=== PATIENT | male | born 1955 | race Caucasian/White ===

== ENCOUNTER 2017-12-26 12:43 | Observation (INO) | payer OTHER, SELFPAY ==
[2017-12-26] VITALS (12 sets, daily range): BP systolic 130–184; BP diastolic 71–108; PULSE 39–89; RESP 14–20; TEMP 36.7–36.9; O2SAT 94–97; BMI 23.0; BMI 22.1
--- NOTE | 2017-12-26 12:47 | EKG12_ITS ---
Test Reason : CP Blood Pressure : / mmHG Vent. Rate : 080 BPM Atrial Rate : 080 BPM P-R Int : 156 ms QRS Dur : 090 ms QT Int : 358 ms P-R-T Axes : 082 071 062 degrees QTc Int : 412 ms Normal sinus rhythm Normal ECG Confirmed by ANA MARISCAL, CHARLEY ([id number]), science editor RANDALL SALTER ([id number]) on 12/31/2017 2:22:05 PM Referred By: ADRIANA Confirmed By:CHARLEY PEREZ MD
--- NOTE | 2017-12-26 12:47 | RAD_ITS ---
STUDY: X-RAY CHEST REASON FOR EXAM: Male, 62 years old. New onset of chest pressure. TECHNIQUE: Single AP portable view of the chest. COMPARISON: None. FINDINGS: Hyperinflation. Decreased bronchovascular markings in both lungs suggestive of emphysematous changes. Scattered calcified granulomas. Findings suggestive of scarring at the right lung apex. There is no demonstrated pleural abnormality. Normal size heart. Normal mediastinum and leodan. There is prominence of the pulmonary hilar arteries without peripheral pulmonary vascular congestion, suggesting pulmonary hypertension. Normal visualized aortic arch and descending thoracic aorta. Normal visualized thoracic spine. Normal visualized ribs, clavicles, and shoulders. There is no demonstrated abnormality of the visualized soft tissue structures of the upper abdomen. RAD/Chest 1 View (Portable) IMPRESSION: Hyperinflation. No acute abnormality is seen. Electronically Signed: Charles Conte MD at 13:16 EDT Tel [phone], Service support ,
[2017-12-26 12:55] LABS: Absolute Lymphocyte Count 1.47 X10^3/ul (0.83-4.51); Absolute Neutrophil Count 3.1 X10^3/uL (2.0-7.7); Basophil# 0.08 X10^3/uL; Basophil% 1.5 % (0-1); Eosinophil# 0.13 X10^3/uL; Eosinophils% 2.5 % (0-5); Hematocrit 45.8 % (40-54); Hemoglobin 15.7 g/dl (13.0-16.5); Lymphocyte # 1.47 X10^3/ul (4.0); Lymphocyte % 27.7 % (19-41); Mean Corp Hgb Conc 34.3 g/gl (32-36); Mean Corpuscular Hgb 32.6 pg (27.0-32.0); Mean Platelet Vol. 9.4 fl (6.2-12.0); Monocyte# 0.51 X10^3/uL; Monocyte% 9.6 % (0-10); Neutrophil % 58.5 % (47-70); POSITIVE COUNT NO; POSITIVE DIFFERENTIAL NO; POSITIVE MORPHOLOGY NO; Platelet Count 201 K/mm3 (150-450); RBC Distribution Width CV 12.4 % (11.6-14.6); RBC Distribution Width SD 43.4 fl (35.1-43.9); Red Blood Count 4.82 M/mm3 (4.6-6.2); White Blood Count 5.3 K/mm3 (4.4-11.0)
[2017-12-26 13:10] LABS: Anion Gap 6 (5-15); BUN 12 mg/dL (7-18); Calcium,Total 8.9 mg/dL (8.5-10.1); Chloride 101 mmol/L (98-107); Creatinine, Serum 0.86 mg/dL (0.70-1.30); EST Glomerular Filtration Rate 96 mL/min (>60); Est Glom Filt Rate - Afr Amer 116 mL/min (>60); Estimated Creatinine Clearance 86.16 ml/min; Glucose 141 mg/dL (74-106); Potassium 4.1 mmol/L (3.5-5.1); Sodium Level 139 mmol/L (136-145)
--- NOTE | 2017-12-26 13:27 | ED.VISSUMM ---
- ER Visit Summary Date of Service: 12/26/17 Chief Complaint: Chest pain History of Present Illness: The patient is a 62 M presents with 2 hours of chest tightness that he had 13 years ago when he had a stent. He has a history of diabetes, hypercholesterolemia, hypertension and is a smoker. He is currently chest pain-free. No PE risk factors. Physical Examination: Not appear in acute distress. Moist mucous membranes, no obvious facial deformity No C-spine tenderness supple neck. Regular rate and rhythm without any obvious murmurs Clear lungs bilaterally speaking in full sentences without any obvious respiratory distress Abdomen soft and nontender no guarding or rebound Moves all extremities without any difficulty or pain. Skin does not show any obvious rashes or lesions, no trauma. Alert oriented ?3 with no gross focal deficit Emergency Department Course and Treatment: Patient has an unremarkable EKG and a normal first troponin. Due to his risk factors he will need admission. His heart score is a 4, his JOYA is a 4. I will call the hospitalist for admission. Disposition: Admit stable condition Impression: Chest pain This note was generated with [employer] dictation software. It may contain incorrect words, spelling, and punctuation that were not noted in review of the chart prior to signing ED Disposition - Plan for ED Patient: Chief Complaint: Chest Pain Referrals: Chano Pineda Chi, MD [Primary Care Provider] -
--- NOTE | 2017-12-26 14:07 | HP.PCM_ITS ---
Problem List (1) Chest pain Status: Acute Qualifiers: Chest pain type: unspecified Qualified Code(s): R07.9 - Chest pain, unspecified (2) CAD (coronary artery disease) Status: Chronic Qualifiers: Coronary Disease-Associated Artery/Lesion type: unspecified vessel or lesion type (3) Hypertension Status: Chronic Qualifiers: Hypertension type: essential hypertension Qualified Code(s): I10 - Essential (primary) hypertension (4) Hyperlipidemia Status: Chronic Qualifiers: Hyperlipidemia type: unspecified Qualified Code(s): E78.5 - Hyperlipidemia , unspecified (5) Nicotine dependence Status: Chronic Qualifiers: Nicotine product type: cigarettes History of Present Illness Date of Admission: 12/26/17 Chief Complaint: Chest pain- 1 day The patient is a 62 year old M with past medical history of CAD status post stent 13 years ago, hypertension, hyperlipidemia who comes in with chest pain that happened virtually at rest at work. Patient does not follow up with cardiology. Last saw his primary care doctor in June 2014. He was at work and was not doing any heavy work. He however had stress at work and was trying to figure out how to complete his day's job when he suddenly had substernal pressure-like chest discomfort, described as 2 out of 10 on the pain scale. He did not have any associated diaphoresis or nausea or vomiting or dizziness or palpitations. This chest discomfort did not travel to his neck or upper extremity. His vitals in the ED showed temperature of 9 8.5F, heart rate was 89, blood pressure was elevated at 176/71, respiratory rate was 60 he was saturating at 96 % on room air. EKG shows normal sinus rhythm, heart rate of 80, no acute ST-T changes, old Q waves noted in previous EKG. Admitting chest x-ray showed hyperinflation but no acute abnormality Past Medical History Past Medical History (Chronic Problems): Chronic Problems CAD (coronary artery disease) (Chronic) Hypertension (Chronic) Hyperlipidemia (Chronic) Nicotine dependence (Chronic) Allergies No Known Allergies Allergy (Verified 12/26/17 12:44) Home Medications: Ambulatory Orders Medication Instructions Recorded Aspirin [Aspirin, Baby] 81 mg PO DAILY@0800 12/26/17 Atorvastatin Calcium [Atorvastatin 80 mg PO DAILY 12/26/17 Calcium] Clopidogrel Bisulfate [Plavix] 75 mg PO DAILY 12/26/17 Lisinopril [Lisinopril] 20 mg PO DAILY 12/26/17 Metoprolol Tartrate [Lopressor 25 mg PO DAILY 12/26/17 (beta harpreet)] Surgical History: no surgical history Psychiatric History: No pertinent psych hx Lives: Alone Smoking Status: Current every day smoker Tobacco Use: Cigarettes Alcohol: Heavy Drugs: None - *Family History Paternal History Items: Heart Disease - [place] at 62 years Maternal History Items: Diabetes Review of Systems Constitutional: Denies: Anorexia, Chills, Fever, Malaise, Weakness, Weight Change Eyes: Denies: Blurred vision, Cataracts, Conjunctivae Inflammation, Pain, Redness, Vision Change HEENT: Denies: Difficulty Hearing, Difficulty Swallowing, Head Aches, Hearing Changes, Nasal bleeding, Nasal Congestion, Sinus Congestion, Sinus Drainage Cardiovascular: Reports: Chest Pain, Chest Pressure, Chest Tightness. Denies: Claudication, Light Headedness, Orthopnea, Palpitations, Paroxysmal Noc. Dyspnea , Syncope Respiratory: Denies: Cough, Hemoptysis, Shortness of Breath, Shortness of breath at rest, Shortness of breath upon exertion, Sputum production Gastrointestinal: Denies: Abdominal Pain, Hematemesis, Hematochezia, Nausea, Vomiting Genitourinary: Denies: Dysuria, Frequency, Incontinence Musculoskeletal: Denies: Joint Pain, Joint Tenderness Skin: Denies: Dryness, Jaundice, Rash, Skin Changes, Wounds Neurological: Denies: Difficulty swallowing, Focal weakness, Numbness, Tingling Psychiatric: Denies: Anxiety, Depression, Homicidal Ideations, Suicidal Ideations Hematologic/ Lymphatic: Denies: Easy Bruising, Easy Bleeding VTE Information - Inpt Only VTE Present on Admission: No VTE Pharm Prophylaxis ordered?: Yes Patient Problems: Active and Suspected Problems Chest pain (Acute) - Physical Exam General: Alert, Oriented x3, Cooperative, No apparent distress HEENT: Atraumatic, PERRLA, EOMI, Normocephalic Oral: Moist Mucosa Neck: Supple, No JVD, Negative Carotid Bruits Lungs: Clear to auscultation, Normal air movement Cardiovascular: Regular rate, Regular Rhythm, Normal S1, Normal S2, No murmurs Abdomen: Bowel Sounds Present, Soft, Non Tender, Non-Distended, No Hepato- splenomegaly Extremities: No edema Skin: No rashes, No breakdown Musculoskeletal: No Tenderness to Palpation of Joints or Extremities Lymphatic: No Cervical, Supraclavicular, or Inguinal Adenopathy Neurological: Cranial nerves II-XII grossly intact, Neuro grossly intact Psych/Mental Status: Normal Affect, Appropriate Vital Signs Temp Pulse Resp BP Pulse Ox 98.5 F 81 18 174/102 H 97 12/26/17 12:44 12/26/17 13:11 12/26/17 13:11 12/26/17 13:11 12/26/17 13:11 Oxygen Flow Rate (L/min) 2 Oxygen Delivery Method Nasal Cannula Weight: 68.7 kg Body Mass Index (BMI) 23.0 Laboratory Tests Past 24 Hrs 12/26/17 12/26/17 12:30 12:30 WBC 5.3 RBC 4.82 Hgb 15.7 Hct 45.8 MCV 95.0 H MCH 32.6 H MCHC 34.3 RDW 12.4 RDW Differential 43.4 Plt Count 201 MPV 9.4 Immature Gran % (Auto) 0.200 Neut % (Auto) 58.5 Lymph % (Auto) 27.7 [place] % (Auto) 9.6 Eos % (Auto) 2.5 Baso % (Auto) 1.5 H Absolute Neuts (auto) 3.1 Absolute Lymphs (auto) 1.47 Total Counted Not Reportable Sodium 139 Potassium 4.1 Chloride 101 Carbon Dioxide 32.0 Anion Gap 6 BUN 12 Creatinine 0.86 Estim Creat Clear Calc 86.16 Est GFR (MDRD) Af Amer 116 Est GFR (MDRD) Non-Af 96 BUN/Creatinine Ratio 14.0 Glucose 141 H Calcium 8.9 Troponin I < 0.015 Assessment/Plan All Active Problems Chest pain (Acute) 62 year old M with past medical history of CAD status post stent 13 years ago, hypertension, hyperlipidemia, who does not follow-up with cardiology, comes in with chest pain that happened at work whilst at rest. 1. Chest pain, atypical, history of CAD status post stent, initial troponin is negative, EKG shows no acute ST-T changes, Plan: Admit to PCU, continue to monitor on telemetry, trend troponins, stress test in a.m., 2D echo, continue on on aspirin, Plavix, statins, beta-harpreet, CHRISTA inhibitor. Check lipid profile in am, HgbA1c. 2. Hypertension, uncontrolled, on lisinopril and metoprolol, patient states he has taken his medications this morning. He states his blood pressure gets better by the afternoon. It was normal yesterday. We will continue to monitor BP, continue home blood pressure regimen and add hydralazine as needed 3. Hyperlipidemia, on statin, will continue home statins, check lipid profile in am 4. Nicotine dependence, advised to quit, will start on nicotine patch and gum. 5. DVT PPx Code Visit OBSV E&M: 41429 Initial observation care L3
--- NOTE | 2017-12-26 15:21 | EKG12_ITS ---
Test Reason : ABNORMAL RHYTHM Blood Pressure : / mmHG Vent. Rate : 054 BPM Atrial Rate : 054 BPM P-R Int : 168 ms QRS Dur : 092 ms QT Int : 438 ms P-R-T Axes : 069 057 052 degrees QTc Int : 415 ms Sinus bradycardia Otherwise normal ECG When compared with ECG of 26-DEC-2017 16:00, MANUAL COMPARISON REQUIRED, DATA IS UNCONFIRMED Confirmed by ANA MARISCAL, CHARLEY ([id number]), editor publications RANDALL SALTER ([id number]) on 12/31/2017 3:07:22 PM Referred By: JAC Confirmed By:CHARLEY PEREZ MD
--- NOTE | 2017-12-26 15:21 | ECHOD_ITS ---
Version 2 Reason For Study: Chest Pain Procedure This was a 2D Doppler, Color Flow transthoracic echocardiogram. Exam performed in department. Left Ventricle Normal LV size. The estimated ejection fraction is 60 %. Mild segmental systolic dysfunction (see wall motion). Mid-Inferior: Hypokinetic. Infero-Basal: Hypokinetic. The rest of the wall segments are normal. Right Ventricle Normal RV size. Normal systolic function. Atria Normal left atrium. Normal right atrium. Mitral Valve Bileaflet diffuse mitral valve thickening. Tricuspid Valve Normal tricuspid valve. Mild (1+) tricuspid valve insufficiency. Aortic Valve Normal aortic valve. Trisinus/trileaflet aortic valve. Pulmonic Valve Normal pulmonic valve. Great Vessels Normal aortic root. The pulmonary artery is normal size. Normal inferior vena cava. Pericardium/Pleural No pericardial effusion. MMode/2D Measurements & Calculations LVIDd: 4.5 cm IVSd: 0.83 cm Ao root diam: 3.9 cm LVIDs: 2.7 cm LVPWd: 1.1 cm LA dimension: 3.0 cm RVDd: 3.9 cm FS: 39.5 % LAV(MOD-bp): 41.0 ml LA A4 area: 15.2 cm2 RA A4 area: 12.7 cm2 LAV(MOD-bp) Indexed: 23.0 ml/m2 LAV(MOD-sp2): 48.2 ml LAV(MOD-sp4): 34.2 ml Time Measurements MV dec time: 0.29 sec Doppler Measurements & Calculations MV E max rian: 88.2 cm/sec Lat Peak E' Rian: 12.0 cm/sec Med Peak E' Rian: 9.3 cm/sec MV A max rian: 78.2 cm/sec E/E' lat: 7.3 E/E' med: 9.5 MV E/A: 1.1 MV V2 max: 108.3 cm/sec MV P1/2t max rian: 108.8 cm/sec Ao V2 max: 97.4 cm/sec MV max P.7 mmHg MV P1/2t: 95.7 msec Ao max P.8 mmHg MV V2 mean: 62.5 cm/sec MV dec slope: 333.0 cm/sec2 Ao V2 mean: 65.0 cm/sec MV mean P.8 mmHg MVA(P1/2t): 2.3 cm2 Ao mean P.9 mmHg MV V2 VTI: 32.3 cm Ao V2 VTI: 19.0 cm LV V1 max: 77.8 cm/sec PA V2 max: 88.8 cm/sec LV V1 max P.4 mmHg LV V1 mean P.1 mmHg LV V1 mean: 46.0 cm/sec LV V1 VTI: 15.8 cm Interpretation Summary Normal LV size. The estimated ejection fraction is 60 %. Mild segmental systolic dysfunction (see wall motion). The rest of the wall segments are normal. Infero-Basal: Hypokinetic Mid-Inferior: Hypokinetic Ordering Physician: Katlin Green Referring Physician: Chano Pineda Chi Performed By: Francisco Brewer RCS
--- NOTE | 2017-12-26 15:52 | EKG12_ITS ---
Test Reason : Blood Pressure : / mmHG Vent. Rate : 068 BPM Atrial Rate : 068 BPM P-R Int : 154 ms QRS Dur : 092 ms QT Int : 406 ms P-R-T Axes : 077 052 043 degrees QTc Int : 431 ms Normal sinus rhythm Normal ECG When compared with ECG of 26-DEC-2017 15:36, MANUAL COMPARISON REQUIRED, DATA IS UNCONFIRMED Confirmed by ANA MARISCAL, CHARLEY ([id number]), order editor RANDALL SALTER ([id number]) on 12/31/2017 3:07:44 PM Referred By: JAC Confirmed By:CHARLEY PEREZ MD
[2017-12-26 16:33] LABS: Hemoglobin A1c 6.1 % (4.2-6.3)
[2017-12-26] MEDS: Metoprolol Tartrate 25 MG Tablet PO ×2 (18:07→21:08)
[2017-12-26] MEDS: Thiamine Hydrochloride 100 MG Tablet PO (18:14)
[2017-12-26] MEDS: Atorvastatin Calcium 80 MG Tablet PO (21:08)
[2017-12-26] MEDS: Clopidogrel Bisulfate 75 MG Tablet PO (21:10)
[2017-12-26] MEDS: Lisinopril 20 MG Tablet PO (21:11)
--- NOTE | 2017-12-26 23:00 | EKG12_ITS ---
Test Reason : Blood Pressure : / mmHG Vent. Rate : 069 BPM Atrial Rate : 069 BPM P-R Int : 154 ms QRS Dur : 100 ms QT Int : 398 ms P-R-T Axes : 080 063 049 degrees QTc Int : 426 ms Normal sinus rhythm Normal ECG When compared with ECG of 27-FEB-2005 13:05, Nonspecific T wave abnormality no longer evident in Lateral leads Confirmed by ANA MARISCAL, CHARLEY ([id number]), fashion editor RANDALL SALTER ([id number]) on 12/31/2017 3:07:53 PM Referred By: JAC Confirmed By:CHARLEY PEREZ MD
[2017-12-27] VITALS (7 sets, daily range): BP systolic 118–144; BP diastolic 72–97; PULSE 53–65; RESP 14–18; TEMP 36.6–36.9; O2SAT 94–98
--- NOTE | 2017-12-27 05:00 | EKG12_ITS ---
Test Reason : AM EKG Blood Pressure : / mmHG Vent. Rate : 053 BPM Atrial Rate : 053 BPM P-R Int : 154 ms QRS Dur : 090 ms QT Int : 484 ms P-R-T Axes : 070 059 055 degrees QTc Int : 454 ms Sinus bradycardia Anterior injury pattern - cannot exclude early NV Abnormal ECG When compared with ECG of 26-DEC-2017 22:38, MANUAL COMPARISON REQUIRED, DATA IS UNCONFIRMED Confirmed by ANA MARISCAL, CHARLEY ([id number]), material expeditor RANDALL SALTER ([id number]) on 12/31/2017 3:06:45 PM Referred By: JAC Confirmed By:CHARLEY PEREZ MD
[2017-12-27 05:55] LABS: Anion Gap 5 (5-15); BUN 11 mg/dL (7-18); BUN/Creat Ratio 16.3 RATIO (10-20); Calcium,Total 8.4 mg/dL (8.5-10.1); Chloride 103 mmol/L (98-107); Cholesterol 114 mg/dL (200); Creatinine, Serum 0.68 mg/dL (0.70-1.30); EST Glomerular Filtration Rate 126 mL/min (>60); Est Glom Filt Rate - Afr Amer 153 mL/min (>60); Estimated Creatinine Clearance 105.15 ml/min; Glucose 95 mg/dL (74-106); High Density Lipoprotein 72 mg/dL; Potassium 5.1 mmol/L (3.5-5.1); Sodium Level 140 mmol/L (136-145); Triglycerides 50 mg/dL; Very Low Density Lipoprotein 10 mg/dL (5-40)
[2017-12-27 06:00] LABS: Hematocrit 45.2 % (40-54); Hemoglobin 15.5 g/dl (13.0-16.5); Mean Corp Hgb Conc 34.3 g/gl (32-36); Mean Corpuscular Hgb 32.6 pg (27.0-32.0); Mean Platelet Vol. 9.7 fl (6.2-12.0); Platelet Count 201 K/mm3 (150-450); RBC Distribution Width CV 12.3 % (11.6-14.6); RBC Distribution Width SD 42.3 fl (35.1-43.9); Red Blood Count 4.76 M/mm3 (4.6-6.2); White Blood Count 4.7 K/mm3 (4.4-11.0)
[2017-12-27 06:02] LABS: Prothrombin Time (Protime)PT. 13.6 SECONDS (11.7-14.9)
[2017-12-27 06:03] LABS: Partial Thromboplast Time 29.6 Seconds (24.1-36.2)
[2017-12-27 06:12] LABS: Scan Indicated on CBC? Y/N NO
[2017-12-27] MEDS: Aspirin 81 MG TAB.CHEW PO (06:21)
[2017-12-27] MEDS: Clopidogrel Bisulfate 75 MG Tablet PO (06:21)
[2017-12-27] MEDS: Lisinopril 20 MG Tablet PO (06:21)
--- NOTE | 2017-12-27 08:58 | STRESSREP_ITS ---
Stress Test Report Exercise myocardial perfusion stress test. 62-year-old man with a history of coronary artery disease. Stress protocol: Resting EKG demonstrates sinus bradycardia with a rate of 54 bpm normal intervals and noted. Resting blood pressure is 114/78 mmHg. The patient exercised according to the regular Frank protocol for a total duration of 9 minutes and 15 seconds the maximum heart rate attained was 134 bpm which was 84 % of maximum predicted heart rate the patient completed 15 seconds to stage IV of the Frank protocol. The maximum heart rate attained was 134 bpm the maximum workload was 10.5 metabolic equivalents. The resting blood pressure is 114/78 with a peak blood pressure 164/88. At rest there were no ST or T-wave changes noted suggest ischemia peak exercise upsloping ST changes only were noted with no meet the criteria for ischemia. Occasional premature ventricular complex was noted no clinical angina was noted the test was terminated due to shortness of breath. Myocardial perfusion protocol. 11.4 mCi of technetium 99m sestamibi was injected at rest. The patient exercised according to regular Frank protocol for 9 minutes and 15 seconds attaining 10 metabolic equivalents at peak exercise 32.7 mCi of technetium 99m sestamibi was injected stress images were obtained stress and rest images were reconstructed and compared in the short axis vertical long and horizontal long axis. Gated images were also obtained pre- Perfusion SPECT analysis revealed. Review of the stress images demonstrate normal cardiac silhouette size with normal uptake of tracer noted in the septum anterior wall and lateral wall. The basal to mid inferior wall on the stress images but has a medium-sized perfusion defect. The resting images demonstrate minimal improvement but there is significant GI attenuation artifact and it is not clear whether this is secondary to ischemia of bowel motion artifact. The previous infarct, however cannot be completely excluded. Gated SPECT analysis: The gated ejection fraction is noted to be 61%. 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 Cannot completely exclude gisela-infarct ischemia. Preserved ejection fraction. Low risk stress test.
[2017-12-27] MEDS: Thiamine Hydrochloride 100 MG Tablet PO (09:10)
[2017-12-27] MEDS: Folic Acid 1 MG Tablet PO (09:10)
[2017-12-27] MEDS: Multivitamins,Ther W-Minerals Tablet 1 TABLET PO (09:10)
[2017-12-27] MEDS: Metoprolol Tartrate 50 MG Tablet PO (09:10)
--- NOTE | 2017-12-27 10:44 | PCM.DC.SUM ---
Discharge Date and Diagnosis Date of Admission: 12/26/17 Date of Discharge: 12/27/17 - Primary Discharge Diagnosis Active and Suspected Problems Chest pain (Acute) - Secondary Discharge Diagnosis Chronic Problems CAD (coronary artery disease) (Chronic) Hypertension (Chronic) Hyperlipidemia (Chronic) Nicotine dependence (Chronic) Hospital Course and Treatment Imaging Results: Diagnostic Data Chest X-Ray 12/26/17 12:47 IMPRESSION: Hyperinflation. No acute abnormality is seen. Electronically Signed: Charles Conte MD at 13:16 EDT Tel [phone], Service support , Laboratory Tests 12/26/17 12/26/17 12/26/17 12:30 12:30 15:57 WBC 5.3 RBC 4.82 Hgb 15.7 Hct 45.8 MCV 95.0 H MCH 32.6 H MCHC 34.3 RDW 12.4 RDW Differential 43.4 Plt Count 201 MPV 9.4 Immature Gran % (Auto) 0.200 Neut % (Auto) 58.5 Lymph % (Auto) 27.7 [place] % (Auto) 9.6 Eos % (Auto) 2.5 Baso % (Auto) 1.5 H Absolute Neuts (auto) 3.1 Absolute Lymphs (auto) 1.47 Total Counted Not Reportable PT INR APTT Sodium 139 Potassium 4.1 Chloride 101 Carbon Dioxide 32.0 Anion Gap 6 BUN 12 Creatinine 0.86 Estim Creat Clear Calc 86.16 Est GFR (MDRD) Af Amer 116 Est GFR (MDRD) Non-Af 96 BUN/Creatinine Ratio 14.0 Glucose 141 H Hemoglobin A1c 6.1 Calcium 8.9 Troponin I < 0.015 Triglycerides Cholesterol LDL Cholesterol VLDL Cholesterol HDL Cholesterol 12/26/17 12/26/17 12/27/17 15:57 18:35 05:00 WBC 4.7 RBC 4.76 Hgb 15.5 Hct 45.2 MCV 95.0 H MCH 32.6 H MCHC 34.3 RDW 12.3 RDW Differential 42.3 Plt Count 201 MPV 9.7 Immature Gran % (Auto) Neut % (Auto) Lymph % (Auto) [place] % (Auto) Eos % (Auto) Baso % (Auto) Absolute Neuts (auto) Absolute Lymphs (auto) Total Counted PT INR APTT Sodium Potassium Chloride Carbon Dioxide Anion Gap BUN Creatinine Estim Creat Clear Calc Est GFR (MDRD) Af Amer Est GFR (MDRD) Non-Af BUN/Creatinine Ratio Glucose Hemoglobin A1c Calcium Troponin I < 0.015 < 0.015 Triglycerides Cholesterol LDL Cholesterol VLDL Cholesterol HDL Cholesterol 12/27/17 12/27/17 05:00 05:00 WBC RBC Hgb Hct MCV MCH MCHC RDW RDW Differential Plt Count MPV Immature Gran % (Auto) Neut % (Auto) Lymph % (Auto) [place] % (Auto) Eos % (Auto) Baso % (Auto) Absolute Neuts (auto) Absolute Lymphs (auto) Total Counted PT 13.6 INR 1.0 APTT 29.6 Sodium 140 Potassium 5.1 Chloride 103 Carbon Dioxide 32.0 Anion Gap 5 BUN 11 Creatinine 0.68 L Estim Creat Clear Calc 105.15 Est GFR (MDRD) Af Amer 153 Est GFR (MDRD) Non-Af 126 BUN/Creatinine Ratio 16.3 Glucose 95 Hemoglobin A1c Calcium 8.4 L Troponin I Triglycerides 50 Cholesterol 114 LDL Cholesterol 32 VLDL Cholesterol 10 HDL Cholesterol 72 none Operations: None Procedures: Stress test Summary of Care Provided: The patient is a 62 year old M with a past medical history of CAD status post stents 13 years ago after an [place], hypertension and hyperlipidemia. He was admitted on 12/26/2017 with a complaint of chest pain while she was at work. 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 He denied any diaphoresis or nausea vomiting, dizziness or palpitation. Pain did not radiate to his left arm. Review of systems also otherwise negative. Vitals in the ED also significant for blood pressure of 1 7671. EKG showed normal sinus rhythm with heart rate of [address] changes and only old EKGs noted in previous EKGs. Chest x-ray showed hyperinflation but no acute pathology. Troponins ?3 were negative he was admitted and managed for chest pain to rule out ACS. Exercise myocardial perfussion Stress test done on 12/27/2017 was negative, and only showed probable previous inferior basal infarct, cannot completely exclude gisela-infarct ischemia, Preserved EF, low risk stress test. Patient seen and examined prior to discharge. He had no complaints since her chest pain had resolved. He denied any fever or chills, cough or chest pain, any palpitations, any abdominal pain, any diarrhea vomiting. Review of systems otherwise negative. Vitals reviewed and was stable. Blood pressure improved to 07/16/1985 overnight was 1 4497 at time of discharge. On examination General: Alert, Oriented x3, Cooperative, No apparent distress HEENT: Atraumatic, PERRLA, EOMI, Normocephalic Oral: Moist Mucosa Neck: Supple, No JVD, Negative Carotid Bruits Lungs: Clear to auscultation, Normal air movement Cardiovascular: Regular rate, Regular Rhythm, Normal S1, Normal S2, No murmurs Abdomen: Bowel Sounds Present, Soft, Non Tender, Non-Distended, No Hepato-splenomegaly Extremities: No edema Skin: No rashes, No breakdown Musculoskeletal: No Tenderness to Palpation of Joints or Extremities Lymphatic: No Cervical, Supraclavicular, or Inguinal Adenopathy Neurological: Cranial nerves II-XII grossly intact, Neuro grossly intact Psych/Mental Status: Normal Affect, Appropriate [] Plan is to discharge patient home. His continue home aspirin and Plavix as well as metoprolol and atorvastatin. Will give sublingual nitroglycerin as needed. Will up with his primary care doctor in 1 week. Discharge Diet: Low fat/ Low Cholesterol Weight Bearing Status: Weight bearing as tolerated Call your doctor if you observe: Shortness of breath, Dizziness, Chest pain Home Medications: Medications to take at Discharge Aspirin [Aspirin, Baby] 81 mg PO DAILY@0800 12/26/17 Atorvastatin Calcium 80 mg PO DAILY 12/26/17 Clopidogrel Bisulfate [Plavix] 75 mg PO DAILY 12/26/17 Lisinopril 20 mg PO BID 12/26/17 Metoprolol Tartrate [Lopressor (beta harpreet)] 25 mg PO BID 12/26/17 Nitroglycerin [Nitrostat] 0.4 mg SUBLINGUAL Q5M PRN #30 tab 12/27/17 Following Prescrptions Were Given to Patient: Nitroglycerin [Nitrostat] 0.4 mg SUBLINGUAL Q5M PRN #30 tab PRN Reason: Chest Pain Primary Care Physician: Chano Pineda Chi, MD [Primary Care Provider] - Please follow up with your Primary Care Physician in: one week Patient Instructions: Warning Signs of a Heart Attack, ED Chest Pain NonCardiac Disposition: Home Medical Necessity - Tobacco Use Smoking Status: Current every day smoker Tobacco Use: Cigarettes Meaningful Use Info Meaningful Use Diagnoses (Choose all that apply): None applicable
--- NOTE | 2017-12-27 10:53 | DCINST_ITS ---
- Discharge Diagnoses Current Active Problems: Current Active and Chronic Problems Chest pain (Acute) CAD (coronary artery disease) (Chronic) Hypertension (Chronic) Hyperlipidemia (Chronic) Nicotine dependence (Chronic) You will use the following diet at home:: Cardiac Your food should be the consistency of: Regular Your liquids should be the consistency of: Regular/Thin Discharge Activity: Return to Normal Activity Weight Bearing Status: Weight bearing as tolerated Call your doctor if you observe: Shortness of breath, Dizziness, Chest pain Instructions: Warning Signs of a Heart Attack, ED Chest Pain NonCardiac Allergies/Adverse Reactions: Allergies No Known Allergies Allergy (Verified 12/26/17 12:44) Medications to take at Discharge Aspirin [Aspirin, Baby] 81 mg PO DAILY@0800 12/26/17 Atorvastatin Calcium 80 mg PO DAILY 12/26/17 Clopidogrel Bisulfate [Plavix] 75 mg PO DAILY 12/26/17 Lisinopril 20 mg PO BID 12/26/17 Metoprolol Tartrate [Lopressor (beta harpreet)] 25 mg PO BID 12/26/17 Nitroglycerin [Nitrostat] 0.4 mg SUBLINGUAL Q5M PRN #30 tab 12/27/17 The following prescriptions were given: Nitroglycerin [Nitrostat] 0.4 mg SUBLINGUAL Q5M PRN #30 tab PRN Reason: Chest Pain Primary Care Physician: Chano Pineda Chi, MD [Primary Care Provider] - Please follow up with your Primary Care Physician in: one week Test Results: Test results from this visit will be discussed in further detail at your follow- up appointment, if applicable. Proposed Discharge Date: 12/27/17
== END 2017-12-27 10:52 | disposition home or self-care (01) ==
LOC: ED 13:42 → PCU 14:17
PROVIDERS: Admitting Provider Internal Medicine; Emergency Provider Emergency Medicine; Family Provider Family Medicine Geriatric Medicine; PCP Family Medicine Geriatric Medicine; Visit Provider Student in an Organized Health Care Education/Training Program
DX: R07.89 Other chest pain (principal); E11.9 Type 2 diabetes mellitus without complications; I10 Essential (primary) hypertension; I25.10 Atherosclerotic heart disease of native coronary artery without angina pectoris; E78.5 Hyperlipidemia, unspecified; F17.210 Nicotine dependence, cigarettes, uncomplicated; Z95.5 Presence of coronary angioplasty implant and graft; Z79.899 Other long term (current) drug therapy; Z79.82 Long term (current) use of aspirin; Z79.02 Long term (current) use of antithrombotics/antiplatelets; I25.2 Old myocardial infarction
CPT/HCPCS: 36415; 71045; 78452; 80048; 80061; 83036; 84484; 85025; 85027; 85610; 85730; 93005; 93017; 93306; 99218; 99283; 99406; A9500; A4216; G0378; J2785

== ENCOUNTER 2024-12-10 14:04 | Inpatient (IN) | payer MEDICARE, MEDICAID, SELFPAY ==
[2024-12-10] VITALS (11 sets, daily range): BP systolic 137–171; BP diastolic 81–96; PULSE 81–142; RESP 16–22; TEMP 36.6–36.8; O2SAT 88–95; BMI 34.4; BMI 33.4
--- NOTE | 2024-12-10 16:29 | EDS_ITS ---
HPI History of Present Illness Chief Complaint: Edema Informant: patient Narrative Narrative: Patient is a 69-year-old male with history of coronary artery disease (status post stenting), hypertension, hyperlipidemia, tobacco use (quit 2 years ago), and COPD presenting with worsening leg swelling and drainage. Patient has had worsening swelling for the past few weeks. About a week ago he stopped responding to his diuretic so he to stop taking it since it was not working. He states he has pain in his thighs because they feel swollen in the morning. He states he continues to urinate. He denies any abdominal swelling or scrotal swelling. States he has chronic shortness of breath but has been worsening and has been having worsening dyspnea on exertion with even going to the bathroom lately. He is a chronic cough is productive of phlegm but denies any acute change in that. Denies any chest pain, fevers, dizziness, nausea, vomiting, diarrhea or melena. Not on any blood thinners. Because of the severity of his leg swelling he finally went to the ER today. He notes that he has been having serous drainage coming from his left heel that initially had stopped but then restarted again in the last day or 2. [facility] Medical History Myocardial infarct COPD (chronic obstructive pulmonary disease) Home Medications ?Medication ?Instructions ?Recorded ?Last Taken ?Type atorvastatin 80 mg tablet 80 mg PO DAILY cholesterol l owering 12/26/17 12/25/17 History clopidogrel 75 mg tablet 75 mg PO DAILY blood 8 12/25/17 History lisinopril 20 mg tablet 20 mg PO BID blood pressure 12/26/17 12/26/17 History metoprolol tartrate 25 mg tablet 25 mg PO BID blood pr essure 12/26/17 12/26/17 History nitroglycerin 0.4 mg sublingual 0.4 mg sublingual Q5M PRN Chest 12/27/17 Unknown Rx tablet Pain #30 tabs albuterol sulfate 90 mcg/actuation 2 puff inhalation Q 6H PRN PRN 12/10/24 Unknown History aerosol inhaler wheezing fluticasone 500 mcg-salmeterol 50 1 ea inhalation BID 12/10/24 Unknown History mcg/dose blistr powdr for inhalation furosemide 20 mg tablet 20 mg PO DAILY 12/10/24 Unkn own History Allergy/AdvReac Type Severity Reaction Status Date / Time No Known Allergies Allergy Verified 12/10/24 14:06 Surgical History History of coronary artery stent placement Social History Smoking Status: Former smoker ROS ROS ED Constitutional Constitutional ED: Denies chills or fever(s) ENT ENT ED: Denies sore throat Cardiovascular Cardiovascular: Denies chest pain or palpitations Respiratory/Chest Respiratory/Chest: Reports cough, dyspnea, dyspnea on exertion and sputum Gastrointestinal Gastrointestinal: Denies abdominal pain, diarrhea, melena, nausea or vomiting Genitourinary Genitourinary ED: Denies dysuria, hematuria or urinary frequency Musculoskeletal Musculoskeletal: Reports myalgias and other Details: Leg swelling and discomfort ; Denies arthralgias Integumentary Denies rash Neurologic Neurologic: Denies paresthesias or weakness Hematologic/Lymphatic Hematologic/Lymphatic: Denies easy bleeding or easy bruising EXAM Physical Exam Const Vital Signs: 12/10/24 14:04 12/10/24 15:18 12/10/24 16:17 Temperature 97.8 F Temperature Source Temporal Pulse Rate 90 Respiratory Rate 16 Respiratory Effort Normal Non-Labored Respiratory Pattern Normal Blood Pressure 154/81 H Blood Pressure Mean 105 Pulse Ox 92 Oxygen Delivery Method Room Air Room Air 12/10/24 16:18 12/10/24 16:49 12/10/24 17:35 Temperature Temperature Source Pulse Rate 82 110 H 142 H Respiratory Rate 19 H 18 16 Respiratory Effort Respiratory Pattern Blood Pressure 171/91 H 166/96 H Blood Pressure Mean 117 119 Pulse Ox 95 90 Oxygen Delivery Method Room Air 12/10/24 17:39 12/10/24 17:44 12/10/24 18:34 Temperature 98.0 F Temperature Source Pulse Rate 89 82 82 Respiratory Rate 22 H 22 H Respiratory Effort Respiratory Pattern Blood Pressure 145/88 H 137/88 H 137/88 H Blood Pressure Mean 107 104 104 Pulse Ox 92 92 Oxygen Delivery Method Room Air Positive well nourished and well developed General Appearance ED: well developed and NAD HEENT Reports moist mucous membranes Eyes PERRL Neck supple and no JVD Chest Wall inspection of chest normal and palpation of chest normal Resp Resp Narrative: Mildly tachypneic. Diminished breath sounds at the base with Rales and expiratory wheezing appreciated Cardio regular rate, regular rhythm and no murmurs GI normal to inspection, nondistended, normoactive bowel sounds and non-tender Palpation: soft Extremity Extremity Narrative: Significant pitting edema present up to the mid thighs. There is bilateral erythema and chronic venous stasis changes of the feet and up to the mid shins. There is blistering and serous drainage noted from the left heel. Neuro oriented x3 Sensorium / Orientation: alert Motor Exam: general weakness Psych mental status grossly normal Skin Skin Narrative: Bilateral erythema of the lower legs. No associated lymphangitic streaking. Blistering most notably over the left heel. Scattered areas of dried serous crusting on the lower extremities as well MDM MDM MDM Narrative Medical decision making narrative: Patient evaluated for worsening lower extremity edema, dyspnea on exertion and shortness of breath. Vital signs significant for mild hypertension. He is only 92% on room air. Does not wear home O2. Differential includes fluid overload, CHF exacerbation, symptomatic anemia, CHAGO, electrolyte abnormality, pleural effusions and less likely pneumonia. Does not any chest pain but ACS is also in the differential. CBC is largely normal. CMP also within normal limits. No CHAGO or significant electrolyte abnormalities.-See troponin mildly elevated at 41. BNP also elevated at 1378. EKG obtained which shows atrial fibrillation with RVR. Patient be given IV metoprolol. Review of his chest x-ray shows pulmonary vascular congestion no significant pleural effusions on my interpretation. Will add on CTA to ensure he does not have a PE that is causing his symptoms. In the meantime is given IV Lasix. CTA shows pulmonary nodule, lung emphysema/COPD but no acute pulmonary emboli.Patient will be admitted for further diuresis and treatment of his hypoxia/work of breathing. He is agreeable. Remains hemodynamically stable at this time. Has rate improvement with IV metoprolol in the emergency room Lab Data Attestation: I reviewed the patient's lab results. Labs: Laboratory Results - last 24 hr 12/10/24 12/10/24 15:15 17:50 WBC 5.1 RBC 4.77 Hgb 15.2 Hct 46.0 MCV 96.4 H MCH 31.9 MCHC 33.0 RDW Std Deviation 46.6 H RDW Coeff of Migel 13.1 Plt Count 215 MPV 9.2 Immature Gran % (Auto) 0.400 Neut % (Auto) 67.2 Lymph % (Auto) 16.0 L [place] % (Auto) 11.6 H Eos % (Auto) 3.6 Baso % (Auto) 1.2 H Absolute Neuts (auto) 3.4 Absolute Lymphs (auto) 0.81 L Nucleated RBC % 0 Sodium 133 Potassium 4.7 Chloride 97 L Carbon Dioxide 25.0 Anion Gap 11 BUN 8 Creatinine 0.80 Estim Creat Clear Calc 95.21 Est GFR (MDRD) Non-Af 96 BUN/Creatinine Ratio 10.5 Glucose 97 Calcium 8.8 Troponin T High Sens 41 H Troponin T Hi Sens 2 Hr 37 H NT pro BNP II 1378 H TSH 1.640 Radiography Chest X-Ray - ED: 2 View, Read by ED Physician and CHF (Pulmonary vascular congestion) Diagnostic Testing: Clinical Impression(s) from Imaging Studies Chest X-Ray 12/10/24 16:33 IMPRESSION: Cardiomegaly with mild congestion. Reading Location: [facility] Chest CTA 12/10/24 17:02 IMPRESSION: 1. No pulmonary embolism. 2. Lung emphysema/COPD. 3.0 cm spiculated nodule of the posterior right lower lobe. Further evaluation with PET-CT or tissue biopsy is recommended. 3. 5 mm nodule of the lateral left upper lobe. Reading Location: [facility] Rhythm Strip Rhythm Strip: A-fib Rate: 126 Ectopy: None EKG Initial EKG: Attestation: I personally reviewed and interpreted this EKG as follows: Interpretation: Atrial Fibrillation Comments: Atrial fibrillation with RVR rate of 126 bpm Normal axis Normal intervals Normal ST segments This is new compared to prior EKG on 12/26/2017 Differential Diagnosis Chest pain/SOB: pulmonary embolism, ACS, pneumothorax, pneumonia and CHF Management Discussion w/another healthcare provider: Hospitalist Discharge Plan Triage Chief Complaint: Edema ED Provider: Gifty Gonzalez Dx/Rx/DC Orders Clinical Impression: Acute CHF, Edema, peripheral, Atrial fibrillation with RVR, OSEI (dyspnea on exertion), Lung nodule Prescriptions: No Action atorvastatin 80 MG tablet 80 mg PO DAILY Patient Comments: TAKE ONE TABLET BY MOUTH EVERY DAY lisinopril 20 MG tablet 20 mg PO BID Patient Comments: clopidogrel 75 MG tablet 75 mg PO DAILY Patient Comments: metoprolol tartrate 25 MG tablet 25 mg PO BID Patient Comments: nitroglycerin 0.4 MG tablet 0.4 mg SUBLINGUAL Q5M PRN (Reason: Chest Pain) Qty: 30 1RF fluticasone propion-salmeterol 500-50 mcg/dose blister with device 1 ea INHALATION BID furosemide 20 mg tablet 20 mg PO DAILY albuterol sulfate 90 mcg/actuation HFA aerosol inhaler 2 puff inhalation Q6H PRN PRN (Reason: wheezing) Primary Care Provider: Toshia Queen Referrals: Toshia Queen MD [Primary Care Provider] - Print Language: Divehi Disposition Disposition: Acute Care Hospital [facility]
--- NOTE | 2024-12-10 16:33 | RAD_ITS ---
EXAM: XR Chest, 2 Views CLINICAL INDICATION: SOB TECHNIQUE: Frontal and lateral views of the chest. COMPARISON: No relevant prior studies available. FINDINGS: LUNGS AND PLEURAL SPACES: See below. HEART: Cardiomegaly with mild congestion. MEDIASTINUM: Unremarkable. Normal mediastinal contour. BONES/JOINTS: Unremarkable. No acute fracture. RAD/Chest PA and Lateral IMPRESSION: Cardiomegaly with mild congestion. Reading Location: [id number]
[2024-12-10 16:42] LABS: Absolute Lymphocyte Count 0.81 X10^3/uL (0.83-4.51); Absolute Neutrophil Count 3.4 X10^3/uL (2.0-7.7); Basophil# 0.06 X10^3/uL; Basophil% 1.2 % (0-1); Eosinophil# 0.18 X10^3/uL; Eosinophils% 3.6 % (0-5); Hemoglobin 15.2 g/dL (13.0-16.5); Lymphocyte # 0.81 X10^3/ul (0.83-4.51); Mean Corpuscular Hgb 31.9 pg (27.0-32.0); Mean Corpuscular Volume 96.4 fL (80-94); Mean Platelet Vol. 9.2 fl (6.2-12.0); Monocyte# 0.59 X10^3/uL; Monocyte% 11.6 % (0-10); NRBC Flagged by Analyzer 0 % (0-5); Neutrophil # 3.41 X10^3/uL (2.7-7.7); Neutrophil % 67.2 % (47-70); Platelet Count 215 K/mm3 (150-450); RBC Distribution Width CV 13.1 % (11.6-14.6); RBC Distribution Width SD 46.6 fl (35.1-43.9); Red Blood Count 4.77 M/mm3 (4.6-6.2); White Blood Count 5.1 K/mm3 (4.4-11.0)
[2024-12-10] MEDS: Ipratropium/Albuterol Sulfate 3 ML AMPUL.NEB INHALATION (16:47)
[2024-12-10 16:49] LABS: Anion Gap 11 (5-15); BUN 8 mg/dL (4-19); BUN/Creat Ratio 10.5 RATIO (10-20); Calcium,Total 8.8 mg/dL (7.6-11.0); Chloride 97 mmol/L (98-108); EST Glomerular Filtration Rate 96 (>60); Estimated Creatinine Clearance 95.21 ml/min (50-250); Glucose 97 mg/dL (70-99); Potassium 4.7 mmol/L (3.3-5.1); Pro- Brain NATRIURETIC PEPTIDE 1378 pg/mL (<=900); Sodium Level 133 mmol/L (133-145); Troponin T High Sensitivity 41 ng/L (<=22)
--- NOTE | 2024-12-10 17:02 | CT_ITS ---
EXAM: CT Angiography Chest Without and With Intravenous Contrast CLINICAL INDICATION: SOB TECHNIQUE: Axial computed tomographic angiography images of the chest without and with intravenous contrast. This CT exam was performed using one or more of the following dose reduction techniques: automated exposure control, adjustment of the mA and/or kV according to patient size, and/or use of iterative reconstruction technique. MIP reconstructed images were created and reviewed. COMPARISON: No relevant prior studies available. FINDINGS: PULMONARY ARTERIES: Unremarkable. No pulmonary embolism. AORTA: Scattered calcified atherosclerotic disease of aorta. No thoracic aortic aneurysm. LUNGS AND PLEURAL SPACES: Lung emphysema/COPD. 3.0 cm spiculated nodule of the posterior right lower lobe. Further evaluation with PET-CT or tissue biopsy is recommended. 5 mm nodule of the lateral left upper lobe. No consolidation. No significant effusion. No pneumothorax. HEART: Unremarkable. No cardiomegaly. No significant pericardial effusion. No evidence of RV dysfunction. BONES/JOINTS: No acute fracture. No dislocation. SOFT TISSUES: Unremarkable. LYMPH NODES: Unremarkable. No enlarged lymph nodes. CT/CTA Chest W/WO Contrast IMPRESSION: 1. No pulmonary embolism. 2. Lung emphysema/COPD. 3.0 cm spiculated nodule of the posterior right lower lobe. Further evaluation with PET-CT or tissue biopsy is recommended. 3. 5 mm nodule of the lateral left upper lobe. Reading Location: [id number]
[2024-12-10] MEDS: Furosemide 40 MG/4 ML Vial IV (17:32)
[2024-12-10] MEDS: Metoprolol Tartrate 5 MG/5 ML Vial IV ×3 (17:33→17:43)
[2024-12-10 18:36] LABS: Troponin T High Sens 2 HR 37 ng/L (<=22)
--- NOTE | 2024-12-10 19:13 | PCM.HP.STD ---
HPI - General General Date of Admission: 12/10/24 Date of Service: 12/10/24 Chief Complaint: Dyspnea, orthopnea, increased BL LE edema. HPI Narrative The patient is a 69 y/o M w/ PMHx: Chronic bilateral lower extremity edema/lymphedema with venous stasis disease, Obesity, HTN, HLD, CAD s/p PCI x 1, PAF, COPD, Former tobacco use, EtOH abuse (6 pack beer daily, no withdrawal history with breaks) who presents to the [facility] ED on 12/10/24 with history of 1 week history of significantly worsening fatigue, dyspnea more notable with exertion as well as worsened orthopnea, bilateral lower extremity swelling and edema with stasis changes with some drainage admitting that he had recently stopped taking his diuretic because he felt like it was not working continuing to make urine but eventually noting swelling/pitting all the way up to his lower abdomen with chronic cough that is unchanged with no associated chest pain finally prompting ED evaluation to be cautious. Workup in the ED included T97.8 Temporal, heart rate 90, BP 130/81, respiratory rate 16, 82% on room air with episode in the ED of atrial fibrillation with RVR with EKG obtained with rate up to 142, oxygenation down to 90% on room air at rest with most recent repeat vitals T98, heart rate 82, BP 137/88, respiratory rate 22, 92% on room air, CBC with WBC 5.1, hemofifteen 0.2, platelet 215 with lymphopenia, BMP with chloride 97, BUN/creatinine 8/0.80, GFR 96, troponin initial 41, troponin delta 37, NT proBNP 1378, TSH 1.640, chest x-ray with cardiomegaly with mild congestion, chest CTA with no pulmonary embolism, lung emphysema/COPD type changes, 3 cm spiculated nodule in the posterior right lower lobe, 5 mm nodule of the lateral left upper lobe, EKG with atrial fibrillation with RVR. In the ED patient ministered DuoNeb therapy, Lasix 40 mg IV x 1 and metoprolol tartrate 5 mg IV x 1. [facility] Medical History Obesity Chronic acquired lymphedema CAD (coronary artery disease) PAF (paroxysmal atrial fibrillation) Hyperlipidemia Hypertension Alcohol abuse Former smoker Myocardial infarct COPD (chronic obstructive pulmonary disease) Home Medications ?Medication ?Instructions ?Recorded ?Last Taken ?Type atorvastatin 80 mg tablet 80 mg PO DAILY cholesterol lowering 12/26/17 12/25/17 History clopidogrel 75 mg tablet 75 mg PO DAILY blood 12/26/17 12/25/17 History lisinopril 20 mg tablet 20 mg PO BID blood pressure 12/26/17 12/26/17 History metoprolol tartrate 25 mg tablet 25 mg PO BID blood pressure 12/26/17 12/26/17 History nitroglycerin 0.4 mg sublingual 0.4 mg sublingual Q5M PRN Chest 12/27/17 Unknown Rx tablet Pain #30 tabs albuterol sulfate 90 mcg/actuation 2 puff inhalation Q6H PRN PRN 12/10/24 Unknown History aerosol inhaler wheezing fluticasone 500 mcg-salmeterol 50 1 ea inhalation BID 12/10/24 Unknown History mcg/dose blistr powdr for inhalation furosemide 20 mg tablet 20 mg PO DAILY 12/10/24 Unknown History Allergy/AdvReac Type Severity Reaction Status Date / Time No Known Allergies Allergy Verified 12/10/24 19:37 Family History (Updated 12/10/24 @ 20:[address] Kenna Tamayo MD) Mother Diabetes Hypertension Father Diabetes Hypertension Heart disease Surgical History History of coronary artery stent placement Social History (Updated 12/10/24 @ 20:[address] Kenna Tamayo MD) household members: none Smoking Status: Former smoker how long ago did patient quit smoking: Quit 02/2023, smoked 52 years with ~ 2 ppd until quit. alcohol intake: current alcohol intake frequency: 3 or more drinks per day Alcohol type: beer details: Drinks ~ 6 pack beer daily. substance use type: does not use ROS ROS Narrative Admission Review of Systems: CONSTITUTIONAL: No weight loss, fever, chills, + weakness or fatigue. HEENT: Eyes: No visual loss, blurred vision, double vision or yellow sclerae. Ears, Nose, Throat: No hearing loss, sneezing, congestion, runny nose or sore throat. SKIN: No rash or itching, lesions except + significant bilateral lower extremity venous stasis skin changes, lichenification, occasional stage ecchymoses and abrasions. CARDIOVASCULAR: + Worsening lower extremity swelling, edema up to lower abdomen even, palpitations, orthopnea. No chest pain, chest pressure or chest discomfort, syncopal events. RESPIRATORY: + Dyspnea worsening, more notable with exertion at times, chronic unchanged cough. Occasional sputum production. No current recent history of wheezing or hemoptysis. GASTROINTESTINAL: No anorexia, nausea, vomiting or diarrhea, abdominal pain, melena, BRBPR. GENITOURINARY: No dysuria, frequency, urgency or retention. NEUROLOGICAL: No headache, dizziness, syncope, paralysis, ataxia, numbness or tingling in the extremities, focal weakness, change in bowel or bladder control, seizure. MUSCULOSKELETAL: + muscle, back pain, joint pain or stiffness. HEMATOLOGIC: No anemia. + History of easy bleeding/bruising. LYMPHATICS: No enlarged nodes. No history of splenectomy. PSYCHIATRIC: No history of depression or anxiety. ENDOCRINOLOGIC: No reports of sweating, cold or heat intolerance. No polyuria or polydipsia. ALLERGIES: No history of asthma, hives, eczema or rhinitis. Vital Signs Vital Signs Vital Signs: 12/10/24 14:04 12/10/24 15:18 12/10/24 16:17 Temperature 97.8 F Temperature Source Temporal Pulse Rate 90 Respiratory Rate 16 Respiratory Effort Normal Non-Labored Respiratory Pattern Normal Blood Pressure 154/81 H Blood Pressure Mean 105 Pulse Ox 92 Oxygen Delivery Method Room Air Room Air 12/10/24 16:18 12/10/24 16:49 12/10/24 17:35 Temperature Temperature Source Pulse Rate 82 110 H 142 H Respiratory Rate 19 H 18 16 Respiratory Effort Respiratory Pattern Blood Pressure 171/91 H 166/96 H Blood Pressure Mean 117 119 Pulse Ox 95 90 Oxygen Delivery Method Room Air 12/10/24 17:39 12/10/24 17:44 12/10/24 18:34 Temperature 98.0 F Temperature Source Pulse Rate 89 82 82 Respiratory Rate 22 H 22 H Respiratory Effort Respiratory Pattern Blood Pressure 145/88 H 137/88 H 137/88 H Blood Pressure Mean 107 104 104 Pulse Ox 92 92 Oxygen Delivery Method Room Air Weight Weight: 214 lb 11.684 oz Body Mass Index (BMI) 34.4 Physical Exam Narrative Physical Examination: General: Awake, alert, oriented x 3 and cooperative, seated upright in the ED bed, notes feeling somewhat improved since initial ED arrival, has made significant urine following recent diuresis with IV Lasix in the ED, heart rate on monitor is now rate controlled following Lopressor. Skin: Normal color, normal turgor, no icterus, no cyanosis except significant bilateral lower extremity lymphedema, venous stasis skin changes, lichenification, occasional stage ecchymoses and abrasion. HEENT: AT/NC, EOMI, PERRLA, MMM, difficult to discern carotid bruit and JVD given thickened neck and facial hair. Lungs: Significantly diminished, greater bases, mildly increased respiratory rate but no distress, currently unable to discern any rales, rhonchi or wheezing. Heart: Regular, currently rate controlled; no gallop, rub audible. Abdomen: Soft, obese, NTTP, distant BS, difficult discern distention HSM given habitus as well as swelling to the distal abdomen all the way up from the feet. Extremities: No cyanosis, no clubbing, see skin, significant edema complicated by underlying chronic lymphedema from the feet up to the distal abdomen, 3+ pitting. Neurological: Patient awake, alert, oriented as noted, cognitive function intact; pupils equally reactive to light and accommodation, cranial nerves grossly normal, moving all 4 extremities, no focal deficits, strength severely globally decreased secondary to acute presentation complaints. Psychiatric: Affect appears fatigued otherwise normal, no acute evidence of depressive or anxiety feelings. Results Lab / Micro Data 12/10/24 15:15 12/10/24 15:15 Labs: Laboratory Results - last 24 hr 12/10/24 15:15: WBC 5.1, RBC 4.77, Hgb 15.2, Hct 46.0, MCV 96.4 H, MCH 31.9, MCHC 33.0, RDW Std Deviation 46.6 H, RDW Coeff of Migel 13.1, Plt Count 215, MPV 9.2, Immature Gran % (Auto) 0.400, Neut % (Auto) 67.2, Lymph % (Auto) 16.0 L, Motley % (Auto) 11.6 H, Eos % (Auto) 3.6, Baso % (Auto) 1.2 H, Absolute Neuts (auto) 3.4, Absolute Lymphs (auto) 0.81 L, Nucleated RBC % 0, Sodium 133, Potassium 4.7, Chloride 97 L, Carbon Dioxide 25.0, Anion Gap 11, BUN 8, Creatinine 0.80, Estim Creat Clear Calc 95.21, Est GFR (MDRD) Non-Af 96, BUN/Creatinine Ratio 10.5, Glucose 97, Calcium 8.8, Troponin T High Sens 41 H, NT pro BNP II 1378 H, TSH 1.640 12/10/24 17:50: Troponin T Hi Sens 2 Hr 37 H Rhythm Strip Rhythm Strip: A-fib Rate: 126 Ectopy: None Imaging Radiology Impression Chest X-Ray 12/10/24 16:33 IMPRESSION: Cardiomegaly with mild congestion. Reading Location: [facility] Chest CTA 12/10/24 17:02 IMPRESSION: 1. No pulmonary embolism. 2. Lung emphysema/COPD. 3.0 cm spiculated nodule of the posterior right lower lobe. Further evaluation with PET-CT or tissue biopsy is recommended. 3. 5 mm nodule of the lateral left upper lobe. Reading Location: [facility] Assessment & Plan Assessment/Plan (1) Acute CHF: PLAN: Plan The patient is a 69 y/o M w/ PMHx: Chronic bilateral lower extremity edema/lymphedema with venous stasis disease, Obesity, HTN, HLD, CAD s/p PCI x 1, PAF, COPD, Former tobacco use, EtOH abuse (6 pack beer daily, no withdrawal history with breaks) who presents to the [facility] ED on 12/10/24 with history of 1 week history of significantly worsening fatigue, dyspnea more notable with exertion as well as worsened orthopnea, bilateral lower extremity swelling and edema with stasis changes with some drainage admitting that he had recently stopped taking his diuretic because he felt like it was not working continuing to make urine but eventually noting swelling/pitting all the way up to his lower abdomen with chronic cough that is unchanged with no associated chest pain finally prompting ED evaluation to be cautious. #1. Acutely decompensated HF, unclear subtype with associated indeterminate cardiac enzymes of unclear significance and #2: Patient administered IV lasix in the ED, will admit to PCU, maintain on cardiac telemetry, obtain cardiac enzyme series, obtain serial EKGs, continue IV lasix diuresis, monitor I/Os, maintain on intake restriction, continue medical therapy, obtain TSH and magnesium level. Will place snug debra wraps to bilateral lower extremities. Wound RN consulted given significant venous stasis disease with lichenification of the bilateral lower extremities. Echocardiogram requested. #2. Paroxsymal atrial fibrillation w/ RVR suspect likely related with #1: EKG in ED w/ atrial fibrillation w/ RVR. Improved following IV Lopressor administration in the ED. Will maintain on telemetry, obtain cardiac enzyme serial set, obtain magnesium level, obtain ECHO, obtain TSH level. Will continue patient home metoprolol regimen including dose now. Per current list patient is not chronically anticoagulated but is on Plavix. Uncertain exact reason, attempting to clarify prior to consideration of NOAC addition. #3. Incidentally noted pulmonary nodules: CTA of the chest with 3 cm spiculated nodule in the posterior right lower lobe in addition to a 5 mm nodule of the lateral left upper lobe, will need follow-up imaging/biopsy arranged. Patient does have significant tobacco use history. #4. CAD: Status post PCI x 1, will continue Plavix, statin, metoprolol, lisinopril regimen. #5. Hypertension: Continue home regimen including metoprolol, lisinopril, IV Lasix as noted, PRN hydralazine. #6. Hyperlipidemia: Continue home statin regimen. AM FLP. #7. Chronic COPD: Will temporally hold him inhalers, given significant A-fib with RVR in the ED although clinically improved now and rate controlled will maintain on ATC budesonide, PRN albuterol, HOB, IS parameters. #8. EtOH Abuse: Patient notes routine consumption of sixpack of beer per day. Will maintain on CIWA protocol, MVI, thiamine and folic acid. Discussed appropriate oral intake of alcohol and strongly encouraged sobriety especially given other medical history. #9. Former tobacco use: Encourage continued tobacco cessation. Patient smoked for 52 years quitting February 2023 smoking 2 packs/day. #10. Obesity: Weight loss and lifestyle changes encouraged. #11. Chronic bilateral lower extremity lymphedema: As noted above will place snug debra wraps with diuresis ongoing, wound RN consulted for significant lichenification/venous stasis changes. #12. DVT prophylaxis: Lovenox, attempted to clarify why patient is not anticoagulated given PAF history and if appropriately will add NOAC and discontinue Lovenox. #13. CODE status: Patient SERGIO is his Sister Brittnee and living will is currently in place. Discussed CODE status at length including difference between FULL code, DNR-CCA and DNR-CC status. Following discussions about the differences in these status, requested Full Code status. Advanced Care Planning Face to Face Time: 16 minutes. Charges/Coding Visit Charges Inpatient E&M: 30449 Init Hosp L3 Procedures Hospitalists Procedures: 45720 Advncd Care Plan 30 Min
[2024-12-10 19:40] LABS: Magnesium 1.9 mg/dL (1.5-2.2)
--- NOTE | 2024-12-10 20:26 | ECHOD_ITS ---
Reason For Study Reason For Study: chf Procedure This was a 2D Doppler, Color Flow transthoracic echocardiogram. The study was technically difficult. Definity deferred due to pulmonary pressures and lack of on axis views. Exam performed in department. Left Ventricle Normal LV size. Mild concentric left ventricular hypertrophy. The LV ejection fraction is 55 %. Stage 1 diastolic dysfunction. Right Ventricle Normal right ventricle. Atria The left and right atria are normal. Mitral Valve Mildly calcified mitral valve leaflets. Tricuspid Valve Mild tricuspid valve regurgitation. Estimated RVSP 57 mmHg. Aortic Valve Trisinus/trileaflet aortic valve. Pulmonic Valve The pulmonic valve is not well visualized. Great Vessels The aortic root is not well visualized. Pericardium/Pleural No pericardial effusion. MMode/2D Measurements & Calculations LVIDd: 3.2 cm IVSd: 1.4 cm LVOT diam: 2.0 cm LVIDs: 2.3 cm LVPWd: 1.4 cm LVOT area: 3.1 cm2 FS: 29.2 % LAV(MOD-sp4): 22.7 ml LA A4 area: 11.2 cm2 LA dimension(2D): 2.8 cm RA A4 area: 14.9 cm2 Time Measurements MV dec time: 0.27 sec Doppler Measurements & Calculations MV E max rian: 64.6 cm/sec Med Peak E' Rian: 6.7 cm/sec MV V2 max: 85.3 cm/sec MV A max rian: 50.5 cm/sec E/E' med: 9.7 MV max P.9 mmHg MV E/A: 1.3 MV V2 mean: 51.2 cm/sec MV mean P.2 mmHg MV V2 VTI: 23.1 cm MVA(VTI): 2.1 cm2 LV V1 max: 45.8 cm/sec SV(LVOT): 47.8 ml MV dec slope: 239.6 cm/sec2 LV V1 max P.1 mmHg LV V1 mean P.81 mmHg LV V1 mean: 42.0 cm/sec LV V1 VTI: 15.2 cm TR max rian: 325.9 cm/sec TR max P.5 mmHg ECHO/Echo Complete Interpretation Summary Technically difficult study with suboptimal apical and parasternal images. The LV ejection fraction is 55 %. Stage 1 diastolic dysfunction. Mildly calcified mitral valve leaflets. Mild tricuspid valve regurgitation. Estimated RVSP 57 mmHg. Ordering Physician: Kenna Tamayo Referring Physician: Gifty Gonzalez Performed By: Kimberly Hutson and Student
[2024-12-10 20:46] LABS: Phosphorus 2.6 mg/dL (2.7-4.5)
[2024-12-10] MEDS: Lisinopril 20 MG Tablet PO (21:06)
[2024-12-10] MEDS: Clopidogrel Bisulfate 75 MG Tablet PO (21:07)
[2024-12-10] MEDS: Metoprolol Tartrate 25 MG Tablet PO (21:07)
[2024-12-10] MEDS: Atorvastatin Calcium 80 MG Tablet PO (21:09)
[2024-12-10 21:44] LABS: Troponin T High Sens 4 HR 48 ng/L (<=22)
--- OUTSIDE RECORDS SUMMARY | 2024-12-10 22:08 | XMS RPT_ITS | CCD ---
Author Organization [facility] CliniSymo Care Team Providers Care Lead Technologist In Cytogenetics Name Role Phone Edwin, Chano Chi Unavailable Unavailable Paintsil, Stryker Unavailable Unavailable Koram, Caprice Nieves Unavailable Unavailable Paintsil, Stryker Unavailable Unavailable Paintsil, Stryker Unavailable Unavailable Edwin, Chano Chi Unavailable Unavailable Paintsil, Stryker Unavailable Unavailable Koram, Caprice Nieves Unavailable Unavailable Abigail, [place] Unavailable Unavailable Abigail, [place] Unavailable Unavailable Paintsil, Stryker Unavailable Unavailable Abigail, Preston Unavailable Unavailable Paintsil, Stryker Unavailable Unavailable Acacia De Oliveira MD Primary Care Provider Acacia De Oliveira MD Primary Care Provider Acacia De Oliveira MD Primary Care Provider GISSEL ACOSTA Referring Unavailable GANTA, ACACIA Primary Care Unavailable GISSEL ACOSTA Referring Unavailable GANTA, ACACIA Primary Care Unavailable Acacia De Oliveira MD Primary Care Provider Annmarie Schroeder PA-C Unavailable Older REHAB SPEC.COLLECTION COORDINATOR, Katiuska Unavailable Aleshia Retana PA-C Unavailable GANTA, ACACIA Primary Care Unavailable EDWIN OLMSTEAD Referring Unavailable GANTA, ACACIA Attending Unavailable GANTA, ACACIA Primary Care Unavailable GANTA, ACACIA Referring Unavailable XINTA, ACACIA Primary Care Unavailable Dr. Acacia De Oliveira MD Primary Care Provider Dr. Gifty Gonzalez DO Referring Provider Dr. Gifty Gonzalez DO Emergency Provider Dr. Yisel Spain MD Admit Provider Dr. Yisel Spain MD Attending Provider Allergies Allergy Classification Reported Allergen(s) Allergy Type Date of Onset Reaction(s) Facility (2 sources) Seasonal allergy; Translations: [SEASONAL ALLERGIES] Propensity to adverse reactions (disorder) 1 [facility] Other [facility] Medications Current Medications Medication Drug Class(es) Dates Sig (Normalized) Sig (Original) [id number] 200 actuat albuterol 0.09 mg/actuat metered dose inhaler (20 sources) beta2-Adrenergic Agonist Start: 12-10-2024 Albuterol Sulfate 90 mcg/actuation HFA aerosol inhaler Active 2 NMA INHALATION EVERY 6 HOURS NEEDED as needed for wheezing December 10, 2024 12:00am Start: 12-20-2022 End: 09-15-2024 take 2 puff(s) by inhalation every six hours as needed for wheezing albuterol HFA (PROVENTIL HFA, VENTOLIN HFA) 90 mcg/actuation inhaler Inhale 2 Puffs as instructed every 6 hours as needed for wheezing/shortness of breath. 3 Each 3 09/16/2024 Active Start: 11-15-2022 take 2 puff(s) by in halation every six hours as needed for wheezing albuterol HFA (PROVENTIL HFA, VENTOLIN HFA) 90 mcg/actuation inhaler Inhale 2 Puffs as instructed every 6 hours as needed for wheezing/shortness of breath. 1 Each 0 11/15/2022 Active Start: 08-15-2022 End: 11-14-2022 take 2 puff(s) by inhalation every four hours as needed albuterol HFA (PROVENTIL HFA, VENTOLIN HFA) 90 mcg/actuation inhaler INHALE 2 PUFFS EVERY 4 HOURS NEEDED FOR SHORTNESS OF BREATH 3 Each 0 08/15/2022 11/14/2022 Discontinued Start: 07-21-2021 End: 08-15-2022 take 2 puff(s) by inhalation every four hours as needed for wheezing albuterol HFA (VENTOLIN HFA) 90 mcg/actuation inhaler Inhale 2 Puffs as instructed every 4 hours as needed for wheezing/shortness of breath. 1 Inhaler 10/04/2021 10/04/2021 Discontinued Comment on above: Inhale 2 Puffs as in structed every 4 hours as needed for wheezing/shortness of breath. INHALE 2 PUFFS EVERY 4 HOURS NEEDED FOR SHORTNESS OF BREATH Inhale 2 Puffs as in structed every 6 hours as needed for wheezing/shortness of breath. atorvastatin 80 mg oral tablet (20 sources) HMG-CoA Reductase Inhibitor Start: 2017 End: 2023 take 1 tablet by mouth once daily atorvastatin (LIPITOR) 80 mg tablet Indications: Pure hypercholesterolemia Take 1 tablet by mouth once daily. 90 tablet 3 07/23/2023 Active Comment on above: Take 1 tablet by leonardo th once daily. clopidogrel 75 mg oral tablet (20 sources) P2Y12 Platelet Inhibitor Start: 2017 End: 2023 take 1 tablet by mouth once daily clopidogrel (PLAVIX) 75 mg tablet Indications: Coronary artery disease involving [place] coronary artery of [place] heart without angina pectoris Take 1 tablet by mouth once daily. 90 tablet 3 07/23/2023 Active Comment on above: Take 1 tablet by leonardo once daily. Fluticasone Propion-Salmeterol (20 sources) Corticosteroid, beta2-Adrenergic Agonist Start: 2024 Fluticasone Propion-Salmeterol 500-50 mcg/dose blister with device Active 1 NMA INHALATION TWICE A DAY December 10, 2024 12:00am Start: 12-17-2023 take 1 puff(s) by mo [facility] [place] twice daily fluticasone-salmeterol (ADVAIR DISKUS) 500-50 mcg/dose dsdv Inhale 1 Puff as instructed two times a day. Rinse and gargle mouth with water after use. 3 Each 3 12/17/2023 Active Start: 12-20-2022 End: 12-16-2023 take 1 puff(s) by mouth twice daily fluticasone-salmeterol (ADVAIR DISKUS) 500-50 mcg/dose dsdv Inhale 1 Puff as instructed twice daily. Rinse and gargle mouth with water after use. 3 Each 3 12/20/2022 12/16/2023 Discontinued Start: 12-20-2022 take 1 puff(s) by mo [facility] twice daily fluticasone-salmeterol (ADVAIR DISKUS) 500-50 mcg/dose dsdv Inhale 1 Puff as instructed twice daily. Rinse and gargle mouth with water after use. 3 Each 3 12/20/2022 Active Start: 05-01-2022 take 1 puff(s) by mo uth twice daily fluticasone-salmeterol (ADVAIR DISKUS) 250-50 mcg/dose inhaler Inhale 1 Puff as instructed twice daily. Rinse and gargle mouth after use with water. 3 Each 11 05/01/2022 Active Start: 10-04-2021 End: 05-01-2022 take 1 puff(s) by mouth twice daily fluticasone-salmeterol (ADVAIR DISKUS) 250-50 mcg/dose inhaler Inhale 1 Puff as instructed twice daily. Rinse and gargle mouth after use with water. 1 Each 5 10/04/2021 05/01/2022 Discontinued Start: 10-04-2021 take 1 puff(s) by mo ut twice daily fluticasone-salmeterol (ADVAIR DISKUS) 250-50 mcg/dose inhaler Inhale 1 Puff as instructed twice daily. Rinse and gargle mouth after use with water. 1 Each 5 10/04/2021 Active Start: 10-04-2021 take 1 puff(s) by mo ut twice daily fluticasone-salmeterol (ADVAIR DISKUS) 250-50 mcg/dose inhaler Inhale 1 Puff as instructed twice daily. Rinse and gargle mouth after use with water. 1 Each 5 10/04/2021 Active Comment on above: Inhale 1 Puff as ins tructed twice daily. Rinse and gargle mouth after use with water. Inhale 1 Puff as ins tructed twice daily. Rinse and gargle mouth with water after use. furosemide 20 mg oral tablet (20 sources) Loop Diuretic Start: 12-10-2024 take 1 tablet by mouth once daily Furosemide 20 mg tablet Active 20 mg PO DAILY December 10, 2024 12:00am Start: 12-20-2022 End: 09-15-2024 take 1 tablet by mouth once furosemide (LASIX) 20 mg t ablet Take 1 tablet by mouth every afternoon. 90 tablet 3 09/16/2024 Active Start: 08-15-2022 End: 11-14-2022 take 1 tablet by mouth once daily furosemide (LASIX) 20 mg tablet Take 1 tablet by mouth once daily. 90 tablet 0 11/15/2022 Active Start: 10-06-2021 End: 08-13-2022 take 1 tablet by mouth once daily furosemide (LASIX) 20 mg tablet Take 1 tablet by mouth once daily. 90 tablet 1 01/18/2022 08/13/2022 Discontinued Comment on above: Take 1 tablet by leonardo th once daily. take 1 tablet by leonardo th every day lisinopril 20 mg oral tablet (20 sources) Angiotensin Converting Enzyme Inhibitor Start: 8 End: 4 take 1 tablet by mouth twice daily lisinopril (PRINIVIL) 20 mg tablet Indications: Essential hypertension Take 1 tablet by mouth two times a day. 180 tablet 3 07/23/2023 Active Comment on above: Take 1 tablet by leonardo th twice daily. Take 1 tablet by leonardo th two times a day. loratadine 10 mg oral tablet (20 sources) Start: 3 End: 4 take 1 tablet by mouth once daily loratadine (CLARITIN) 10 mg tablet Take 1 tablet by mouth once daily. 90 tablet 3 03/27/2024 Active Comment on above: Take 1 tablet by leonardo th once daily. metoprolol tartrate 25 mg oral tablet (20 sources) beta-Adrenergic Harpreet Start: 8 End: 4 take 1 tablet by mouth twice daily metoprolol tartrate, short acting, (LOPRESSOR) 25 mg tablet Indications: Essential hypertension Take 1 tablet by mouth two times a day. 180 tablet 3 07/23/2023 Active Comment on above: Take 1 tablet by leonardo th twice daily. Take 1 tablet by leonardo th two times a day. montelukast 10 mg oral tablet (20 sources) Leukotriene Receptor Antagonist Start: 3 End: 4 take 1 tablet by mouth once daily at bedtime montelukast (SINGULAIR) 10 mg tablet Take 1 tablet by mouth daily at bedtime. 90 tablet 3 07/23/2023 Active Start: 11-20-2021 End: 05-01-2022 take 1 tablet by mouth once daily at bedtime montelukast (SINGULAIR) 10 mg tablet Take 1 tablet by mouth daily at bedtime. 30 tablet 5 05/01/2022 Active Comment on above: Take 1 tablet by leonardo th daily at bedtime. multivitamin (ONE-A-DAY ESSENTIAL) tablet (20 sources) Start: 0 take 1 tablet by mouth once daily multivitamin (ONE-A-DAY ESSENTIAL) tablet Take 1 tablet by mouth once daily. MVI with Lycopene 03/17/2020 Active Start: 03-17-2020 take 1 tablet by leonardo th once daily multivitamin (ONE-A-DAY ESSENTIAL) tablet Take 1 tablet by mouth once daily. MVI with Lycopene 0 03/17/2020 Active Comment on above: Take 1 tablet by leonardo th once daily. MVI with Lycopene nitroglycerin 0.4 mg sublingual tablet (20 sources) Nitrate Vasodilator Start: 09-13-2023 End: 09-16-2024 nitroglycerin sublingual (NITROQUICK) 0.4 mg SL tablet Indications: Coronary artery disease involving [place] coronary artery of [place] heart without angina pectoris Dissolve 1 tablet under the tongue every 5 minutes as needed. 25 tablet 09/16/2024 Active Start: 12-27-2017 End: 02-08-2023 nitroglycerin sublingual (NI TROSTAT) 0.4 mg SL tablet Indications: Coronary artery disease involving [place] coronary artery of [place] heart without angina pectoris Dissolve 1 tablet under the tongue every 5 minutes as needed. 25 tablet 02/28/2021 12/27/2021 Discontinued Comment on above: Dissolve 1 tablet un erin the tongue every 5 minutes as needed. Completed/Discontinued Medications Medication Drug Class(es) Dates Sig (Normalized) Sig (Original) aspirin 81 mg chewable tablet (20 sources) Platelet Aggregation Inhibitor, Nonsteroidal Anti-inflammatory Drug Start: 12-26-2017 End: 12-10-2024 take 1 tablet by mouth once daily Aspirin 81 MG tablet,chewable Discontinued 81 mg PO DAILY@0800 December 26, 2017 12:00am December 10, 2024 3:22pm End: 01-02-2024 take 1 tablet by mouth once daily aspirin, enteric coated (ASPIRIN, ENTERIC COATED) 81 mg EC tablet Indications: CAD (coronary artery disease) Take 81 mg by mouth once daily. 01/02/2024 Discontinued Comment on above: Take 81 mg by mouth once daily. 24 hr nicotine 0.583 mg/hr transdermal system (12 sources) Cholinergic Nicotinic Agonist Start: 02-21-20 23 End: 01-02-20 apply 1 dose transdermal route every twenty-four hours nicotine (NICODERM) 14 mg/24 hr Apply 1 Patch as directed every 24 hours. 30 Patch 0 02/20/2023 01/02/2024 Discontinued Start: 01-21-2023 End: 07-20-2023 apply 1 dose transdermal route every twenty-four hours nicotine (NICODERM) 21 mg/24 hr Apply 1 Patch as directed every 24 hours. 30 Patch 5 01/21/2023 07/20/2023 Active Comment on above: Apply 1 Patch as dir ected every 24 hours. perflutren lipid microspheres 1.3 mL in NaCl (PF) 0.9% 10 mL injection (DEFINITY) (20 sources) Start: 2 End: 3 perflutren lipid microspheres 1.3 mL in NaCl (PF) 0.9% 10 mL injection (DEFINITY) phenylephrine hydrochloride 10 mg oral tablet (20 sources) alpha-1 Adrenergic Agonist Start: 0 End: 4 take 1 tablet by mouth every six hours as needed PHENYLephrine (SUDAFED PE) 10 mg tablet Indications: Sinus congestion Take 1 tablet by mouth every 6 hours as needed. 30 tablet 1 03/17/2020 01/02/2024 Discontinued Comment on above: Take 1 tablet by leonardo th every 6 hours as needed. predniSONE 20 mg oral tablet (20 sources) Start: 3 End: 4 take 1 tablet by mouth once daily predniSONE (DELTASONE) 20 mg tablet Take 1 tablet by mouth once daily. 5 tablet 12/20/2022 01/02/2024 Discontinued Start: 10-04-2021 End: 10-16-2021 predniSONE (DELTASONE) 10 mg tablet Take 4 tabs daily x 3 days, then 3 tabs x 3 days, 2 tabs x 3 days, then 1 tab x3 days with food. 30 tablet 10/04/2021 10/16/2021 Comment on above: Take 4 tabs daily x 3 days, then 3 tabs x 3 days, 2 tabs x 3 days, then 1 tab x3 days with food. Take 1 tablet by leonardo th once daily. sildenafil 25 mg oral tablet (8 sources) Phosphodiesterase 5 Inhibitor Start: 07-24-2021 End: 12-27-2021 sildenafil (VIAGRA) 25 mg tablet Take 1 tablet by mouth as needed. Take 30 to 60min before sexual activity. 15 tablet 2 07/24/2021 12/27/2021 Discontinued (Discontinued by Patient) Comment on above: Take 1 tablet by leonardo th as needed. Take 30 to 60min before sexual activity. 125 ml sodium chloride 9 mg/ml prefilled syringe (20 sources) Start: 10-04-2021 End: 01-03-2023 sodium chloride 0.9 % (flush) 10 mL (BD POSIFLUSH) Problems Active Problems Problem Classification Problem Date Documented Date Episodic/Chronic Alcohol-related disorders (20 sources) Alcohol dependence; Translations: [Alcohol dependence, uncomplicated] Onset: 06-18-2014 06-12-2021 Chronic Cardiac dysrhythmias (1 source) Atrial fibrillation with rapid ventricular response; Translations: [Unspecified atrial fibrillation] 12-10-2024 Chronic Chronic obstructive pulmonary disease and bronchiectasis (18 sources) Pulmonary emphysema; Translations: [Emphysema, unspecified] Onset: 01-02-2024 Chronic Congestive heart failure; nonhypertensive (1 source) Acute congestive heart failure; Translations: [Heart failure, unspecified] 12-10-2024 Chronic Coronary atherosclerosis and other heart disease (20 sources) Atherosclerotic heart disease of [place] coronary artery without angina pectoris; Translations: [Coronary arteriosclerosis] Onset: 06-18-2014 06-12-2021 Chronic Disorders of lipid metabolism (20 sources) Hyperlipidemia; Translations: [Hyperlipidemia, unspecified] Onset: 06-18-2014 06-12-2021 Chronic Essential hypertension (20 sources) Essential (primary) hypertension; Translations: [Essential hypertension] Onset: 06-18-2014 Chronic Fluid and electrolyte disorders (2 sources) Hyperkalemia; Translations: [Hyperkalemia] Episodic Nonspecific chest pain (3 sources) Chest pain, unspecified; Translations: [Other chest pain] Onset: 02-05-2018 12-26-2017 Episodic Other aftercare (4 sources) Patient encounter status; Translations: [Other [facility] (current) drug therapy] Episodic Other lower respiratory disease (5 sources) Dyspnea; Translations: [Shortness of breath] Episodic Other lower respiratory disease (2 sources) Wheezing; Translations: [Wheezing] Episodic Other lower respiratory disease (6 sources) Nodule of lung; Translations: [Solitary pulmonary nodule] 01-17-2023 Episodic Other lower respiratory disease (2 sources) Multiple nodules of lung; Translations: [Other nonspecific abnormal finding of lung field] 01-21-2023 Episodic Other lower respiratory disease (1 source) Lung mass; Translations: [Other nonspecific abnormal finding of lung field] 01-02-2024 Episodic Other lower respiratory disease (1 source) Dyspnea on exertion; Translations: [Other forms of dyspnea] 12-10-2024 Episodic Other male genital disorders (20 sources) Male erectile dysfunction, unspecified; Translations: [Impotence of organic origin] Onset: 08-03-2014 08-03-2014 Chronic Other nervous system disorders (20 sources) Carpal tunnel syndrome; Translations: [Carpal tunnel syndrome, unspecified upper limb] Onset: 08-03-2014 06-12-2021 Chronic Other screening for suspected conditions (not mental disorders or infectious disease) (1 source) CT of chest abnormal; Translations: [Abnormal findings on diagnostic imaging of other specified body structures] 01-07-2023 Chronic Other screening for suspected conditions (not mental disorders or infectious disease) (1 source) Other specified abnormal findings of blood chemistry; Translations: [Other abnormal blood chemistry] Episodic Residual codes; unclassified (1 source) Edema; Translations: [Edema, unspecified] Episodic Residual codes; unclassified (1 source) Peripheral edema; Translations: [Localized edema] 12-10-2024 Episodic Substance-related disorders (20 sources) Tobacco dependence syndrome; Translations: [Nicotine dependence, unspecified, uncomplicated] Onset: 06-18-2014 06-12-2021 Chronic Unclassified (1 source) Radiology NM Onset: 02-12-2023 Past or Other Problems Problem Classification Problem Date Documented Da te Episodic/Chronic Immunizations and screening for infectious disease (1 source) Encounter for immunization; Translations: [Encounter for immunization] Onset: 01-02-2024 Episodic Other aftercare (1 source) Other m[facility]p (current) drug therapy; Translations: [Medication management] Onset: 01-02-2024 Episodic Other lower respiratory disease (20 sources) Solitary nodule of lung; Translations: [Solitary pulmonary nodule] Onset: 01-21-2023 01-21-2023 Episodic Other lower respiratory disease (2 sources) Solitary pulmonary nodule; Translations: [Solitary pulmonary nodule] Onset: 01-21-2023 Episodic Other lower respiratory disease (1 source) Other nonspecific abnormal finding of lung field; Translations: [Lung mass] Onset: 01-02-2024 Episodic Other non-traumatic joint disorders (20 sources) Shoulder pain; Translations: [Pain in unspecified shoulder] Onset: 08-03-2014 08-03-2014 Episodic Results Test Name Value Interpretation Reference Range Facility Absolute lymphocyte countOrd ered By: Gifty Gonzalez on 12-10-2024 Lymphocytes Auto (Unsp spec) [#/Vol] 0.81 10*3/uL Low 0.83-4.51 [facility] Absolute neutrophil countOrd ered By: Gifty Gonzalez on 12-10-2024 Neutrophils (Bld) [#/Vol] 3.4 10*3/uL 2.0-7.7 [facility] Anion gap in Serum or Plasma Ordered By: Gifty Gonzalez on 12-10-2024 Anion gap [Moles/Vol] 11 mmol/L 5-15 [facility] Automated lymphocyte count a s percentage of total leukocytesOrdered By: Gifty Gonzalez on 12-10-2024 Lymphocytes/100 WBC Auto (Unsp spec) 16.0 % Low 19-41 [facility] BUN/creatinine ratioOrdered By: Gifty Gonzalez on 12-10-2024 Urea nitrogen/Creatinine [Mass ratio] 10.5 mg/mg 10-20 [facility] Basophil percentageOrdered B y: Gifty Gonzalez on 12-10-2024 Basophils/100 WBC (Bld) 1.2 % High 0-1 [facility] Carbon dioxide, total [Moles /volume] in Central venous bloodOrdered By: Gifty Gonzalez on 12-10-2024 CO2 [Moles/Vol] 25.0 mmol/L 21.0-32.0 [facility] Chloride assayOrdered By: Alexandr Gonzalez on 12-10-2024 Chloride [Moles/Vol] 97 mmol/L Low 98-108 [facility] Eosinophil percentageOrdered By: Gifty Gonzalez on 12-10-2024 Eosinophils/100 WBC (Bld) 3.6 % 0-5 [facility] Erythrocyte distribution wid th ratioOrdered By: Gifty Gonzalez on 12-10-2024 Erythrocyte distribution width (RBC) [Ratio] 13.1 % 11.6-14.6 [facility] Erythrocyte distribution wid th standard deviationOrdered By: Gifty Gonzalez on 12-10-2024 Erythrocyte distribution width (RBC) [Ratio] 46.6 fl High 35.1-43.9 [facility] Glomerular filtration rate ( GFR) estimation/1.73 sq m using serum, plasma, or whole bOrdered By: Gifty Gonzalez on 12-10-2024 GFR/1.73 sq M.predicted among non-blacks MDRD (S/P/Bld) [Vol rate/Area] 96 mL/min/{1.73_m2} >60 [facility] Comment on above: mL/min/1.73m2 CKD-EP I Creatinine Equation (2020) Hematocrit Auto (Bld) [Volum e fraction]Ordered By: Gifty Gonzalez on 12-10-2024 Hematocrit (Bld) [Volume fraction] 46.0 % 40-54 [facility] Hemoglobin measurementOrdere d By: Gifty Gonzalez on 12-10-2024 Hemoglobin (Bld) [Mass/Vol] 15.2 g/dL 13.0-16.5 [facility] Immature granulocytes/100 WB C Auto (Bld)Ordered By: Gifty Gonzalez on 12-10-2024 Immature granulocytes/100 WBC (Bld) 0.400 % 0.0-0.9 [facility] Comment on above: IG% - Immature Granu locytes (promyelocytes, myelocytes and metamyelocytes) > 1% indicates that a LEFT SHIFT is Present. MCV (mean corpuscular volume ) determinationOrdered By: Gifty Gonzalez on 12-10-2024 MCV (RBC) [Entitic vol] 96.4 fL High 80-94 [facility] Magnesium measurement (mass/ volume)Ordered By: Kenna Tamayo on 12-10-2024 Magnesium (Unsp spec) [Mass/Vol] 1.9 mg/dL 1.5-2.2 [facility] Mean corpuscular hemoglobin (MCH) determinationOrdered By: Gifty Gonzalez on 12-10-2024 MCH (RBC) [Entitic mass] 31.9 pg 27.0-32.0 [facility] Mean corpuscular hemoglobin concentration (MCHC) determinationOrdered By: Gifty Gonzalez on 12-10-2024 MCHC (RBC) [Mass/Vol] 33.0 g/dL 32-36 [facility] Mean platelet volume determi nationOrdered By: Gifty Gonzalez on 12-10-2024 Platelet mean volume (Bld) [Entitic vol] 9.2 fL 6.2-12.0 [facility] Monocyte percentageOrdered B y: Gifty Gonzalez on 12-10-2024 Monocytes/100 WBC (Bld) 11.6 % High 0-10 [facility] Natriuretic peptide.B prohor hue N-Terminal [Mass/volume] in Serum or PlasmaOrdered By: Gifty Gonzalez on 12-10-2024 Natriuretic peptide.B prohormone N-Terminal [Mass/Vol] 1378 pg/mL High <900 [facility] Comment on above: Heart Failure Unlike ly: < 300 pg/mLHeart Failure Likely< 50 Years: > 450 pg/mL50-75 Years: > 900 pg/mL>75 Years: > 1800 pg/mL Neutrophil percentageOrdered By: Gifty Gonzalez on 12-10-2024 Neutrophils/100 WBC (Bld) 67.2 % 47-70 [facility] Nucleated red blood cell per centageOrdered By: Gifty Gonzalez on 12-10-2024 Nucleated RBC/100 WBC (Bld) [Ratio] 0 % 0-5 [facility] Platelet countOrdered By: Alexandr Gonzalez on 12-10-2024 Platelets (Bld) [#/Vol] 215 10*3/uL 150-450 [facility] Potassium measurement (mass/ volume)Ordered By: Gifty Gonzalez on 12-10-2024 Potassium (Unsp spec) [Mass/Vol] 4.7 mmol/L 3.3-5.1 [facility] RBC Auto (Bld) [#/Vol]Ordere d By: Gifty Gonzalez on 12-10-2024 RBC (Bld) [#/Vol] 4.77 10*6/uL 4.6-6.2 [facility] Serum creatinine measurement (mass/volume)Ordered By: Gifty Gonzalez on 12-10-2024 Creatinine [Mass/Vol] 0.80 mg/dL 0.70-1.20 [facility] Serum glucose measurement (m ass/volume)Ordered By: Gifty Gonzalez on 12-10-2024 Glucose [Mass/Vol] 97 mg/dL 70-99 [facility] Serum or plasma calcium man urement (mass/volume)Ordered By: Gifty Gonzalez on 12-10-2024 Calcium [Mass/Vol] 8.8 mg/dL 7.6-11.0 [facility] Serum or plasma urea nitroge n measurement (mass/volume)Ordered By: Gifty Gonzalez on 12-10-2024 Urea nitrogen [Mass/Vol] 8 mg/dL 4-19 [facility] Sodium levelOrdered By: Debbi Gonzalez on 12-10-2024 Sodium [Moles/Vol] 133 mmol/L 133-145 [facility] TSH DL <= 0.005 mIU/L QnOrde red By: Gifty Gonzalez on 12-10-2024 TSH Qn 1.640 uIU/mL 0.300-4.200 [facility] Troponin T.cardiac [Mass/vol ume] in Serum or Plasma by High sensitivity methodOrdered By: Gifty Gonzalez on 12-10-2024 Troponin T.cardiac High sensitivity method [Mass/Vol] 37 ng/L High <22 [facility] Troponin T.cardiac High sensitivity method [Mass/Vol] 41 ng/L High <22 [facility] White blood cell (WBC) count Ordered By: Gifty Gonzalez on 12-10-2024 WBC (Bld) [#/Vol] 5.1 10*3/uL 4.4-11.0 [facility] [place] 01-27-2024 JESSICA Telephone (FVPRAD) ----- YURY GONZALEZ ([id number]) 1955 M Date Time Provider Department 01/27/24 GISSEL ACOSTA During your visit today, we recorded the following information about you: Gissel Acosta MD 01/27/2024 3:29 PM Signed Called patient a few times today. Call goes straight to voicemail left message regarding EBUS. In the [facility] region EBUS can be done at [facility] [facility] No centers at [place]. I also called patient's Sister Sherrie and left a voicemail. Will try again tomorrow Gissel Acosta MD Allergies As of Date: 01/27/2024 Noted Allergy Reaction HAY FEVER (SEASONAL ALLERGIES) 02/28/2021 16 - Unknown Date Reviewed: 01/02/2024 Reviewed by: Irma Simon LPN - Fully Assessed Prescriptions as of 01/27/2024 - fluticasone-salmeterol (ADVAIR DISKUS) 500-50 mcg/dose dsdv Inhale 1 Puff as instructed two times a day. Rinse and gargle mouth with water after use. - albuterol HFA (PROVENTIL HFA, VENTOLIN HFA) 90 mcg/actuation inhaler Inhale 2 Puffs as instructed every 6 hours as needed for wheezing/shortness of breath. - nitroglycerin sublingual (NITROQUICK) 0.4 mg SL tablet Dissolve 1 tablet under the tongue every 5 minutes as needed. - atorvastatin (LIPITOR) 80 mg tablet Take 1 tablet by mouth once daily. - clopidogrel (PLAVIX) 75 mg tablet Take 1 tablet by mouth once daily. - lisinopril (PRINIVIL) 20 mg tablet Take 1 tablet by mouth two times a day. - metoprolol tartrate, short acting, (LOPRESSOR) 25 mg tablet Take 1 tablet by mouth two times a day. - montelukast (SINGULAIR) 10 mg tablet Take 1 tablet by mouth daily at bedtime. - furosemide (LASIX) 20 mg tablet take 1 tablet by mouth every day - loratadine (CLARITIN) 10 mg tablet Take 1 tablet by mouth once daily. - multivitamin (ONE-A-DAY ESSENTIAL) tablet Take 1 tablet by mouth once daily. MVI with Lycopene Problem List As Of Date 01/27/2024 Noted Resolved CAD (coronary artery disease) [I25.10] 06/18/2014 Hyperlipidemia [E78.5] 06/18/2014 Hypertension [I10] 06/18/2014 Tobacco dependence [F17.200] 06/18/2014 Alcohol dependence (HCC) [F10.20] 06/18/2014 Shoulder pain [M25.519] 08/03/2014 Carpal tunnel syndrome [G56.00] 08/03/2014 ED (erectile dysfunction) [N52.9] 08/03/2014 Solitary pulmonary nodule [R91.1] 01/21/2023 Pulmonary emphysema, unspecified emphysema type*01/02/2024 Encounter Status:Closed by GISSEL ACOSTA on 01/27/24 [facility] ----- YURY GONZALEZ ([id number]) 1955 M Date Time Provider Department 01/16/24 GISSEL ACOSTA [facility] During your visit today, we recorded the following information about you: Gissel Acosta MD 01/16/2024 4:51 PM Signed Spoke to patient regarding setting up an appointment with pulmonology for follow up Patient saw me in February for the first time in January of 2023. Was scheduled for EBUS at [place]. Patient canceled all his appointments for insurance concerns. Patient then reconnected with his PCP Dr. De Oliveira, as per our conversation through [facility] patient was interested to pursue further treatment and agreed to a repeat CT chest. Repeat CT chest is significant for increasing right lower lobe nodule. We have been trying to schedule patient for a follow up to plan further steps. Patient does not want to come to [place]. The schedulers have attempted calling patient to help him get scheduled at [facility]. No appointment set up yet. Explained to the patient that his lung mass is concerning for cancer and the need for biopsy/EBUS. Also mentioned to the patient that he may need more than a EBUS, may need a navigational bronch which is done at [facility], [facility] or [facility]. Patient refused these locations and started yelling on the phone that he is not sure and would want to think about it. Patient could also get an EBUS at [facility]. Patient started yelling again stating that he?s never undergone surgery and he has to think about it. I also called patient sister Sherrie Mccoy and discuss the situation. Left the [place] and [facility] numbers with her. MD Charla Ferrara Beth, LPN 01/23/2024 10:35 AM Signed Patient call was transferred from call center, he had hung up because he waited for 12 minutes. This nurse called him back and he is wanting to know answers to questions today please. He is asking if the biopsy could be done at [place]? He does not want to go to [facility] or [facility]. He wants to know if he would be out patient or if he would have to stay overnight? He is asking questions I myself can not answer for him. Why can't it be done in [place] so he would not have to travel? He thought he would have gotten a call back on Saturday, he wanted to think about the situation last weekend, never got the call back. He gets upset easily does not like to wait. Please advise Allergies As of Date: 01/16/2024 Noted Allergy Reaction HAY FEVER (SEASONAL ALLERGIES) 02/28/2021 16 - Unknown Date Reviewed: 01/02/2024 Reviewed by: Irma Simon LPN - Fully Assessed Reason for Visit: Patient Question [4297] Prescriptions as of 01/23/2024 - fluticasone-salmeterol (ADVAIR DISKUS) 500-50 mcg/dose dsdv Inhale 1 Puff as instructed two times a day. Rinse and gargle mouth with water after use. - albuterol HFA (PROVENTIL HFA, VENTOLIN HFA) 90 mcg/actuation inhaler Inhale 2 Puffs as instructed every 6 hours as needed for wheezing/shortness of breath. - nitroglycerin sublingual (NITROQUICK) 0.4 mg SL tablet Dissolve 1 tablet under the tongue every 5 minutes as needed. - atorvastatin (LIPITOR) 80 mg tablet Take 1 tablet by mouth once daily. - clopidogrel (PLAVIX) 75 mg tablet Take 1 tablet by mouth once daily. - lisinopril (PRINIVIL) 20 mg tablet Take 1 tablet by mouth two times a day. - metoprolol tartrate, short acting, (LOPRESSOR) 25 mg tablet Take 1 tablet by mouth two times a day. - montelukast (SINGULAIR) 10 mg tablet Take 1 tablet by mouth daily at bedtime. - furosemide (LASIX) 20 mg tablet take 1 tablet by mouth every day - loratadine (CLARITIN) 10 mg tablet Take 1 tablet by mouth once daily. - multivitamin (ONE-A-DAY ESSENTIAL) tablet Take 1 tablet by mouth once daily. MVI with Lycopene Problem List As Of Date 01/16/2024 Noted Resolved CAD (coronary artery disease) [I25.10] 06/18/2014 Hyperlipidemia [E78.5] 06/18/2014 Hypertension [I10] 06/18/2014 Tobacco dependence [F17.200] 06/18/2014 Alcohol dependence (HCC) [F10.20] 06/18/2014 Shoulder pain [M25.519] 08/03/2014 Carpal tunnel syndrome [G56.00] 08/03/2014 ED (erectile dysfunction) [N52.9] 08/03/2014 Solitary pulmonary nodule [R91.1] 01/21/2023 Pulmonary emphysema, unspecified emphysema type*01/02/2024 Encounter Status:Closed by GISSEL ACOSTA on 01/16/24 [facility] 01-15-2024 [facility] Telephone ([facility]) ----- YURY GONZALEZ ([id number]) 1955 M Date Time Provider Department 01/15/24 GISSEL ACOSTA [facility] During your visit today, we recorded the following information about you: Jody Reyes 01/15/2024 9:22 AM Signed Pt stated he would not like to schedule at all with this office. Allergies As of Date: 01/15/2024 Noted Allergy Reaction HAY FEVER (SEASONAL ALLERGIES) 02/28/2021 16 - Unknown Date Reviewed: 01/02/2024 Reviewed by: Irma Simon LPN - Fully Assessed Prescriptions as of 01/15/2024 - fluticasone-salmeterol (ADVAIR DISKUS) 500-50 mcg/dose dsdv Inhale 1 Puff as instructed two times a day. Rinse and gargle mouth with water after use. - albuterol HFA (PROVENTIL HFA, VENTOLIN HFA) 90 mcg/actuation inhaler Inhale 2 Puffs as instructed every 6 hours as needed for wheezing/shortness of breath. - nitroglycerin sublingual (NITROQUICK) 0.4 mg SL tablet Dissolve 1 tablet under the tongue every 5 minutes as needed. - atorvastatin (LIPITOR) 80 mg tablet Take 1 tablet by mouth once daily. - clopidogrel (PLAVIX) 75 mg tablet Take 1 tablet by mouth once daily. - lisinopril (PRINIVIL) 20 mg tablet Take 1 tablet by mouth two times a day. - metoprolol tartrate, short acting, (LOPRESSOR) 25 mg tablet Take 1 tablet by mouth two times a day. - montelukast (SINGULAIR) 10 mg tablet Take 1 tablet by mouth daily at bedtime. - furosemide (LASIX) 20 mg tablet take 1 tablet by mouth every day - loratadine (CLARITIN) 10 mg tablet Take 1 tablet by mouth once daily. - multivitamin (ONE-A-DAY ESSENTIAL) tablet Take 1 tablet by mouth once daily. MVI with Lycopene Problem List As Of Date 01/15/2024 Noted Resolved CAD (coronary artery disease) [I25.10] 06/18/2014 Hyperlipidemia [E78.5] 06/18/2014 Hypertension [I10] 06/18/2014 Tobacco dependence [F17.200] 06/18/2014 Alcohol dependence (HCC) [F10.20] 06/18/2014 Shoulder pain [M25.519] 08/03/2014 Carpal tunnel syndrome [G56.00] 08/03/2014 ED (erectile dysfunction) [N52.9] 08/03/2014 Solitary pulmonary nodule [R91.1] 01/21/2023 Pulmonary emphysema, unspecified emphysema type*01/02/2024 Encounter Status:Closed by GISSEL ACOSTA on [facility] YURY [facility]ALE[facility] ([id number]) 1955 M Date Time Provider Department 01/15/24 ACACIA DE OLIVEIRA [facility] During your visit today, we recorded the following information about you: Acacia De Oliveira MD 01/15/2024 6:58 PM Signed Can someone please call Yury gonzalez and find out which pulm department he would like to go to? [facility] or [facility] If he does not mind going out of the [facility] network we can send him to [facility] Regards, Celeste Joaquin MD, RN 01/15/2024 7:27 PM Signed Spoke with patient. He states he prefers to see Pulmonary @ [facility] [place]. Otherwise, he would be willing to see a provider outside [facility] but still wants to stay in [place]. Offered to transfer to hardware developer for PULMONARY appointment. He declined and says he needs a few more days to think about it. Celeste Salvador, Irma De LPN 01/16/2024 2:18 PM Signed ----- Message from Acacia De Oliveira MD sent at 01/15/2024 7:02 PM EDT ----- Please let patient know, that his cancer has grown since the last CT. It is very important for him to get treated as soon as possible. May now pulmonary doctors were calling and trying to get him appoint meant but he has refused. If he wishes to go to [place] he can or if he wants to stay in [place] we can send a fax to pulmonary in [place]. He needs to get this biopsied and treated. Regards, Irma Douglass MD, LPN 01/16/2024 2:19 PM Signed See telephone one from 01/15/24 regarding patient response to scheduling Pulmonary appointment. Irma Simon LPN January 16, 2024 2:19 PM Allergies As of Date: 01/15/2024 Noted Allergy Reaction HAY FEVER (SEASONAL ALLERGIES) 02/28/2021 16 - Unknown Date Reviewed: 01/02/2024 Reviewed by: Irma Simon LPN - Fully Assessed Reason for Visit: Appointment [186] Prescriptions as of 01/16/2024 - fluticasone-salmeterol (ADVAIR DISKUS) 500-50 mcg/dose dsdv Inhale 1 Puff as instructed two times a day. Rinse and gargle mouth with water after use. - albuterol HFA (PROVENTIL HFA, VENTOLIN HFA) 90 mcg/actuation inhaler Inhale 2 Puffs as instructed every 6 hours as needed for wheezing/shortness of breath. - nitroglycerin sublingual (NITROQUICK) 0.4 mg SL tablet Dissolve 1 tablet under the tongue every 5 minutes as needed. - atorvastatin (LIPITOR) 80 mg tablet Take 1 tablet by mouth once daily. - clopidogrel (PLAVIX) 75 mg tablet Take 1 tablet by mouth once daily. - lisinopril (PRINIVIL) 20 mg tablet Take 1 tablet by mouth two times a day. - metoprolol tartrate, short acting, (LOPRESSOR) 25 mg tablet Take 1 tablet by mouth two times a day. - montelukast (SINGULAIR) 10 mg tablet Take 1 tablet by mouth daily at bedtime. - furosemide (LASIX) 20 mg tablet take 1 tablet by mouth every day - loratadine (CLARITIN) 10 mg tablet Take 1 tablet by mouth once daily. - multivitamin (ONE-A-DAY ESSENTIAL) tablet Take 1 tablet by mouth once daily. MVI with Lycopene Problem List As Of Date 01/15/2024 Noted Resolved CAD (coronary artery disease) [I25.10] 06/18/2014 Hyperlipidemia [E78.5] 06/18/2014 Hypertension [I10] 06/18/2014 Tobacco dependence [F17.200] 06/18/2014 Alcohol dependence (HCC) [F10.20] 06/18/2014 Shoulder pain [M25.519] 08/03/2014 Carpal tunnel syndrome [G56.00] 08/03/2014 ED (erectile dysfunction) [N52.9] 08/03/2014 Solitary pulmonary nodule [R91.1] 01/21/2023 Pulmonary emphysema, unspecified emphysema type*01/02/2024 Encounter Status:Closed by IRMA SIMON on 01/16/24 Normal [facility] CT CHEST WO IVCONon 01-09-20 CT CHEST WO IVCON * * *Final Report* * * DATE OF EXAM: Jan 09 2024 12:17PM [facility] 0541 - CT CHEST WO IVCON / PROCEDURE REASON: Lung nodule * * * * Physician Interpretation * * * * EXAMINATION: CHEST CT WITHOUT CONTRAST CLINICAL HISTORY: Lung nodule. Technique: Spiral CT acquisition of the chest from the thoracic inlet to the upper abdomen without contrast. MQ: [id number] CT Radiation dose: Integrated Dose-length product (DLP) for this visit = 519 mGy*cm CT Dose Reduction Employed: Automated exposure control(AEC) and iterative recon Comparison: CT chest on 01/03/2023 RESULT: Limitations: None. Lines, tubes, and devices: None. Lung parenchyma and airways: The central airways are patent. Noted is interval increase in size of the bilobed lobulated solid nodule in the right lower lobe now measuring 2 x 1.6 cm, series 6 image 222, previously 1.4 x 1.1 cm. Associated pleural tags are also visualized. There is interval new subcentimeter nodule in the anterior right lower lobe measuring 8 x 7.5 mm, series 6 image 321. The lungs are remarkable for mild to moderate centrilobular and paraseptal emphysema, with multiple bullae/blebs in the right upper lobe. Small triangular density noted in the right middle lobe, presumably representing atelectasis. No mass lesion seen. Pleural space: No pleural effusion. No pleural thickening. Lower neck, lymph nodes, and mediastinum: The imaged thyroid gland is normal. No lymphadenopathy in the supraclavicular, axillary, mediastinal, or hilar regions. Heart, pericardium, and thoracic vessels: The thoracic aorta and main pulmonary artery are normal in caliber. There are atherosclerotic calcifications in the thoracic aorta and its branches. The cardiac chambers are normal in size. Linear and punctate coronary artery atherosclerotic calcifications are noted, although the study is not optimized for coronary assessment. No pericardial effusion or thickening. Bones and soft tissues: No destructive bone lesion. Left-sided rib deformities are again noted, presumably chronic. Chest wall soft tissue is unremarkable. Upper abdomen: Limited study through the upper abdomen demonstrates no interval changes. Localizer images: No additional findings. IMPRESSION: Interval increase in size of bilobed solid nodule in the right lower lobe, with a new nodule. Consider tissue sampling or PET CT study for further evaluation. Emphysema. No thoracic lymphadenopathy. Rail Director: PSCB Transcribe Date/Time: Jan 13 2024 8:46A Dictated by : FABBY SALDANA MD This examination was interpreted and the report reviewed and electronically signed by: FABBY SALDANA MD on Jan 13 2024 4:55PM EST [id number] Normal [facility] Basic metabolic 2000 panelon 01-02-2024 Anion gap [Moles/Vol] 9 mmol/L Normal 8-15 [facility] Comment on above: Order Comment: Speci men Type: BLOOD SPECIMENOrdering Facility: [facility] Address: [address] [place] [address] Performed By: #### 2 4331-1, 17057-8 ####[facility] LABCLIA [id number] [place] [address] [place] Calcium [Mass/Vol] 9.3 mg/dL Normal 8.5-10.2 [facility] Comment on above: Order Comment: Speci men Type: BLOOD SPECIMENOrdering Facility: [facility] Address: [address] [place] [address] Performed By: #### 2 4331-1, 12384-3 ####[facility] LABCLIA [id number] [place] [id number] [place] Chloride [Moles/Vol] 93 mmol/L Low 98-107 [facility] Comment on above: Order Comment: Speci men Type: BLOOD SPECIMENOrdering Facility: [facility] Address: [address] [place] [address] Performed By: #### 2 4331-1, 46915-1 ####[facility] [id number] [place] [address] [place] CO2 [Moles/Vol] 28 mmol/L Normal 22-30 [facility] Comment on above: Order Comment: Speci men Type: BLOOD SPECIMENOrdering Facility: [facility] Address: [address] [place] [address] Performed By: #### 2 4331-1, 17979-2 ####[facility] [id number] [place] [address] [place] Creatinine [Mass/Vol] 1.12 mg/dL Normal 0.73-1.22 [facility] Comment on above: Order Comment: Speci men Type: BLOOD SPECIMENOrdering Facility: [facility] Address: [address] [place] [address] Performed By: #### 2 4331-1, 17973-0 ####[facility] [id number] [address] [place] Creatinine and Glomerular filtration rate.predicted panel (S/P/Bld) 72 mL/min/1.73m??? Normal >=60 [facility] Comment on above: Order Comment: Speci men Type: BLOOD SPECIMENOrdering Facility: [facility] Address: [address] [place] [address] Result Comment: Laly mated Glomerular Filtration Rate (eGFR) is calculated using the 2020 CKD-EPI creatinine equation. This equation utilizes serum creatinine, sex, and age as parameters. The creatinine assay has traceable calibration to isotope dilution-mass spectrometry. Refer to KDIGO guidelines for clinical interpretation. In patients with unstable renal function, e.g. those with acute kidney injury, the eGFR may not accurately reflect actual GFR. Performed By: #### 2 4331-1, 71806-3 ####[facility] LABCLIA [id number] [address] [address] [place] Glucose [Mass/Vol] 105 mg/dL High 74-99 [facility] Comment on above: Order Comment: Speci men Type: BLOOD SPECIMENOrdering Facility: [facility] Address: [address] [place] [address] Result Comment: The [place] Diabetes Association (ADA) provides guidance for cutoff values for fasting glucose and random glucose. The ADA defines fasting as no caloric intake for at least 8 hours. Fasting plasma glucose results between 100 to 125 mg/dL indicate increased risk for diabetes (prediabetes). Fasting plasma glucose results greater than or equal to 126 mg/dL meet the criteria for diagnosis of diabetes. In the absence of unequivocal hyperglycemia, results should be confirmed by repeat testing. In a patient with classic symptoms of hyperglycemia or hyperglycemic crisis, random plasma glucose results greater than or equal to 200 mg/dL meet the criteria for diagnosis of diabetes. Reference: Standards of Medical Care in Diabetes 2016, Canadian Diabetes Association. Diabetes Care. 2016.39(Suppl 1). Performed By: #### 2 4331-1, 40976-1 ####[facility] LABCLIA [id number] [place] [address] [place] Potassium [Moles/Vol] 5.2 mmol/L High 3.7-5.1 [facility] Comment on above: Order Comment: Speci men Type: BLOOD SPECIMENOrdering Facility: [facility] Address: [address] [place] [address] Performed By: #### 2 4331-1, 83744-9 ####[facility] LABCLIA [id number] [place] [address] [place] Sodium [Moles/Vol] 130 mmol/L Low 136-144 [facility] Comment on above: Order Comment: Speci men Type: BLOOD SPECIMENOrdering Facility: [facility] Address: [address] [place] [address] Performed By: #### 2 4331-1, 14712-4 ####[facility] LABCLIA [id number] [place] [address] [place] Urea nitrogen [Mass/Vol] 13 mg/dL Normal 9-24 [facility] Comment on above: Order Comment: Speci men Type: BLOOD SPECIMENOrdering Facility: [facility] Address: [address] [place] [address] Performed By: #### 2 4331-1, 33474-5 ####[facility] LABIA [id number] [place] [address] [place] CBC panel Auto (Bld)on 01-01 Erythrocyte distribution width (RBC) [Ratio] 12.2 % Normal 11.5-15.0 [facility] Comment on above: Order Comment: Speci men Type: BLOOD SPECIMENOrdering Facility: [facility] Address: [address] [place] [address] Performed By: #### 5 8410-2 ####[facility] LABIA [id number] [place] [address] [place] Hematocrit (Bld) [Volume fraction] 40.9 % Normal 39.0-51.0 [facility] Comment on above: Order Comment: Speci men Type: BLOOD SPECIMENOrdering Facility: [facility] Address: [address] [place] [address] Performed By: #### 5 8410-2 ####[facility] LABIA [id number] [place] [address] [place] Hemoglobin (Bld) [Mass/Vol] 13.6 g/dL Normal 13.0-17.0 [facility] Comment on above: Order Comment: Speci men Type: BLOOD SPECIMENOrdering Facility: [facility] Address: [address] [place] [address] Performed By: #### 5 8410-2 ####[facility] LABIA [id number] [place] [address] [place] MCH (RBC) [Entitic mass] 32.1 pg Normal 26.0-34.0 [facility] Comment on above: Order Comment: Speci men Type: BLOOD SPECIMENOrdering Facility: [facility] Address: [address] [place] [address] Performed By: #### 5 8410-2 ####[facility] LABCLIA [id number] [place] [address] [place] MCHC (RBC) [Mass/Vol] 33.3 g/dL Normal 30.5-36.0 [facility] Comment on above: Order Comment: Speci men Type: BLOOD SPECIMENOrdering Facility: [facility] Address: [address] [place] [address] Performed By: #### 5 8410-2 ####[facility] LABCLIA [id number] [place] [address] [place] MCV (RBC) [Entitic vol] 96.5 fL Normal 80.0-100.0 [facility] Comment on above: Order Comment: Speci men Type: BLOOD SPECIMENOrdering Facility: [facility] Address: [address] [place] [address] Performed By: #### 5 8410-2 ####[facility] LABCLIA [id number] [place] [address] [place] Nucleated RBC (Bld) [#/Vol] 10*3/uL Normal <0.01 [facility] Comment on above: Order Comment: Speci men Type: BLOOD SPECIMENOrdering Facility: [facility] Address: [address] [place] [address] Performed By: #### 5 8410-2 ####[facility] LABCLIA [id number] [place] [address] [place] Platelet mean volume (Bld) [Entitic vol] 9.5 fL Normal 9.0-12.7 [facility] Comment on above: Order Comment: Speci men Type: BLOOD SPECIMENOrdering Facility: [facility] Address: [address] [place] [address] Performed By: #### 5 8410-2 ####[facility] LABIA [id number] [place] [address] [place] Platelets (Bld) [#/Vol] 224 10*3/uL Normal 150-400 [facility] Comment on above: Order Comment: Speci men Type: BLOOD SPECIMENOrdering Facility: [facility] Address: [address] [place] [address] Performed By: #### 5 8410-2 ####[facility] LABIA [id number] [place] [address] [place] RBC (Bld) [#/Vol] 4.24 10*6/uL Normal 4.20-6.[address] [facility] Comment on above: Order Comment: Speci men Type: BLOOD SPECIMENOrdering Facility: [facility] Address: [address] [place] [address] Performed By: #### 5 8410-2 ####[facility] LABIA [id number] [place] [address] [place] WBC (Bld) [#/Vol] 5.62 10*3/uL Normal 3.70-11.[address] [facility] Comment on above: Order Comment: Speci men Type: BLOOD SPECIMENOrdering Facility: [facility] Address: [address] [place] [address] Performed By: #### 5 8410-2 ####[facility] [id number] [address] [place] CNOVon 01-02-2024 CNOV Office Visit ([facility] ) ----- YURY GONZALEZ ([id number]) 1955 M Date Time Provider Department 01/02/24 9:40 AM ACACIA DE OLIVEIRA INTCheyanneWS During your visit today, we recorded the following information about you: Pulse Blood pressure Weight Height 74/minute 136/90 93.4 kg 1.676 m Acacia De Oliveira MD 01/02/2024 5:30 PM Signed CC: Patient presents with: Physical HPI Yury is a very pleasant 68-year-old man with past medical history of hypertension, hyperlipidemia, coronary artery disease, ex-smoker, quit 9 months ago who has low probability right lower lobe lung cancer. See below my note by Katiuska gracia; Yury Gonzalez is a 67 year old male who presents today for follow-up regarding continued wheezing/breathing issues, as well as to discuss chest CT results. Last visit was with Katiuska gracia CNP on 12/20/2022. At that time, patient had a chest x-ray which revealed a questionable right lung nodule. CT chest was advised. CT ordered and results as follows: Indeterminate 1.1 cm spiculated nodule at right lower lobe with an adjacent to 6 mm satellite nodule, suspicious for carcinoma. Follow-up for this incidentally detected lung nodule with PET/CT or biopsy within 4 weeks, or chest CT exam in 3 months is recommended. Has upcoming appt w/ Dr. Acosta (pul) Saturday. At that visit, patient was rx'ed prednisone and also had Advair increased, as well as Singulair added for suspected COPD flare. Per patient, it has made a big difference. State he's breathing better and easier. Has only used albuterol inhaler 3x so far this month (compared to the 10-12 times he typically would have used it). Per HPI from prior visit: COPD: Smokes 1/2 ppd. Currently using albuterol 6 times a day and multiple times during the night with the elevated outdoor temperatures and humidity. Also has been taking his advair 3 times a day versus ordered twice a day. Reports shortness of breath, wheezing, and nonproductive cough. Denies fever, chills, chest pain, or edema. Does report having intermittent sinus congestion he feels is adding to his breathing. Was on Singulair but took himself off of this as he thought it was just for sinuses. 01/07 Got to know a little bit about him today, he worked for 49 years and retired age 64, he did a lot of different jobs, oil, gas station, and rubber factory. He was 3 times, not currently, has 3 children who are grown, is in touch with oldest son. Spends a lot of time watching tv, has a friends, sister helps with grocery shopping. He does not have family that he can turn to for help except his sister who is his complete social support, he does not venture out of his house, cannot drive. He has delayed seeking any treatment for his lung lesion, probable cancer because of transportation. Medicare will help with transportation if it is within 50 miles but [facility] is farther of. He is willing to go to [place]. If he has to go a couple times to [facility] his sister was willing to drive him. Her sister is Sherrie and I called her in to be seen with the patient and discussed this with her. REVIEW OF SYSTEMS RESPIRATORY: SEE HPI All other systems negative. PAST MEDICAL HISTORY Diagnosis Date History of heart artery stent HTN (hypertension) Hyperlipidemia [place] (myocardial infarction) (HCC) 11/27/2004 [facility] PAST SURGICAL HISTORY Procedure Laterality Date HEART CATHETERIZATION 12/27/04 with stent placement at [facility] ALLERGIES Hay Fever [Seasonal Allergies] MEDICATIONS fluticasone-salmeterol (ADVAIR DISKUS) 500-50 mcg/dose dsdv Inhale 1 Puff as instructed two times a day. Rinse and gargle mouth with water after use. albuterol HFA (PROVENTIL HFA, VENTOLIN HFA) 90 mcg/actuation inhaler Inhale 2 Puffs as instructed every 6 hours as needed for wheezing/shortness of breath. nitroglycerin sublingual (NITROQUICK) 0.4 mg SL tablet Dissolve 1 tablet under the tongue every 5 minutes as needed. atorvastatin (LIPITOR) 80 mg tablet Take 1 tablet by mouth once daily. clopidogrel (PLAVIX) 75 mg tablet Take 1 tablet by mouth once daily. lisinopril (PRINIVIL) 20 mg tablet Take 1 tablet by mouth two times a day. metoprolol tartrate, short acting, (LOPRESSOR) 25 mg tablet Take 1 tablet by mouth two times a day. montelukast (SINGULAIR) 10 mg tablet Take 1 tablet by mouth daily at bedtime. furosemide (LASIX) 20 mg tablet take 1 tablet by mouth every day loratadine (CLARITIN) 10 mg tablet Take 1 tablet by mouth once daily. PHENYLephrine (SUDAFED PE) 10 mg tablet Take 1 tablet by mouth every 6 hours as needed. nicotine (NICODERM) 14 mg/24 hr Apply 1 Patch as directed every 24 hours. predniSONE (DELTASONE) 20 mg tablet Take 1 tablet by mouth once daily. (Patient not taking: Reported on 01/02/2024) multivitamin (ONE-A-DAY ESSENTIAL) tablet Take 1 tablet by mouth once daily. MVI with Lycopene (Patie (more content not included)... Normal [facility] 01-02-2024 [facility] Telephone ([facility]) ----- YURY GONZALEZ ([id number]) 1955 M Date Time Provider Department 01/02/24 ACACIA DE OLIVEIRA During your visit today, we recorded the following information about you: Acacia De Oliveira MD 01/02/2024 5:32 PM Signed Please call patient and let him know that the CT scan please schedule the CT scan that was ordered in January last year for the patient now. Inform him that after the CT scan he will get a call from Dr. Gissel Garcia. I have contacted her and Dr. Montalvo with regards to his limitations with transportation and daily will help him get most of his treatments in [place] or [place]. We will work with him to help him. Please work with him to schedule a CT scan SULE[place]AN. Regards, Irma Douglass MD, LPN 01/03/2024 10:58 AM Signed Duplicate message Irma Simon LPN 01/03/2024 11:03 AM Signed Called and spoke to Yury updated on message below and will call and schedule CT scan SULEIMAN, patient voiced understanding, message forwarded to Clerical pool. Irma Simon LPN January 03, 2024 11:03 AM Allergies As of Date: 01/02/2024 Noted Allergy Reaction HAY FEVER (SEASONAL ALLERGIES) 02/28/2021 16 - Unknown Date Reviewed: 01/02/2024 Reviewed by: Irma Simon LPN - Fully Assessed Prescriptions as of 01/09/2024 - fluticasone-salmeterol (ADVAIR DISKUS) 500-50 mcg/dose dsdv Inhale 1 Puff as instructed two times a day. Rinse and gargle mouth with water after use. - albuterol HFA (PROVENTIL HFA, VENTOLIN HFA) 90 mcg/actuation inhaler Inhale 2 Puffs as instructed every 6 hours as needed for wheezing/shortness of breath. - nitroglycerin sublingual (NITROQUICK) 0.4 mg SL tablet Dissolve 1 tablet under the tongue every 5 minutes as needed. - atorvastatin (LIPITOR) 80 mg tablet Take 1 tablet by mouth once daily. - clopidogrel (PLAVIX) 75 mg tablet Take 1 tablet by mouth once daily. - lisinopril (PRINIVIL) 20 mg tablet Take 1 tablet by mouth two times a day. - metoprolol tartrate, short acting, (LOPRESSOR) 25 mg tablet Take 1 tablet by mouth two times a day. - montelukast (SINGULAIR) 10 mg tablet Take 1 tablet by mouth daily at bedtime. - furosemide (LASIX) 20 mg tablet take 1 tablet by mouth every day - loratadine (CLARITIN) 10 mg tablet Take 1 tablet by mouth once daily. - multivitamin (ONE-A-DAY ESSENTIAL) tablet Take 1 tablet by mouth once daily. MVI with Lycopene Problem List As Of Date 01/02/2024 Noted Resolved CAD (coronary artery disease) [I25.10] 06/18/2014 Hyperlipidemia [E78.5] 06/18/2014 Hypertension [I10] 06/18/2014 Tobacco dependence [F17.200] 06/18/2014 Alcohol dependence (HCC) [F10.20] 06/18/2014 Shoulder pain [M25.519] 08/03/2014 Carpal tunnel syndrome [G56.00] 08/03/2014 ED (erectile dysfunction) [N52.9] 08/03/2014 Solitary pulmonary nodule [R91.1] 01/21/2023 Pulmonary emphysema, unspecified emphysema type*01/02/2024 Encounter Status:Closed by IRMA SIMON on 01/03/24 Normal [facility] HbA1c (Bld)on 01-02-2024 Average glucose Estimated from glycated hemoglobin (Bld) [Mass/Vol] 126 mg/dL Normal [facility] Comment on above: Order Comment: Lori rodriguez Type: BLOOD SPECIMENOrdering Facility: [facility] Address: [address] [place] [address] Result Comment: eAG: (Estimated average glucose) is a calculated value from HgbA1c and is tax compliance representative of the average blood glucose level in the last 2-3 month period. Performed By: #### 5 5454-3 ####[facility] LABIA [id number] [place] [address] [place] HbA1c (Bld) [Mass fraction] 6.0 % High 4.3-5.6 [facility] Comment on above: Order Comment: Lori rodriguez Type: BLOOD SPECIMENOrdering Facility: [facility] Address: [address] [place] [address] Result Comment: Amer ican Diabetes Association guidelines indicate that patients with HgbA1c in the range 5.7-6.4% are at increased risk for development of diabetes, and intervention by lifestyle modification may be beneficial. HgbA1c greater or equal to 6.5% is considered diagnostic of diabetes. Performed By: #### 5 5454-3 ####[facility] LABCLIA [id number] [place] [address] [place] Lipid 1996 panelon 4 Cholesterol [Mass/Vol] 107 mg/dL Normal <[address] [facility] Comment on above: Order Comment: Lori rodriguez Type: BLOOD SPECIMENOrdering Facility: [facility] Address: [address] [place] [address] Result Comment: <200 mg/dL, Desirable 200-239 mg/dL, Borderline high >239 mg/dL, High Performed By: #### 2 4331-1, 52601-9 ####[facility] LABCLIA [id number] [address] OF [facility] Cholesterol in HDL [Mass/Vol] 57 mg/dL Normal >39 [facility] Comment on above: Order Comment: Patrickreji rodriguez Type: BLOOD SPECIMENOrdering Facility: [facility] Address: [address] [place] [address] Result Comment: 40-5 9 mg/dL, Acceptable >59 mg/dL, High: Negative risk factor for coronary heart disease <40 mg/dL, Low: Positive risk factor for coronary heart disease Performed By: #### 2 4331-1, 30093-8 ####[facility] LABCLIA [id number] [address] Cholesterol in LDL [Mass/Vol] 40 mg/dL Normal <100 [facility] Comment on above: Order Comment: Lori jennifer Type: BLOOD SPECIMENOrdering Facility: [facility] Address: [address] [place] [address] Result Comment: <100 mg/dL, Optimal 100-129 mg/dL, Near optimal/above optimal 130-159 mg/dL, Borderline high 160-189 mg/dL, High >189 mg/dL, Very high Secondary prevention optimal LDL Cholesterol levels are recommended to be < 70 mg/dL Performed By: #### 2 4331-1, 18364-6 ####[facility] LABCLIA [id number] [address] OF [facility] Cholesterol in LDL/Cholesterol in HDL [Mass ratio] 0.70 {ratio} Normal <2.54 [facility] Comment on above: Order Comment: Lori rodriguez Type: BLOOD SPECIMENOrdering Facility: [facility] Address: [address] [place] [address] Result Comment: Rich collazo: 1. National Cholesterol Education Program ATP III Guideline At-A-Glance Quick Desk Reference: National Heart, Lung, and Blood [place]. National Institutes of Health. 2001: NIH Publication No. 01-3305. 2. An International Atherosclerosis Society position paper: global recommendations for the management of dyslipidemia: executive summary, Atherosclerosis. 2014: 232(2):410-413. Performed By: #### 2 4331-1, 59899-7 ####[facility] LABCLIA [id number] [address] [address] [place] Cholesterol in VLDL [Mass/Vol] 10 mg/dL Normal <30 [facility] Comment on above: Order Comment: Speci men Type: BLOOD SPECIMENOrdering Facility: [facility] Address: [address] [place] [address] Performed By: #### 2 4331-1, 27676-6 ####[facility] LABCLIA [id number] [place] [address] [place] Cholesterol non HDL [Mass/Vol] 50 mg/dL Normal <130 [facility] Comment on above: Order Comment: Speci men Type: BLOOD SPECIMENOrdering Facility: [facility] Address: [address] [place] [address] Result Comment: <130 mg/dL, Optimal 130-159 mg/dL, Near optimal/above optimal 160-189 mg/dL, Borderline high 190-219 mg/dL, High >219 mg/dL, Very high Secondary prevention optimal non HDL Cholesterol levels are recommended to be <100 mg/dL Performed By: #### 2 4331-1, 00425-6 ####[facility] LABCLIA [id number] [address] [address] [place] Cholesterol.total/Priscilla sterol in HDL [Mass ratio] 1.88 {ratio} Normal <5.10 [facility] Comment on above: Order Comment: Speci men Type: BLOOD SPECIMENOrdering Facility: [facility] Address: [address] [place] [address] Performed By: #### 2 4331-1, 32667-8 ####[facility] LABCLIA [id number] [address] [address] [place] FASTING TIME 13 hrs Normal [facility] Comment on above: Order Comment: Speci men Type: BLOOD SPECIMENOrdering Facility: [facility] Address: [address] [place] [address] Performed By: #### 2 4331-1, 12997-3 ####[facility] LABCLIA [id number] [place] [address] [place] Triglyceride [Mass/Vol] 49 mg/dL Normal <150 [facility] Comment on above: Order Comment: Speci men Type: BLOOD SPECIMENOrdering Facility: [facility] Address: [address] [place] [address] Result Comment: <150 mg/dL, Normal 150-199 mg/dL, Borderline high 200-499 mg/dL, High >499 mg/dL, Very high Performed By: #### 2 4331-1, 10041-5 ####[facility] LABCLIA [id number] [address] OF [place] Tunde 02-21-2023 CNPN Telephone ([facility]) ----- YURY GONZALEZ ([id number]) 1955 M Date Time Provider Department 02/21/23 EDWIN [facility]LMSTE[facility] During your visit today, we recorded the following information about you: Houston Haile 02/21/2023 10:50 AM Signed 02/21- patient called and said that he would like to cancel his procedure and cancel his corresponding appointments. Stated that he can not afford it. Call patient to discuss financial options availabl ? Allergies As of Date: 02/21/2023 Noted Allergy Reaction HAY FEVER (SEASONAL ALLERGIES) 02/28/2021 16 - Unknown Date Reviewed: 01/21/2023 Reviewed by: Viki Parmar - Fully Assessed Reason for Visit: Appointment Cancelled [1023] Cmt: Patient called to cancel his 03/20 procedure and corresponding appointments. Prescriptions as of 02/25/2023 - nicotine (NICODERM) 14 mg/24 hr Apply 1 Patch as directed every 24 hours. - nitroglycerin sublingual (NITROQUICK) 0.4 mg SL tablet Dissolve 1 tablet under the tongue every 5 minutes as needed. - albuterol HFA (PROVENTIL HFA, VENTOLIN HFA) 90 mcg/actuation inhaler Inhale 2 Puffs as instructed every 6 hours as needed for wheezing/shortness of breath. - fluticasone-salmeterol (ADVAIR DISKUS) 500-50 mcg/dose dsdv Inhale 1 Puff as instructed twice daily. Rinse and gargle mouth with water after use. - furosemide (LASIX) 20 mg tablet Take 1 tablet by mouth once daily. - montelukast (SINGULAIR) 10 mg tablet Take 1 tablet by mouth daily at bedtime. - loratadine (CLARITIN) 10 mg tablet Take 1 tablet by mouth once daily. - predniSONE (DELTASONE) 20 mg tablet Take 1 tablet by mouth once daily. - clopidogrel (PLAVIX) 75 mg tablet Take 1 tablet by mouth once daily. - atorvastatin (LIPITOR) 80 mg tablet Take 1 tablet by mouth once daily. - lisinopril (PRINIVIL) 20 mg tablet Take 1 tablet by mouth twice daily. - metoprolol tartrate, short acting, (LOPRESSOR) 25 mg tablet Take 1 tablet by mouth twice daily. - multivitamin (ONE-A-DAY ESSENTIAL) tablet Take 1 tablet by mouth once daily. MVI with Lycopene - PHENYLephrine (SUDAFED PE) 10 mg tablet Take 1 tablet by mouth every 6 hours as needed. - aspirin, enteric coated (ASPIRIN, ENTERIC COATED) 81 mg EC tablet Take 81 mg by mouth once daily. Problem List As Of Date 02/21/2023 Noted Resolved CAD (coronary artery disease) [I25.10] 06/18/2014 Hyperlipidemia [E78.5] 06/18/2014 Hypertension [I10] 06/18/2014 Tobacco dependence [F17.200] 06/18/2014 Alcohol dependence (HCC) [F10.20] 06/18/2014 Shoulder pain [M25.519] 08/03/2014 Carpal tunnel syndrome [G56.00] 08/03/2014 ED (erectile dysfunction) [N52.9] 08/03/2014 Solitary pulmonary nodule [R91.1] 01/21/2023 Encounter Status:Closed by HOUSTON HAILE on 02/25/23 [facility] PET/CT SKULL-THIGH INITon 02-12-2023 NM PET/CT SKULL-THIGH INIT * * *Final Report* * * DATE OF EXAM: Feb 12 2023 11:02AM MDP 0060 - NM PET/CT SKULL-THIGH INIT / PROCEDURE REASON: R91.1-Solitary pulmonary nodule * * * * Physician Interpretation * * * * WHOLE (OR REGIONAL) BODY PET-CT SCAN CLINICAL HISTORY: Lung nodule. INDICATION: Initial treatment strategy. TECHNIQUE: PET-CT scan: Approximately 60 minutes following the IV administration of F-18 FDG (11 mCi of F-18 FDG), PET and non contrast CT images were acquired from the skull base through proximal thigh. PET images were reconstructed with and without attenuation correction using attenuation coefficients. CT Radiation dose: Integrated Dose-length product (DLP) for this visit = 345 mGy*cm. CT Dose Reduction Employed: Automatic exposure control used (AED) COMPARISON: FDG PET-CT: None CORRELATION: None. RESULTS: Topogram review: Unremarkable, no acute findings. No retained foreign body. Head and Neck: No evidence of focal uptake to suggest FDG avid neoplastic process. No significant anatomical abnormality to the limits of low dose noncontrast CT scan. Chest: There is a 1.4 cm nodule in the right lower lobe with increased FDG uptake of max SUV 9, consistent with neoplastic process. No obvious FDG avid lymphadenopathy.. Bilateral apical scarring. Emphysema changes in bilateral lung. Abdomen and Pelvis: No evidence of focal uptake to suggest FDG avid neoplastic process. No significant anatomical abnormality to the limits of low dose noncontrast CT scan. Extremities/Skeleton: No evidence of focal uptake to suggest FDG avid neoplastic process. Degenerative arthritic change. IMPRESSION: 1. HEAD and NECK: No evidence of focal uptake to suggest FDG avid neoplastic process.. 2. CHEST: FDG avid right lower lobe lung nodule is consistent with neoplastic process. No FDG avid lymphadenopathy. 3. ABDOMEN/PELVIS: No evidence of focal uptake to suggest FDG avid neoplastic process.. 4. EXTREMITIES/SKELETON: No evidence of focal uptake to suggest FDG avid neoplastic process.. Rail Director: IVETTE Transcribe Date/Time: Feb 12 2023 11:25A Dictated by : FLOR MARTE MD This examination was interpreted and the report reviewed and electronically signed by: FLOR MARTE MD on Feb 12 2023 11:30AM EST [id number] Normal [facility] NM PET/CT SKULL-THIGH INITIA Mayur 02-12-[address] [facility] [address] CHEST WO IVCONon 01-08-20 Radiology Result ACTIONABLE Abnormal [facility] XR Chest PA and LateralOrder ed By: [facility] Provider on 12-20-2022 Interpretation and review of laboratory results Abnormal [facility] Radiology Result ACTIONABLE Abnormal [facility] Comment on above: This report contains an incidental or actionable finding. This finding may be a new finding separate from the reason your provider ordered the imaging test or it may be an already known finding that needs additional or continued follow-up. Because of this incidental or actionable finding, you may need another test (imaging or a different type of test). Please contact your provider for the next steps. [facility] XR Chest PA and Lateralon IMPRESSION: Questionable right lung nodule. ET chest recommended. No acute process ACTIONABLE RESULT: FOLLOW-UP Acuity: Actionable Findings: Thoracic-Other Routing Code: CT_1 Recommendation: CT Chest WO IVCON Time Frame: At the discretion of the clinical team. COMMUNICATION: Results will be communicated with the ordering provider via [employer] staff message or phone message by [facility] within 2 business days of report finalization. Algorithms for management of incidental imaging findings can be found on the [facility] Intranet Sharepoint site at: [email or web address] [email or web address]/Forms/ [email or web address] No acute radiographic abnormality. Rail Director: IVETTE Transcribe Date/Time: Dec 20 2022 12:49P Dictated by : MAXWELL PENNY MD This examination was interpreted and the report reviewed and electronically signed by: MAXWELL PENNY MD on Dec 20 2022 12:54PM [facility] DIVISION OF RADIOLOGY * * *Final Report* * * DATE OF EXAM: Dec 20 2022 11:20AM WOX [id number] - XR CHEST 2V FRONTAL/LAT / PROCEDURE REASON: multiple diagnoses * * * * Physician Interpretation * * * * EXAMINATION: CHEST RADIOGRAPH (2 VIEW FRONTAL & LATERAL) CLINICAL HISTORY: Wheezing Shortness of breath MQ: XC2_6 EXAM DATE/TIME: 12/20/2022 11:20 AM COMPARISON: 10/04/2021 RESULT: Lines, tubes, and devices: None. Lungs and pleura: No consolidation. Questionable lung nodule on the right overlying the interspace between the posterior eighth and ninth ribs.. No pleural effusion. No pneumothorax. Cardiomediastinal silhouette: Stable cardiomediastinal silhouette. Stable prominence of the central pulmonary arteries. Bones and soft tissues: Unremarkable. DIVISION OF RADIOLOGY Provider, [facility] 12/20/2022 * * *Final Report* * * DATE OF EXAM: Dec 20 2022 11:20AM WOX [id number] - XR CHEST 2V FRONTAL/LAT / PROCEDURE REASON: multiple diagnoses * * * * Physician Interpretation * * * * EXAMINATION: CHEST RADIOGRAPH (2 VIEW FRONTAL & LATERAL) CLINICAL HISTORY: Wheezing Shortness of breath MQ: XC2_6 EXAM DATE/TIME: 12/20/2022 11:20 AM COMPARISON: 10/04/2021 RESULT: Lines, tubes, and devices: None. Lungs and pleura: No consolidation. Questionable lung nodule on the right overlying the interspace between the posterior eighth and ninth ribs.. No pleural effusion. No pneumothorax. Cardiomediastinal silhouette: Stable cardiomediastinal silhouette. Stable prominence of the central pulmonary arteries. Bones and soft tissues: Unremarkable. IMPRESSION IMPRESSION: Questionable right lung nodule. ET chest recommended. No acute process ACTIONABLE RESULT: FOLLOW-UP Acuity: Actionable Findings: Thoracic-Other Routing Code: CT_1 Recommendation: CT Chest WO IVCON Time Frame: At the discretion of the clinical team. COMMUNICATION: Results will be communicated with the ordering provider via [employer] staff message or phone message by [facility] within 2 business days of report finalization. Algorithms for management of incidental imaging findings can be found on the [facility] Intranet Sharepoint site at: [email or web address] [email or web address]/Forms/ [email or web address] No acute radiographic abnormality. Rail Director: [facility] Transcribe Date/Time: Dec 20 2022 12:49P Dictated by : MAXWELL PENNY MD This examination was interpreted and the report reviewed and electronically signed by: MAXWELL PENNY MD on Dec 20 2022 12:54PM EST [facility] Radiology Study observation (narrative) [facility] XR CHEST 2V FRONTAL/LATon [facility] XR Chest PA and Lateralon IMPRESSION: 1. Lungs hyperinflated suggesting underlying emphysema. 2. Mild prominence of the peripheral basilar lung markings potentially reflecting mild fibrosis. 2. Prominence of the central pulmonary vasculature for which the possibility of underlying pulmonary artery hypertension is raised. Clinical correlation and/or correlation with echocardiogram may be made. Rail Director: [facility] Transcribe Date/Time: Oct 04 2021 12:24P Dictated by : FITZ SHARPE MD This examination was interpreted and the report reviewed and electronically signed by: FITZ SHARPE MD on Oct 04 2021 12:26PM EST [id number] USE_DIVISIO N OF RADIOLOGY * * *Final Report* * * DATE OF EXAM: Oct 04 2021 12:04PM WOX [id number] - XR CHEST 2V FRONTAL/LAT / PROCEDURE REASON: Shortness of breath * * * * Physician Interpretation * * * * EXAMINATION: CHEST RADIOGRAPH (2 VIEW FRONTAL & LATERAL) CLINICAL HISTORY: Shortness of breath MQ: XC2_6 EXAM DATE/TIME: 10/04/2021 12:04 PM COMPARISON: No relevant prior studies available. RESULT: Lines, tubes, and devices: None. Lungs and pleura: Mild right apical pleural thickening. Lungs are hyperinflated. No focal consolidation. Mild reticulation of the peripheral basilar lung markings. No discernible pleural effusion or pneumothorax. Cardiomediastinal silhouette: Heart normal in size. Prominence of the central pulmonary vasculature. Bones and soft tissues: Mild degenerative changes in the spine. ZZZ_DO_NOT_ USE_DIVISIO N OF RADIOLOGY Provider, Nita aguila [place] - 10/04/2021 * * *Final Report* * * DATE OF EXAM: Oct 04 2021 12:04PM WOX 5291 - XR CHEST 2V FRONTAL/LAT / PROCEDURE REASON: Shortness of breath * * * * Physician Interpretation * * * * EXAMINATION: CHEST RADIOGRAPH (2 VIEW FRONTAL & LATERAL) CLINICAL HISTORY: Shortness of breath MQ: XC2_6 EXAM DATE/TIME: 10/04/2021 12:04 PM COMPARISON: No relevant prior studies available. RESULT: Lines, tubes, and devices: None. Lungs and pleura: Mild right apical pleural thickening. Lungs are hyperinflated. No focal consolidation. Mild reticulation of the peripheral basilar lung markings. No discernible pleural effusion or pneumothorax. Cardiomediastinal silhouette: Heart normal in size. Prominence of the central pulmonary vasculature. Bones and soft tissues: Mild degenerative changes in the spine. IMPRESSION IMPRESSION: 1. Lungs hyperinflated suggesting underlying emphysema. 2. Mild prominence of the peripheral basilar lung markings potentially reflecting mild fibrosis. 2. Prominence of the central pulmonary vasculature for which the possibility of underlying pulmonary artery hypertension is raised. Clinical correlation and/or correlation with echocardiogram may be made. Rail Director: IVETTE Transcribe Date/Time: Oct 04 2021 12:24P Dictated by : FITZ SHARPE MD This examination was interpreted and the report reviewed and electronically signed by: FITZ SHARPE MD on Oct 04 2021 12:26PM EST [facility] Radiology Study observation (narrative) Wilbur Ambrocio XR Chest PA and LateralOrder ed By: Ccf Provider on 10-04-2021 [facility] 12 Lead Electrocardiogramon 12-31-2017 12 Lead Electro[facility]ogram [facility] [address] [place], [place] [address] Lead EKG07/06/03 1600#: [id number] Acct: [id number]: YURY GONZALEZ Rep #: [id number]: 1955 62 From: Preston Hayes MDAttrenard Dr: Caprice Coy MD Status: DIS INOOrdering Dr: Katlin Green MD Date: 12/26/17Location: PCU Sex: M CAdmitted: 12/26/17Test Reason :Blood Pressure : / mmHGVent. Rate : 068 BPM Atrial Rate : 068 BPMP-R Int : 154 ms QRS Dur : 092 msQT Int : 406 ms P-R-T Axes : 077 052 043 degreesQTc Int : 431 msNormal sinus rhythmNormal ECGWhen compared with ECG of 26-DEC-2017 15:36,MANUAL COMPARISON REQUIRED, DATA IS UNCONFIRMEDConfirmed by PRESTON HAYES MD ([id number]), editor newspaper [employer]AND[employer]TER ([id number]) on 12/31/2017 3:07:44 PMReferred By: JAC Confirmed By:PRESTON HAYES MD12/31/17 1507Date Preston Hayes [facility]: Katlin Green MD; Caprice Coy MD; Chano Pineda MD Signed Normal [facility] 12 Lead Electrocardiogram [facility] [address] [place] [id number] Lead EKG012/26/17 1536MR#: [id number] Acct: [id number]: CARLOSYURY L Rep #: [id number]: 1955 62 From: Preston Hayes MDAttrenard Dr: Caprice Coy MD Status: DIS INOOrdering Dr: Demetrius Lanier MD Date: 12/26/17Location: PCU Sex: M CAdmitted: 12/26/17Test Reason :Blood Pressure : / mmHGVent. Rate : 069 BPM Atrial Rate : 069 BPMP-R Int : 154 ms QRS Dur : 100 msQT Int : 398 ms P-R-T Axes : 080 063 049 degreesQTc Int : 426 msNormal sinus rhythmNormal ECGWhen compared with ECG of 27-FEB-2005 13:05,Nonspecific T wave abnormality no longer evident in Lateral leadsConfirmed by PRESTON HAYES MD ([id number]), editor newspaper [employer] ([id number]) on 12/31/2017 3:07:53 PMReferred By: JAC Confirmed By:PRESTON HAYES MD12/31/17 1507Date Preston Hayes [facility]: Demetrius Lanier; Caprice Coy MD; Chano Pineda MD Signed Normal [facility] 12 Lead Electrocardiogram [facility] [address] [place], [place] [address] Lead EKG012/26/17 2238MR#: [id number] Acct: [id number]: YURY GONZALEZ Rep #: [id number]: 1955 62 From: Preston Hayes MDAttending Dr: Caprice Coy MD Status: DIS INOOrdering Dr: Katlin Green MD Date: 12/26/17Location: PCU Sex: M CAdmitted: 12/26/17Test Reason : ABNORMAL RHYTHMBlood Pressure : / mmHGVent. Rate : 054 BPM Atrial Rate : 054 BPMP-R Int : 168 ms QRS Dur : 092 msQT Int : 438 ms P-R-T Axes : 069 057 052 degreesQTc Int : 415 msSinus bradycardiaOtherwise normal ECGWhen compared with ECG of 26-DEC-2017 16:00,MANUAL COMPARISON REQUIRED, DATA IS UNCONFIRMEDConfirmed by PRESTON HAYES MD ([id number]), editor newspaper [employer] ([id number]) on 12/31/2017 3:07:22 PMReferred By: JAC Confirmed By:PRESTON HAYES MD12/31/17 1507Date Preston Hayes MDCC: Katlin Green MD; Caprice Coy MD; Chano Pineda MD Signed Normal [facility] 12 Lead Electrocardiogram [facility] [address] [place], [place] [address] Lead EKG012/27/17 0533MR#: [id number] Acct: [id number]: YURY GONZALEZ Rep #: [id number]: 1955 62 From: Preston Hayes MDAttending Dr: Caprice Coy MD Status: DIS INOOrdering Dr: Katlin Green MD Date: 12/27/17Location: U Sex: M CAdmitted: 12/26/17Test Reason : AM EKGBlood Pressure : / mmHGVent. Rate : 053 BPM Atrial Rate : 053 BPMP-R Int : 154 ms QRS Dur : 090 msQT Int : 484 ms P-R-T Axes : 070 059 055 degreesQTc Int : 454 msSinus bradycardiaAnterior injury pattern - cannot exclude early MIAbnormal ECGWhen compared with ECG of 26-DEC-2017 22:38,MANUAL COMPARISON REQUIRED, DATA IS UNCONFIRMEDConfirmed by ABIGAIL MARISCAL, PRESTON ([id number]), editor newspaper [employer] (56) on 12/31/2017 3:06:45 PMReferred By: JAC Confirmed By:PRESTON HAYES MD12/31/17 1506Date Preston Hayes MDCC: Katlin Green MD; Caprice Coy MD; Chano Pineda MD Signed Normal [facility] 12 Lead Electrocardiogram [facility] [address] [place], [place] [address] Lead EKG012/26/17 1238MR#: [id number] Acct: [id number]: YURY GONZALEZ Rep #: [id number]: 1955 62 From: Preston Hayes MDAttending Dr: Caprice Coy MD Status: DIS INOOrdering Dr: Jasmeet Swanson MD Date: 12/26/17Location: PCU Sex: M CAdmitted: 12/26/17Test Reason : CPBlood Pressure : / mmHGVent. Rate : 080 BPM Atrial Rate : 080 BPMP-R Int : 156 ms QRS Dur : 090 msQT Int : 358 ms P-R-T Axes : 082 071 062 degreesQTc Int : 412 msNormal sinus rhythmNormal ECGConfirmed by PRESTON HAYES MD ([id number]), editor newspaper [employer]TER (56) on 12/31/2017 2:22:05 PMReferred By: ADRIANA Confirmed By:PRESTON HAYES MD12/31/17 1422Date Preston Hayes MDCC: Caprice Coy MD; Jasmeet Swanson MD; Chano Pineda MD Signed Normal [facility] Basic Metabolic Profile (BMP )on 12-27-2017 Calcium mass conc 8.4 mg/dL Low 8.5-10.1 [facility] Comment on above: Performed By: #### L 500.2500, L500.4100 ####[facility] [address] [facility] [place], [address] Chloride molar conc 103 mmol/L Normal 98-107 [facility] Comment on above: Performed By: #### L 500.2500, L500.4100 ####[facility] [address] [facility] [place], [address] CO2 molar conc 32.0 mmol/L Normal 21.0-32.0 [facility] Comment on above: Performed By: #### L 500.2500, L500.4100 ####[facility] [address] [place], [address] Creatinine mass conc 0.68 mg/dL Low 0.70-1.30 [facility] Comment on above: Result Comment: The validity of the calculated GFR AND GFRAA in patients over70 years has not been determined. Clinical correlation isessential. Performed By: #### L 500.2500, L500.4100 ####[facility] [address] [place], [address] EST GFR - AA 153 mL/min Normal >60 [facility] Comment on above: Result Comment: Afri can Canadian GFR Calc Performed By: #### L 500.2500, L500.4100 ####[facility] [address] [place], [address] Estimated CRCL 105.15 ml/min Normal [facility] Comment on above: Performed By: #### L 500.2500, L500.4100 ####[facility] [address] [place], [address] GAP 5 Normal 5-15 [facility] Comment on above: Performed By: #### L 500.2500, L500.4100 ####[facility] [address] [place], [address] GFR/1.73 sq M predicted among non-blacks MDRD vol rate/area (S/P/Bld) 126 mL/min/{1.73_m2} Normal >60 [facility] Comment on above: Result Comment: Non- GFR Calc Performed By: #### L 500.2500, L500.4100 ####[facility] [address] [place], [address] Glucose mass conc 95 mg/dL Normal 74-106 [facility] Comment on above: Result Comment: Gen hartley note revised GLUCOSE reference range rxxxyrmlw03/02/2018. Performed By: #### L 500.2500, L500.4100 ####[facility] [address] [place], [address] Potassium molar conc 5.1 mmol/L Normal 3.5-5.1 [facility] Comment on above: Performed By: #### L 500.2500, L500.4100 ####[facility] [address] [place], [address] Sodium molar conc 140 mmol/L Normal 136-145 [facility] Comment on above: Performed By: #### L 500.2500, L500.4100 ####[facility] [address] [place], [address] Urea nitrogen mass conc 11 mg/dL Normal 7-18 [facility] Comment on above: Performed By: #### L 500.2500, L500.4100 ####[facility] [address] [place], [address] Urea nitrogen mass conc (Bld) 16.3 RATIO Normal 10-20 [facility] Comment on above: Performed By: #### L 500.2500, L500.4100 ####[facility] [address] [place], [address] CBC-Complete Blood Cnt No Di ffon 12-27-2017 Erythrocyte distribution width Auto Ratio (RBC) 12.3 % Normal 11.6-14.6 [facility] Comment on above: Performed By: #### L 500.2500, L501.4010 ####[facility] [address] [place], [address] Hematocrit Auto Volume Fraction (Bld) 45.2 % Normal 40-54 [facility] Comment on above: Performed By: #### L 500.2500, L501.4010 ####[facility] [address] [place], [address] Hemoglobin mass conc (Bld) 15.5 g/dL Normal 13.0-16.5 [facility] Comment on above: Performed By: #### L 500.2500, L501.4010 ####[facility] [address] [place], [address] MCH Auto Entitic mass (RBC) 32.6 pg High 27.0-32.0 [facility] Comment on above: Performed By: #### L 500.2500, L501.4010 ####[facility] [address] [place], [address] MCHC Auto mass conc (RBC) 34.3 g/gl Normal 32-36 [facility] Comment on above: Performed By: #### L 500.2500, L501.4010 ####[facility] [address] [place], [address] MCV Auto Entitic volume (RBC) 95.0 fL High 80-94 [facility] Comment on above: Performed By: #### L 500.2500, L501.4010 ####[facility] [address] [place], [address] Platelet mean volume Auto Entitic volume (Bld) 9.7 fL Normal 6.2-12.0 [facility] Comment on above: Performed By: #### L 500.2500, L501.4010 ####[facility] [address] [place], [address] Platelets Auto #/vol (Bld) 201 10*3/uL Normal 150-450 [facility] Comment on above: Performed By: #### L 500.2500, L501.4010 ####[facility] [address] [place], [address] RBC Auto #/vol (Bld) 4.76 M/mm3 Normal 4.6-6.2 [facility] Comment on above: Performed By: #### L 500.2500, L501.4010 ####[facility] [address] [place], [address] RDW SD 42.3 fl Normal 35.1-43.9 [facility] Comment on above: Performed By: #### L 500.2500, L501.4010 ####[facility] [address] [place], [address] WBC Auto #/vol (Bld) 4.7 10*3/uL Normal 4.4-11.0 [facility] Comment on above: Performed By: #### L 500.2500, L501.4010 ####[facility] [address], [address] Discharge Instructionon 12-15 Discharge Instruction [facility] [address] [place], [place] [address]Rhhvxkixnszl for Home/Discharge Uzquvayplnca10/13/18 1052MR#: [id number] Acct: [id number]: YURY GONZALEZ Rep #: [id number]: 1955 62 From: Caprice Coy MDPCP: Edwin MARISCAL,Hiddenbed Chi Status: ADM AMBERLY- Discharge DiagnosesCurrent Active Problems:Current Active and Chronic ProblemsChest pain (Acute)CAD (coronary artery disease) (Chronic)Hypertension (Chronic)Hyperlipidemia (Chronic)Nicotine dependence (Chronic)You will use the following diet at home:: CardiacYour food should be the consistency of: RegularYour liquids should be the consistency of: Regular/ThinDischarge Activity: Return to Normal ActivityWeight Bearing Status: Weight bearing as toleratedCall your doctor if you observe: Shortness of breath, Dizziness, Chest painInstructions: Warning Signs of a Heart Attack, ED Chest Pain NonCardiacAllergies/Adver se Reactions:AllergiesNo Known Allergies Allergy (Verified 12/26/17 12:44)Medications to take at DischargeAspirin [Aspirin, Baby] 81 mg PO DAILY@0800 12/26/17Atorvastatin Calcium 80 mg PO DAILY 12/26/17Clopidogrel Bisulfate [Plavix] 75 mg PO DAILY 12/26/17Lisinopril 20 mg PO BID 12/26/17Metoprolol Tartrate [Lopressor (beta harpreet)] 25 mg PO BID 12/26/17Nitroglycerin [Nitrostat] 0.4 mg SUBLINGUAL Q5M PRN #30 tab 12/27/17The following prescriptions were given:Nitroglycerin [Nitrostat] 0.4 mg SUBLINGUAL Q5M PRN #30 tabPRN Reason: Chest PainPrimary Care Physician:Chano Pineda Chi, MD [Primary Care Provider] -Please follow up with your Primary Care Physician in: one weekTest Results:Test results from this visit will be discussed in further detail at your follow-up appointment,if applicable.Proposed Discharge Date: 12/27/1806/13/18 1053 Date Caprice Coy MDCC: Chano Pineda MD [facility] Discharge Summaryon 12-28-19 Discharge Summary [facility] [address] [facility] [place], [place] [address]Rrklarkyo Vkepxar45/13/18 1044MR#: [id number] Acct: [id number]: YURY GONZALEZ Rep #: [id number]: 1955 62 From: Caprice Coy MDPCP: Chano Pineda MD, Chi Status: DIS AMBERLY Y[facility] [id number] Date and DiagnosisDate of Admission: 12/26/17Date of Discharge: 12/27/17- Primary Discharge DiagnosisActive and Suspected ProblemsChest pain (Acute)- Secondary Discharge DiagnosisChronic ProblemsCAD (coronary artery disease) (Chronic)Hypertension (Chronic)Hyperlipidemia (Chronic)Nicotine dependence (Chronic)Hospital Course and TreatmentImaging Results:Diagnostic DataChest X-Ray 12/26/17 12:47IMPRESSION:Hyperinfl ation.No acute abnormality is seen.Electronically Signed:Charles Conte MD at 13:16 MICHAELTTharley [phone], Service support , Vscclpneqq TestsWBC 5.3RBC 4.82Hgb 15.7Hct 45.8MCV 95.0 HMCH 32.6 HMCHC 34.3WBCRBCHgbHctMCVMCHMCH CRDWRDW DifferentialPlt CountMPVImmature Gran % (Auto)Neut % (Auto)Lymph % (Auto)noneOperations: NoneProcedures: Stress testSummary of Care Provided:The patient is a 62 year old M with a past medical history of CAD status post stents 13 yearsago after an MT, hypertension and hyperlipidemia. He was admitted on 12/26/2017 with acomplaint of chest pain while she was at work. According to patient, he had chest tightnesswhich is radiologist about 2 out of 10 and so he went to his company nurse and he was broughtto the hospital. He denied any diaphoresis or nausea vomiting, dizziness or palpitation. Paindid not radiate to his left arm. Review of systems also otherwise negative. Vitals in the EDalso significant for blood pressure of 1 7671. EKG showed normal sinus rhythm with heart rateof [address] changes and only old EKGs noted in previous EKGs. Chest x-ray showedhyperinflation but no acute pathology. Troponins 3 were negative he was admitted and managedfor chest pain to rule out ACS. Exercise myocardial perfussion Stress test done on 12/27/2017was negative, and only showed probable previous inferior basal infarct, cannot completelyexclude gisela-infarct ischemia, Preserved EF, low risk stress test.Patient seen and examined prior to discharge. He had no complaints since her chest pain hadresolved. He denied any fever or chills, cough or chest pain, any palpitations, any abdominalpain, any diarrhea vomiting. Review of systems otherwise negative.Vitals reviewed and was stable. Blood pressure improved to 07/16/1985 overnight was 1 4497 attime of discharge. On examinationGeneral: Alert, Oriented x3, Cooperative, No apparent distressHEENT: Atraumatic, PERRLA, EOMI, NormocephalicOral: Moist MucosaNeck: Supple, No JVD, Negative Carotid BruitsLungs: Clear to auscultation, Normal air movementCardiovascular: Regular rate, Regular Rhythm, Normal S1, Normal S2, No murmursAbdomen: Bowel Sounds Present, Soft, Non Tender, Non-Distended, No Hepato-splenomegalyExtrem ities: No edemaSkin: No rashes, No breakdownMusculoskeletal: No Tenderness to Palpation of Joints or ExtremitiesLymphatic: No Cervical, Supraclavicular, or Inguinal AdenopathyNeurological: Cranial nerves II-XII grossly intact, Neuro grossly intactPsych/Mental Status: Normal Affect, Appropriate[]Plan is to discharge patient home. His continue home aspirin and Plavix as well as metoprololand atorvastatin. Will give sublingual nitroglycerin as needed. Will up with his primary caredoctor in 1 week.Discharge Diet: Low fat/ Low CholesterolWeight Bearing Status: Weight bearing as toleratedCall your doctor if you observe: Shortness of breath, Dizziness, Chest painHome Medications:Medications to take at DischargeAspirin [Aspirin, Baby] 81 mg PO DAILY@0800 12/26/17Atorvastatin Calcium 80 mg PO DAILY 12/26/17Clopidogrel Bisulfate [Plavix] 75 mg PO DAILY 12/26/17Lisinopril 20 mg PO BID 12/26/17Metoprolol Tartrate [Lopressor (beta harpreet)] 25 mg PO BID 12/26/17Nitroglycerin [Nitrostat] 0.4 mg SUBLINGUAL Q5M PRN #30 tab 12/27/17ollowing Prescrptions Were Given to Patient:Nitroglycerin [Nitrostat] 0.4 mg SUBLINGUAL Q5M PRN #30 tabPRN Reason: Chest PainPrimary Care Physician:Chano Pineda Chi, MD [Primary Care Provider] -Please follow up with your Primary Care Physician in: one weekPatient Instructions: Warning Signs of a Heart Attack, ED Chest Pain NonCardiacDisposition: HomeMedical Necessity- Tobacco UseSmoking Status: Current every day smokerTobacco Use: CigarettesMeaningful Use InfoMeaningful Use Diagnoses (Choose all that apply): None uvqrovhtwt96/13/18 1610 Date Caprice Coy [facility] Signature (if applicable): Date CC: Caprice Coy MD; Chano Pineda MD Signed Normal [facility] Echocardiogram Completeon Echocardiogram Complete [facility] [address] [place] [address]Yjmx Ctxoibvy85/13/18 0804MR#: [id number] Acct: [id number]: YURY GONZALEZ Rep #: [id number]: 1955 62 From: Preston Hayes MDAttending Dr: Caprice Coy MD Status: ADM INOOrdering Dr: Katlin Green MD Date: 12/26/17Location: PCU Sex: M CAdmitted: 12/26/17Version 2Reason For Study: Chest PainProcedureThis was a 2D Doppler, Color Flow transthoracic echocardiogram. Exam performed in department.Left VentricleNormal LV size. The estimated ejection fraction is 60 %. Mild segmental systolic dysfunction(seewall motion). Mid-Inferior: Hypokinetic. Infero-Basal: Hypokinetic. The rest of the wallsegmentsare normal.Right VentricleNormal RV size. Normal systolic function.AtriaNormal left atrium. Normal right atrium.Mitral ValveBileaflet diffuse mitral valve thickening.Tricuspid ValveNormal tricuspid valve. Mild (1+) tricuspid valve insufficiency.Aortic ValveNormal aortic valve. Trisinus/trileaflet aortic valve.Pulmonic ValveNormal pulmonic valve.Great VesselsNormal aortic root. The pulmonary artery is normal size. Normal inferior vena cava.Pericardium/PleuralN o pericardial effusion.MMode/2D Measurements AND CalculationsLVIDd: 4.5 cm IVSd: 0.83 cm Ao root diam: 3.9 cmLVIDs: 2.7 cm LVPWd: 1.1 cm LA dimension: 3.0 cmRVDd: 3.9 cm FS: 39.5 % LAV(MOD-bp): 41.0 ml LA A4 area: 15.2 cm2 RA A4 area: 12.7 cm2LAV(MOD-bp) Indexed: 23.0 ml/m2LAV(MOD-sp2): 48.2 mlLAV(MOD-sp4): 34.2 mlTime MeasurementsMV dec time: 0.29 secDoppler Measurements AND CalculationsMV E max brittany: 88.2 cm/sec Lat Peak E' Brittany: 12.0 cm/sec Med Peak E' Brittany: 9.3 cm/secMV A max brittany: 78.2 cm/sec E/E' lat: 7.3 E/E' med: 9.5MV E/A: 1.1 MV V2 max: 108.3 cm/sec MV P1/2t max brittany: 108.8 cm/sec Ao V2 max: 97.4 cm/secMV max P.7 mmHg MV P1/2t: 95.7 msec Ao max P.8 mmHgMV V2 mean: 62.5 cm/sec MV dec slope: 333.0 cm/sec2 Ao V2 mean: 65.0 cm/secMV mean P.8 mmHg MVA(P1/2t): 2.3 cm2 Ao mean P.9 mmHgMV V2 VTI: 32.3 cm Ao V2 VTI: 19.0 cm LV V1 max: 77.8 cm/sec PA V2 max: 88.8 cm/secLV V1 max P.4 mmHgLV V1 mean P.1 mmHgLV V1 mean: 46.0 cm/secLV V1 VTI: 15.8 cmInterpretation SummaryNormal LV size.The estimated ejection fraction is 60 %.Mild segmental systolic dysfunction (see wall motion).The rest of the wall segments are normal.Infero-Basal: HypokineticMid-Inferior: Hypokinetic Ordering Physician: Erik Greenferlarry Physician: Chano Pineda ChiPlee annformed By: Francisco Brewer RCS 12/27/17 0957Date Preston Hayes MDCC: Katlin Green MD; Caprice Coy MD; Chano Pineda MD Date Dictated: 12/27/17 0804Date Transcribed: 12/27/17 0954Transcriptionist:Sign ed Normal [facility] Lipid Profileon 12-27-2017 Cholesterol in HDL mass conc 72 mg/dL Normal [facility] Comment on above: Result Comment: The drugs N-Acetylcysteine and Metamizole may falselydepress this assay. Reference Range HDL <40 mg/dL Low HDL Cholesterol HDL >or= 60 mg/dL High HDL Cholesterol Performed By: #### L 500.2500, L500.4100 ####[facility] [address] [place], [place], [address] Cholesterol in LDL mass conc 32 mg/dL Normal 0-130 [facility] Comment on above: Performed By: #### L 500.2500, L500.4100 ####[facility] [address] [place], [address] Cholesterol in VLDL mass conc 10 mg/dL Normal 5-40 [facility] Comment on above: Performed By: #### L 500.2500, L500.4100 ####[facility] [address] [place], [address] Cholesterol mass conc 114 mg/dL Normal 200 [facility] Comment on above: Result Comment: <200 mg/dL Desirable 200-240 mg/dL Borderline >240 mg/dL High Risk Performed By: #### L 500.2500, L500.4100 ####[facility] [address] [place], [address] Triglyceride mass conc 50 mg/dL Normal [facility] Comment on above: Result Comment: The drugs N-Acetylcysteine and Metamizole may falselydepress this assay.Serum Triglycerides Reference Interval Normal <150 mg/dL Borderline high 150 - 199 mg/dL High 200 - 499 mg/dL Very High > or = 500 mg/dL Performed By: #### L 500.2500, L500.4100 ####[facility] [address] [place], [address] Partial Thromboplast Timeon 12-27-2017 aPTT Coag time (Bld) 29.6 s Normal 24.1-36.2 [facility] Comment on above: Performed By: #### L 500.2500, L501.4010 ####[facility] [address] [place], [address] Prothrombin Time w/INRon INR Coag RelTime (PPP) 1.0 {INR} Normal [facility] Comment on above: Performed By: #### L 500.2500, L501.4010 ####[facility] [address] [place], [address] Prothrombin time (PT) Coag time (PPP) 13.6 s Normal 11.7-14.9 [facility] Comment on above: Performed By: #### L 500.2500, L501.4010 ####[facility] [address] [place], [address] Stress Reporton 12-27-2017 Stress Report [facility] [address] [facility] [place], [place] [address]BB#: [id number] Acct: [id number]: YURY GONZALEZ Rep #: [id number]: 1955 62 From: Preston Martines Care: Edwin MARISCAL,Chano Chi Status: ADM INOOrdering Dr: Sex: M CStress Test ReportExercise myocardial perfusion stress test.62-year-old man with a history of coronary artery disease.Stress protocol:Resting EKG demonstrates sinus bradycardia with a rate of 54 bpm normal intervals and noted.Resting blood pressure is 114/78 mmHg. The patient exercised according to the regular Bruceprotocol for a total duration of 9 minutes and 15 seconds the maximum heart rate attained ewc598 bpm which was 84% of maximum predicted heart rate the patient completed 15 seconds to stageIV of the Frank protocol. The maximum heart rate attained was 134 bpm the maximum workload was10.5 metabolic equivalents. The resting blood pressure is 114/78 with a peak blood torgpkzm016/88. At rest there were no ST or T-wave changes noted suggest ischemia peak exerciseupsloping ST changes only were noted with no meet the criteria for ischemia. Occasionalpremature ventricular complex was noted no clinical angina was noted the test was terminateddue to shortness of breath.Myocardial perfusion protocol. 11.4 mCi of technetium 99m sestamibi was injected at rest. Thepatient exercised according to regular Frank protocol for 9 minutes and 15 seconds attaining 10metabolic equivalents at peak exercise 32.7 mCi of technetium 99m sestamibi was injected stressimages were obtained stress and rest images were reconstructed and compared in the short axisvertical long and horizontal long axis. Gated images were also obtained pre-Perfusion SPECT analysis revealed.Review of the stress images demonstrate normal cardiac silhouette size with normal uptake oftracer noted in the septum anterior wall and lateral wall. The basal to mid inferior wall onthe stress images but has a medium-sized perfusion defect. The resting images demonstrateminimal improvement but there is significant GI attenuation artifact and it is not clearwhether this is secondary to ischemia of bowel motion artifact. The previous infarct, howevercannot be completely excluded.Gated SPECT analysis:The gated ejection fraction is noted to be 61%.Conclusion:Exercise stress test with probable previous inferior basal infarct noted.Cannot completely exclude gisela-infarct ischemia.Preserved ejection fraction.Low risk stress test.12/27/17 0858 Date Alexandrrilona Hayes [facility]: Caprice Coy MD; Chano Pineda MD Date Dictated: 12/27/1754Date Transcribed: 12/27/17853Transcriptionist: COSigned Normal [facility] Basic Metabolic Profile (BMP )on 12-26-2017 Calcium mass conc 8.9 mg/dL Normal 8.5-10.1 [facility] Comment on above: Performed By: #### L 500.2500, L501.4010 ####[facility] [address] [place], [address] Chloride molar conc 101 mmol/L Normal 98-107 [facility] Comment on above: Performed By: #### L 500.2500, L501.4010 ####[facility] [address] [place], [address] CO2 molar conc 32.0 mmol/L Normal 21.0-32.0 [facility] Comment on above: Performed By: #### L 500.2500, L501.4010 ####[facility] [address] [place], [address] Creatinine mass conc 0.86 mg/dL Normal 0.70-1.30 [facility] Comment on above: Result Comment: The validity of the calculated GFR AND GFRAA in patients over70 years has not been determined. Clinical correlation isessential. Performed By: #### L 500.2500, L501.4010 ####[facility] [address] [place], [address] EST GFR - AA 116 mL/min Normal >60 [facility] Comment on above: Result Comment: Afri can Canadian GFR Calc Performed By: #### L 500.2500, L501.4010 ####[facility] [address] [place], [address] Estimated CRCL 86.16 ml/min Normal [facility] Comment on above: Performed By: #### L 500.2500, L501.4010 ####[facility] [address] [place], [address] GAP 6 Normal 5-15 [facility] Comment on above: Performed By: #### L 500.2500, L501.4010 ####[facility] [address] [place], [address] GFR/1.73 sq M predicted among non-blacks MDRD vol rate/area (S/P/Bld) 96 mL/min/{1.73_m2} Normal >60 [facility] Comment on above: Result Comment: Non- GFR Calc Performed By: #### L 500.2500, L501.4010 ####[facility] [address] [place], [address] Glucose mass conc 141 mg/dL High 74-106 [facility] Comment on above: Result Comment: Fast ing Glucose result greater than or equal to 126 mg/dLsuggests DIABETES MELLITUS per A.D.A. criteria.Please note revised GLUCOSE reference range obzfvnbvy01/02/2018. Performed By: #### L 500.2500, L501.4010 ####[facility] [address] [place], [address] Potassium molar conc 4.1 mmol/L Normal 3.5-5.1 [facility] Comment on above: Performed By: #### L 500.2500, L501.4010 ####[facility] [address] [place], [address] Sodium molar conc 139 mmol/L Normal 136-145 [facility] Comment on above: Performed By: #### L 500.2500, L501.4010 ####[facility] [address] [place], [address] Urea nitrogen mass conc 12 mg/dL Normal 7-18 [facility] Comment on above: Performed By: #### L 500.2500, L501.4010 ####[facility] [address] [place], [address] Urea nitrogen mass conc (Bld) 14.0 RATIO Normal 10-20 [facility] Comment on above: Performed By: #### L 500.2500, L501.4010 ####[facility] [address] [place], [address] CBC W/Diff, Automatedon 07-06 18-2018 Absolute Neut 3.1 X10 3/uL Normal 2.0-7.7 [facility] Comment on above: Performed By: #### L 100.0100 ####[facility] [address] [place], [address] Basophils/100 WBC Auto (Bld) 1.5 % High 0-1 [facility] Comment on above: Performed By: #### L 100.0100 ####[facility] [address] [place], [address] Eosinophils/100 WBC Auto (Bld) 2.5 % Normal 0-5 [facility] Comment on above: Performed By: #### L 100.0100 ####[facility] [address] [place], [address] Erythrocyte distribution width Auto Ratio (RBC) 12.4 % Normal 11.6-14.6 [facility] Comment on above: Performed By: #### L 100.0100 ####[facility] [address] [place], [address] Hematocrit Auto Volume Fraction (Bld) 45.8 % Normal 40-54 [facility] Comment on above: Performed By: #### L 100.0100 ####[facility] [address] [place], [address] Hemoglobin mass conc (Bld) 15.7 g/dL Normal 13.0-16.5 [facility] Comment on above: Performed By: #### L 100.0100 ####[facility] [address] [place], [address] IM GRAN % 0.200 % Normal 0.0-0.9 [facility] Comment on above: Result Comment: IG% - Immature Granulocytes (promyelocytes, myelocytes andmetamyelocytes) > 1% indicates that a LEFT SHIFT is Present. Performed By: #### L 100.0100 ####[facility] [address] [place], [address] Lymphocytes Auto #/vol (Bld) 1.47 X10 3/ul Normal 0.83-4.51 [facility] Comment on above: Performed By: #### L 100.0100 ####[facility] [address] [place], [address] Lymphocytes/100 WBC Auto (Bld) 27.7 % Normal 19-41 [facility] Comment on above: Performed By: #### L 100.0100 ####[facility] [address] [place], [address] MCH Auto Entitic mass (RBC) 32.6 pg High 27.0-32.0 [facility] Comment on above: Performed By: #### L 100.0100 ####[facility] [address] [place], [address] MCHC Auto mass conc (RBC) 34.3 g/gl Normal 32-36 [facility] Comment on above: Performed By: #### L 100.0100 ####[facility] [address] [place], [address] MCV Auto Entitic volume (RBC) 95.0 fL High 80-94 [facility] Comment on above: Performed By: #### L 100.0100 ####[facility] [address] [place], [address] Monocytes/100 WBC Auto (Bld) 9.6 % Normal 0-10 [facility] Comment on above: Performed By: #### L 100.0100 ####[facility] [address] [place], [address] Neutrophils/100 WBC Auto (Bld) 58.5 % Normal 47-70 [facility] Comment on above: Performed By: #### L 100.0100 ####[facility] [address] [place], [address] Platelet mean volume Auto Entitic volume (Bld) 9.4 fL Normal 6.2-12.0 [facility] Comment on above: Performed By: #### L 100.0100 ####[facility] [address] [place], [address] Platelets Auto #/vol (Bld) 201 10*3/uL Normal 150-450 [facility] Comment on above: Performed By: #### L 100.0100 ####[facility] [address] [place], [address] RBC Auto #/vol (Bld) 4.82 M/mm3 Normal 4.6-6.2 [facility] Comment on above: Performed By: #### L 100.0100 ####[facility] [address] [place], [address] RDW SD 43.4 fl Normal 35.1-43.9 [facility] Comment on above: Performed By: #### L 100.0100 ####[facility] [address] [place], [address] WBC Auto #/vol (Bld) 5.3 10*3/uL Normal 4.4-11.0 [facility] Comment on above: Performed By: #### L 100.0100 ####[facility] [address] [place], [address] Chest 1 View (Portable)on Chest 1 View (Portable) [facility] [address] [facility] [place], [place] [address]Bxuzh 1 View (Portable)MR#: [id number] Acct: [id number]: YURY GONZALEZ Rep #: [id number]: 1955 M 62 From: Charles Conte MDPCP: Edwin MARISCAL,Chano Chi Status: PRE ERStudy: Chest 1 View (Portable) Date of Exam: 12/26/17Exam# [id number] Ordering Dr: Jasmeet Swanson MDSTUDY: X-RAY CHESTREASON FOR EXAM: Male, 62 years old. New onset of chest pressure.TECHNIQUE: Single AP portable view of the chest.COMPARISON: None. FINDINGS:H yperinflation. Decreased bronchovascular markings in both lungssuggestive of emphysematous changes. Scattered calcified granulomas.Findings suggestive of scarring at the right lung apex. There is nodemonstrated pleural abnormality.Normal size heart. Normal mediastinum and leodan. There is prominence ofthe pulmonary hilar arteries without peripheral pulmonary vascularcongestion, suggesting pulmonary hypertension. Normal visualized aorticarch and descending thoracic aorta.Normal visualized thoracic spine. Normal visualized ribs, clavicles, andshoulders.There is no demonstrated abnormality of the visualized soft tissuestructures of the upper abdomen. ORDER #: [id number] RAD/Chest 1 View (Portable)IMPRESSION:Hype rinflation.No acute abnormality is seen.Electronically Signed:Charles Conte MD at 13:16 EDTTel [phone], Service support , BD: Jasmeet Swanson MD; Chano Pineda MD Rail Director:Signed Normal [facility] Emergency Department Summary on 12-26-2017 Emergency Department Summary [facility] [address] [place], [place] [address]Uyszavesu Department Vcugiih23/12/18 1327#: [id number] Acct: [id number]: CARLOSYURY Rep #: [id number]: 1955 62 From: Jasmeet Swanson MDPCP: Chano Pineda MD, Chi Status: PRE ER- ER Visit SummaryDate of Service: 12/26/17Chief Complaint: Chest painHistory of Present Illness: The patient is a 62 M presents with 2 hours of chest tightness thathe had 13 years ago when he had a stent. He has a history of diabetes, hypercholesterolemia,hype rtension and is a smoker. He is currently chest pain-free. No PE risk factors.Physical Examination:Not appear in acute distress.Moist mucous membranes, no obvious facial deformityNo C-spine tenderness supple neck.Regular rate and rhythm without any obvious murmursClear lungs bilaterally speaking in full sentences without any obvious respiratory distressAbdomen soft and nontender no guarding or reboundMoves all extremities without any difficulty or pain.Skin does not show any obvious rashes or lesions, no trauma.Alert oriented 3 with no gross focal deficitEmergency Department Course and Treatment:Patient has an unremarkable EKG and a normal first troponin. Due to his risk factors he willneed admission. His heart score is a 4, his JOYA is a 4. I will call the hospitalist foradmission.Disposition: Admit stable conditionImpression: Chest painThis note was generated with Mirubeeation software. It may contain incorrect words,spelling, and punctuation that were not noted in review of the chart prior to signingED Disposition- Plan for ED Patient:Chief Complaint: Chest PainReferrals:Chano Pineda Chi, MD [Primary Care Provider] -What to do if you have ProblemsFor any increased pain, shortness of breath, bleeding, nausea or vomiting, chest pain, or anyunexpected problems, contact your Primary Care Provider. Call [facility] ([phone])or report to the closest Emergency Room.Call 911 if necessary.12/26/17 1329 Date Paul Kiki [facility] Signature (If Indicated): Date CC: Chano Pineda MD Normal [facility] Hemoglobin A1con 12-26-2017 Hemoglobin A1c/Hemoglobin.total mass fraction (Bld) 6.1 % Normal 4.2-6.3 [facility] Comment on above: Order Comment: Comme nts: as add on test Performed By: #### L 501.9985 ####[facility] [address] [place], [address] History and Physical Examon 12-26-2017 History and Physical Exam [facility] [address] [facility] [place], [place] [address]Qpzkunr and Ndpglqgz70/12/18 1406#: [id number] Acct: [id number]: YURY GONZALEZ Rep #: [id number]: 1955 62 From: Katlin Green MDPCP: Chano Pineda MD, Chi Status: ADM AMBERLY YLocation: [facility] [id number] List(1) Chest painStatus: AcuteQualifiers:Chest pain type: unspecified Qualified Code(s): R07.9 - Chest pain, unspecified(2) CAD (coronary artery disease)Status: ChronicQualifiers:Coronar y Disease-Associated Artery/Lesion type: unspecified vessel or lesion type(3) HypertensionStatus: ChronicQualifiers:Hyperte nsion type: essential hypertension Qualified Code(s): I10 - Essential (primary)hypertension(4) HyperlipidemiaStatus: ChronicQualifiers:Hyperli pidemia type: unspecified Qualified Code(s): E78.5 - Hyperlipidemia, unspecified(5) Nicotine dependenceStatus: ChronicQualifiers:Nicotin e product type: cigarettesHistory of Present IllnessDate of Admission: 12/26/17Chief Complaint: Chest pain- 1 dayThe patient is a 62 year old M with past medical history of CAD status post stent 13 years ago,hypertension, hyperlipidemia who comes in with chest pain that happened virtually at rest atwork. Patient does not follow up with cardiology. Last saw his primary care doctor in June2014.He was at work and was not doing any heavy work. He however had stress at work and was tryingto figure out how to complete his day's job when he suddenly had substernal pressure-like chestdiscomfort, described as 2 out of 10 on the pain scale. He did not have any associateddiaphoresis or nausea or vomiting or dizziness or palpitations. This chest discomfort did nottravel to his neck or upper extremity.His vitals in the ED showed temperature of 9 8.5F, heart rate was 89, blood pressure waselevated at 176/71, respiratory rate was 60 he was saturating at 96% on room air.EKG shows normal sinus rhythm, heart rate of 80, no acute ST-T changes, old Q waves noted inprevious EKG.Admitting chest x-ray showed hyperinflation but no acute abnormalityPast Medical HistoryPast Medical History (Chronic Problems):Chronic ProblemsCAD (coronary artery disease) (Chronic)Hypertension (Chronic)Hyperlipidemia (Chronic)Nicotine dependence (Chronic)AllergiesNo Known Allergies Allergy (Verified 12/26/17 12:44)Home Medications:Ambulatory OrdersMedication Instructions RecordedAspirin [Aspirin, Baby] 81 mg PO DAILY@0800 12/26/17Atorvastatin Calcium [Atorvastatin 80 mg PO DAILY 12/26/17urgical History: no surgical historyPsychiatric History: No pertinent psych hxLives: AloneSmoking Status: Current every day smokerTobacco Use: CigarettesAlcohol: HeavyDrugs: None- *Family History PaternalHistory Items: Heart Disease - MT at 62 years MaternalHistory Items: DiabetesReview of SystemsConstitutional: Denies: Anorexia, Chills, Fever, Malaise, Weakness, Weight ChangeEyes: Denies: Blurred vision, Cataracts, Conjunctivae Inflammation, Pain, Redness, VisionChangeHEENT: Denies: Difficulty Hearing, Difficulty Swallowing, Head Aches, Hearing Changes, Nasalbleeding, Nasal Congestion, Sinus Congestion, Sinus DrainageCardiovascular: Reports: Chest Pain, Chest Pressure, Chest Tightness. Denies: Claudication,Light Headedness, Orthopnea, Palpitations, Paroxysmal Noc. Dyspnea, SyncopeRespiratory: Denies: Cough, Hemoptysis, Shortness of Breath, Shortness of breath at rest,Shortness of breath upon exertion, Sputum productionGastrointestina l: Denies: Abdominal Pain, Hematemesis, Hematochezia, Nausea, VomitingGenitourinary: Denies: Dysuria, Frequency, IncontinenceMusculoskelet al: Denies: Joint Pain, Joint TendernessSkin: Denies: Dryness, Jaundice, Rash, Skin Changes, WoundsNeurological: Denies: Difficulty swallowing, Focal weakness, Numbness, TinglingPsychiatric: Denies: Anxiety, Depression, Homicidal Ideations, Suicidal IdeationsHematologic/ Lymphatic: Denies: Easy Bruising, Easy BleedingVTE Information - Inpt OnlyVTE Present on Admission: NoVTE Pharm Prophylaxis ordered?: YesPatient Problems:Active and Suspected ProblemsChest pain (Acute)- Physical ExamGeneral: Alert, Oriented x3, Cooperative, No apparent distressHEENT: Atraumatic, PERRLA, EOMI, NormocephalicOral: Moist MucosaNeck: Supple, No JVD, Negative Carotid BruitsLungs: Clear to auscultation, Normal air movementCardiovascular: Regular rate, Regular Rhythm, Normal S1, Normal S2, No murmursAbdomen: Bowel Sounds Present, Soft, Non Tender, Non-Distended, No Hepato-splenomegalyExtrem ities: No edemaSkin: No rashes, No breakdownMusculoskeletal: No Tenderness to Palpation of Joints or ExtremitiesLymphatic: No Cervical, Supraclavicular, or Inguinal AdenopathyNeurological: Cranial nerves II-XII grossly intact, Neuro grossly intactPsych/Mental Status: Normal Affect, AppropriateVital SignsTemp Pulse Resp BP Pulse Ox98.5 F 81 18 174/102 H 12:44 12/26/17 13:11 12/26/17 13:11 12/26/17 13:11 12/26/17 13:11Oxygen Flow Rate (L/min) 2Oxygen Delivery Method Nasal CannulaWeight: 68.7 kgBody Mass Index (BMI) 23.0Laboratory Tests Past 24 HrsWBC 5.3RBC 4.82Hgb 15.7Hct 45.8MCV 95.0 HMCH 32.6 HMCHC 34.3RDW 12.4Assessment/PlanAll Active ProblemsChest pain (Acute)62 year old M with past medical history of CAD status post stent 13 years ago, hypertension,hyperlipidem ia, who does not follow-up with cardiology, comes in with chest pain that happenedat work whilst at rest.1. Chest pain, atypical, history of CAD status post stent, initial troponin is negative, EKGshows no acute ST-T changes,Plan: Admit to PCU, continue to monitor on telemetry, trend troponins, stress test in a.m., 2Decho, continue on on aspirin, Plavix, statins, beta-harpreet, CHRISTA inhibitor. Check lipid profilein am, HgbA1c.2. Hypertension, uncontrolled, on lisinopril and metoprolol, patient states he has taken hismedications this morning. He states his blood pressure gets better by the afternoon. It wasnormal yesterday. We will continue to monitor BP, continue home blood pressure regimen and addhydralazine as needed3. Hyperlipidemia, on statin, will continue home statins, check lipid profile in am4. Nicotine dependence, advised to quit, will start on nicotine patch and gum.5. DVT PPxCode VisitOBSV E AND M: [id number] Initial observation care L307 1520 Date Ama Paintsil MDCosigner Signature: Date (if applicable)CC: Katlin Green MD; Chano Pineda MD Signed Normal [facility] Troponin-Ion 12-26-2017 Troponin I.cardiac mass conc ng/mL Normal <0.045 [facility] Comment on above: Order Comment: 'TROP ' Serial specimen #1, #2 or #3: 3 Result Comment: TROP ONIN-I EXPECTED VALUES <0.045 Negative 0.045 - 0.590 Consistent with Cardiac Damage > OR = 0.600 Critical Value Not every elevated troponin is indicative of MT. Thesevalues should be used with clinical judgement in examiningthe patient's clinical picture for diagnosis. To establisha diagnosis of MT versus myocardial injury, there must be ademonstrated rise and/or fall in the troponin values, inaddition to ischemic symptoms, EKG changes, new regionalwall motion abnormality, and/or angiographical evidence. PLEASE NOTE: REFERENCE RANGES EDITED 17 Performed By: #### L 501.4010 ####[facility] [address] [place], [place], [address] Troponin I.cardiac mass conc ng/mL Normal <0.045 [facility] Comment on above: Result Comment: TROP ONIN-I EXPECTED VALUES <0.045 Negative 0.045 - 0.590 Consistent with Cardiac Damage > OR = 0.600 Critical Value Not every elevated troponin is indicative of MT. Thesevalues should be used with clinical judgement in examiningthe patient's clinical picture for diagnosis. To establisha diagnosis of MT versus myocardial injury, there must be ademonstrated rise and/or fall in the troponin values, inaddition to ischemic symptoms, EKG changes, new regionalwall motion abnormality, and/or angiographical evidence. PLEASE NOTE: REFERENCE RANGES EDITED 17 Performed By: #### L 500.2500, L501.4010 ####[facility] [address] [place], [address] Vital Signs Date Time Vital Sign Value Performing Clinician Faci lity 12-10-2024 18:34-0400 Body temperature 98 [degF] Dr. Acacia De Oliveira MD Work Phone: [phone] [place] [address] 12-10-2024 18:34-0400 Diastolic blood pressure 88 mm[Hg] Dr. Acacia De Oliveira MD Work Phone: [phone] [place] [address] 12-10-2024 18:34-0400 Heart rate 82 /min Dr. Acacia De Oliveira MD Work Phone: [phone] [place] [address] 12-10-2024 18:34-0400 Respiratory rate 22 /min Dr. Acacia De Oliveira MD Work Phone: [phone] [place] [address] 12-10-2024 18:34-0400 SaO2% (BldA) [Mass fraction] 92 % Dr. Acacia De Oliveira MD Work Phone: [phone] [place] [address] 12-10-2024 18:34-0400 Systolic blood pressure 137 mm[Hg] Dr. Acacia De Oliveira MD Work Phone: [phone] [place] [address] 12-10-2024 15:18-0400 Body mass index (BMI) [Ratio] 34.4 kg/m2 Dr. Acacia De Oliveira MD Work Phone: [phone] [place] [address] 12-10-2024 15:18-0400 Body weight 97.[address] Acacia De Oliveira MD Work Phone: 8([phone])694-772597 [place] [address] 12-10-2024 14:04-0400 Body height 167.[address] Acacia De Oliveira MD Work Phone: 6(937)393-920197 [place] [address] 01-02-2024 09:42-0400 Body height 167.6 cm Acacia De Oliveira MD Work Phone: 6([phone] [place] [address] 01-02-2024 09:42-0400 Body mass index (BMI) [Ratio] 33.25 kg/m2 Acacia De Oliveira MD Work Phone: 6(246)[phone] [place] [address] 01-02-2024 09:42-0400 Body weight 93.44 kg Acacia De Oliveira MD Work Phone: 3([phone] [place] [address] 07-18-2024 09:42-0400 Diastolic blood pressure 90 mm[Hg] Acacia De Oliveira MD Work Phone: [facility] 01-02-2024 09:42-0400 Heart rate 74 /min Acacia De Oliveira MD Work Phone: [facility] 01-02-2024 09:42-0400 SaO2% (BldA) [Mass fraction] 97 % Acacia De Oliveira MD Work Phone: [facility] 01-02-2024 09:42-0400 Systolic blood pressure 136 mm[Hg] Acacia De Oliveira MD Work Phone: [facility] 01-21-2023 09:47-0400 Body height 167.6 cm Gissel Acosta MD Work Phone: [facility] 01-21-2023 09:47-0400 Body weight 82.1 kg Gissel Acosta MD Work Phone: [facility] 01-21-2023 09:47-0400 Diastolic blood pressure 62 mm[Hg] Gissel Acosta MD Work Phone: [facility] 01-21-2023 09:47-0400 Heart rate 86 /min Gissel Acosta MD Work Phone: [facility] 01-21-2023 09:47-0400 SaO2% (BldA) [Mass fraction] 95 % Gissel Acosta MD Work Phone: [facility] 01-21-2023 09:47-0400 Systolic blood pressure 140 mm[Hg] Gissel Acosta MD Work Phone: [facility] 01-17-2023 10:00-0400 Body height 168.9 cm Annmarieeve Guthriebow PA-C Work Phone: [facility] 01-17-2023 10:00-0400 Body temperature 97 [degF] Annmarie Denbow PA-C Work Phone: [facility] 01-17-2023 10:00-0400 Body weight 82.1 kg Annmarie Denbow PA-C Work Phone: [facility] 01-17-2023 10:00-0400 Diastolic blood pressure 76 mm[Hg] Annmarie Denbow PA-C Work Phone: [facility] 01-17-2023 10:00-0400 Heart rate 85 /min Annmarie Denbow PA-C Work Phone: [facility] 01-17-2023 10:00-0400 Respiratory rate 20 /min Annmarie Denbow PA-C Work Phone: [facility] 01-17-2023 10:00-0400 SaO2% (BldA) [Mass fraction] 96 % Annmarie Denbow PA-C Work Phone: [facility] 01-17-2023 10:00-0400 Systolic blood pressure 156 mm[Hg] Annmarie Denbow PA-C Work Phone: [facility] 11-20-2021 09:14-0400 Diastolic blood pressure 74 mm[Hg] Katiuska Older REHAB SPEC.COLLECTION COORDINATOR Work Phone: [facility] 11-20-2021 09:14-0400 Systolic blood pressure 122 mm[Hg] Katiuska Older REHAB SPEC.COLLECTION COORDINATOR Work Phone: [facility] 11-20-2021 08:58-0400 Body weight 73.94 kg Katiuska Older REHAB SPEC.COLLECTION COORDINATOR Work Phone: [facility] 11-20-2021 08:58-0400 Heart rate 84 /min Katiuska Older REHAB SPEC.COLLECTION COORDINATOR Work Phone: [facility] 11-20-2021 08:58-0400 Respiratory rate 16 /min Katiuska Older REHAB SPEC.COLLECTION COORDINATOR Work Phone: [facility] 11-20-2021 08:58-0400 SaO2% (BldA) [Mass fraction] 94 % Katiuska Older REHAB SPEC.COLLECTION COORDINATOR Work Phone: [facility] 10-04-2021 10:53-0400 Body weight 68.49 kg Katiuska Older REHAB SPEC.COLLECTION COORDINATOR Work Phone: [facility] 10-04-2021 10:53-0400 Diastolic blood pressure 98 mm[Hg] Katiuska Older REHAB SPEC.COLLECTION COORDINATOR Work Phone: [facility] 10-04-2021 10:53-0400 Heart rate 77 /min Katiuska Older REHAB SPEC.COLLECTION COORDINATOR Work Phone: [facility] 10-04-2021 10:53-0400 Respiratory rate 16 /min Katiuska Older REHAB SPEC.COLLECTION COORDINATOR Work Phone: [facility] 10-04-2021 10:53-0400 SaO2% (BldA) [Mass fraction] 94 % Katiuska Older REHAB SPEC.COLLECTION COORDINATOR Work Phone: [facility] 10-04-2021 10:53-0400 Systolic blood pressure 152 mm[Hg] Katiuska Older REHAB SPEC.COLLECTION COORDINATOR Work Phone: [facility] Encounters Encounter Date Encounter Type Care Provider Facility Start: 12-10-2024 Evaluation and management of inpatient Dr. Yisel Spain MD -Progressive Care Unit Work Phone: Start: 10-01-2024 End: 10-01-2024 ambulatory Anibal Taylor MA [facility] Start: 10-01-2024 End: 10-01-2024 Patient encounter procedure Anibal Taylor MA [facility] Comment on above: Population Health Na vigation Outreach ([employer] eveline) Start: 09-16-2024 End: 09-16-2024 Refill Acacia De Oliveira MD Work Phone: [facility] Comment on above: Refill Request Start: 09-15-2024 End: 09-16-2024 Refill Acacia De Oliveira MD Work Phone: [facility] [place] Comment on above: Refill Request Start: 06-16-2024 End: 06-16-2024 ambulatory Jignesh Hessgustavo BYERS [facility] Start: 06-16-2024 End: 06-16-2024 Patient encounter procedure Jignesh Lauren MA [facility] Comment on above: Population Health Na vigation Outreach ([employer] eveline) Start: 04-15-2024 End: 04-15-2024 ambulatory Jignesh Lauren MA [facility] Start: 04-15-2024 End: 04-15-2024 Patient encounter procedure Jignesh Lauren MA [facility] Comment on above: Population Health Na vigation Outreach ([employer] work eveline) Start: 03-26-2024 End: 03-27-2024 Refill Acacia De Oliveira MD Work Phone: Family [facility] Comment on above: Refill Request Start: 01-27-2024 Telephone encounter Gissel Acosta MD Work Phone: [facility] Provider Adult Start: 01-16-2024 Telephone encounter Gissel Acosta MD Work Phone: Pulmonary Medicine Start: 01-15-2024 Telephone encounter Gissel Acosta MD Work Phone: Pulmonary Medicine Comment on above: Appointment Start: 01-09-2024 End: 01-09-2024 ambulatory ACACIA DE OLIVEIRA Facility:[facility] Start: 01-09-2024 End: 01-09-2024 Subsequent hospital visit by physician [facility] ([facility]) Work Phone: Cat Scan Comment on above: Lung nodule [R91.1] Start: 01-02-2024 Telephone encounter Acacia chawla MD Work Phone: [facility] [place] Start: 01-02-2024 End: 01-02-2024 Office outpatient visit 40 minutes Acacia De Oliveira MD Work Phone: [facility] [place] Comment on above: Lung mass (Primary D x); Encounter for immunization; Pulmonary emphysema, unspecified emphysema type (HCC); Uncomplicated alcohol dependence (HCC) Start: 01-02-2024 End: 01-02-2024 ambulatory ACACIA DE OLIVEIRA Facility:[facility] Start: 12-17-2023 ambulatory Acacia Feliciano Work Phone: [facility] [place] Start: 12-16-2023 Refill Acacia Feliciano Work Phone: [facility] [place] Comment on above: Refill Request Start: 07-22-2023 Refill Acacia Feliciano Work Phone: [facility] [place] Comment on above: Refill Request Start: 05-04-2023 Refill Katiuska HamCOLLECTION COORDINATOR Work Phone: [facility] [place] Comment on above: Refill Request Start: 02-28-2023 Telephone encounter Gissel Acosta MD Work Phone: Pulmonary Medicine Comment on above: Patient Question; Re turning Patient's Call; Patient Update Start: 02-25-2023 Telephone encounter Gissel Acosta MD Work Phone: Pulmonary Medicine Comment on above: Returning Patient's Call; Patient Update Start: 02-19-2023 Telephone encounter Gissel Acosta MD Work Phone: Pulmonary Medicine Comment on above: Patient Question Start: 02-14-2023 Orders Only Gissel romo MD Work Phone: Pulmonary Medicine Comment on above: Nodule of lower lobe of right lung (Primary Dx) Bronchoscopy Schedul ing Start: 02-12-2023 ambulatory GISSEL ACOSTA [facility] Start: 02-12-2023 End: 02-12-2023 Subsequent hospital visit by physician [facility] Work Phone: [facility] PET [facility] Comment on above: Solitary pulmonary n odule [R91.1] Start: 02-07-2023 Refill Katiuska Gracia APRN .COLLECTION COORDINATOR Work Phone: [facility] [place] Comment on above: Refill Request Start: 02-06-2023 Telephone encounter Annmarie Shine PA-C Work Phone: [facility] [place] Comment on above: Results Start: 01-21-2023 Telephone encounter Gissel Acosta MD Work Phone: Pulmonary Medicine Comment on above: Patient Question Start: 01-21-2023 End: 01-21-2023 Patient encounter procedure Gissel Acosta MD Work Phone: Pulmonary Medicine Comment on above: Pulmonary nodules (P rimary Dx); SOB (shortness of breath); Solitary pulmonary nodule; Pulmonary emphysema, unspecified emphysema type (HCC); Current smoker Start: 01-17-2023 End: 01-17-2023 Patient encounter procedure Annmarie Schroeder PA-C Work Phone: [facility] [place] Comment on above: Nodule of right lung (Primary Dx); Chronic obstructive pulmonary disease, unspecified COPD type (HCC); Hyponatremia Start: 01-07-2023 Telephone encounter Aleshia Retana PA-C Work Phone: [facility] [place] Comment on above: Appointment Start: 01-03-2023 End: 01-03-2023 Subsequent hospital visit by physician [facility] ([facility] Work Phone: Cat Scan Comment on above: Nodule of right lung [R91.1] Start: 12-20-2022 End: 12-20-2022 Subsequent hospital visit by physician Xr [facility] [place] Work Phone: Radiology Comment on above: Wheezing [R06.2] Start: 12-04-2022 ambulatory Acacia Ganta M D Work Phone: [facility] [place] Start: 11-14-2022 Refill Acacia Mckayta M D Work Phone: [facility] [place] Comment on above: Refill Request Start: 08-13-2022 Refill Katiuska HamCOLLECTION COORDINATOR Work Phone: [facility] [place] Comment on above: Refill Request Start: 08-13-2022 Refill Acacia Mckayta M D Work Phone: [facility] [place] Comment on above: Refill Request Start: 05-23-2022 Refill Acacia Ganta M D Work Phone: [facility] [place] Comment on above: Refill Request Start: 05-01-2022 Refill Eladia [employer]ARMWORK[employer] Work Phone: [facility] [place] Comment on above: Refill Request Start: 03-06-2022 Refill Acacia Ganta M D Work Phone: [facility] [place] Comment on above: Refill Request Start: 02-06-2022 ambulatory Jignesh Marusa [facility] Comment on above: Population Health Na vigation Outreach ([employer]) Start: 01-30-2022 Refill Acacia Feliciano Work Phone: [facility] [place] Comment on above: Refill Request Start: 01-17-2022 Refill Acacia Feliciano Work Phone: [facility] [place] Comment on above: Refill Request Start: 01-01-2022 Telephone encounter Acacia chawla MD Work Phone: [facility] [place] Comment on above: Patient Question; Me dication Question Start: 12-27-2021 Refill Acacia Feliciano Work Phone: [facility] [place] Comment on above: Refill Request Start: 11-20-2021 End: 11-20-2021 Patient encounter procedure Katiuska Gracia APRN.COLLECTION COORDINATOR Work Phone: [facility] [place] Comment on above: Shortness of breath (Primary Dx); Wheeze; Tobacco dependence Start: 10-04-2021 Telephone encounter Acacia chawla MD Work Phone: [facility] [place] Comment on above: Medication Problem Results Start: 10-04-2021 End: 10-04-2021 Subsequent hospital visit by physician Domenic [facility] [place] Work Phone: Radiology Comment on above: Shortness of breath [R06.02] Start: 10-04-2021 End: 10-04-2021 Patient encounter procedure Katiuska Gracia APRN.COLLECTION COORDINATOR Work Phone: [facility] [place] Comment on above: Shortness of breath (Primary Dx); Edema, unspecified type; Essential hypertension; S/P coronary artery stent placement; Tobacco dependence Start: 09-27-2021 ambulatory Acacia Feliciaon Work Phone: [facility] [place] Comment on above: Shortness of Breath; ankles swollen Start: 09-14-2021 Refill Acacia Feliciano Work Phone: [facility] [place] Comment on above: Refill Request Start: 12-27-2017 End: 12-27-2017 Patient encounter Preston Hayes Facility:[facility] Start: 12-26-2017 End: 12-27-2017 Patient encounter Chano Pineda Facility:[facility] Procedures Date Procedure Procedure Detail Performing Clinician Start: 12-10-2024 CT angiography of ch est with contrast Dr. Acacia De Oliveira MD Work Phone: Start: 12-10-2024 X-ray of chest, PA a nd lateral views Dr. Acacia De Oliveira MD Work Phone: Start: 12-10-[address] Acacia De Oliveira MD Work Phone: Start: 01-02-2024 Lipid 1996 panel - S odilon or Plasma Acacia De Oliveira MD Work Phone: Start: 02-12-[address] attenuation skull base mid-thigh Gissel Acosta MD Work Phone: Start: 01-03-2023 Ct thorax w/o contra st material Katiuska Older REHAB SPEC.COLLECTION COORDINATOR Work Phone: Start: 12-20-2022 Radiologic exam ches t 2 views Katiuska Older REHAB SPEC.COLLECTION COORDINATOR Work Phone: Start: 12-17-2022 Lipid 1996 panel - S odilon or Plasma Gissel Acosta MD Work Phone: Start: 10-04-2021 Radiologic exam ches t 2 views Katiuska Older REHAB SPEC.COLLECTION COORDINATOR Work Phone: Start: 02-28-2021 Adult depression screening assessment Acacia De Oliveira MD Work Phone: History of placement of stent for coronary artery disease S/P coronary artery stent placement Katiuska Older REHAB SPEC.COLLECTION COORDINATOR Work Phone: Plan of Treatment Date Care Activity Detail Author Start: 01-01-2029 Lipid panel Lipid Screening [facility] Start: 12-18-2027 Lipid 1996 panel - S odilon or Plasma Lipid Screening [facility] Start: 12-18-2027 Lipid panel Lipid Screening [facility] Start: 12-18-2027 LIPID SCREEN LIPID SCREEN [facility] Start: 01-01-2027 Diabetes Screening Diabetes Screenin g [facility] Start: 02-28-2026 LIPID SCREEN LIPID SCREEN [facility] Start: 02-28-2026 PROSTATE CANCER SCRE ENING DISCUSSION PROSTATE CANCER SCREENING DISCUSSION [facility] Start: 02-28-2026 Prostate specific an tigen measurement Prostate Cancer Screening Discussion [facility] Start: 01-17-2026 DIABETES SCREEN DIABETES SCREEN [facility] Start: 01-17-2026 Diabetes Screening Diabetes Screenin g [facility] Start: 12-17-2025 DIABETES SCREEN DIABETES SCREEN [facility] Start: 01-01-2025 Annual PCP Team Duty Officer ana paula Disease Visit Annual PCP Team Chronic Disease Visit [facility] Start: 01-01-2025 Hepatitis B surface antibody level LDL Cholesterol [facility] Start: 12-10-2024 Verification routine [facility] Start: 12-10-2024 Admission procedure [facility] Start: 12-10-2024 Hospital admission, emergency, from emergency room, medical nature [facility] Start: 12-10-2024 Serum inorganic phos phate measurement [facility] Start: 12-10-2024 [facility] Start: 11-20-2024 DIABETES SCREEN DIABETES SCREEN [facility] Start: 10-04-2024 DIABETES SCREEN DIABETES SCREEN [facility] Start: 06-17-2024 Advance Directive Discussion Advance Directive Discussion [facility] Start: 06-17-2024 Urine microalbumin profile [facility] Start: 04-09-2024 End: 04-09-2024 Patient encounter procedure 04/09/2024 10:40 AM EDT Office Visit [facility] [address] [place], [place] [address] Acacia De Oliveira MD [address] [place] [address] 3 month follow up [facility] Comment on above: 3 month follow up Start: 02-29-2024 DIABETES SCREEN DIABETES SCREEN [facility] Start: 02-16-2024 Covid-19 Vaccine ( season) Covid-19 Vaccine () [facility] Start: 02-16-2024 Covid-19 Vaccine (6 - 2024-25 season) Covid-19 Vaccine ( season) [facility] Start: 02-16-2024 Influenza vaccination Influenza Vacc ine (#1) [facility] Start: 01-18-2024 ANNUAL PCP TEAM DIRECTOR OF MARKETING OPERATIONS ANA PAULA DISEASE VISIT ANNUAL PCP TEAM CHRONIC DISEASE VISIT [facility] Start: 01-09-2024 End: 01-09-2024 Patient encounter procedure 01/09/2024 11:40 AM EDT Appointment [facility] [address] [place] [address] Lung nodule [R91.1 [facility] Comment on above: Lung nodule [R91.1 Start: 01-04-2024 Influenza vaccination LUNG CANCER SC REENING [facility] Start: 01-04-2024 Screening for malign ant neoplasm of lung Lung Cancer Screening [facility] Start: 01-02-2024 End: 01-02-2024 Patient encounter procedure 01/02/2024 9:40 AM EDT Office Visit [facility] [address] [place] [address] Acacia De Oliveira MD [address] [place] [address] med review declined pulm due to unable to travel [facility] Comment on above: med review declined pulm due to unable to travel Start: 12-21-2023 ABDOMINAL AORTIC ANE URYSM SCREENING ABDOMINAL AORTIC ANEURYSM SCREENING [facility] Comment on above: Postponed from 04/27 (Declined at this time) Start: 12-21-2023 Abdominal aortic ane urysm screening Abdominal Aortic Aneurysm Screening [facility] Comment on above: Postponed from 04/27 (Declined at this time) Start: 12-21-2023 COLORECTAL CANCER SCREENING COLORECTAL CANCER SCREENING [facility] Comment on above: Postponed from 04/27 (Declined at this time) Start: 12-21-2023 Screening for malign ant neoplasm of colon Colorectal Cancer Screening [facility] Comment on above: Postponed from 04/27 (Declined at this time) Start: 12-21-2023 SHINGRIX VACCINE (2 of 2) VÁZQUEZ GRIX VACCINE (2 of 2) [facility] Comment on above: Postponed from 06/10 (Declined at this time) Start: 12-18-2023 Hepatitis B surface antibody level LDL CHOLESTEROL [facility] Start: 12-17-2023 End: 03-17-2024 Basic metabolic 2000 panel - Serum or Plasma BASIC METABOLIC PANEL Lab Routine Hypertension Expected: 12/17/2023, Expires: 03/17/2024 [facility] Work Phone: Comment on above: Expected: 12/17/2023 , Expires: 03/17/2024 Start: 12-17-2023 End: 03-17-2024 CBC panel - Blood by Automated count COMPLETE BLOOD COUNT Lab Routine Medication management Expected: 12/17/2023, Expires: 03/17/2024 [facility] Comment on above: Expected: 12/17/2023 , Expires: 03/17/2024 Start: 12-17-2023 End: 03-17-2024 Hemoglobin A1c in Blood HEMOGLOBIN A1C Lab Routine Medication management Expected: 12/17/2023, Expires: 03/17/2024 [facility] Comment on above: Expected: 12/17/2023 , Expires: 03/17/2024 Start: 12-17-2023 End: 03-17-2024 Lipid 1996 panel - Serum or Plasma LIPID PANEL BASIC Lab Routine Hyperlipidemia Expected: 12/17/2023, Expires: 03/17/2024 [facility] Comment on above: Expected: 12/17/2023 , Expires: 03/17/2024 Start: 06-17-2023 Advance Directive Discussion Advance Directive Discussion [facility] Start: 06-17-2023 Behavioral Health Screening Behavioral Health Screening [facility] Start: 06-17-2023 Depression Assessment Depression Ass essment [facility] Start: 02-15-2023 Covid-19 Vaccine ( season) Covid-19 Vaccine ( season) [facility] Start: 02-15-2023 Influenza vaccination [facility] Start: 01-17-2023 End: 03-19-2023 Basic metabolic 2000 panel - Serum or Plasma [facility] Work Phone: Comment on above: Expected: 01/17/2023 , Expires: 03/19/2023 Start: 12-04-2022 End: 02-03-2023 Basic metabolic 2000 panel - Serum or Plasma BASIC METABOLIC PNL Lab Routine Hypertension Expected: 12/04/2022, Expires: 02/03/2023 [facility] Work Phone: Comment on above: Expected: 12/04/2022 , Expires: 02/03/2023 Start: 12-04-2022 End: 02-03-2023 CBC panel - Blood by Automated count CBC Lab Routine Medication management Expected: 12/04/2022, Expires: 02/03/2023 [facility] Work Phone: Comment on above: Expected: 12/04/2022 , Expires: 02/03/2023 Start: 12-04-2022 End: 02-03-2023 Hemoglobin A1c in Blood HGB A1C Lab Routine Medication management Expected: 12/04/2022, Expires: 02/03/2023 [facility] Work Phone: Comment on above: Expected: 12/04/2022 , Expires: 02/03/2023 Start: 12-04-2022 End: 02-03-2023 Lipid 1996 panel - Serum or Plasma LIPID PANEL BASIC Lab Routine Hyperlipidemia Expected: 12/04/2022, Expires: 02/03/2023 [facility] Work Phone: Comment on above: Expected: 12/04/2022 , Expires: 02/03/2023 Start: 11-20-2022 ANNUAL PCP TEAM DIRECTOR OF MARKETING OPERATIONS ANA PAULA DISEASE VISIT ANNUAL PCP TEAM CHRONIC DISEASE VISIT [facility] Start: 11-20-2022 BP CONTROLLED (<130/80) BP CONTROLLE D (<130/80) [facility] Start: 11-20-2022 COVID-19 VACCINE (4 - Booster for Pfizer series) COVID-19 VACCINE (4 - Booster for Pfizer series) [facility] Comment on above: Postponed from 10/13 (Declined at this time) Postponed from 08/09 (Declined at this time) Start: 11-20-2022 PNEUMOCOCCAL: 65+ (3 - PPSV23 if available, else PCV20) PNEUMOCOCCAL: 65+ (3 - PPSV23 if available, else PCV20) [facility] Comment on above: Postponed from 04/27 (Declined at this time) Start: 11-20-2022 PNEUMOCOCCAL: 65+ (3 - PPSV23 or PCV20) PNEUMOCOCCAL: 65+ (3 - PPSV23 or PCV20) [facility] Comment on above: Postponed from 04/27 (Declined at this time) Start: 11-20-2022 SHINGRIX VACCINE (2 of 2) VÁZQUEZ GRIX VACCINE (2 of 2) [facility] Comment on above: Postponed from 06/10 (Declined at this time) Start: 10-04-2022 ANNUAL PCP TEAM DIRECTOR OF MARKETING OPERATIONS ANA PAULA DISEASE VISIT ANNUAL PCP TEAM CHRONIC DISEASE VISIT [facility] Start: 09-22-2022 COVID-19 VACCINE (6 - Pfizer series) COVID-19 VACCINE (6 - Pfizer series) [facility] Start: 06-17-2022 ADVANCE DIRECTIVE DISCUSSION ADVANCE DIRECTIVE DISCUSSION [facility] Start: 06-17-2022 DEPRESSION ASSESSMENT DEPRESSION ASS ESSMENT [facility] Start: 02-28-2022 Adult depression scr eening assessment DEPRESSION SCREENING [facility] Start: 02-28-2022 ANNUAL PCP TEAM DIRECTOR OF MARKETING OPERATIONS ANA PAULA DISEASE VISIT ANNUAL PCP TEAM CHRONIC DISEASE VISIT [facility] Start: 02-28-2022 Hepatitis B surface antibody level LDL CHOLESTEROL [facility] Start: 02-15-2022 Influenza vaccination INFLUENZA (#1) [facility] Start: 02-06-2022 End: 04-08-2022 Hemoglobin A1c in Blood HGB A1C Lab Routine Medication management Expected: 02/06/2022, Expires: 04/08/2022 [facility] Work Phone: Comment on above: Expected: 02/06/2022 , Expires: 04/08/2022 Start: 02-06-2022 End: 04-08-2022 Lipid 1996 panel - Serum or Plasma LIPID PANEL BASIC Lab Routine Hyperlipidemia Expected: 02/06/2022, Expires: 04/08/2022 [facility] Work Phone: Comment on above: Expected: 02/06/2022 , Expires: 04/08/2022 Start: 02-06-2022 End: 04-08-2022 SCHEDULE LAB TESTING SCHEDULE LAB TESTING Lab Routine Expected: 02/06/2022, Expires: 04/08/2022 [facility] Work Phone: Comment on above: Expected: 02/06/2022 , Expires: 04/08/2022 Start: 10-20-2021 End: 12-20-2021 Basic metabolic 2000 panel - Serum or Plasma BASIC METABOLIC PNL Lab Routine Low serum sodium Serum potassium elevated Expected: 10/20/2021, Expires: 12/20/2021 [facility] Work Phone: Comment on above: Expected: 10/20/2021 , Expires: 12/20/2021 Start: 10-06-2021 End: 12-06-2021 Cortisol [Mass/volume] in Serum or Plasma CORTISOL BLD Lab Routine Low serum sodium Serum potassium elevated Expected: 10/06/2021, Expires: 12/06/2021 [facility] Work Phone: Comment on above: Expected: 10/06/2021 , Expires: 12/06/2021 Start: 10-04-2021 End: 12-04-2021 Basic metabolic 2000 panel - Serum or Plasma [facility] Work Phone: Comment on above: Expected: 10/04/2021 , Expires: 12/04/2021 Start: 10-04-2021 End: 12-04-2021 CBC W Auto Differential panel - Blood [facility] Work Phone: Comment on above: Expected: 10/04/2021 , Expires: 12/04/2021 Start: 08-09-2021 COVID-19 VACCINE (4 - Booster for Pfizer series) COVID-19 VACCINE (4 - Booster for Pfizer series) [facility] Start: 06-17-2021 ADVANCE DIRECTIVE DISCUSSION ADVANCE DIRECTIVE DISCUSSION [facility] Start: 06-17-2021 DEPRESSION ASSESSMENT DEPRESSION ASS ESSMENT [facility] Start: 03-13-2021 COVID-19 VACCINE (3 - Booster for Pfizer series) COVID-19 VACCINE (3 - Booster for Pfizer series) [facility] Start: 06-10-2020 SHINGRIX VACCINE (2 of 2) VÁZQUEZ GRIX VACCINE (2 of 2) [facility] Start: 2020 Pneumococcal Vaccine : 65+ (3 - PPSV23 or PCV20) Pneumococcal Vaccine: 65+ (3 - PPSV23 or PCV20) [facility] Start: 2020 Pneumococcal Vaccine : 65+ (3 of 3 - PPSV23 or PCV20) Pneumococcal Vaccine: 65+ (3 of 3 - PPSV23 or PCV20) [facility] Start: 2020 PNEUMOCOCCAL: 65+ (3 - PPSV23 if available, else PCV20) PNEUMOCOCCAL: 65+ (3 - PPSV23 if available, else PCV20) [facility] Start: 2020 PNEUMOCOCCAL: 65+ (3 - PPSV23 or PCV20) PNEUMOCOCCAL: 65+ (3 - PPSV23 or PCV20) [facility] Start: 2020 PNEUMOVAX AGE 65 AND OVER WITH 5YR LOOKBACK (#1) PNEUMOVAX AGE 65 AND OVER WITH 5YR LOOKBACK (#1) [facility] Start: 08-03-2015 COLORECTAL CANCER SCREENING COLORECTAL CANCER SCREENING [facility] Start: 08-03-2015 FECAL OCCULT BLOOD FECAL OCCULT BLOO D [facility] Start: 08-03-2015 Screening for malign ant neoplasm of colon [facility] Start: 2015 RSV Vaccine (1 - 1-d ose 60+ series) RSV Vaccine (1 - 1-dose 60+ series) [facility] Start: 2015 RSV Vaccine (1 - Ris k 60-74 years 1-dose series) RSV Vaccine (1 - Risk 60-74 years 1-dose series) [facility] Start: 2000 COLOGUARD (FIT-DNA) COLOGUARD (FIT-D NA) [facility] Start: 2000 Colonoscopy COLONOSCOPY [facility] Start: [address] COLONOGRAPHY [facility] Start: 2000 Screening for malign ant neoplasm of colon [facility] Start: 2000 SIGMOIDOSCOPY SIGMOIDOSCOPY [facility] Start: 1985 Zoledronic acid therapy ALPHA- 1 ANTITRYPSIN DEFICIENCY SCREENING [facility] Start: 1973 Anxiety Screening Anxiety Screening [facility] Start: 1973 BP CONTROLLED (<130/80) BP CONTROLLE D (<130/80) [facility] Start: 1973 Depression Screening Depression Scre ening [facility] Start: 1973 SPIROMETRY SPIROMETRY [facility] Start: 1955 ABDOMINAL AORTIC ANE URYSM SCREENING ABDOMINAL AORTIC ANEURYSM SCREENING [facility] CT Chest WO contrast CT CHEST WO IVCON Radiology Routine Lung nodule 01/09/2024 12:17 PM EDT [facility] Work Phone: End: 03-15-2024 Ct thorax w/o contrast material CT CHEST WO IVCON Radiology Routine Lung nodule 1 Occurrences starting 02/14/2023 until 03/15/2024 [facility] Work Phone: Comment on above: 1 Occurrences starti ng 02/14/2023 until 03/15/2024 End: 02-15-2024 ECG COMPLETE ECG COMPLETE ECG Routine Lung nodule 1 Occurrences starting 02/14/2023 until 02/15/2024 [facility] Work Phone: Comment on above: 1 Occurrences starti ng 02/14/2023 until 02/15/2024 End: 10-04-2022 Echocardiography ECHO Cardiology Routine Shortness of breath Edema, unspecified type 1 Occurrences starting 10/04/2021 until 10/04/2022 [facility] Work Phone: Comment on above: 1 Occurrences starti ng 10/04/2021 until 10/04/2022 End: 02-20-2024 LUNG DIFFUSION CAPACITY (DLCO) LUNG DIFFUSION CAPACITY (DLCO) PFT Routine SOB (shortness of breath) 1 Occurrences starting 01/21/2023 until 02/20/2024 [facility] Work Phone: Comment on above: 1 Occurrences starti ng 01/21/2023 until 02/20/2024 End: 12-20-2022 LUNG VOLUMES LUNG VOLUMES PFT Routine Shortness of breath Wheeze 1 Occurrences starting 11/20/2021 until 12/20/2022 [facility] Work Phone: Comment on above: 1 Occurrences starti ng 11/20/2021 until 12/20/2022 End: 02-20-2024 LUNG VOLUMES LUNG VOLUMES PFT Routine SOB (shortness of breath) 1 Occurrences starting 01/21/2023 until 02/20/2024 [facility] Work Phone: Comment on above: 1 Occurrences starti ng 01/21/2023 until 02/20/2024 Natriuretic peptide B NATRIURETI C PEPTID B/O Lab Routine Shortness of breath Edema, unspecified type Ordered: 10/04/2021 [facility] Work Phone: Comment on above: Ordered: 10/04/2021 Patient referral [facility] Work Phone: End: 02-20-[address] attenuation skull base mid-thigh NM PET/CT SKULL-THIGH INITIAL Radiology SULEIMAN Solitary pulmonary nodule 1 Occurrences starting 01/21/2023 until 02/20/2024 [facility] Work Phone: Comment on above: 1 Occurrences starti ng 01/21/2023 until 02/20/2024 End: 02-20-2024 SIX MINUTE WALK SIX MINUTE WALK PFT Routine SOB (shortness of breath) 1 Occurrences starting 01/21/2023 until 02/20/2024 [facility] Work Phone: Comment on above: 1 Occurrences starti ng 01/21/2023 until 02/20/2024 End: 12-20-2022 SPIROMETRY - BASELINE AND POST DILATOR SPIROMETRY - BASELINE AND POST DILATOR PFT Routine Shortness of breath Wheeze 1 Occurrences starting 11/20/2021 until 12/20/2022 [facility] Work Phone: Comment on above: 1 Occurrences starti ng 11/20/2021 until 12/20/2022 End: 02-20-2024 SPIROMETRY - BASELINE AND POST DILATOR SPIROMETRY - BASELINE AND POST DILATOR PFT Routine SOB (shortness of breath) 1 Occurrences starting 01/21/2023 until 02/20/2024 [facility] Work Phone: Comment on above: 1 Occurrences starti ng 01/21/2023 until 02/20/2024 Troponin T.cardiac [Mass/volume] in Serum or Plasma by High sensitivity method [facility] Immunizations Immunization Date Immunization Notes Care Provider Fa don 01-02-2024 pneumococcal conjuga te (PCV20) vaccine, 20 valent (PREVNAR 20) Acacia De Oliveira MD Work Phone: [facility] 01-02-2024 pneumococcal Conjuga te, unspecified formulation Acacia De Oliveira MD Work Phone: [facility] Work Phone: 03-16-2023 influenza virus vacc ine, unspecified formulation Acacia De Oliveira MD Work Phone: [facility] 05-24-2022 influenza virus vacc ine, unspecified formulation Gissel Acosta MD Work Phone: [facility] 02-28-2021 influenza, high-dose , quadrivalent vaccine (FLUZONE HIGH DOSE QUADRIVALENT) Acacia De Oliveira MD Work Phone: [facility] Work Phone: 04-15-2020 zoster vaccine recombinant Acacia De Oliveira MD Work Phone: [facility] Work Phone: 03-17-2020 influenza, injectabl e, quadrivalent, contains preservative Acacia De Oliveira MD Work Phone: [facility] 08-16-2013 pneumococcal conjuga te vaccine, 13 valent Acacia De Oliveira MD Work Phone: [facility] Work Phone: 11-16-2012 pneumococcal conjuga te vaccine, 13 valent Acacia De Oliveira MD Work Phone: [facility] Work Phone: 09-01-2011 pneumococcal polysaccharide vaccine, 23 valent Acacia De Oliveira MD Work Phone: [facility] Work Phone: Payers Date Payer Category Payer Medicare HUMANA MEDICARE HUMANA GOLD PLUS [id number] 2020-[facility] [phone] [place] [phone] [facility] [place] [place] [id number] 2020 Medicare HUMANA MEDICARE HUMANA GOLD PLUS [id number] 2020-Present [phone] [place] [phone] [facility] [place] [place] [id number] 2020 Medicare (Managed Care) HUMANA G OLD PLUS [id number] 2020 Private Health Insurance [id number] 2020 Medicaid [id number] 2020 Medicaid [id number] 2017 Unknown [id number] Self-pay SELF PAY INSURANCE [id number] Unknown [facility] [id number] Social History Date Type Detail Facility Start: 1970 End: 12-20-2022 Tobacco smoking status NHIS Smokes tobacco daily [facility] Start: 1970 History of tobacco use Cigarette Smo ker [facility] Start: 06-18-2014 End: 12-20-2022 Cigarettes smoked current (pack per day) - Reported 1.3 [facility] Work Phone: Start: 06-18-2014 End: 01-02-2024 Tobacco use and exposure Former smokeless tobacco user [facility] Start: 02-28-2021 End: 01-02-2024 Alcohol intake Current drinker of alcohol (finding) [facility] Start: 06-18-2014 History SDOH Alcohol Comment patient states he uses a case and a half per week of beer [facility] Start: 1955 Sex Assigned At Not on file C [facility] Start: 09-17-2021 End: 09-27-2021 Exposure to SARS-CoV-2 (event) Not sure [facility] Work Phone: Start: 09-24-2021 End: 10-04-2021 Exposure to SARS-CoV-2 (event) Unable to assess [facility] Start: 12-20-2022 End: 01-17-2023 Tobacco use panel [facility] Work Phone: Adult Depression Screening Assessment 0 [facility] Work Phone: Start: 01-17-2023 Tobacco Comment For 10 years, smoked 2 PPD. [facility] Start: 01-02-2024 Tobacco smoking stat [facility] Tobacco smoking consumption unknown [facility] Start: 12-10-2024 Tobacco smoking stat [facility] Ex-smoker (finding) [facility] Start: 12-26-2017 Alcohol Alcohol [facility] Start: 12-26-2017 Drugs Drugs [facility] Start: 12-26-2017 Lives Lives [facility] Start: 12-27-2017 Tobacco Use Tobacco Use [facility] Start: 1955 Sex Assigned At Male W [facility] Functional Status Date Assessment Result Facility 08-03-2014 Are you deaf, or do you have serious difficulty hearing No 08/03/2014 11:10 AM Daria Roldan LPN No [facility] 08-03-2014 Are you blind, or do you have serious difficulty seeing, even when wearing glasses No 08/03/2014 11:10 AM Daria Roldan LPN No [facility] 08-03-2014 Do you have serious difficulty walking or climbing stairs Yes 08/03/2014 11:10 AM Daria Roldan LPN Yes [facility] 08-03-2014 Do you have difficul ty dressing or bathing No 08/03/2014 11:10 AM Daria Roldan LPN No [facility] 08-03-2014 Because of a physica l, mental, or emotional condition, do you have difficulty doing errands alone such as visiting a physician's office or shopping No 08/03/2014 11:10 AM Daria Roldan LPN No [facility] Mental Status Date Assessment Result Facility 12-10-2024 Cognitive function Level Of Cons ciousness Awake;Alert;Appropriate;Fol lows Commands [facility] Work Phone: 08-03-2014 Because of a physica l, mental, or emotional condition, do you have serious difficulty concentrating, remembering, or making decisions No 08/03/2014 11:10 AM Daria Roldan LPN No [facility] Clinical Notes 09-14-2021 to 12-10-2024 Note Date & Type Note Facility 12-10-2024 Discharge summary [facility] 12-10-2024 Radiology Diagnostic study note [facility] Imaging Services [address] [place] [address] [id number] CTA Chest W/WO Contrast MR#: [id number] Acct: [id number] Name: YURY GONZALEZ Rep #: [id number] : 1955 M 69 From: Jimena Luciano MD PCP: Dr. Acacia De Oliveira MD Status: REG E R Study:CTA Chest W/WO Contrast Date of Exam: 12/10/24 Exam# [id number] Ordering Dr: Silke Gonzalez DO EXAM: CT Angiography Chest Without and With Intravenous Contrast CLINICAL INDICATION: SOB TECHNIQUE: Axial computed tomographic angiography images of the chest without and with intravenous contrast. This CT exam was performed using one or more of the following dose reduction techniques: automated exposure control, adjustment of the mA and/or kV according to patient size, and/or use of iterative reconstruction technique. MIP reconstructed images were created and reviewed. COMPARISON: No relevant prior studies available. FINDINGS: PULMONARY ARTERIES: Unremarkable. No pulmonary embolism. AORTA: Scattered calcified atherosclerotic disease of aorta. No thoracic aortic aneurysm. LUNGS AND PLEURAL SPACES: Lung emphysema/COPD. 3.0 cm spiculated nodule of theposterior right lower lobe. Further evaluation with PET-CT or tissue biopsy is recommended. 5 mm nodule of the lateral left upper lobe. No consolidation. No significant effusion. No pneumothorax. HEART: Unremarkable. No cardiomegaly. No significant pericardial effusion. No evidence of RV dysfunction. BONES/JOINTS: No acute fracture. No dislocation. SOFT TISSUES: Unremarkable. LYMPH NODES: Unremarkable. No enlarged lymph nodes. CT/CTA Chest W/WO Contrast IMPRESSION: 1. No pulmonary embolism. 2. Lung emphysema/COPD. 3.0 cm spiculated nodule of the posterior right lower lobe. Further evaluation with PET-CT or tissue biopsy is recommended. 3. 5 mm nodule of the lateral left upper lobe. Reading Location: [facility] CC: Dr. Acacia De Oliveira MD; Dr. Gifty Gonzalez DO ~ Rail Director: Signed [facility] 12-10-2024 Radiology Diagnostic study note [facility] Imaging Services [address] [place], [place] [id number] Chest PA and Lateral MR#: [id number] Acct: [id number] Name: YURY GONZALEZ Rep #: [id number] : 1955 M 69 From: Jimena Luciano MD PCP: Dr. Acacia De Oliveira MD Status: REG E R Study:Chest PA and Lateral Date of Exam: 12/10/24 Exam# [id number] Ordering Dr: Silke Gonzalez DO EXAM: XR Chest, 2 Views CLINICAL INDICATION: SOB TECHNIQUE: Frontal and lateral views of the chest. COMPARISON: No relevant prior studies available. FINDINGS: LUNGS AND PLEURAL SPACES: See below. HEART: Cardiomegaly with mild congestion. MEDIASTINUM: Unremarkable. Normal mediastinal contour. BONES/JOINTS: Unremarkable. No acute fracture. RAD/Chest PA and Lateral IMPRESSION: Cardiomegaly with mild congestion. Reading Location: [facility] CC: Dr. Acacia De Oliveira MD; Dr. Gifty Gonzalez DO ~ Rail Director: Signed [facility] 12-10-2024 Discharge summary Note Date/Time December 10, 2024 6:54pm [facility] Medical Records Department [address] [place] [address] Emergency Department Summary 12/10/24 MR#: [id number] Acct: [id number] Name: YURY GONZALEZ Rep #:[id number] : 1955 69 From: Gifty Pedraza PCP: Dr. Acacia De Oliveira MD Status:REG E R Location: ED HPI History of Present Illness Chief Complaint: Edema Informant: patient Narrative Narrative: Patient is a 69-year-old male with history of coronary artery disease (status post stenting), hypertension, hyperlipidemia, tobacco use (quit 2 years ago), and COPD presenting with worsening leg swelling and drainage. Patient has had worsening swelling for the past few weeks. About a week ago he stopped responding to his diuretic so he to stop taking it since it was not working. Hestates he has pain in his thighs because they feel swollen in the morning. He states he continues to urinate. He denies any abdominal swelling or scrotal swelling. States he has chronic shortness of breath but has been worsening and has been having worsening dyspnea on exertion with even going to the bathroom lately. He is a chronic cough is productive of phlegm but denies any acute change in that. Denies any chest pain, fevers, dizziness, nausea, vomiting, diarrhea or melena. Not on any blood thinners. Because of the severity of his leg swelling he finally went to the ER today. He notes that he has been having serous drainage coming from his left heel that initially had stopped but then restarted again in the last day or 2. [facility] Medical History Myocardial infarct COPD (chronic obstructive pulmonary disease) Home Medications ?Medication ?Instructions ?Recorded ?Last Taken ?Type atorvastatin 80 mg tablet 80 mg PO DAILY cholesterol l owering 12/26/17 12/25/17 History clopidogrel 75 mg tablet 75 mg PO DAILY blood 8 12/25/17 History lisinopril 20 mg tablet 20 mg PO BID blood pressure 12/26/17 12/26/17 History metoprolol tartrate 25 mg tablet 25 mg PO BID blood pr essure 12/26/17 12/26/17 History nitroglycerin 0.4 mg sublingual 0.4 mg sublingual Q5M PRN Chest 12/27/17 Unknown Rx tablet Pain #30 tabs albuterol sulfate 90 mcg/actuation 2 puff inhalation Q 6H PRN PRN 12/10/24 Unknown History aerosol inhaler wheezing fluticasone 500 mcg-salmeterol 50 1 ea inhalation BID 12/10/24 Unknown History mcg/dose blistr powdr for inhalation furosemide 20 mg tablet 20 mg PO DAILY 12/10/24 Unkn own History Allergy/AdvReac Type Severity Reaction Status Date / Time No Known Allergies Allergy Verified 12/10/24 14:06 Surgical History History of coronary artery stent placement Social History Smoking Status: Former smoker ROS ROS ED Constitutional Constitutional ED: Denies chills or fever(s) ENT ENT ED: Denies sore throat Cardiovascular Cardiovascular: Denies chest pain or palpitations Respiratory/Chest Respiratory/Chest: Reports cough, dyspnea, dyspnea on exertion and sputum Gastrointestinal Gastrointestinal: Denies abdominal pain, diarrhea, melena, nausea or vomiting Genitourinary Genitourinary ED: Denies dysuria, hematuria or urinary frequency Musculoskeletal Musculoskeletal: Reports myalgias and other Details: Leg swelling and discomfort; Denies arthralgias Integumentary Denies rash Neurologic Neurologic: Denies paresthesias or weakness Hematologic/Lymphatic Hematologic/Lymphatic: Denies easy bleeding or easy bruising EXAM Physical Exam Const Vital Signs: 12/10/24 14:04 12/10/24 15:18 12/10/24 16:17 Temperature 97.8 F Temperature Source Temporal Pulse Rate 90 Respiratory Rate 16 Respiratory Effort Normal Non-Labored Respiratory Pattern Normal Blood Pressure 154/81 H Blood Pressure Mean 105 Pulse Ox 92 Oxygen Delivery Method Room Air Room Air 12/10/24 16:18 12/10/24 16:49 12/10/24 17:35 Temperature Temperature Source Pulse Rate 82 110 H 142 H Respiratory Rate 19 H 18 16 Respiratory Effort Respiratory Pattern Blood Pressure 171/91 H 166/96 H Blood Pressure Mean 117 119 Pulse Ox 95 90 Oxygen Delivery Method Room Air 12/10/24 17:39 12/10/24 17:44 12/10/24 18:34 Temperature 98.0 F Temperature Source Pulse Rate 89 82 82 Respiratory Rate 22 H 22 H Respiratory Effort Respiratory Pattern Blood Pressure 145/88 H 137/88 H 137/88 H Blood Pressure Mean 107 104 104 Pulse Ox 92 92 Oxygen Delivery Method Room Air Positive well nourished and well developed General Appearance ED: well developed and NAD HEENT Reports moist mucous membranes Eyes PERRL Neck supple and no JVD Chest Wall inspection of chest normal and palpation of chest normal Resp Resp Narrative: Mildly tachypneic. Diminished breath sounds at the base with Rales and expiratory wheezing appreciated Cardio regular rate, regular rhythm and no murmurs GI normal to inspection, nondistended, normoactive bowel sounds and non-tender Palpation: soft Extremity Extremity Narrative: Significant pitting edema present up to the mid thighs. There is bilateral erythema and chronic venous stasis changes of the feet and up to the mid shins. There is blistering and serous drainage noted from the left heel. Neuro oriented x3 Sensorium / Orientation: alert Motor Exam: general weakness Psych mental status grossly normal Skin Skin Narrative: Bilateral erythema of the lower legs. No associated lymphangitic streaking. Blistering most notably over the left heel. Scattered areas of dried serous crusting on the lower extremities as well MDM MDM MDM Narrative Medical decision making narrative: Patient evaluated for worsening lower extremity edema, dyspnea on exertion and shortness of breath. Vital signs significant for mild hypertension. He is only 92% on room air. Does not wear home O2. Differential includes fluid overload, CHF exacerbation, symptomatic anemia, CHAGO,electrolyte abnormality, pleural effusions and less likely pneumonia. Does not any chest pain but ACS is also in the differential. CBC is largely normal. CMP also within normal limits. No CHAGO or significant electrolyte abnormalities.-See troponin mildly elevated at 41. BNP also elevated at 1378. EKG obtained which shows atrial fibrillation with RVR. Patient be given IV metoprolol. Review of his chest x-ray shows pulmonary vascular congestion no significant pleural effusions on my interpretation. Will add on CTA to ensure he does not have a PE that is causing his symptoms. In the meantime is given IV Lasix. CTA shows pulmonary nodule, lung emphysema/COPD but no acute pulmonary emboli.Patient will be admitted for further diuresis and treatment of his hypoxia/work of breathing. He is agreeable. Remains hemodynamically stable at this time. Has rate improvement with IV metoprolol in the emergency room Lab Data Attestation: I reviewed the patient's lab results. Labs: Laboratory Results - last 24 hr 12/10/24 12/10/24 15:15 17:50 WBC 5.1 RBC 4.77 Hgb 15.2 Hct 46.0 MCV 96.4 H MCH 31.9 MCHC 33.0 RDW Std Deviation 46.6 H RDW Coeff of Migel 13.1 Plt Count 215 MPV 9.2 Immature Gran % (Auto) 0.400 Neut % (Auto) 67.2 Lymph % (Auto) 16.0 L Cassia % (Auto) 11.6 H Eos % (Auto) 3.6 Baso % (Auto) 1.2 H Absolute Neuts (auto) 3.4 Absolute Lymphs (auto) 0.81 L Nucleated RBC % 0 Sodium 133 Potassium 4.7 Chloride 97 L Carbon Dioxide 25.0 Anion Gap 11 BUN 8 Creatinine 0.80 Estim Creat Clear Calc 95.21 Est GFR (MDRD) Non-Af 96 BUN/Creatinine Ratio 10.5 Glucose 97 Calcium 8.8 Troponin T High Sens 41 H Troponin T Hi Sens 2 Hr 37 H NT pro BNP II 1378 H TSH 1.640 Radiography Chest X-Ray - ED: 2 View, Read by ED Physician and CHF (Pulmonary vascular congestion) Diagnostic Testing: Clinical Impression(s) from Imaging Studies Chest X-Ray 12/10/24 16:33 IMPRESSION: Cardiomegaly with mild congestion. Reading Location: [facility] Chest CTA 12/10/24 17:02 IMPRESSION: 1. No pulmonary embolism. 2. Lung emphysema/COPD. 3.0 cm spiculated nodule of the posterior right lower lobe. Further evaluation with PET-CT or tissue biopsy is recommended. 3. 5 mm nodule of the lateral left upper lobe. Reading Location: [facility] Rhythm Strip Rhythm Strip: A-fib Rate: 126 Ectopy: None EKG Initial EKG: Attestation: I personally reviewed and interpreted this EKG as follows: Interpretation: Atrial Fibrillation Comments: Atrial fibrillation with RVR rate of 126 bpm Normal axis Normal intervals Normal ST segments This is new compared to prior EKG on 12/26/2017 Differential Diagnosis Chest pain/SOB: pulmonary embolism, ACS, pneumothorax, pneumonia and CHF Management Discussion w/another healthcare provider: Hospitalist Discharge Plan Triage Chief Complaint: Edema ED Provider: Gifty Gonzalez Dx/Rx/DC Orders Clinical Impression: Acute CHF, Edema, peripheral, Atrial fibrillation with RVR, OSEI (dyspnea on exertion), Lung nodule Prescriptions: No Action atorvastatin 80 MG tablet 80 mg PO DAILY Patient Comments: TAKE ONE TABLET BY MOUTH EVERY DAY lisinopril 20 MG tablet 20 mg PO BID Patient Comments: clopidogrel 75 MG tablet 75 mg PO DAILY Patient Comments: metoprolol tartrate 25 MG tablet 25 mg PO BID Patient Comments: nitroglycerin 0.4 MG tablet 0.4 mg SUBLINGUAL Q5M PRN (Reason: Chest Pain) Qty: 30 1RF fluticasone propion-salmeterol 500-50 mcg/dose blister with device 1 ea INHALATION BID furosemide 20 mg tablet 20 mg PO DAILY albuterol sulfate 90 mcg/actuation HFA aerosol inhaler 2 puff inhalation Q6H PRN PRN (Reason: wheezing) Primary Care Provider: Acacia De Oliveira Referrals: Acacia De Oliveira MD [Primary Care Provider] - Print Language: Telugu Disposition Disposition: Acute Care Hospital [facility] What to do if you have Problems For any increased pain, shortness of breath, bleeding, nausea or vomiting, chestpain, or any unexpected problems, contact your Primary Care Provider. Call [facility] ([phone]) or report to the closest Emergency Room. Call 911 if necessary. 12/10/241853 <Electronically signed by Gifty Gonzalez DO> Cosigner Signature (if applicable): CC: Dr. Acacia De Oliveira MD ~ Signed [facility] Work Phone: 1(874) 538-119804-17-2025 NoteHNO ID: [id number] Author: ANIBAL TAYLOR MA Service: ? Author Type: Human Resources Hr Representative Type: Progress Notes Filed: 10/01/2024 12:49 Note Text: POPULATION HEALTH NAVIGATION OUTREACH Action/FYI Gaps due: AWV FU Mar 2024 [place] Spoke to pt, declined. Reason for Outreach Care Gap/HCC or Scheduling Wellness Visits Care Gaps due: Medicare Annual Wellness Visit Follow-up Appointment Controlling Blood Pressure Colorectal Cancer Screening Patient Contacted: Spoke to patient/parent/or legal guardian Patient identified by name and : No Navigation Signature: Anibal Taylor MA October 01, 2024 12:46 [facility]04-17-2025 History of Present illness Narrative* Anibal Taylor MA - 10/01/2024 12:46 PM EDT POPULATION HEALTH NAVIGATION OUTREACH Action/FYI Gaps due: AWV FU Mar 2024 [place] [facility] Spoke to pt, declined. Reason for Outreach Care Gap/HCC or Scheduling Wellness Visits Care Gaps due: Medicare Annual Wellness Visit Follow-up Appointment Controlling Blood Pressure Colorectal Cancer Screening Patient Contacted: Spoke to patient/parent/or legal guardian Patient identified by name and : No Navigation Signature: Anibal Taylor MA October 01, 2024 12:46 PM documented in this encounterAvita Health System04-17-2025 NotePatient Outreach (NETNAV) YURY GONZALEZ ([id number]) 1955 M Date Time Provider Department 10/01/24 ANIBAL TAYLOR NETERICK During your visit today, we recorded the following information about you: Anibal Taylor MA 10/01/2024 12:49 PM Signed POPULATION HEALTH NAVIGATION OUTREACH Action/FYI Gaps due: AWV FU Mar 2024 [place] [facility] Spoke to pt, declined. Reason for Outreach Care Gap/HCC or Scheduling Wellness Visits Care Gaps due: Medicare Annual Wellness Visit Follow-up Appointment Controlling Blood Pressure Colorectal Cancer Screening Patient Contacted: Spoke to patient/parent/or legal guardian Patient identified by name and : No Navigation Signature: Anibal Taylor MA October 01, 2024 12:46 PM Allergies As of Date: 10/01/2024 Noted Allergy Reaction HAY FEVER (SEASONAL ALLERGIES) 02/28/2021 16 - Unknown Date Reviewed: 01/02/2024 Reviewed by: Irma Simon LPN - Fully Assessed Reason for Visit: Population Health Navigation Outreach [3910] Cmt: Nasreen mosquera Prescriptions as of 10/01/2024 - albuterol HFA (PROVENTIL HFA, VENTOLIN HFA) 90 mcg/actuation inhaler Inhale 2 Puffs as instructed every 6 hours as needed for wheezing/shortness of breath. - furosemide (LASIX) 20 mg tablet Take 1 tablet by mouth every afternoon. - nitroglycerin sublingual (NITROQUICK) 0.4 mg SL tablet Dissolve 1 tablet under the tongue every 5 minutes as needed. - loratadine (CLARITIN) 10 mg tablet Take 1 tablet by mouth once daily. - fluticasone-salmeterol (ADVAIR DISKUS) 500-50 mcg/dose dsdv Inhale 1 Puff as instructed two times a day. Rinse and gargle mouth with water after use. - atorvastatin (LIPITOR) 80 mg tablet Take 1 tablet by mouth once daily. - clopidogrel (PLAVIX) 75 mg tablet Take 1 tablet by mouth once daily. - lisinopril (PRINIVIL) 20 mg tablet Take 1 tablet by mouth two times a day. - metoprolol tartrate, short acting, (LOPRESSOR) 25 mg tablet Take 1 tablet by mouth two times a day. - montelukast (SINGULAIR) 10 mg tablet Take 1 tablet by mouth daily at bedtime. - multivitamin (ONE-A-DAY ESSENTIAL) tablet Take 1 tablet by mouth once daily. MVI with Lycopene Problem List As Of Date 10/01/2024 Noted Resolved CAD (coronary artery disease) [I25.10] 06/18/2014 Hyperlipidemia [E78.5] 06/18/2014 Hypertension [I10] 06/18/2014 Tobacco dependence [F17.200] 06/18/2014 Alcohol dependence (HCC) [F10.20] 06/18/2014 Shoulder pain [M25.519] 08/03/2014 Carpal tunnel syndrome [G56.00] 08/03/2014 ED (erectile dysfunction) [N52.9] 08/03/2014 Solitary pulmonary nodule [R91.1] 01/21/2023 Pulmonary emphysema, unspecified emphysema type*01/02/2024 Encounter Status:Closed by ANIBAL TAYLOR on 10/01/24[facility] 09-16-2024 Telephone encounter Note* Telephone Encounter - Elvira Lau - 09/16/2024 1:04 PM EDT Prescription Refill Information The patient has been identified by name and date of : Yes Caregiver verified no other encounters exist for this prescription request: Yes Caregiver confirmed with patient/requestor that no other refills are due, in the near future, with this provider at this time: Yes The last office visit in the department: 01-02-24 Does the patient have a future office visit with this provider/department: No Requested Prescriptions Pending Prescriptions Disp Refills nitroglycerin sublingual (NITROQUICK) 0.4 mg SL tablet 25 tablet 0 Sig: Dissolve 1 tablet under the tongue every 5 minutes as needed. Elvira Lau September 16, 2024 1:05 PM [facility]04-02-2025 Miscellaneous Notes* Telephone Encounter - Elvira Lau - 09/16/2024 1:04 PM EDT Prescription Refill Information The patient has been identified by name and date of : Yes Caregiver verified no other encounters exist for this prescription request: Yes Caregiver confirmed with patient/requestor that no other refills are due, in the near future, with this provider at this time: Yes The last office visit in the department: 01-02-24 Does the patient have a future office visit with this provider/department: No Requested Prescriptions Pending Prescriptions Disp Refills nitroglycerin sublingual (NITROQUICK) 0.4 mg SL tablet 25 tablet 0 Sig: Dissolve 1 tablet under the tongue every 5 minutes as needed. Elvira Lau September 16, 2024 1:05 PM documented in this encounterAvita Health System04-01-2025 Telephone encounter Note * Telephone Encounter - Kailey Pruitt LPN - 09/15/2024 1:55 PM EDT Our records indicate that he has a valid script at [facility] for the Lasix. [facility]04-01-2025 Miscellaneous Notes* Telephone Encounter - Kailey Pruitt LPN - 09/15/2024 1:55 PM EDT Our records indicate that he has a valid script at [facility] for the Lasix. * Telephone Encounter - Elvira Lau - 09/15/2024 1:22 PM EDT Prescription Refill Information The patient has been identified by name and date of : Yes Caregiver verified no other encounters exist for this prescription request: Yes Caregiver confirmed with patient/requestor that no other refills are due, in the near future, with this provider at this time: Yes The last office visit in the department: 01-02-24 Does the patient have a future office visit with this provider/department: No Requested Prescriptions Pending Prescriptions Disp Refills albuterol HFA (PROVENTIL HFA, VENTOLIN HFA) 90 mcg/actuation inhaler 3 Each 3 Sig: Inhale 2 Puffs as instructed every 6 hours as needed for wheezing/shortness of breath. furosemide (LASIX) 20 mg tablet 90 tablet 3 Sig: Take 1 tablet by mouth every afternoon. Patient requesting 90 days Elvira Lau September 15, 2024 1:24 PM documented in this encounterAvita Health System04-01-2025 Telephone encounter Note * Telephone Encounter - Elvira Lau - 09/15/2024 1:22 PM EDT Prescription Refill Information The patient has been identified by name and date of : Yes Caregiver verified no other encounters exist for this prescription request: Yes Caregiver confirmed with patient/requestor that no other refills are due, in the near future, with this provider at this time: Yes The last office visit in the department: 01-02-24 Does the patient have a future office visit with this provider/department: No Requested Prescriptions Pending Prescriptions Disp Refills albuterol HFA (PROVENTIL HFA, VENTOLIN HFA) 90 mcg/actuation inhaler 3 Each 3 Sig: Inhale 2 Puffs as instructed every 6 hours as needed for wheezing/shortness of breath. furosemide (LASIX) 20 mg tablet 90 tablet 3 Sig: Take 1 tablet by mouth every afternoon. Patient requesting 90 days Elvira Lau September 15, 2024 1:24 PM [facility]12-31-[facility]24 NoteHNO ID: [id number] Author: JIGNESH LAUREN MA Service: ? Author Type: Human Resources Hr Representative Type: Progress Notes Filed: 06/16/2024 14:21 Note Text: POPULATION HEALTH NAVIGATION OUTREACH Action/FYI msg to schedule wellness due after 01/02/2025, influenza, colonoscopy, follow up, bp to be addressed as not compliant not <130/80 Reason for Outreach Care Gap/HCC or Scheduling Wellness Visits Care Gaps due: Medicare Annual Wellness Visit Follow-up Appointment Controlling Blood Pressure Colorectal Cancer Screening Flu Vaccine Patient Contacted: Unable or unnecessary to reach patient: Left message [employer] message sent Navigation Signature: Jignesh Lauren MA June 16, 2024 2:20 [facility]CG[facility] History of Present illness Narrative* Jignesh Lauren MA - 06/16/2024 2:20 PM EST POPULATION HEALTH NAVIGATION OUTREACH Action/FYI msg to schedule wellness due after 01/02/2025, influenza, colonoscopy, follow up, bp to be addressedas not compliant not <130/80 Reason for Outreach Care Gap/HCC or Scheduling Wellness Visits Care Gaps due: Medicare Annual Wellness Visit Follow-up Appointment Controlling Blood Pressure Colorectal Cancer Screening Flu Vaccine Patient Contacted: Unable or unnecessary to reach patient: Left message [employer] message sent Navigation Signature: Jignesh Lauren MA June 16, 2024 2:20 PM documented in this encounterAvita Health System12-31-2024 NotePatient Outreach (NETNAV) CARLOSYURY ([id number]) 1955 M Date Time Provider Department 06/16/24 JIGNESH LAUREN During your visit today, we recorded the following information about you: Jignesh Lauren MA 06/16/2024 2:21 PM Signed POPULATION HEALTH NAVIGATION OUTREACH Action/FYI msg to schedule wellness due after 01/02/2025, influenza, colonoscopy, follow up, bp to be addressed as not compliant not <130/80 Reason for Outreach Care Gap/HCC or Scheduling Wellness Visits Care Gaps due: Medicare Annual Wellness Visit Follow-up Appointment Controlling Blood Pressure Colorectal Cancer Screening Flu Vaccine Patient Contacted: Unable or unnecessary to reach patient: Left message [employer] message sent Navigation Signature: Jignesh Lauren MA June 16, 2024 2:20 PM Allergies As of Date: 06/16/2024 Noted Allergy Reaction HAY FEVER (SEASONAL ALLERGIES) 02/28/2021 16 - Unknown Date Reviewed: 01/02/2024 Reviewed by: Irma Simon LPN - Fully Assessed Reason for Visit: Population Health Navigation Outreach [3910] Cmt: Nasreen mosquera Prescriptions as of 06/16/2024 - furosemide (LASIX) 20 mg tablet Take 1 tablet by mouth every afternoon. - loratadine (CLARITIN) 10 mg tablet Take 1 tablet by mouth once daily. - fluticasone-salmeterol (ADVAIR DISKUS) 500-50 mcg/dose dsdv Inhale 1 Puff as instructed two times a day. Rinse and gargle mouth with water after use. - albuterol HFA (PROVENTIL HFA, VENTOLIN HFA) 90 mcg/actuation inhaler Inhale 2 Puffs as instructed every 6 hours as needed for wheezing/shortness of breath. - nitroglycerin sublingual (NITROQUICK) 0.4 mg SL tablet Dissolve 1 tablet under the tongue every 5 minutes as needed. - atorvastatin (LIPITOR) 80 mg tablet Take 1 tablet by mouth once daily. - clopidogrel (PLAVIX) 75 mg tablet Take 1 tablet by mouth once daily. - lisinopril (PRINIVIL) 20 mg tablet Take 1 tablet by mouth two times a day. - metoprolol tartrate, short acting, (LOPRESSOR) 25 mg tablet Take 1 tablet by mouth two times a day. - montelukast (SINGULAIR) 10 mg tablet Take 1 tablet by mouth daily at bedtime. - multivitamin (ONE-A-DAY ESSENTIAL) tablet Take 1 tablet by mouth once daily. MVI with Lycopene Problem List As Of Date 06/16/2024 Noted Resolved CAD (coronary artery disease) [I25.10] 06/18/2014 Hyperlipidemia [E78.5] 06/18/2014 Hypertension [I10] 06/18/2014 Tobacco dependence [F17.200] 06/18/2014 Alcohol dependence (HCC) [F10.20] 06/18/2014 Shoulder pain [M25.519] 08/03/2014 Carpal tunnel syndrome [G56.00] 08/03/2014 ED (erectile dysfunction) [N52.9] 08/03/2014 Solitary pulmonary nodule [R91.1] 01/21/2023 Pulmonary emphysema, unspecified emphysema type*01/02/2024 Encounter Status:Closed by JIGNESH LAUREN on 06/16/24[facility] 04-15-2024 NoteHNO ID: [id number] Author: JIGNESH LAUREN MA Service: ? Author Type: Human Resources Hr Representative Type: Progress Notes Filed: 04/15/2024 14:22 Note Text: POPULATION HEALTH NAVIGATION OUTREACH Action/I msg to schedule wellness due after 01/02/2025, follow up, bp to be addressed not compliant not <130/80, influenza, colonoscopy Reason for Outreach Care Gap/HCC or Scheduling Wellness Visits Care Gaps due: Medicare Annual Wellness Visit Follow-up Appointment Controlling Blood Pressure Colorectal Cancer Screening Flu Vaccine Patient Contacted: Unable or unnecessary to reach patient: Left message [employer] message sent Navigation Signature: Jignesh Lauren MA April 15, 2024 2:21 [facility]10-30-2024 History of Present illness Narrative* Jignesh Lauren MA - 04/15/2024 2:21 PM EDT POPULATION HEALTH NAVIGATION OUTREACH Action/FYI msg to schedule wellness due after 01/02/2025, follow up, bp to be addressed not compliant not <130/80, influenza, colonoscopy Reason for Outreach Care Gap/HCC or Scheduling Wellness Visits Care Gaps due: Medicare Annual Wellness Visit Follow-up Appointment Controlling Blood Pressure Colorectal Cancer Screening Flu Vaccine Patient Contacted: Unable or unnecessary to reach patient: Left message [employer] message sent Navigation Signature: Jignesh Lauren MA April 15, 2024 2:21 PM documented in this encounterAvita Health System10-30-2024 NotePatient Outreach (NETNAV) YURY GONZALEZ ([id number]) 1955 M Date Time Provider Department 04/15/24 JIGNESH LAUREN NETFADUMOV During your visit today, we recorded the following information about you: Jignesh Lauren MA 04/15/2024 2:22 PM Signed POPULATION HEALTH NAVIGATION OUTREACH Action/ELIJAH msg to schedule wellness due after 01/02/2025, follow up, bp to be addressed not compliant not <130/80, influenza, colonoscopy Reason for Outreach Care Gap/HCC or Scheduling Wellness Visits Care Gaps due: Medicare Annual Wellness Visit Follow-up Appointment Controlling Blood Pressure Colorectal Cancer Screening Flu Vaccine Patient Contacted: Unable or unnecessary to reach patient: Left message [employer] message sent Navigation Signature: Jignesh Lauren MA April 15, 2024 2:21 PM Allergies As of Date: 04/15/2024 Noted Allergy Reaction HAY FEVER (SEASONAL ALLERGIES) 02/28/2021 16 - Unknown Date Reviewed: 01/02/2024 Reviewed by: Irma Simon LPN - Fully Assessed Reason for Visit: Population Health Navigation Outreach [3910] Cmt: Nasreen mosquera Prescriptions as of 04/15/2024 - furosemide (LASIX) 20 mg tablet Take 1 tablet by mouth every afternoon. - loratadine (CLARITIN) 10 mg tablet Take 1 tablet by mouth once daily. - fluticasone-salmeterol (ADVAIR DISKUS) 500-50 mcg/dose dsdv Inhale 1 Puff as instructed two times a day. Rinse and gargle mouth with water after use. - albuterol HFA (PROVENTIL HFA, VENTOLIN HFA) 90 mcg/actuation inhaler Inhale 2 Puffs as instructed every 6 hours as needed for wheezing/shortness of breath. - nitroglycerin sublingual (NITROQUICK) 0.4 mg SL tablet Dissolve 1 tablet under the tongue every 5 minutes as needed. - atorvastatin (LIPITOR) 80 mg tablet Take 1 tablet by mouth once daily. - clopidogrel (PLAVIX) 75 mg tablet Take 1 tablet by mouth once daily. - lisinopril (PRINIVIL) 20 mg tablet Take 1 tablet by mouth two times a day. - metoprolol tartrate, short acting, (LOPRESSOR) 25 mg tablet Take 1 tablet by mouth two times a day. - montelukast (SINGULAIR) 10 mg tablet Take 1 tablet by mouth daily at bedtime. - multivitamin (ONE-A-DAY ESSENTIAL) tablet Take 1 tablet by mouth once daily. MVI with Lycopene Problem List As Of Date 04/15/2024 Noted Resolved CAD (coronary artery disease) [I25.10] 06/18/2014 Hyperlipidemia [E78.5] 06/18/2014 Hypertension [I10] 06/18/2014 Tobacco dependence [F17.200] 06/18/2014 Alcohol dependence (HCC) [F10.20] 06/18/2014 Shoulder pain [M25.519] 08/03/2014 Carpal tunnel syndrome [G56.00] 08/03/2014 ED (erectile dysfunction) [N52.9] 08/03/2014 Solitary pulmonary nodule [R91.1] 01/21/2023 Pulmonary emphysema, unspecified emphysema type*01/02/2024 Encounter Status:Closed by JIGNESH LAUREN on 04/15/24[facility] 03-26-2024 Telephone encounter Note* Telephone Encounter - Bia Rios - 03/26/2024 11:04 AM EDT Prescription Refill Information The patient has been identified by name and date of : Yes Caregiver verified no other encounters exist for this prescription request: Yes Caregiver confirmed with patient/requestor that no other refills are due, in the near future, with this provider at this time: Yes The last office visit in the department: 01/02/2024 Does the patient have a future office visit with this provider/department: Yes Requested Prescriptions Pending Prescriptions Disp Refills furosemide (LASIX) 20 mg tablet 90 tablet 1 Sig: Take 1 tablet by mouth every afternoon. loratadine (CLARITIN) 10 mg tablet 90 tablet 3 Sig: Take 1 tablet by mouth once daily. Bia Mcgregor March 26, 2024 11:04 AM [facility]10-10-2024 Miscellaneous Notes* Telephone Encounter - Bia Rios - 03/26/2024 11:04 AM EDT Prescription Refill Information The patient has been identified by name and date of : Yes Caregiver verified no other encounters exist for this prescription request: Yes Caregiver confirmed with patient/requestor that no other refills are due, in the near future, with this provider at this time: Yes The last office visit in the department: 01/02/2024 Does the patient have a future office visit with this provider/department: Yes Requested Prescriptions Pending Prescriptions Disp Refills furosemide (LASIX) 20 mg tablet 90 tablet 1 Sig: Take 1 tablet by mouth every afternoon. loratadine (CLARITIN) 10 mg tablet 90 tablet 3 Sig: Take 1 tablet by mouth once daily. Bia Mcgregor March 26, 2024 11:04 AM documented in this encounterAvita Health System08-12-2024 Telephone encounter Note * Telephone Encounter - Gissel Acosta MD - 01/27/2024 3:28 PM EDT Called patient a few times today. Call goes straight to voicemail left message regarding EBUS. In the [facility] region EBUS can be done at [facility] Or [facility]. No centers at [place]. I also called patient's Sister Sherrie and left a voicemail. Will try again tomorrow Gissel Acosta MD [facility]08-12-2024 Miscellaneous Notes* Telephone Encounter - Gissel Acosta MD - 01/27/2024 3:28 PM EDT Called patient a few times today. Call goes straight to voicemail left message regarding EBUS. In the [facility] region EBUS can be done at [facility] Or [facility]. No centers at [place]. I also called patient's Sister Sherrie and left a voicemail. Will try again tomorrow Gissel Acosta MD documented in this encounterAvita Health System08-01-2024 Telephone encounter Note * Telephone Encounter - Gissel Acosta MD - 01/16/2024 4:45 PM EDT Spoke to patient regarding setting up an appointment with pulmonology for follow up Patient saw me in February for the first time in January of 2023. Was scheduled for EBUS at [place]. Patient canceled all his appointments for insurance concerns. Patient then reconnected with his PCP Dr. De Oliveira, as per our conversation through [facility] patient was interested to pursue further treatment and agreed to a repeat CT chest. Repeat CT chest is significant for increasing right lower lobe nodule. We have been trying to schedule patient for a follow up to plan further steps. Patient does not want to come to [place]. The schedulers have attempted calling patient to help him get scheduled at [facility]. No appointment setup yet. Explained to the patient that his lung mass is concerning for cancer and the need for biopsy/EBUS. Also mentioned to the patient that he may need more than a EBUS, may need a navigational bronch which is done at [facility], [facility] or [facility]. Patient refused these locations and started yellingon the phone that he is not sure and would want to think about it. Patient could also get an EBUS at [facility]. Patient started yelling again stating that he s never undergone surgery and he has to think about it. I also called patient sister Sherrie Mccoy and discuss the situation. Left the [place] and [facility] numbers with her. Gissel Acosta MD [facility]08-01-2024 Miscellaneous Notes* Telephone Encounter - Gissel Acosta MD - 01/16/2024 4:45 PM EDT Spoke to patient regarding setting up an appointment with pulmonology for follow up Patient saw me in February for the first time in January of 2023. Was scheduled for EBUS at [facility]. Patient canceled all his appointments for insurance concerns. Patient then reconnected with his PCP Dr. De Oliveira, as per our conversation through [facility] patient was interested to pursue further treatment and agreed to a repeat CT chest. Repeat CT chest is significant for increasing right lower lobe nodule. We have been trying to schedule patient for a follow up to plan further steps. Patient does not want to come to [place]. The schedulers have attempted calling patient to help him get scheduled at [facility]. No appointment setup yet. Explained to the patient that his lung mass is concerning for cancer and the need for biopsy/EBUS. Also mentioned to the patient that he may need more than a EBUS, may need a navigational bronch which is done at [facility], [facility] or [facility]. Patient refused these locations and started yellingon the phone that he is not sure and would want to think about it. Patient could also get an EBUS at [facility]. Patient started yelling again stating that he s never undergone surgery and he has to think about it. I also called patient sister Sherrie Mccoy and discuss the situation. Left the [place] and [facility] numbers with her. Gissel Acosta MD documented in this encounterAvita Health System08-01-2024 Telephone encounter Note * Telephone Encounter - Irma SimonMICHELLE - 01/16/2024 2:18 PM EDT See telephone one from 7/31/24 regarding patient response to scheduling Pulmonary appointment. Irma Simon LPN January 16, 2024 2:19 PM [facility]08-01-2024 Telephone encounter Note* Telephone Encounter - Irma Simon LPN - 01/16/2024 2:18 PM EDT ----- Message from Acacia De Oliveira MD sent at 01/15/2024 7:02 PM EDT ----- Please let patient know, that his cancer has grown since the last CT. It is very important for him to get treated as soon as possible. May now pulmonary doctors were calling and trying to get himappoint meant but he has refused. If he wishes to go to [place] he can or if he wants to stay in [place] we can send a fax to pulmonary in [place]. He needs to get this biopsied and treated. Regards, Acacia De Oliveira MD [facility]08-01-2024 Miscellaneous Notes* Telephone Encounter - Irma Simon LPN - 01/16/2024 2:18 PM EDT See telephone one from 01/15/24 regarding patient response to scheduling Pulmonary appointment. Irma Simon LPN January 16, 2024 2:19 PM * Telephone Encounter - Irma Simon LPN - 01/16/2024 2:18 PM EDT ----- Message from Acacia De Oliveira MD sent at 01/15/2024 7:02 PM EDT ----- Please let patient know, that his cancer has grown since the last CT. It is very important for him to get treated as soon as possible. May now pulmonary doctors were calling and trying to get himappoint meant but he has refused. If he wishes to go to [place] he can or if he wants to stay in [place] we can send a fax to pulmonary in [place]. He needs to get this biopsied and treated. Acacia Albarran MD * Telephone Encounter - Celeste Salvador RN - 01/15/2024 7:24 PM EDT Spoke with patient. He states he prefers to see Pulmonary @ [facility]. Otherwise, he would be willing to see a provider outside [facility] but still wants to stay in [place]. Offered to transfer to hardware developer for PULMONARY appointment. He declined and says he needs a few more days to think about it. Celeste Salvador RN * Telephone Encounter - Acacia De Oliveira MD - 01/15/2024 6:57 PM EDT Can someone please call Yury gonzalez and find out which pulm department he would like to go to? [facility] or max If he does not mind going out of the [facility] network we can send him to [facility] Acacia Albarran MD documented in this encounterAvita [facility] System07-31-2024 Telephone encounter Note * Telephone Encounter - Celeste Salvador RN - 01/15/2024 7:24 PM EDT Spoke with patient. He states he prefers to see Pulmonary @ [facility]. Otherwise, he would be willing to see a provider outside [facility] but still wants to stay in [place]. Offered to transfer to hardware developer for PULMONARY appointment. He declined and says he needs a few more days to think about it. Celeste Salvador RN [facility]07-31[facility] Telephone encounter Note* Telephone Encounter - Acacia De Oliveira MD - 01/15/2024 6:57 PM EDT Can someone please call Yury gonzalez and find out which pul department he would like to go to? [facility] or [facility] If he does not mind going out of the [facility] network we can send him to [facility] Regards, Acacia De Oliveira MD [facility]07-31-2024 Telephone encounter Note* Telephone Encounter - Jody Reyes - 01/15/2024 9:21 AM EDT Pt stated he would not like to schedule at all with this office. [facility]07-31-2024 Miscellaneous Notes* Telephone Encounter - Jody Reyes - 01/15/2024 9:21 AM EDT Pt stated he would not like to schedule at all with this office. documented in this encounterAvita Health System07-25-2024 History of Present illness Narrative* Pennie Durand RT(R) - 01/09/2024 11:40 AM EDT Radiology Service Progress Note PATIENT NAME: Yury Gonzalez DATE OF SERVICE: January 09, 2024 TIME: 2:54 PM PATIENT IDENTITY VERIFICATION COMPLETED USING TWO (2) IDENTIFIERS: Name and Date of confirmedby patient verbally. FALL SCREENING: Has the patient had 2 falls in the last year or 1 fall with injury or currently using an Ambulatory Assistive Device (Walker, Cane, Wheelchair, Crutches, etc.)? No PATIENT GENDER DATA: Male PATIENT RELEVANT IMPLANT DATA REVIEWED: Yes PATIENT PRESENTS WITH AN IMPLANTABLE OR ATTACHED LEAD REFINERY SUPERVISOR: No RADIOLOGY DEPARTMENT: CT; Exam(s) Completed: Chest PERIPHERAL IV DATA: Not applicable SIGNED BY: RT Elidia(R) January 09, 2024 2:54 PM documented in this encounterAvita Health System07-25-2024 NoteHNO ID: [id number] Author: PENNIE DURAND RT(R) Service: ? Author Type: Supervisor Nutritional Yeast Type: Progress Notes Filed: 01/09/2024 14:55 Note Text: Radiology Service Progress Note PATIENT NAME: Yury Gonzalez DATE OF SERVICE: January 09, 2024 TIME: 2:54 PM PATIENT IDENTITY VERIFICATION COMPLETED USING TWO (2) IDENTIFIERS: Name and Date of confirmed by patient verbally. FALL SCREENING: Has the patient had 2 falls in the last year or 1 fall with injury or currently using an Ambulatory Assistive Device (Walker, Cane, Wheelchair, Crutches, etc.)? No PATIENT GENDER DATA: Male PATIENT RELEVANT IMPLANT DATA REVIEWED: Yes PATIENT PRESENTS WITH AN IMPLANTABLE OR ATTACHED LEAD REFINERY SUPERVISOR: No RADIOLOGY DEPARTMENT: CT; Exam(s) Completed: Chest PERIPHERAL IV DATA: Not applicable SIGNED BY: PAUL Brenner) January 09, 2024 2:54 PMCG[facility] Telephone encounter Note* Telephone Encounter - Irma Simon LPN - 01/03/2024 11:01 AM EDT Called and spoke to Yury, updated on message below and will call and schedule CT scan SULEIMAN, patient voiced understanding, message forwarded to Clerical pool. Irma Simon LPN January 03, 2024 11:03 AM [facility]07-19-[facility]24 Miscellaneous Notes* Telephone Encounter - Irma Simon LPN - 01/03/2024 11:01 AM EDT Called and spoke to Yury, updated on message below and will call and schedule CT scan SULEIMAN, patient voiced understanding, message forwarded to Clerical pool. Irma Simon LPN January 03, 2024 11:03 AM * Telephone Encounter - Irma Simon LPN - 01/03/2024 10:58 AM EDT Duplicate message * Telephone Encounter - Acacia De Oliveira MD - 01/02/2024 5:30 PM EDT Please call patient and let him know that the CT scan please schedule the CT scan that was ordered in January last year for the patient now. Inform him that after the CT scan he will get a call from Dr. Gissel Garcia. I have contacted her and Dr. Montalvo with regards to his limitations with transportation and daily will help him get most of his treatments in [place] or [place]. We will work with him to help him. Please work with him to schedule a CT scan SULEIMAN. RegardsAcacia MD documented in this encounterAvita Health System07-19-2024 Telephone encounter Note * Telephone Encounter - KevinIrma martell LPN - 01/03/2024 10:58 AM EDT Duplicate message [facility]-18-[facility] Telephone encounter Note* Telephone Encounter - Acacia De Oliveira MD - 01/02/2024 5:30 PM EDT Please call patient and let him know that the CT scan please schedule the CT scan that was ordered in January last for the patient now. Inform him that after the CT scan he will get a call from Dr. Gissel Garcia. I have contacted her and Dr. Montalvo with regards to his limitations with transportation and daily will help him get most of his treatments in [place] or [place]. We will work with him to help him. Please work with him to schedule a CT scan SULEIMAN. RegardsAcacia MD [facility]07-18-[facility] History of Present illness Narrative* Acacia De Oliveira MD - 01/02/2024 9:40 AM EDT CC: Patient presents with: Physical HPI Yury is a very pleasant 68-year-old man with past medical history of hypertension, hyperlipidemia,coronary artery disease, ex-smoker, quit 9 months ago who has low probability right lower lobe lungcancer. See below my note by Katiuska gracia; Yury Gonzalez is a 67 year old male who presents today for follow-up regarding continued wheezing/breathing issues, as well as to discuss chest CT results. Last visit was with Katiuska gracia CNP on 12/20/2022. At that time, patient had a chest x-ray which revealed a questionable right lung nodule. CT chestwas advised. CT ordered and results as follows: Indeterminate 1.1 cm spiculated nodule at right lower lobe with an adjacent to 6 mm satellite nodule, suspicious for carcinoma. Follow-up for this incidentally detected lung nodule with PET/CT or biopsy within 4 weeks, or chestCT exam in 3 months is recommended. Has upcoming appt w/ Dr. Acosta (pulm) Saturday. At that visit, patient was rx'ed prednisone and also had Advair increased, as well as Singulair added for suspected COPD flare. Per patient, it has made a big difference. State he's breathing better and easier. Has only used albuterol inhaler 3x so far this month (compared to the 10-12 times he typically would have used it). Per HPI from prior visit: COPD: Smokes 1/2 ppd. Currently using albuterol 6 times a day and multiple times during the night with the elevated outdoor temperatures and humidity. Also has been taking his advair 3 times a day versus ordered twice a day. Reports shortness of breath, wheezing, and nonproductive cough. Denies fever, chills, chest pain, or edema. Does report having intermittent sinus congestion he feels is adding to his breathing. Was on Singulair but took himself off of this as he thought it was just for sinuses. 01/07 Got to know a little bit about him today, he worked for 49 years and retired age 64, he did a lot of different jobs, oil, gas station, and rubber factory. He was 3 times, not currently, has 3 children who are grown, is in touch with oldest son. Spends a lot of time watching tv, has a friends, sister helps with grocery shopping. He does not have family that he can turn to for help except his sister who is his complete social support, he doesnot venture out of his house, cannot drive. He has delayed seeking any treatment for his lung lesion, probable cancer because of transportation. Medicare will help with transportation if it is [id number] miles but [facility] is farther of. He is willing to go to [place]. If he has to go a couple times to [facility] his sister was willing to drive him. Her sister is Sherrie and I called her in to [facility] with the patient and discussed this with her. REVIEW OF SYSTEMS RESPIRATORY: SEE HPI All other systems negative. PAST MEDICAL HISTORY Diagnosis Date History of heart artery stent HTN (hypertension) Hyperlipidemia MT (myocardial infarction) (HCC) 11/27/2004 [facility] PAST SURGICAL HISTORY Procedure Laterality Date HEART CATHETERIZATION 12/27/04 with stent placement at [facility] ALLERGIES Hay Fever [Seasonal Allergies] MEDICATIONS fluticasone-salmeterol (ADVAIR DISKUS) 500-50 mcg/dose dsdv Inhale 1 Puff as instructed two times aday. Rinse and gargle mouth with water after use. albuterol HFA (PROVENTIL HFA, VENTOLIN HFA) 90 mcg/actuation inhaler Inhale 2 Puffs as instructed every 6 hours as needed for wheezing/shortness of breath. nitroglycerin sublingual (NITROQUICK) 0.4 mg SL tablet Dissolve 1 tablet under the tongue every 5 minutes as needed. atorvastatin (LIPITOR) 80 mg tablet Take 1 tablet by mouth once daily. clopidogrel (PLAVIX) 75 mg tablet Take 1 tablet by mouth once daily. lisinopril (PRINIVIL) 20 mg tablet Take 1 tablet by mouth two times a day. metoprolol tartrate, short acting, (LOPRESSOR) 25 mg tablet Take 1 tablet by mouth two times a day. montelukast (SINGULAIR) 10 mg tablet Take 1 tablet by mouth daily at bedtime. furosemide (LASIX) 20 mg tablet take 1 tablet by mouth every day loratadine (CLARITIN) 10 mg tablet Take 1 tablet by mouth once daily. PHENYLephrine (SUDAFED PE) 10 mg tablet Take 1 tablet by mouth every 6 hours as needed. nicotine (NICODERM) 14 mg/24 hr Apply 1 Patch as directed every 24 hours. predniSONE (DELTASONE) 20 mg tablet Take 1 tablet by mouth once daily. (Patient not taking: Reported on 01/02/2024) multivitamin (ONE-A-DAY ESSENTIAL) tablet Take 1 tablet by mouth once daily. MVI with Lycopene (Patient not taking: Reported on 01/21/2023) aspirin, enteric coated (ASPIRIN, ENTERIC COATED) 81 mg EC tablet Take 81 mg by mouth once daily. (Patient not taking: Reported on 01/02/2024) FAMILY HISTORY Problem Relation Age of Onset Hypertension Mother Hypertension Father Cancer Father Cancer Paternal Grandmother jawbone Hypertension Paternal Grandmother Hypertension Paternal Grandfather Social History Tobacco Use Smokeless tobacco: Former Tobacco comments: For 10 years, smoked 2 PPD. Vaping Use Vaping Use: current everyday user Substance Use Topics Alcohol use: Yes Alcohol/week: 12.0 standard drinks of alcohol Types: 12 Cans of Beer (12oz) per week Drug use: No PHYSICAL EXAM BP 136/90 (BP Site: Left Arm) Pulse 74 Ht 167.6 cm (5' 6) Wt 93.4 kg (206 lb) SpO2 97% BMI 33.25 kg/m General Appearance: in no acute distress, alert Pysch: mood and affect broad and appropriate Skin: Skin color, texture, turgor normal for age; Head: normocephalic, atraumatic Lymph nodes: No cervical lymphadenopathy Lungs: Inspiratory and expiratory sonorous wheezes noted bilaterally in apices and bases Heart: RRR without murmur, gallop, or rubs. No ectopy Abdomen: Protuberant abdomen noted Extremities: No gross deformities, significant edema, skin discoloration, clubbing or cyanosis. Neurological: Gait normal. No focal neurological deficits. Sensation grossly intact. ASSESSMENT/PLAN: 1. Lung mass - ICD9: 786.6, ICD10: R91.8 (primary diagnosis) -I spent a lot of time with the patient trying to understand his values and time to understand his barriers for delaying 9 months of treatment. I also explained to him that his mass might be larger now and may be more difficult to treat. We decided that he will go ahead with a CT scan that has beenordered to get a fresh review of the mass. I have coordinated with his lung doctor Dr. Gissel hendricks and she is willing to work out his treatment for him in [place]. 2. Encounter for immunization - ICD9: V03.89, ICD10: Z23 - PNEUMOCOCCAL VACCINE, 20 VALENT (PREVNAR 20) 3. Pulmonary emphysema, unspecified emphysema type (HCC) - ICD9: 492.8, ICD10: J43.9 He has not got his lung volumes diffusion spirometry that was ordered last year. He is willing to get it done this year 4. Uncomplicated alcohol dependence (HCC) - ICD9: 303.90, ICD10: F10.20 Currently not a concern for him Spent 80 minutes on the patient coordinating care talking to him about his values and the reason for him not seeking help till now. We discussed his barriers. I also printed out an advance care planning document and asked him work on his POA as he does not have any other family other than his sister and he is not had any thought process into having a healthcare power of senior trial attorney. Acacia De Oliveira MD documented in this encounterAvita Health System07-18-2024 NoteHNO ID: [id number] Author: ACACIA DE OLIVEIRA MD Service: ? Author Type: Physician Type: Progress Notes Filed: 01/02/2024 17:30 Note Text: CC: Patient presents with: Physical HPI Yury is a very pleasant 68-year-old man with past medical history of hypertension, hyperlipidemia, coronary artery disease, ex-smoker, quit 9 months ago who has low probability right lower lobe lung cancer. See below my note by Katiuska gracia; Yury Gonzalez is a 67 year old male who presents today for follow-up regarding continued wheezing/breathing issues, as well as to discuss chest CT results. Last visit was with Katiuska gracia CNP on 12/20/2022. At that time, patient had a chest x-ray which revealed a questionable right lung nodule. CT chest was advised. CT ordered and results as follows: Indeterminate 1.1 cm spiculated nodule at right lower lobe with an adjacent to 6 mm satellite nodule, suspicious for carcinoma. Follow-up for this incidentally detected lung nodule with PET/CT or biopsy within 4 weeks, or chest CT exam in 3 months is recommended. Has upcoming appt w/ Dr. Acosta (pulm) Saturday. At that visit, patient was rx'ed prednisone and also had Advair increased, as well as Singulair added for suspected COPD flare. Per patient, it has made a big difference. State he's breathing better and easier. Has only used albuterol inhaler 3x so far this month (compared to the 10-12 times he typically would have used it). Per HPI from prior visit: COPD: Smokes 1/2 ppd. Currently using albuterol 6 times a day and multiple times during the night with the elevated outdoor temperatures and humidity. Also has been taking his advair 3 times a day versus ordered twice a day. Reports shortness of breath, wheezing, and nonproductive cough. Denies fever, chills, chest pain, or edema. Does report having intermittent sinus congestion he feels is adding to his breathing. Was on Singulair but took himself off of this as he thought it was just for sinuses. 01/07 Got to know a little bit about him today, he worked for 49 years and retired age 64, he did a lot of different jobs, oil, gas station, and rubber factory. He was 3 times, not currently, has 3 children who are grown, is in touch with oldest son. Spends a lot of time watching tv, has a friends, sister helps with grocery shopping. He does not have family that he can turn to for help except his sister who is his complete social support, he does not venture out of his house, cannot drive. He has delayed seeking any treatment for his lung lesion, probable cancer because of transportation. Medicare will help with transportation if it is within 50 miles but [facility] is farther of. He is willing to go to [place]. If he has to go a couple times to [facility] his sister was willing to drive him. Her sister is Sherrie and I called her in to be seen with the patient and discussed this with her. REVIEW OF SYSTEMS RESPIRATORY: SEE HPI All other systems negative. PAST MEDICAL HISTORY Diagnosis Date History of heart artery stent HTN (hypertension) Hyperlipidemia MT (myocardial infarction) (HCC) 11/27/2004 [facility] PAST SURGICAL HISTORY Procedure Laterality Date HEART CATHETERIZATION 12/27/[address] stent placement at [facility] ALLERGIES Hay Fever [Seasonal Allergies] MEDICATIONS fluticasone-salmeterol (ADVAIR DISKUS) 500-50 mcg/dose dsdv Inhale 1 Puff as instructed two times a day. Rinse and gargle mouth with water after use. albuterol HFA (PROVENTIL HFA, VENTOLIN HFA) 90 mcg/actuation inhaler Inhale 2 Puffs as instructed every 6 hours as needed for wheezing/shortness of breath. nitroglycerin sublingual (NITROQUICK) 0.4 mg SL tablet Dissolve 1 tablet under the tongue every 5 minutes as needed. atorvastatin (LIPITOR) 80 mg tablet Take 1 tablet by mouth once daily. clopidogrel (PLAVIX) 75 mg tablet Take 1 tablet by mouth once daily. lisinopril (PRINIVIL) 20 mg tablet Take 1 tablet by mouth two times a day. metoprolol tartrate, short acting, (LOPRESSOR) 25 mg tablet Take 1 tablet by mouth two times a day. montelukast (SINGULAIR) 10 mg tablet Take 1 tablet by mouth daily at bedtime. furosemide (LASIX) 20 mg tablet take 1 tablet by mouth every day loratadine (CLARITIN) 10 mg tablet Take 1 tablet by mouth once daily. PHENYLephrine (SUDAFED PE) 10 mg tablet Take 1 tablet by mouth every 6 hours as needed. nicotine (NICODERM) 14 mg/24 hr Apply 1 Patch as directed every 24 hours. predniSONE (DELTASONE) 20 mg tablet Take 1 tablet by mouth once daily. (Patient not taking: Reported on 01/02/2024) multivitamin (ONE-A-DAY ESSENTIAL) tablet Take 1 tablet by mouth once daily. MVI with Lycopene (Patient not taking: Reported on 01/21/2023) aspirin, enteric coated (ASPIRIN, ENTERIC COATED) 81 mg EC tablet Take 81 mg by mouth once daily. (Patient not taking: Reported on 01/02/2024) FAMILY HISTORY Problem Relation Age of Onset Hypertension Mother Hyp (more content not included)...[facility]07-02-2024 Note Patient Outreach (INTMMN) YURY GONZALEZ ([id number]) 1955 M Date Time Provider Department 12/17/23 ACACIA DE OLIVEIRA During your visit today, we recorded the following information about you: Allergies As of Date: 12/17/2023 Noted Allergy Reaction HAY FEVER (SEASONAL ALLERGIES) 02/28/2021 16 - Unknown Date Reviewed: 01/21/2023 Reviewed by: Viki Parmar - Fully Assessed Visit Diagnoses:Hypertension [I10] Medication management [Z79.899] Hyperlipidemia [E78.5] Order(s):BASIC METABOLIC PANEL [SQBMP] Order #: [id number] FUTURE HEMOGLOBIN A1C [CUUSS8T] Order #: [id number] FUTURE LIPID PANEL BASIC [SQLIPB] Order #: [id number] FUTURE COMPLETE BLOOD COUNT [SQCBC] Order #: [id number] FUTURE Prescriptions as of 12/20/2023 - fluticasone-salmeterol (ADVAIR DISKUS) 500-50 mcg/dose dsdv Inhale 1 Puff as instructed two times a day. Rinse and gargle mouth with water after use. - albuterol HFA (PROVENTIL HFA, VENTOLIN HFA) 90 mcg/actuation inhaler Inhale 2 Puffs as instructed every 6 hours as needed for wheezing/shortness of breath. - nitroglycerin sublingual (NITROQUICK) 0.4 mg SL tablet Dissolve 1 tablet under the tongue every 5 minutes as needed. - atorvastatin (LIPITOR) 80 mg tablet Take 1 tablet by mouth once daily. - clopidogrel (PLAVIX) 75 mg tablet Take 1 tablet by mouth once daily. - lisinopril (PRINIVIL) 20 mg tablet Take 1 tablet by mouth two times a day. - metoprolol tartrate, short acting, (LOPRESSOR) 25 mg tablet Take 1 tablet by mouth two times a day. - montelukast (SINGULAIR) 10 mg tablet Take 1 tablet by mouth daily at bedtime. - furosemide (LASIX) 20 mg tablet take 1 tablet by mouth every day - nicotine (NICODERM) 14 mg/24 hr Apply 1 Patch as directed every 24 hours. - loratadine (CLARITIN) 10 mg tablet Take 1 tablet by mouth once daily. - predniSONE (DELTASONE) 20 mg tablet Take 1 tablet by mouth once daily. - multivitamin (ONE-A-DAY ESSENTIAL) tablet Take 1 tablet by mouth once daily. MVI with Lycopene - PHENYLephrine (SUDAFED PE) 10 mg tablet Take 1 tablet by mouth every 6 hours as needed. - aspirin, enteric coated (ASPIRIN, ENTERIC COATED) 81 mg EC tablet Take 81 mg by mouth once daily. Problem List As Of Date 12/17/2023 Noted Resolved CAD (coronary artery disease) [I25.10] 06/18/2014 Hyperlipidemia [E78.5] 06/18/2014 Hypertension [I10] 06/18/2014 Tobacco dependence [F17.200] 06/18/2014 Alcohol dependence (HCC) [F10.20] 06/18/2014 Shoulder pain [M25.519] 08/03/2014 Carpal tunnel syndrome [G56.00] 08/03/2014 ED (erectile dysfunction) [N52.9] 08/03/2014 Solitary pulmonary nodule [R91.1] 01/21/2023 Encounter Status:Closed by ERIC CLAY on 12/20/23[facility] 12-16-2023 Telephone encounter Note* Telephone Encounter - Deja Mercado - 12/16/2023 11:45 AM EDT Prescription Refill Information The patient has been identified by name and date of : Yes Caregiver verified no other encounters exist for this prescription request: Yes Caregiver confirmed with patient/requestor that no other refills are due, in the near future, with this provider at this time: Yes The last office visit in the department: 01-17-23 Does the patient have a future office visit with this provider/department: Yes Requested Prescriptions Pending Prescriptions Disp Refills fluticasone-salmeterol (ADVAIR DISKUS) 500-50 mcg/dose dsdv 3 Each 3 Sig: Inhale 1 Puff as instructed two times a day. Rinse and gargle mouth with water after use. albuterol HFA (PROVENTIL HFA, VENTOLIN HFA) 90 mcg/actuation inhaler 3 Each 3 Sig: Inhale 2 Puffs as instructed every 6 hours as needed for wheezing/shortness of breath. Deja Coffman December 16, 2023 11:46 AM [facility]07-01-2024 Miscellaneous Notes* Telephone Encounter - Deja Mercado - 12/16/2023 11:45 AM EDT Prescription Refill Information The patient has been identified by name and date of : Yes Caregiver verified no other encounters exist for this prescription request: Yes Caregiver confirmed with patient/requestor that no other refills are due, in the near future, with this provider at this time: Yes The last office visit in the department: 01-17-23 Does the patient have a future office visit with this provider/department: Yes Requested Prescriptions Pending Prescriptions Disp Refills fluticasone-salmeterol (ADVAIR DISKUS) 500-50 mcg/dose dsdv 3 Each 3 Sig: Inhale 1 Puff as instructed two times a day. Rinse and gargle mouth with water after use. albuterol HFA (PROVENTIL HFA, VENTOLIN HFA) 90 mcg/actuation inhaler 3 Each 3 Sig: Inhale 2 Puffs as instructed every 6 hours as needed for wheezing/shortness of breath. Deja Coffman December 16, 2023 11:46 AM documented in this encounterAvita Health System02-05-2024 Miscellaneous Notes* Telephone Encounter - Laura Blandon - 07/22/2023 4:07 PM EST Please note: patient is aware that he has active scripts for montelukast and metoprolol at the pharmacy. He is trying to sync all of his meds so the are renewed at the same time. Wants to know if new scripts can be sent with the others. * Telephone Encounter - Laura Blandon - 07/22/2023 4:06 PM EST Patient has been identified by name and date of : Yes, Provider Bret Patient phones for refill(s): Requested Prescriptions Pending Prescriptions Disp Refills atorvastatin (LIPITOR) 80 mg tablet 90 tablet 3 Sig: Take 1 tablet by mouth once daily. clopidogrel (PLAVIX) 75 mg tablet 90 tablet 3 Sig: Take 1 tablet by mouth once daily. lisinopril (PRINIVIL) 20 mg tablet 180 tablet 3 Sig: Take 1 tablet by mouth two times a day. metoprolol tartrate, short acting, (LOPRESSOR) 25 mg tablet 180 tablet 3 Sig: Take 1 tablet by mouth two times a day. montelukast (SINGULAIR) 10 mg tablet 90 tablet 3 Sig: Take 1 tablet by mouth daily at bedtime. Date of last office visit in primary care: 01/17/2023 Date of next office visit in primary care: Visit date not found Please advise. Thank you. Laura Coffman. documented in this encounterAvita Health System11-20-2023 Miscellaneous Notes* Telephone Encounter - Daria Soria - 05/06/2023 2:54 PM EST Patient has been identified by name and date of : No Patient phones for refill(s): Requested Prescriptions Pending Prescriptions Disp Refills metoprolol tartrate, short acting, (LOPRESSOR) 25 mg tablet [Pharmacy Med Name: metoprolol [id number] mg tablet] 180 tablet 3 Sig: take 1 tablet by mouth twice daily. Date of last office visit in primary care: 01/17/2023 Date of next office visit in primary care: Visit date not found Last 2 Encounter Wt Readings: Date: Wt: 01/21/2023 82.1 kg (181 lb) 01/17/2023 82.1 kg (181 lb) Previous labs/tests for medication: Blood Pressure: BUN (mg/dL) Date Value 01/17/2023 12 02/28/2021 8 Sodium (mmol/L) Date Value 01/17/2023 133 02/28/2021 135 Last 1 Encounter BP Readings: Date: BP: 01/21/2023 140/62 Please advise. Thank you. Daria Soria. documented in this encounterAvita [facility] System09-14-2023 Miscellaneous Notes* Telephone Encounter - Gissel Acosta MD - 02/28/2023 9:39 AM EDT Returned patient's call. Discussed various financial options for the patient. Provided patient withnumber of billing office to help with financial assistance. Gissel Acosta MD documented in this encounterAvita Health System09-11-2023 Miscellaneous Notes* Telephone Encounter - Gissel Acosta MD - 02/25/2023 9:07 AM EDT Called patient to discuss financial options/aid. No answer, left a voicemail, to call back. I will try again later. Gissel Acosta MD documented in this encounterAvita Health System09-06-2023 Miscellaneous Notes* Telephone Encounter - Diana Sanchez LPN - 02/20/2023 9:26 AM EDT Images from the original note were not included. Gissel Acosta MD You 2 minutes ago (9:24 AM) EV Done. Thank you Gissel Acosta MD * Telephone Encounter - Maria Dolores [place] - 02/19/2023 4:41 PM EDT Patient called in asking for Dr. Acosta to send me a prescription for step 2 to stop smoking. Please advise documented in this encounterAvita Health System08-31-2023 NoteHNO ID: [id number] Author: Edwin Olmstead MD Service: ? Author Type: Physician Type: Progress Notes Filed: 02/14/2023 2:53 PM Note Text: Bronchoscopy Request: Please schedule patient for the following: Bronchoscopy Procedures: Galaxy Robot Pre-Procedure visit required: Yes Visit type: HANDP w/Established Patient Anticipated Procedure Date: 03/20/23 Physician Performing Bronchoscopy: Dr. Olmstead Needs Labs: No Needs EKG: Yes Needs CT: Yes EMN Bronchoscopy Protocol Chest CT Does the pt need cardiac clearance? No Is he/she on anticoagulants/anti-plt therapy? Yes Plavix or medications alike ok to stop medication for 5 days Diagnosis/Reason for Bronchoscopy: RLL PET avid nodule Referred by: Dave Reviewed by: CYNDI Olmstead MD February 14, 2023 2:48 [facility]08-31-2023 History of Present illness Narrative* Edwin Olmstead MD - 02/14/2023 2:48 PM EDT Bronchoscopy Request: Please schedule patient for the following: Bronchoscopy Procedures: Galaxy Robot Pre-Procedure visit required: Yes Visit type: H&P w/Established Patient Anticipated Procedure Date: 03/20/23 Physician Performing Bronchoscopy: Dr. Olmstead Needs Labs: No Needs EKG: Yes Needs CT: Yes EMN Bronchoscopy Protocol Chest CT Does the pt need cardiac clearance? No Is he/she on anticoagulants/anti-plt therapy? Yes Plavix or medications alike ok to stop medicationfor 5 days Diagnosis/Reason for Bronchoscopy: RLL PET avid nodule Referred by: Dave Reviewed by: CYNDI Olmstead MD February 14, 2023 2:48 PM documented in this encounterAvita Health System08-31-2023 NoteHNO ID: [id number] Author: Edwin Olmstead MD Service: ? Author Type: Physician Type: Progress Notes Filed: 02/14/2023 2:53 PM Note Text: Dear Dr. Gissel Acosta, Thank you for this interesting e-consult. I reviewed the imaging. Though this is likely to be a malignancy, this may also represent histo. We can reach this nodule with robotic erick bronch, and I can do EBUS in same sitting. I have submitted this note to our bronchoscopy scheduling team. I'll need to get him into the office to update his HANDP, followed by bronch. Thank you again. Kole Olmstead MD 02/14/2023 2:44 [facility]08-29-2023 NoteHNO ID: [id number] Author: Anibal Oglesby RT(R) Service: Nuclear Medicine Author Type: Technologist Type: Progress Notes Filed: 02/12/2023 9:40 AM Note Text: RADIOLOGY SERVICE PROGRESS NOTE SERVICE DATE: 02/12/2023 SERVICE TIME: 9:40 AM PATIENT IDENTITY VERIFICATION COMPLETED USING TWO (2) STANDARD IDENTIFIERS: Name and Date of confirmed by patient verbally FALL SCREENING: Has the patient had 2 falls in the last year or 1 fall with injury or currently using an Ambulatory Assistive Device (Walker, Cane, Wheelchair, Crutches, etc.)? No PATIENT GENDER DATA: .male ALLERGIES: NA MEDICATIONS REVIEWED: Not applicable PATIENT RELEVANT IMPLANT DATA REVIEWED: Not Applicable CREATININE: Creatinine Date Value Ref Range Status 01/17/2023 0.88 0.73 - 1.22 mg/dL Final 12/17/2022 0.81 0.73 - 1.22 mg/dL Final 11/20/2021 0.73 0.73 - 1.22 mg/dL Final Estimated Glomerular Filtration Rate Date Value Ref Range Status 01/17/2023 94 >=60 mL/min/1.73m? Final Comment: Estimated Glomerular Filtration Rate (eGFR) is calculated using the 2020 CKD-EPI creatinine equation. This equation utilizes serum creatinine, sex, and age as parameters. The creatinine assay has traceable calibration to isotope dilution-mass spectrometry. Refer to KDIGO guidelines for clinical interpretation. In patients with unstable renal function, e.g. those with acute kidney injury, the eGFR may not accurately reflect actual GFR. eGFR- Date Value Ref Range Status 02/28/2021 >60 Final P.O.C.T. RESULTS: N/A February 12, [address] PERFORMED: No IV SITE: Ambulatory: NM only - direct IV injection in the Left antecubital site POST EXAM PIV STATUS: Discontinued PROCEDURE TYPE: NM INJECT: PET/CT BODY SCAN. 11.0 mCi F18 FDG. No other medications given.. ADMINISTRATION TIME: 934 PATIENT DISCHARGED TO: Ambulatory patient, left NM department area. A Diagnostic radioactive procedure has taken place, with no further precautions necessary other than routine body substance precautions. More information regarding radiation safety can be found using this link: [email or web address] SIGNATURE: RT Amanda(R) PATIENT NAME: Yury Gonzalez DATE: February 12, 2023 TIME: 9:40 AM [facility]AG[facility]CONTACT [phone] History of Present illness Narrative* Anibal Oglesby RT(R) - 02/12/2023 10:00 AM EDT RADIOLOGY SERVICE PROGRESS NOTE SERVICE DATE: 02/12/2023 SERVICE TIME: 9:40 AM PATIENT IDENTITY VERIFICATION COMPLETED USING TWO (2) STANDARD IDENTIFIERS: Name and Date of confirmed by patient verbally FALL SCREENING: Has the patient had 2 falls in the last year or 1 fall with injury or currently using an Ambulatory Assistive Device (Walker, Cane, Wheelchair, Crutches, etc.)? No PATIENT GENDER DATA: .male ALLERGIES: NA MEDICATIONS REVIEWED: Not applicable PATIENT RELEVANT IMPLANT DATA REVIEWED: Not Applicable CREATININE: Creatinine Date Value Ref Range Status 01/17/2023 0.88 0.73 - 1.22 mg/dL Final 12/17/2022 0.81 0.73 - 1.22 mg/dL Final 11/20/2021 0.73 0.73 - 1.22 mg/dL Final Estimated Glomerular Filtration Rate Date Value Ref Range Status 01/17/2023 94 >=60 mL/min/1.73m Final Comment: Estimated Glomerular Filtration Rate (eGFR) is calculated using the 2020 CKD-EPI creatinine equation. This equation utilizes serum creatinine, sex, and age as parameters. The creatinine assay has traceable calibration to isotope dilution- mass spectrometry. Refer to KDIGO guidelines for clinical interpretation. In patients with unstable renal function, e.g. those with acute kidney injury, the eGFRmay not accurately reflect actual GFR. eGFR- Date Value Ref Range Status 02/28/2021 >60 Final P.O.C.T. RESULTS: N/A February 12, [address] PERFORMED: No IV SITE: Ambulatory: NM only - direct IV injection in the Left antecubital site POST EXAM PIV STATUS: Discontinued PROCEDURE TYPE: NM INJECT: PET/CT BODY SCAN. 11.0 mCi F18 FDG. No other medications given.. ADMINISTRATION TIME: 0935 PATIENT DISCHARGED TO: Ambulatory patient, left CT department area. A Diagnostic radioactive procedure has taken place, with no further precautions necessary other than routine body substance precautions. More information regarding radiation safety can be found usingthis link: [email or web address] 20Diagnostic%20Nuclear%20Medicine%[email or web address] SIGNATURE: RT Amanda(R) PATIENT NAME: Yury Gonzalez DATE: February 12, 2023 TIME: 9:40 AM PAGER/CONTACT #: documented in this encounterAvita Health System08-25-2023 Miscellaneous Notes* Telephone Encounter - Daria Jennings LPN - 02/08/2023 10:33 AM EDT Patient has been identified by name and date of : No Patient phones for refill(s): Requested Prescriptions Pending Prescriptions Disp Refills nitroglycerin sublingual (NITROQUICK) 0.4 mg SL tablet [Pharmacy Med Name: nitroglycerin 0.4 mg sublingual tablet] 25 tablet 0 Sig: Dissolve 1 tablet under the tongue every 5 minutes as needed. Date of last office visit in primary care: 01/17/23 Last 2 Encounter Wt Readings: Date: Wt: 01/21/2023 82.1 kg (181 lb) 01/17/2023 82.1 kg (181 lb) Previous labs/tests for medication: Not applicable Please advise. Thank you. Daria Jennings LPN documented in this encounterAvita Health System08-23-2023 Miscellaneous Notes* Telephone Encounter - Olamide Markham RN - 02/06/2023 2:52 PM EDT Pt called and is notified of providers results and instructions. Pt voices understanding. Pt deniestaking any supplements with potassium in it. List of foods to stay away from given to Pt, although most of them the Pt said he doesn't eat. Pt denies heart palpitations, nausea, excessive fatigue, or numbness. Pt told to call if he experiences any of these symptoms. Olamide Markham, RN * Telephone Encounter - Annmarie Schroeder PA-C - 02/06/2023 1:27 PM EDT Please call pt and let him know his potassium was a little high on prior labs. It's likely due to the effect of his meds, including inhalers. Can you verify he's not taking potassium? Advise cutting back on potassium rich foods for the time being, including bananas, Sweet potatoes, beans, molasses, nuts, meat and poultry, brown and wild rice, bran cereals, as well as whole-wheat breads and pastas. Ask if experiencing any heart palpitations, nausea, excessive fatigue, or numbness--and if not at the moment, call if experiencing any symptoms. Annmarie Schroeder PA-C documented in this encounterAvita Health System08-07-2023 Miscellaneous Notes* Telephone Encounter - Maria Dolores [place] - 01/21/2023 2:58 PM EDT Patient called back with fax number. Order was faxed to [phone] * Telephone Encounter - Diana Sanchez LPN - 01/21/2023 2:36 PM EDT Order for PET scan is already in [facility]. Spoke with patient and he states he does not want to come [facility] for this since it is too far away from where he lives. Let patient know that order is in so he can call a [facility] facility and schedule this. Discussed with patient if he plans to schedule outside the [facility] to give us a fax number and location of where to send the order. Patient states he is going to call [facility] location to schedule. * Telephone Encounter - Maria Dolores [place] - 01/21/2023 2:17 PM EDT Patient called in stating he tried to schedule his PET scan at [facility] and states they need her tocall them so they can do the scan or have her send it to them. Please advise documented in this encounterAvita Health System08-07-2023 History of Present illness Narrative* Gissel Acosta MD - 01/21/2023 9:50 AM EDT Images from the original note were not included. [facility] OFFICE VISIT CONSULT 01/21/2023 Patient Name: Yury Gonzalez PRIMARY CARE PHYSICIAN: Acacia De Oliveira MD REASON FOR CONSULT: Abnormal CT REFERRING PHYSICIAN: Aleshia Retana PA-C My final recommendations will be communicated to the requesting health care provider by way of the shared medical record for internal providers or by letter via US mail for external providers. ASSESSMENT/PLAN: 1. Pulmonary nodules - ICD9: 793.11, ICD10: R91.1 Spiculated 1.1cm nodule in the RLL along with an adjacent 6mm nodule which was not present in 09/2022. Suspicious for cancer given extensive smoking history. - Will obtain PET scan. - Likely after the PET scan, patient will need a biopsy as the nodule is located peripherally should be accessible by IR. 2. SOB (shortness of breath) - ICD9: 786.05, ICD10: R06.02 Improved - Continue Advair twice a day and Albuterol as needed. - SPIROMETRY - BASELINE AND POST DILATOR - LUNG DIFFUSION CAPACITY (DLCO) - LUNG VOLUMES - SIX MINUTE WALK 3. Pulmonary emphysema, unspecified emphysema type (HCC) - ICD9: 492.8, ICD10: J43.9 With biapical blebs 4. Current Smoker - States has tired pills and they gave him bad dreams. - Counseling provided to patient on smoking cessation. Patient motivated and agreeable to start nicotine patches. - Pt advised to not smoke while using patches to avoid nicotine overdose. Patient instructed to contact me in case of symptoms, imaging and lab results. I discussed the plan in detail with the patient and the patient verbalizes understanding and is in agreement. Follow up in 1 month Gissel Acosta MD, Staff, [facility] [place] [facility] CHIEF COMPLAINT: Abnormal Imaging. HISTORY OF PRESENT ILLNESS: Yury Gonzalez is a 67 year old male with past medical history as below - Severe Emphysema - Current Smoker - History Alcohol dependence - Coronary Artery Disease s/p stent placement on ASA and Plavix - Hypertension - Hyperlipidemia under control - Chronic Hyponatremia Patient is here after an CXR showed a Right Lung Nodule. This was followed by a chest CT w/o contrast which confirmed 1.1 male spiculated lesion mostly solid along with an adjacent lesion 6mm suspicions for cancer. Comparing images a CXR in 09/2021 did not show the right lung nodule. Today patient states that his symptoms have improved after recent change/escalating his inhalers. No shortness of breath on rest, mild shortness of breath on exertion along with wheezing. No change in cough, usually productive. Patient use to use albuterol inhaler 6 times a day, currently using it 3 times a day along with Advair, dose was increased recently. Patient also c/o of sinus congestion which has improved now on singular and claritin has made a difference. Was also prescribed a medrol pack a month ago. Patient denies any nighttime symptoms, no chest pain, leg swelling. No difficulty this carrying out ADLs No night sweats or chills. Gain 4 pounds recently. Denies GERD Never used oxygen and never been hospitalized for breathing issues. Social History Patient is retired now, but use to work making body parts for [employer]. Doesn't think he was exposed toany dust but didn't wear PPE. Has a history of heavy smoking: started since the age of 15. Smoked max of 2.5 packs per day for 10years then cut down to 1 pack. Now down to 1/2 a pack. Recently has started to roll this own cigarettes MMRC Dyspnea Scale: 0. Not troubled by breathlessness except on strenuous exercise Short of breath when hurrying or walking up a slight hill Walks slower than contemporaries on the level because of breathlessness, or has to stop for breath when walking at own pace Stops for breath after about 100 m or after a few minutes on the level Too breathless to leave the house, or breathless when dressing or undressing Environmental/ Occupational Exposure History: Pets: No birds Asbestos: No significant exposure Silica: No significant exposure Marathon: No significant exposure Mold: No significant exposure Hot tub: No significant exposure Fumes: No significant exposure Metal dust: No significant exposure Beryllium: No significant exposure Dust: No significant exposure Medications: No relevant exposure for interstitial lung diseases PAST MEDICAL HISTORY Diagnosis Date History of heart artery stent HTN (hypertension) Hyperlipidemia MT (myocardial infarction) (HCC) 11/27/2004 [facility] PAST SURGICAL HISTORY Procedure Laterality Date HEART CATHETERIZATION 12/27/04 with stent placement at [facility] FAMILY HISTORY Problem Relation Age of Onset Hypertension Mother Hypertension Father Cancer Father Cancer Paternal Grandmother jawbone Hypertension Paternal Grandmother Hypertension Paternal Grandfather Social History Tobacco Use Smoking status: Every Day Packs/day: 1.00 Years: 52.00 Total pack years: 52.00 Types: Cigarettes Start date: 1970 Smokeless tobacco: Former Tobacco comments: For 10 years, smoked 2 PPD. Substance Use Topics Alcohol use: Yes Alcohol/week: 12.0 standard drinks of alcohol Types: 12 Cans of Beer (12oz) per week Drug use: No ALLERGIES ALLERGIES Allergen Reactions Hay Fever [Seasonal* Unknown CURRENT OUTPATIENT MEDICATIONS albuterol HFA (PROVENTIL HFA, VENTOLIN HFA) 90 mcg/actuation inhaler Inhale 2 Puffs as instructed every 6 hours as needed for wheezing/shortness of breath. fluticasone-salmeterol (ADVAIR DISKUS) 500-50 mcg/dose dsdv Inhale 1 Puff as instructed twice daily. Rinse and gargle mouth with water after use. furosemide (LASIX) 20 mg tablet Take 1 tablet by mouth once daily. montelukast (SINGULAIR) 10 mg tablet Take 1 tablet by mouth daily at bedtime. loratadine (CLARITIN) 10 mg tablet Take 1 tablet by mouth once daily. predniSONE (DELTASONE) 20 mg tablet Take 1 tablet by mouth once daily. clopidogrel (PLAVIX) 75 mg tablet Take 1 tablet by mouth once daily. atorvastatin (LIPITOR) 80 mg tablet Take 1 tablet by mouth once daily. lisinopril (PRINIVIL) 20 mg tablet Take 1 tablet by mouth twice daily. metoprolol tartrate, short acting, (LOPRESSOR) 25 mg tablet Take 1 tablet by mouth twice daily. PHENYLephrine (SUDAFED PE) 10 mg tablet Take 1 tablet by mouth every 6 hours as needed. aspirin, enteric coated (ASPIRIN, ENTERIC COATED) 81 mg EC tablet Take 81 mg by mouth once daily. nitroglycerin sublingual (NITROSTAT) 0.4 mg SL tablet Dissolve 1 tablet under the tongue every 5 minutes as needed. (Patient not taking: Reported on 01/21/2023) multivitamin (ONE-A-DAY ESSENTIAL) tablet Take 1 tablet by mouth once daily. MVI with Lycopene (Patient not taking: Reported on 01/21/2023) REVIEW OF SYSTEMS The remainder of review of systems was negative. PHYSICAL EXAM BP 140/62 Pulse 86 Ht 5' 6 (1.68m) Wt 181 lb (82.1kg) SpO2 95% BMI 29.23 kg/(m^2). General appearance: No acute distress. Has a wet cough. Eyes: PERRLA Nose/Sinuses: Nares normal. Septum midline. Mucosa normal. No drainage or sinus tenderness. Oropharynx: Lips, mucosa, and tongue normal, teeth and gums normal, oropharynx normal Neck: no palpable masses Lungs: End expiratory wheeze present, normal peripheral pulses, no peripheral edema Abdomen: Abdomen soft, non-tender. Bowel sounds normal. No masses, organomegaly Extremities: Normal, Warm, No cyanosis, no clubbing, No edema, and Nontender Neuro: no focal weakness Psychiatry: Alert, Oriented X 3 DATA Diagnostic tests reviewed for today's visit, including films and specimens, personally reviewed by me: XR CHEST 2V FRONTAL/LAT Result Date: 12/20/2022 IMPRESSION: Questionable right lung nodule. ET chest recommended. No acute process ACTIONABLE RESULT: FOLLOW-UP Acuity: Actionable Findings: Thoracic-Other Routing Code: CT_1 Recommendation: CT ChestWO IVCON Time Frame: At the discretion of the clinical team. COMMUNICATION: Results will be communicated with the ordering provider via [employer] staff message or phone message by Imaging Support Serviceswithin 2 business days of report finalization. Algorithms for management of incidental imaging findings can be found on the [facility] Intranet Sharepoint site at: [email or web address] [email or web address] No acute radiographic abnormality. Rail Director: IVETTE Transcribe Date/Time: Dec 20 2022 12:49P Dictated by : MAXWELL PENNY MD This examination was interpreted and the report reviewed and electronically signed by: MAXWELL PENNY MD on Dec 20 2022 12:54PM EST CT CHEST WO IVCON Result Date: 01/07/2023 IMPRESSION: Indeterminate 1.1 cm spiculated nodule at right lower lobe with an adjacent to 6 mm satellite nodule, suspicious for carcinoma. Recommend follow-up image guided biopsy or PET/CT scan as indicated below. Additional indeterminate 5 mm and smaller left lung nodules present. Subacute L1 inferior endplate compression fracture. Incidental Finding: Follow-up Acuity: Incidental Finding: Solid>8 mm Routing Code: RI_1 Recommendation: Consult to Lung Nodule Clinic - [id number] Time Frame: at the discretion of the clinical team. Comments: Follow-up for this incidentally detected lung nodule with PET/CT or Biopsy within 4 weeks, or Chest CT exam in 3 months is recommended. Rail Director:IVETTE Transcribe Date/Time: Jan 07 2023 12:38P Dictated by : Edward ULLOA MD This examination was interpreted and the report reviewed and electronically signed by: Edward ULLOA MD on Jan 07 2023 12:59PM EST PULMONARY TESTING: No Data No results found for this or any previous visit (from the past 8760 hour(s)). No results found for this or any previous visit (from the past 59837 hour(s)). # Immunizations: Due for TDAP. Will discuss next visit. Immunization History Administered Date(s) Administered COVID-19 original vaccine, age 12+ yr, monovalent (Alcyone [employer]form[employer] - JORDAN TOP) 12/16/2021 COVID-19 original vaccine, age 12+ yr, monovalent (Alcyone [employer] - PURPLE TOP) 09/23/2020 10/11/2020 06/14/2021 COVID-19 vaccine, age 12+ yr, bivalent (Airsynergy) 05/24/2022 influenza (HD-IIV4) vaccine, age 65+ yr, high dose, quadrivalent, PF (FLUZONE HIGH-DOSE) 02/28/2021 influenza (IIV4) vaccine, age 6 mo - 64 yr, quadrivalent (AFLURIA, FLULAVAL, FLUZONE) 03/17/2020 pneumococcal (PCV13) vaccine, 13 valent (PREVNAR 13) 11/16/2012 08/16/2013 pneumococcal (PPV23) vaccine, 23 valent (PNEUMOVAX 23) 09/01/2011 zoster (RZV) vaccine, recombinant (SHINGRIX) 04/15/2020 Verbal and/or written health teaching given to patient with > 40 minutes spent face to face withmore than half of this for disease counseling. Gissel Acosta MD, Staff, [facility] [place] [facility] CC: Acacia De Oliveira MD Bogner, Bernadette, PA-C documented in this encounterAvita Health System08-03-2023 Miscellaneous Notes* Telephone Encounter - Daria Jennings LPN - 01/17/2023 3:21 PM EDT Patient pulmonary appt is made for 01/21/23 at [facility]. Daria Jennings LPN * Telephone Encounter - Daria Jennings LPN - 01/09/2023 3:32 PM EDT Patient stated that today he does have someone to take him to [place]. Please schedule [facility]. Daria Jennings LPN * Telephone Encounter - Katiuska Gracia APRN.CNP - 01/09/2023 1:45 PM EDT Please follow up on this. There are transfer options through [facility] or if he sees [place] [facility], I think the hospital has free transportation. Patient needs seen [facility]. Thank you Katiuska Gracia APRN.COLLECTION COORDINATOR * Telephone Encounter - Veronica Mcclain - 01/09/2023 9:25 AM EDT Called patient to schedule appointment with pulm, patient stated he had no transportation. I gave him numbers to call for transportation and will reach out to him at the end of the day again. * Telephone Encounter - Aleshia Retana PA-C - 01/07/2023 1:14 PM EDT Please help patient schedule with pulmonary medicine. [facility] in the next 1-2 weeks. I spoke with patient personally and reviewed CT findings of the chest. Aleshia Retana PA-C 01/07/2023 documented in this encounterAvita Health System08-03-2023 History of Present illness Narrative* Annmarie Schroeder PA-C - 01/17/2023 9:58 AM EDT CC: Patient presents with: Follow Up: wheezing ,SOB, COPD HPI Yury Gonzalez is a 67 year old male who presents today for follow-up regarding continued wheezing/breathing issues, as well as to discuss chest CT results. Last visit was with Katiuska gracia CNP on 12/20/2022. At that time, patient had a chest x-ray which revealed a questionable right lung nodule. CT chestwas advised. CT ordered and results as follows: Indeterminate 1.1 cm spiculated nodule at right lower lobe with an adjacent to 6 mm satellite nodule, suspicious for carcinoma. Follow-up for this incidentally detected lung nodule with PET/CT or biopsy within 4 weeks, or chestCT exam in 3 months is recommended. Has upcoming appt w/ Dr. Acosta (pulm) Saturday. At that visit, patient was rx'ed prednisone and also had Advair increased, as well as Singulair added for suspected COPD flare. Per patient, it has made a big difference. State he's breathing better and easier. Has only used albuterol inhaler 3x so far this month (compared to the 10-12 times he typically would have used it). Per HPI from prior visit: COPD: Smokes 1/2 ppd. Currently using albuterol 6 times a day and multiple times during the night with the elevated outdoor temperatures and humidity. Also has been taking his advair 3 times a day versus ordered twice a day. Reports shortness of breath, wheezing, and nonproductive cough. Denies fever, chills, chest pain, or edema. Does report having intermittent sinus congestion he feels is adding to his breathing. Was on Singulair but took himself off of this as he thought it was just for sinuses. REVIEW OF SYSTEMS RESPIRATORY: SEE HPI All other systems negative. PAST MEDICAL HISTORY Diagnosis Date History of heart artery stent HTN (hypertension) Hyperlipidemia MT (myocardial infarction) (HCC) 11/27/2004 [facility] PAST SURGICAL HISTORY Procedure Laterality Date HEART CATHETERIZATION 12/27/04 with stent placement at [facility] ALLERGIES Hay Fever [Seasonal Allergies] MEDICATIONS albuterol HFA (PROVENTIL HFA, VENTOLIN HFA) 90 mcg/actuation inhaler Inhale 2 Puffs as instructed every 6 hours as needed for wheezing/shortness of breath. fluticasone-salmeterol (ADVAIR DISKUS) 500-50 mcg/dose dsdv Inhale 1 Puff as instructed twice daily. Rinse and gargle mouth with water after use. furosemide (LASIX) 20 mg tablet Take 1 tablet by mouth once daily. montelukast (SINGULAIR) 10 mg tablet Take 1 tablet by mouth daily at bedtime. loratadine (CLARITIN) 10 mg tablet Take 1 tablet by mouth once daily. predniSONE (DELTASONE) 20 mg tablet Take 1 tablet by mouth once daily. nitroglycerin sublingual (NITROSTAT) 0.4 mg SL tablet Dissolve 1 tablet under the tongue every 5 minutes as needed. clopidogrel (PLAVIX) 75 mg tablet Take 1 tablet by mouth once daily. atorvastatin (LIPITOR) 80 mg tablet Take 1 tablet by mouth once daily. lisinopril (PRINIVIL) 20 mg tablet Take 1 tablet by mouth twice daily. metoprolol tartrate, short acting, (LOPRESSOR) 25 mg tablet Take 1 tablet by mouth twice daily. multivitamin (ONE-A-DAY ESSENTIAL) tablet Take 1 tablet by mouth once daily. MVI with Lycopene PHENYLephrine (SUDAFED PE) 10 mg tablet Take 1 tablet by mouth every 6 hours as needed. aspirin, enteric coated (ASPIRIN, ENTERIC COATED) 81 mg EC tablet Take 81 mg by mouth once daily. FAMILY HISTORY Problem Relation Age of Onset Hypertension Mother Hypertension Father Cancer Father Cancer Paternal Grandmother jawbone Hypertension Paternal Grandmother Hypertension Paternal Grandfather Social History Tobacco Use Smoking status: Every Day Packs/day: 1.00 Years: 15.00 Total pack years: 15.00 Types: Cigarettes Start date: 1970 Smokeless tobacco: Former Substance Use Topics Alcohol use: Yes Alcohol/week: 12.0 standard drinks of alcohol Types: 12 Cans of Beer (12oz) per week Drug use: No PHYSICAL EXAM Temp 36.1 C (97 F) Resp 20 Ht 168.9 cm (5' 6.5) Wt 82.1 kg (181 lb) BMI 28.78 kg/m General Appearance: in no acute distress, alert Pysch: mood and affect broad and appropriate Skin: Skin color, texture, turgor normal for age; Head: normocephalic, atraumatic Lymph nodes: No cervical lymphadenopathy Lungs: Inspiratory and expiratory sonorous wheezes noted bilaterally in apices and bases Heart: RRR without murmur, gallop, or rubs. No ectopy Abdomen: Protuberant abdomen noted Extremities: No gross deformities, significant edema, skin discoloration, clubbing or cyanosis. Neurological: Gait normal. No focal neurological deficits. Sensation grossly intact. ASSESSMENT/PLAN: 1. Nodule of right lung - ICD9: 793.11, ICD10: R91.1 (primary diagnosis) CT results suggestive of carcinoma right lower lobe. Follow-up as planned with pulmonology and additional work-up. 2. Chronic obstructive pulmonary disease, unspecified COPD type (HCC) - ICD9: 496, ICD10: J44.9 Improvement noted with increased Advair dosage and initiation of Singulair. Continue current management. 3. Hyponatremia - ICD9: 276.1, ICD10: E87.1 As noted on recent labs with a level of 130. BMP ordered to recheck - BASIC METABOLIC PNL Follow-up 6 weeks regarding lung nodule work-up/to check in on status Prescription instructions reviewed with patient as applicable. Potential red flag symptoms discussed with the patient. Reviewed appropriate action plan to take if red flag symptoms occur. Patient agreeable to treatment plan. Annmarie Schroeder PA-C documented in this encounterAvita Health System07-20-2023 History of Present illness Narrative* Pennie Durand RT(R) - 01/03/2023 10:00 AM EDT Radiology Service Progress Note PATIENT NAME: Yury Gonzalez DATE OF SERVICE: January 03, 2023 TIME: 1:15 PM PATIENT IDENTITY VERIFICATION COMPLETED USING TWO (2) IDENTIFIERS: Name and Date of confirmedby patient verbally. FALL SCREENING: Has the patient had 2 falls in the last year or 1 fall with injury or currently using an Ambulatory Assistive Device (Walker, Cane, Wheelchair, Crutches, etc.)? No PATIENT GENDER DATA: Male PATIENT RELEVANT IMPLANT DATA REVIEWED: Yes RADIOLOGY DEPARTMENT: CT; Exam(s) Completed: Chest PERIPHERAL IV DATA: Not applicable SIGNED BY: RT Elidia(R) January 03, 2023 1:15 PM documented in this encounterAvita Health System07-06-2023 History of Present illness Narrative* Yvonne Rudolph RT(R) - 12/20/2022 11:20 AM EDT Radiology Service Progress Note PATIENT NAME: Yury Gonzalez DATE OF SERVICE: December 20, 2022 TIME: 11:13 AM PATIENT IDENTITY VERIFICATION COMPLETED USING TWO (2) IDENTIFIERS: Name and Date of confirmedby patient verbally. FALL SCREENING: Has the patient had 2 falls in the last year or 1 fall with injury or currently using an Ambulatory Assistive Device (Walker, Cane, Wheelchair, Crutches, etc.)? No PATIENT GENDER DATA: Male PATIENT RELEVANT IMPLANT DATA REVIEWED: Yes RADIOLOGY DEPARTMENT: General X-ray: Exam(s) Completed: Chest X-Ray PERIPHERAL IV DATA: Not applicable SIGNED BY: RT Gregorio(R) December 20, 2022 11:13 AM documented in this encounterAvita Health System06-02-2023 Miscellaneous Notes* Telephone Encounter - Lety Barnett LPN - 11/16/2022 11:48 AM EDT Pt scheduled for annual apt. Lety Barnett LPN * Telephone Encounter - Lety Barnett LPN - 11/15/2022 12:15 PM EDT Left a message for pt to call the office and ask to speak to a nurse. Lety Barnett LPN * Telephone Encounter - Katiuska Gracia APRN.CNP - 11/15/2022 9:47 AM EDT Patient needs seen for annual exam prior to any further refills. Thank you Katiuska Gracia APRN.JACK * Telephone Encounter - Daria Jennings LPN - 11/14/2022 3:53 PM EDT Patient has been identified by name and date of : No Patient phones for refill(s): Requested Prescriptions Pending Prescriptions Disp Refills furosemide (LASIX) 20 mg tablet 90 tablet 3 Sig: Take 1 tablet by mouth once daily. albuterol HFA (PROVENTIL HFA, VENTOLIN HFA) 90 mcg/actuation inhaler 3 Each 3 Date of last office visit in primary care: 11/20/21 Last 2 Encounter Wt Readings: Date: Wt: 11/20/2021 73.9 kg (163 lb) 10/04/2021 68.5 kg (151 lb) Previous labs/tests for medication: Not applicable Please advise. Thank you. Daria Jennings LPN * Telephone Encounter - Risa Coffman - 11/14/2022 3:18 PM EDT Patient has been identified by name and date of : Yes Requested Prescriptions Pending Prescriptions Disp Refills furosemide (LASIX) 20 mg tablet 90 tablet 3 Sig: Take 1 tablet by mouth once daily. albuterol HFA (PROVENTIL HFA, VENTOLIN HFA) 90 mcg/actuation inhaler 3 Each 3 RX INSTRUCTIONS: Patient aware RX will be sent to pharmacy. No need to notify patient. Risa Coffman documented in this encounterAvita Health System03-06-2023 Miscellaneous Notes* Telephone Encounter - LEONARD Summers - 08/20/2022 9:40 AM EST 2nd attempt: Unable to LVM, sent [facility] [employer] [facility] message to schedule appointment * Telephone Encounter - LEONARD Summers - 08/16/2022 10:55 AM EST 1st attempt: LVM for patient to schedule follow up * Telephone Encounter - Katiuska Gracia APRN.CNP - 08/15/2022 5:41 PM EST Patient overdue for follow up. Please assist with scheduling. Thank you Katiuska Gracia APRN.CNP * Telephone Encounter - Hebert Pacheco Ma - 08/13/2022 3:45 PM EST Last refill: 01/18/2022 QTY: 90 Refills: 1 * Telephone Encounter - Lenore Coffman - 08/13/2022 11:04 AM EST Pharmacy verified in Epic Patient has been identified by name and date of : Yes Patient aware RX will be sent to pharmacy. No need to notify patient. Patient phones for refill(s): Requested Prescriptions Pending Prescriptions Disp Refills furosemide (LASIX) 20 mg tablet 90 tablet 1 Sig: Take 1 tablet by mouth once daily. Date of last office visit : 11/20/2021 Date of next office visit : Visit date not found Last 2 Encounter Wt Readings: Date: Wt: 11/20/2021 73.9 kg (163 lb) 10/04/2021 68.5 kg (151 lb) Not applicable Please advise. Lenore Smith Pss documented in this encounterAvita Health System02-27-2023 Miscellaneous Notes* Telephone Encounter - Hebert Pacheco Ma - 08/13/2022 2:56 PM EST [facility]: 11/20/2021 Last refill: 01/31/2022 QTY: 1 Refills: 5 * Telephone Encounter - Risa Coffman - 08/13/2022 11:26 AM EST Patient has been identified by name and date of : Yes Requested Prescriptions Pending Prescriptions Disp Refills albuterol HFA (PROVENTIL HFA, VENTOLIN HFA) 90 mcg/actuation inhaler [Pharmacy Med Name: albuterol sulfate HFA 90 mcg/actuation aerosol inhaler] 3 Each 3 Sig: INHALE 2 PUFFS EVERY 4 HOURS NEEDED FOR SHORTNESS OF BREATH RX INSTRUCTIONS: Per Patient, he wants 90 day supply sent to Pharmacy by tomorrow. Patient aware RX will be sent to pharmacy. No need to notify patient. Risa Alarcon Pss documented in this encounterAvita Health System12-07-2022 Miscellaneous Notes* Telephone Encounter - Lety Barnett LPN - 05/23/2022 2:49 PM EST Spoke with pt and he accidentally dropped several into the toilet. Does not use often. Lety Barnett LPN * Telephone Encounter - Katiuska Gracia APRN.CNP - 05/23/2022 2:44 PM EST This has been refilled but please ask patient if he is having to take his nitro more often? If so he really should be seen by PCP or switchboard installer if he has one. Thank you Katiuska Gracia APRN.JACK * Telephone Encounter - Kenna Lemon - 05/23/2022 9:54 AM EST Pt calling in requesting the following refill: nitroglycerin sublingual (NITROSTAT) 0.4 mg SL tablet Pharmacy: Narrative [facility] [address] [place] [id number] [address] [facility] - [phone] documented in this encounterAvita Health System11-15-2022 Miscellaneous Notes* Telephone Encounter - Rosaline Estrada LPN - 05/01/2022 12:30 PM EST Patient has been identified by name and date of : Yes Patient phones for refill(s): Requested Prescriptions Pending Prescriptions Disp Refills clopidogrel (PLAVIX) 75 mg tablet 90 tablet 3 Sig: Take 1 tablet by mouth once daily. atorvastatin (LIPITOR) 80 mg tablet 90 tablet 3 Sig: Take 1 tablet by mouth once daily. fluticasone-salmeterol (ADVAIR DISKUS) 250-50 mcg/dose inhaler 3 Each 11 Sig: Inhale 1 Puff as instructed twice daily. Rinse and gargle mouth after use with water. montelukast (SINGULAIR) 10 mg tablet 30 tablet 5 Sig: Take 1 tablet by mouth daily at bedtime. lisinopril (PRINIVIL) 20 mg tablet 180 tablet 3 Sig: Take 1 tablet by mouth twice daily. Date of last office visit in primary care: 11/20/21 Last 2 Encounter Wt Readings: Date: Wt: 11/20/2021 73.9 kg (163 lb) 10/04/2021 68.5 kg (151 lb) Previous labs/tests for medication: Cholesterol: HDL Cholesterol (mg/dL) Date Value 02/28/2021 44 LDL Cholesterol (mg/dL) Date Value 02/28/2021 99 ALT (U/L) Date Value 02/28/2021 26 Non HDL Cholesterol, Nonfasting (mg/dL) Date Value 01/09/2018 66 Non HDL Cholesterol (mg/dL) Date Value 02/28/2021 114 Blood Pressure: BUN (mg/dL) Date Value 11/20/2021 5 02/28/2021 8 Sodium (mmol/L) Date Value 11/20/2021 135 02/28/2021 135 Last 1 Encounter BP Readings: Date: BP: 11/20/2021 122/74 Please advise. Thank you. Rosaline Estrada LPN * Telephone Encounter - Annmarie Anders Pss - 05/01/2022 11:12 AM EST Patient has been identified by name and date of : Yes Requested Prescriptions Pending Prescriptions Disp Refills clopidogrel (PLAVIX) 75 mg tablet 90 tablet 3 Sig: Take 1 tablet by mouth once daily. atorvastatin (LIPITOR) 80 mg tablet 90 tablet 3 Sig: Take 1 tablet by mouth once daily. fluticasone-salmeterol (ADVAIR DISKUS) 250-50 mcg/dose inhaler 3 Each 11 Sig: Inhale 1 Puff as instructed twice daily. Rinse and gargle mouth after use with water. montelukast (SINGULAIR) 10 mg tablet 30 tablet 5 Sig: Take 1 tablet by mouth daily at bedtime. lisinopril (PRINIVIL) 20 mg tablet 180 tablet 3 Sig: Take 1 tablet by mouth twice daily. RX INSTRUCTIONS: Patient aware RX will be sent to pharmacy. No need to notify patient. Annmarie Anders Pss documented in this encounterAvita Health System09-20-2022 Miscellaneous Notes* Telephone Encounter - Deja Ericka Pss - 03/06/2022 2:01 PM EDT Patient has been identified by name and date of : Yes Requested Prescriptions Pending Prescriptions Disp Refills metoprolol tartrate, short acting, (LOPRESSOR) 25 mg tablet 180 tablet 3 Sig: Take 1 tablet by mouth twice daily. RX INSTRUCTIONS: Patient aware RX will be sent to pharmacy. No need to notify patient. Deja Coffman documented in this encounterAvita Health System08-23-2022 History of Present illness Narrative* Jignesh Lauren MA - 02/06/2022 3:00 PM EDT POPULATION HEALTH NAVIGATION OUTREACH Action/FYI lm for pt to call to schedule colonoscopy, added notes to upcoming ov Pt identified by name and : NO Outreach Outcome/Action Unable to reach patient: Left message MyChart message sent Did you use a PCP flex slot to schedule this appointment? N/A Reason for Outreach Care Gap or Scheduling/Wellness visits Payer: Payor: [employer] MEDICARE / Plan: [employer] / Product Type: HMO / Care Gap Reviewed:: Colorectal Cancer Screening Reminder: Reminder note to check Health Maintenance for items below Health Maintenance items due: ABDOMINAL AORTIC ANEURYSM SCREENING Never done COLORECTAL CANCER SCREENING due on 08/03/2015 LDL CHOLESTEROL due on 02/28/2022 Message Sent to Practice: No Navigation Signature: Jignesh Lauren MA February 06, 2022 3:00 PM documented in this encounterAvita Health System08-16-2022 Miscellaneous Notes* Telephone Encounter - Sherrie Michael LPN - 01/30/2022 1:12 PM EDT Last seen SECONDARY SPECIAL EDUCATION TEACHER 11/20/21 3 month follow up arranged for 02/21/22. * Telephone Encounter - Elvira Lau - 01/30/2022 12:04 PM EDT Patient has been identified by name and date of : Yes Requested Prescriptions Pending Prescriptions Disp Refills albuterol HFA (PROAIR HFA) 90 mcg/actuation inhaler 1 Inhaler 5 Sig: Inhale 2 Puffs as instructed every 4 hours as needed for wheezing/shortness of breath. lisinopril (PRINIVIL) 20 mg tablet 90 tablet 1 Sig: Take 1 tablet by mouth twice daily. RX INSTRUCTIONS: Patient aware RX will be sent to pharmacy. No need to notify patient. Elvira Lua documented in this encounterAvita Health System08-04-2022 Miscellaneous Notes* Telephone Encounter - Denisa Mendes LPN - 01/18/2022 9:31 AM EDT Patient has been identified by name and date of : Yes Patient phones for refill(s): Pending Prescriptions Disp Refills FUROSEMIDE 20 MG TABLET 90 tablet 1 Sig: Take 1 tablet by mouth once daily. ELVIRA: No Date of last office visit in primary care: 11/20/2021 3 month follow-up: 02/21/2022 Last 2 Encounter Wt Readings: Date: Wt: 11/20/2021 73.9 kg (163 lb) 10/04/2021 68.5 kg (151 lb) Previous labs/tests for medication: Blood Pressure: BUN (mg/dL) Date Value 11/20/2021 5 02/28/2021 8 Sodium (mmol/L) Date Value 11/20/2021 135 02/28/2021 135 Last 1 Encounter BP Readings: Date: BP: 11/20/2021 122/74 Please advise. Thank you. Denisa Mendes LPN * Telephone Encounter - Lenore Smith Pss - 01/17/2022 4:51 PM EDT Patient is requesting a 90 day supply. * Telephone Encounter - Lenore Smith Pss - 01/17/2022 4:50 PM EDT Pharmacy verified in Epic Patient has been identified by name and date of : Yes Patient aware RX will be sent to pharmacy. No need to notify patient. Patient phones for refill(s): Pending Prescriptions Disp Refills FUROSEMIDE 20 MG TABLET 30 tablet 1 Sig: Take 1 tablet by mouth once daily. ELVIRA: No Date of last office visit : 11/20/2021 Date of next office visit : 02/21/2022 Last 2 Encounter Wt Readings: Date: Wt: 11/20/2021 73.9 kg (163 lb) 10/04/2021 68.5 kg (151 lb) Please advise. Lenore Smith Pss documented in this encounterAvita Health System07-19-2022 Miscellaneous Notes* Telephone Encounter - Daria Jennings LPN - 01/02/2022 1:12 PM EDT Form completed and faxed back. Daria Jennings LPN * Telephone Encounter - Varsha Kitchen LPN - 01/02/2022 11:16 AM EDT Mercedes with [facility] calls in to check on form that was sent asking about pt's coumadin dose. Gave Mercedes Manuel's message below of stopping coumadin 3 days before procedure and starting back the day of procedure. Mercedes is asking for the form to be faxed back to [facility]. Varsha Kitchen LPN * Telephone Encounter - Acacia De Oliveira MD - 01/01/2022 5:59 PM EDT Yes he needs to stop coumadin, At least 3 days before the procedure And then restart it the day of procedure * Telephone Encounter - Josie Ricci Ma - 01/01/2022 11:58 AM EDT Forms placed on PCP desk for review. * Telephone Encounter - Olamide Markham RN - 01/01/2022 11:48 AM EDT [facility] called in and reports they faxed a paper over to providers office about Pt getting teeth pulled. Pt is getting 9 teeth pulled, and they need the form faxed back so they can let the Pt know if he needs to stop his Coumadin. He is getting his teeth pulled on Saturday. Please fax forms back as soon as possible. documented in this encounterAvita Health System07-13-2022 Miscellaneous Notes* Telephone Encounter - Lety Barnett LPN - 12/27/2021 3:42 PM EDT Spoke with pt and information listed below given. Pt verbalizes understanding. Pt states the Viagra ran out a month ago and he wanted you to know this did not work for him. He will be on the Nitro only. Lety Barnett LPN * Telephone Encounter - Katiuska Gracia APRN.CNP - 12/27/2021 3:00 PM EDT Patient is on both viagra and nitroglycerin which can have extremely dangerous side effects. How often is he using both of these? Thank you Katiuska Gracia APRN.CNP * Telephone Encounter - Daria Jennings LPN - 12/27/2021 1:06 PM EDT Patient has been identified by name and date of : Yes Patient phones for refill(s): Pending Prescriptions Disp Refills NITROGLYCERIN 0.4 MG SUBLINGUAL TABLET 25 tablet 0 Sig: Dissolve 1 tablet under the tongue every 5 minutes as needed. ELVIRA: No Date of last office visit in primary care: 11/20/21 Last 2 Encounter Wt Readings: Date: Wt: 11/20/2021 73.9 kg (163 lb) 10/04/2021 68.5 kg (151 lb) Previous labs/tests for medication: Not applicable Please advise. Thank you. Daria Jennings LPN * Telephone Encounter - Lenore Coffman - 12/27/2021 12:25 PM EDT Pharmacy verified in Epic Patient has been identified by name and date of : Yes Patient aware RX will be sent to pharmacy. No need to notify patient. Patient phones for refill(s): Pending Prescriptions Disp Refills NITROGLYCERIN 0.4 MG SUBLINGUAL TABLET 25 tablet 0 Sig: Dissolve 1 tablet under the tongue every 5 minutes as needed. ELVIRA: No Date of last office visit : 11/20/2021 Date of next office visit : 02/21/2022 Last 2 Encounter Wt Readings: Date: Wt: 11/20/2021 73.9 kg (163 lb) 10/04/2021 68.5 kg (151 lb) Please advise. Lenore Coffman documented in this encounterAvita Health System06-06-2022 History of Present illness Narrative* Katiuska Gracia, REHAB SPEC.COLLECTION COORDINATOR - 11/20/2021 8:56 AM EDT CC: Patient presents with: Surgical Followup: SOB follow up HPI Yury Gonzalez is a 66 year old male who presents today for follow up on SOB and COPD. Was last seen estimated 6 weeks ago and missed his 1 week follow up. States he never thought he could feel this good, so didn't think to follow up. Since last visit has only needed his emergency inhaler twice since starting the Advair. Reports improved shortness of breath, cough, and wheezing. Also finds he leaves his inhaler at home because he doesn't need it as often. Does reports seasonal allergies especially grass mold. Takes an over the counter allergy medicinehe says is a white pill, unsure on name, but says it is supposed to take one pill a day but takes 3to help. Denies fever, chills, or sinus tenderness. REVIEW OF SYSTEMS General: no fevers, no chills, no night sweats, no recurrent infections, no change in appetite, no change in energy and no significant changes in weight Respiratory: no cough, no wheezing, no shortness of breath, no hemoptysis Cardiovascular: no chest pain, no chest pressure, no palpitations and no swelling Neurologic: No headache, weakness, numbness, tingling, dizziness, syncope. PAST MEDICAL HISTORY Diagnosis Date History of heart artery stent HTN (hypertension) Hyperlipidemia MT (myocardial infarction) (HCC) 11/27/2004 [facility] PAST SURGICAL HISTORY Procedure Laterality Date HEART CATHETERIZATION 12/27/04 with stent placement at [facility] ALLERGIES Hay Fever [Seasonal Allergies] MEDICATIONS furosemide (LASIX) 20 mg tablet Take 1 tablet by mouth once daily. fluticasone-salmeterol (ADVAIR DISKUS) 250-50 mcg/dose inhaler Inhale 1 Puff as instructed twice daily. Rinse and gargle mouth after use with water. albuterol HFA (PROAIR HFA) 90 mcg/actuation inhaler Inhale 2 Puffs as instructed every 4 hours as needed for wheezing/shortness of breath. lisinopril (PRINIVIL) 20 mg tablet Take 1 tablet by mouth twice daily. sildenafil (VIAGRA) 25 mg tablet Take 1 tablet by mouth as needed. Take 30 to 60min before sexual activity. atorvastatin (LIPITOR) 80 mg tablet Take 1 tablet by mouth once daily. metoprolol tartrate, short acting, (LOPRESSOR) 25 mg tablet Take 1 tablet by mouth twice daily. clopidogrel (PLAVIX) 75 mg tablet Take 1 tablet by mouth once daily. nitroglycerin sublingual (NITROSTAT) 0.4 mg SL tablet Dissolve 1 tablet under the tongue every 5 minutes as needed. multivitamin (ONE-A-DAY ESSENTIAL) tablet Take 1 tablet by mouth once daily. MVI with Lycopene PHENYLephrine (SUDAFED PE) 10 mg tablet Take 1 tablet by mouth every 6 hours as needed. aspirin, enteric coated (ASPIRIN, ENTERIC COATED) 81 mg EC tablet Take 81 mg by mouth once daily. FAMILY HISTORY Problem Relation Age of Onset Hypertension Mother Hypertension Father Cancer Father Cancer Paternal Grandmother jawbone Hypertension Paternal Grandmother Hypertension Paternal Grandfather Social History Tobacco Use Smoking status: Current Every Day Smoker Packs/day: 1.30 Types: Cigarettes Start date: 1970 Smokeless tobacco: Former User Substance Use Topics Alcohol use: Yes Alcohol/week: 150.0 standard drinks Types: 60 Cans of Beer (12oz) per week Comment: patient states he uses a case and a half per week of beer Drug use: No PHYSICAL EXAM BP 140/82 Pulse 84 Resp 16 Wt 73.9 kg (163 lb) SpO2 94% BMI 25.91 kg/m General Appearance: well appearing, in no acute distress, alert Skin: Skin color, texture, turgor normal for age; Eyes: conjunctiva pink and moist, no icterus, sclera white, non-injected Nose/sinus: Nares normal. Septum midline. Mucosa normal. No drainage. Neck: Thyroid normal size and symmetric without palpable nodules, No adenopathy Oropharynx: lips normal without lesions, palate normal, tongue midline and normal Lungs: Lungs clear to auscultation. No wheezing, rhonchi, rales. Heart: RRR without murmur, gallop, or rubs. No ectopy BUE Extremities: No deformities, edema, skin discoloration, clubbing or cyanosis. Good capillary refill. Health maintenance reviewed with patient: ABDOMINAL AORTIC ANEURYSM SCREENING Never done BP CONTROLLED (<130/80) Never done COLORECTAL CANCER SCREENING due on 08/03/2015 PNEUMOCOCCAL: 65+(3 - PPSV23 or PCV20) due on 2020 SHINGRIX VACCINE(2 of 2) due on 06/10/2020 ADVANCE DIRECTIVE DISCUSSION Never done COVID-19 VACCINE(4 - Booster for Pfizer series) due on 10/13/2021 LDL CHOLESTEROL due on 02/28/2022 DEPRESSION SCREENING due on 02/28/2022 ANNUAL PCP TEAM CHRONIC DISEASE VISIT due on 10/04/2022 DTAP,TDAP,TD(2 - Td or Tdap) due on 06/17/2024 DIABETES SCREEN due on 10/04/2024 LIPID SCREEN due on 02/28/2026 PROSTATE CANCER SCREENING DISCUSSION due on 02/28/2026 INFLUENZA Completed HEPATITIS C SCREENING Discontinued DATA REVIEWED: labs not resulted for visit ASSESSMENT/PLAN: 1. Shortness of breath - ICD9: 786.05, ICD10: R06.02 (primary diagnosis) - much improvement, probably COPD but PFTs need to verify this - SPIROMETRY - BASELINE AND POST DILATOR - LUNG VOLUMES - encouraged smoking cessation - Follow up in 3 months or earlier if any increased shortness of breath or wheezin 2. Wheeze - ICD9: 786.07, ICD10: R06.2 As above - SPIROMETRY - BASELINE AND POST DILATOR - LUNG VOLUMES 3. Tobacco dependence - ICD9: 305.1, ICD10: F17.200 - Cessation encouraged. - Physiologic and physical aspects of tobacco addiction as well as strategies for quitting were discussed. - Counseling was given focusing on the harmful effects of this addiction especially given the patient's medical condition(s) which will be worsened because of the chemicals in tobacco. - patient declined at this time Prescription instructions reviewed with patient as applicable. Potential red flag symptoms discussed with the patient. Reviewed appropriate action plan to take if red flag symptoms occur. Patient agreeable to treatment plan. Katiuska Gracia APRN.CNP documented in this encounter[facility]22 Miscellaneous Notes* Telephone Encounter - Olamide Markham RN - 10/06/2021 3:17 PM EDT Pt called and is notified of providers results and instructions. Pt voices understanding. He reports he is going to wait until he comes in for his appointment with Dr De Oliveira to get his Echo and Pulmonary appointments scheduled. Olamide Markham RN * Telephone Encounter - Olamide Markham RN - 10/06/2021 11:20 AM EDT Says not to call until after 310 pm. Call Pt back later. * Telephone Encounter - Katiuska Gracia APRN.CNP - 10/06/2021 9:01 AM EDT Please let patient know that he can start taking a low dose Lasix every day which should help his blood pressure and his ankle swelling. Also, his potassium level is high so this should help lower aswell. Labs need rechecked in 2 weeks. I am also adding a cortisol level to check for any adrenal issues since his potassium was elevated and sodium slightly low. Thank you Katiuska Gracia APRN.CNP * Telephone Encounter - Josie Ricci Ma - 10/04/2021 3:13 PM EDT Patient notified, please assist in scheduling with Pulmonology. * Telephone Encounter - Katiuska Gracia APRN.CNP - 10/04/2021 12:49 PM EDT Please let patient know that Chest xray does not show infection, but does indicate emphysema and possible underlying pulmonary hypertension. Continue with plans to get echocardiogram, and I am placing a consult with pulmonology. I am also placing an order for an inhaler to try and get his breathingcontrolled. This is to be done twice a day on a schedule. It is NOT an emergency inhaler and for acute sob he should use the albuterol as ordered. Thank you Katiuska Gracia APRN.CNP documented in this encounterAvita [facility] System04-20-2022 Miscellaneous Notes* Telephone Encounter - Lety Barnett LPN - 10/04/2021 3:47 PM EDT Spoke with pt and information listed below given. Pt verbalizes understanding. Lety Barnett LPN * Telephone Encounter - Katiuska Gracia APRN.CNP - 10/04/2021 3:36 PM EDT Please let patient know the one I ordered specifically before was supposed to be the generic version of proair. I have sent a prescription specifically for proair this time. Please let me know if it is still not correct. Thank you Katiuska Gracia APRN.JACK * Telephone Encounter - Olamide Markham RN - 10/04/2021 1:34 PM EDT Pt called in and reports the inhaler provider called in for him was the same one he had that only worked for one hour. He states the one that helps him for 6 hour was the ProAir HFA 90 mcg. Patient has been identified by name and date of : Yes Patient phones for refill(s): Pending Prescriptions Disp Refills ALBUTEROL SULFATE HFA 90 MCG/ACTUATION AEROSOL INHALER 1 Inhaler 0 Sig: Inhale 2 Puffs as instructed every 4 hours as needed for wheezing/shortness of breath. INHALATIONAL SPACING DEVICE 1 Each 0 Si Device one time only for 1 dose. Date of last office visit in primary care: 10/04/21 Future visit: 10/10/21 Last 2 Encounter Wt Readings: Date: Wt: 10/04/2021 68.5 kg (151 lb) 02/28/2021 75.8 kg (167 lb) Previous labs/tests for medication: Blood Pressure: BUN (mg/dL) Date Value 02/28/2021 8 Sodium (mmol/L) Date Value 02/28/2021 135 Last 1 Encounter BP Readings: Date: BP: 10/04/2021 152/98 Liver Function: ALT (U/L) Date Value 02/28/2021 26 AST (U/L) Date Value 02/28/2021 28 Please advise. Thank you. Olamide Markham RN documented in this encounterAvita Health System04-20-2022 History of Present illness Narrative* Yvonne Rudolph, RT(R) - 10/04/2021 11:40 AM EDT Radiology Service Progress Note PATIENT NAME: Yury Gonzalez DATE OF SERVICE: October 04, 2021 TIME: 11:57 AM PATIENT IDENTITY VERIFICATION COMPLETED USING TWO (2) IDENTIFIERS: Name and Date of confirmedby patient verbally. FALL SCREENING: Has the patient had 2 falls in the last year or 1 fall with injury or currently using an Ambulatory Assistive Device (Walker, Cane, Wheelchair, Crutches, etc.)? No PATIENT GENDER DATA: Male PATIENT RELEVANT IMPLANT DATA REVIEWED: Yes RADIOLOGY DEPARTMENT: General X-ray: Exam(s) Completed: Chest X-Ray PERIPHERAL IV DATA: Not applicable SIGNED BY: RT Gregorio(R) October 04, 2021 11:57 AM documented in this encounterAvita Health System04-20-2022 History of Present illness Narrative* Katiuska Gracia, REHAB SPEC.COLLECTION COORDINATOR - 10/04/2021 10:58 AM EDT CC: Patient presents with: Recheck: SOB, B/L ankle swelling HPI Yury Gonzalez is a 66 year old male who presents today for shortness of breath and swollen ankles. Has been using his albuterol inhaler 8-9 times a day since last March. States he was prescribed an emergency inhaler last year for COPD but has never had pulmonary function tests completed Patient hasdecreased his amount to about 6 cigarettes a day. Has never been on a preventative inhaler. Has not been evaluated for this since March and has not been on steroids. Denies any pets, moving or any other changes since last March. Reports waking up at night needing his emergency inhaler. Has beenusing a neighbors albuterol sulfate HFA inhaler which seems to last longer than his previously prescribed Ventolin. Reports a cough that he refers to as a smoker cough which he has had for 15 years without change. Also reports wheezing, but denies fever, chest pain, or palpitations. Had a MT 17 years ago with stent placement. Does not see cardiology. HTN: Mr. Gonzalez indicates that he is feeling well and denies any symptoms referable to elevated blood pressure. Specifically denies headache, chest pain, palpitations, and fatigue. Patient denies any side effects of his medication(s) and is compliant with their regimen. He does check BP's away from this office with average BP's in the 140s/80s range. Yury denies regular aerobic exercise. He watches his diet for sodium, low fat and low cholesterol most of the time. Last 3 Encounter BP Readings: Date: BP: 10/04/2021 152/98 02/28/2021 148/82 03/17/2020 158/76 Has noticed swelling to his bilateral ankles for the past few days. Has not noticed an increase in his shortness of breath with the swelling. REVIEW OF SYSTEMS General: no fevers, no chills, no night sweats, no recurrent infections, no change in appetite, no change in energy and no significant changes in weight Respiratory: See HPI Cardiovascular: See HPI GI: No nausea, vomiting, or diarrhea Endocrine: no fatigue, no weight gain, no weight loss, no cold intolerance, no heat intolerance, nopolyuria, no polyphagia and no polydipsia Neurologic: No headache, weakness, numbness, tingling, dizziness, syncope. PAST MEDICAL HISTORY Diagnosis Date History of heart artery stent HTN (hypertension) Hyperlipidemia MT (myocardial infarction) (HCC) 11/27/2004 [facility] PAST SURGICAL HISTORY Procedure Laterality Date HEART CATHETERIZATION 12/27/[address] placement [address] [facility] ALLERGIES Hay Fever [Seasonal Allergies] MEDICATIONS lisinopril (PRINIVIL) 20 mg tablet Take 1 tablet by mouth twice daily. sildenafil (VIAGRA) 25 mg tablet Take 1 tablet by mouth as needed. Take 30 to 60min before sexual activity. albuterol HFA (VENTOLIN HFA) 90 mcg/actuation inhaler Inhale 2 Puffs as instructed every 4 hours asneeded for wheezing/shortness of breath. atorvastatin (LIPITOR) 80 mg tablet Take 1 tablet by mouth once daily. metoprolol tartrate, short acting, (LOPRESSOR) 25 mg tablet Take 1 tablet by mouth twice daily. clopidogrel (PLAVIX) 75 mg tablet Take 1 tablet by mouth once daily. nitroglycerin sublingual (NITROSTAT) 0.4 mg SL tablet Dissolve 1 tablet under the tongue every 5 minutes as needed. multivitamin (ONE-A-DAY ESSENTIAL) tablet Take 1 tablet by mouth once daily. MVI with Lycopene PHENYLephrine (SUDAFED PE) 10 mg tablet Take 1 tablet by mouth every 6 hours as needed. aspirin, enteric coated (ASPIRIN, ENTERIC COATED) 81 mg EC tablet Take 81 mg by mouth once daily. FAMILY HISTORY Problem Relation Age of Onset Hypertension Mother Hypertension Father Cancer Father Cancer Paternal Grandmother jawbone Hypertension Paternal Grandmother Hypertension Paternal Grandfather Social History Tobacco Use Smoking status: Current Every Day Smoker Packs/day: 1.30 Types: Cigarettes Start date: 1970 Smokeless tobacco: Former User Substance Use Topics Alcohol use: Yes Alcohol/week: 150.0 standard drinks Types: 60 Cans of Beer (12oz) per week Comment: patient states he uses a case and a half per week of beer Drug use: No PHYSICAL EXAM BP 152/98 Pulse 77 Resp 16 Wt 68.5 kg (151 lb) SpO2 94% BMI 24.01 kg/m General Appearance: well appearing, in no acute distress, alert Eyes: conjunctiva pink and moist, no icterus, sclera white, non-injected Lungs: Lungs clear to auscultation. No rhonchi, rales. Inspiratory wheezes throughout Heart: RRR without murmur, gallop, or rubs. No ectopy Extremities: No deformities, skin discoloration, clubbing or cyanosis. Good capillary refill. , small amount of nonpitting edema to BLE starting below knee. No redness, warmth or tenderness noted. [facility] maintenance reviewed with patient: ABDOMINAL AORTIC ANEURYSM SCREENING Never done BP CONTROLLED (<130/80) Never done COLORECTAL CANCER SCREENING due on 08/03/2015 PNEUMOVAX AGE 65 AND OVER WITH 5YR LOOKBACK(1) due on 2020 SHINGRIX VACCINE(2 of 2) due on 06/10/2020 ADVANCE DIRECTIVE DISCUSSION Never done LDL CHOLESTEROL due on 02/28/2022 ANNUAL PCP TEAM CHRONIC DISEASE VISIT due on 02/28/2022 DEPRESSION SCREENING due on 02/28/2022 DIABETES SCREEN due on 02/29/2024 DTAP,TDAP,TD(2 - Td or Tdap) due on 06/17/2024 LIPID SCREEN due on 02/28/2026 PROSTATE CANCER SCREENING DISCUSSION due on 02/28/2026 INFLUENZA Completed COVID-19 VACCINE Completed MENINGOCOCCAL CONJUGATE Aged Out HEPATITIS C SCREENING Discontinued DATA REVIEWED: No new labs. ASSESSMENT/PLAN: 1. Shortness of breath - ICD9: 786.05, ICD10: R06.02 (primary diagnosis) - Very concerning with needed use of emergency inhaler since March and other reported symptoms. Possible COPD versus cardiomyopathy or both. Discussed with patient if BNP is elevated this recommends fluid overload and we would start Lasix. With the wheezing, will start prednisone and CXR. After labs and xray are obtained will probably start him on scheduled ICS and LABA like Advair. Will need to follow up next week. - ECHO - PERFLUTREN LIPID MICROSPHERES 1.1 MG/ML INJECTION IN NS 10 ML - SODIUM CHLORIDE 0.9 % (FLUSH) INJECTION SYRINGE - XR CHEST 2V FRONTAL/LAT - BASIC METABOLIC PNL - CBC + DIFF - B NATRIURETIC PEPTID B/O 2. Edema, unspecified type - ICD9: 782.3, ICD10: R60.9 As above - Only small amount of edema noted on exam - ECHO - PERFLUTREN LIPID MICROSPHERES 1.1 MG/ML INJECTION IN NS 10 ML - SODIUM CHLORIDE 0.9 % (FLUSH) INJECTION SYRINGE - BASIC METABOLIC PNL - CBC + DIFF - B NATRIURETIC PEPTID B/O 3. Essential hypertension - ICD9: 401.9, ICD10: I10 - poor control - if BNP positive will start Lasix, if not will begin HCTZ. Patient aware and in agreement with plan - Recommend home blood pressure monitoring, to bring results in on next visit - Goal of BP <130/80 4. S/P coronary artery stent placement - ICD9: V45.82, ICD10: Z95.5 - with a history of this will need cardiolology consult and will discuss at next visit. 5. Tobacco dependence - ICD9: 305.1, ICD10: F17.200 - Cessation encouraged. - Physiologic and physical aspects of tobacco addiction as well as strategies for quitting were discussed. - Counseling was given focusing on the harmful effects of this addiction especially given the patient's medical condition(s) which will be worsened because of the chemicals in tobacco. - Patient declined cessation at this time Prescription instructions reviewed with patient as applicable. Potential red flag symptoms discussed with the patient. Reviewed appropriate action plan to take if red flag symptoms occur. Patient agreeable to treatment plan. Katiuska Gracia APRN.CNP documented in this encounterAvita [facility] System04-15-2022 Miscellaneous Notes* Telephone Encounter - Josie Ricci Ma - 09/29/2021 3:26 PM EDT Patient notified and scheduled earlier appointment. * Telephone Encounter - Katiuska Gracia APRN.CNP - 09/27/2021 12:15 PM EDT Please let patient know that PCP feels he needs to be evaluated prior to the visit and should be seen [facility]. Thank you Katiuska Gracia APRN.JACK * Telephone Encounter - Joanne Pfeiffer RN - 09/27/2021 10:36 AM EDT Patient call in for not able to lay down and sleep since Saturday. Patient states that he feels shortof breath. Patient reports that he sometimes gets winded walking out to the mailbox and other timeshe feels winded after walking out to mailbox. Patient reports that his bilateral ankles have been swollen. Patients states that he was able to sleep in his bed last night, but previous nights he had to sit in chair. Nurse Triage assessment completed with protocol recommending for disposition of Go to ED now. Care advice reviewed with patient. Patient states that he does not want to go to ER to be evaluated. Patient states that he will wait till his appointment with Dr. De Oliveira on 10/12/2021 to discuss his breathing issues. Offered appointments with other providers today. Patient declined. Encouraged patient that if he becomes more short of breath then he needs to go to ER to be evaluated. Patient voiced understanding. Reason for Disposition [1] MODERATE difficulty breathing (e.g., speaks in phrases, SOB even at rest, pulse 100-120) AND [2] NEW-onset or WORSE than normal Answer Assessment - Initial Assessment Questions 1. RESPIRATORY STATUS: Short of breath, unable to lay down when trying to sleep. 2. ONSET: Since Saturday 3. PATTERN Come and go 4. SEVERITY: Moderate shortness of breath 5. RECURRENT SYMPTOM: Has history of COPD 6. CARDIAC HISTORY: Stent placed 17 years ago 7. LUNG HISTORY: COPD 8. CAUSE: Unsure; thinks COPD 9. OTHER SYMPTOMS: Bilateral ankles are swollen Protocols used: BREATHING [id number] documented in this encounterAvita Health System03-31-2022 Miscellaneous Notes* Telephone Encounter - Sola Slade - 09/14/2021 3:51 PM EDT Patient has been identified by name and date of : Yes Pending Prescriptions Disp Refills LISINOPRIL 20 MG TABLET 90 tablet 3 Sig: Take 1 tablet by mouth twice daily. ELVIRA: No RX INSTRUCTIONS: Per [facility] they have no current script on file for this medication Patient aware RX will be sent to pharmacy. No need to notify patient. Sola Slade [facility]* Diagnosis Essential hypertension Unspecified essential hypertension [facility]* Diagnosis Shortness of breath- Primary Edema, unspecified type Essential hypertension Unspecified essential hypertension S/P coronary artery stent placement Postsurgical percutaneous transluminal coronary angioplasty status Tobacco dependence Tobacco use disorder [facility]* Diagnosis Pulmonary emphysema, unspecified emphysema type (HCC)- Primary Low serum sodium Serum potassium elevated Hyperpotassemia documented [facility]* Diagnosis Shortness of breath- Primary Wheeze Wheezing Tobacco dependence Tobacco use disorder documented [facility]* Diagnosis Coronary artery disease involving [place] coronary artery of [place] heart without angina pectoris documented [facility]* Diagnosis Essential hypertension Unspecified essential hypertension documented [facility]* Diagnosis Medication management Encounter for long-term (current) use of other medications Hyperlipidemia Other and unspecified hyperlipidemia documented [facility]* Diagnosis Essential hypertension Unspecified essential hypertension [facility]* Diagnosis Coronary artery disease involving [place] coronary artery of [place] heart without angina pectoris Pure hypercholesterolemia Essential hypertension Unspecified essential hypertension [facility]* Diagnosis Coronary artery disease involving [place] coronary artery of [place] heart without angina pectoris documented [facility]* Diagnosis Hypertension Unspecified essential hypertension Hyperlipidemia Other and unspecified hyperlipidemia Medication management Encounter for long-term (current) use of other medications documented [facility]* Diagnosis Nodule of right lung- Primary Solitary pulmonary nodule Chronic obstructive pulmonary disease, unspecified COPD type (HCC) Hyponatremia Hyposmolality and/or hyponatremia documented [facility]* Diagnosis Abnormal chest CT- Primary Nonspecific (abnormal) findings on radiological and other examination of other intrathoracic organs documented [facility]* Diagnosis Pulmonary nodules- Primary Other nonspecific abnormal finding of lung field SOB (shortness of breath) Shortness of breath Solitary pulmonary nodule Pulmonary emphysema, unspecified emphysema type (HCC) Current smoker Tobacco use disorder documented [facility]* Diagnosis Coronary artery disease involving [place] coronary artery of [place] heart without angina pectoris [facility] Diagnosis Solitary pulmonary nodule [facility] Diagnosis Nodule of lower lobe of right lung- Primary Lung nodule Solitary pulmonary nodule [facility]* Diagnosis Lung nodule- Primary Solitary pulmonary nodule Lung nodule Solitary pulmonary nodule [facility]* Diagnosis Nodule of right lung Solitary pulmonary nodule Lung nodules Other nonspecific abnormal finding of lung field [facility]* Diagnosis Essential hypertension Unspecified essential hypertension [facility] Diagnosis Pure hypercholesterolemia Coronary artery disease involving [place] coronary artery of [place] heart without angina pectoris Essential hypertension Unspecified essential hypertension [facility]* Diagnosis Hypertension Unspecified essential hypertension Medication management Encounter for long-term (current) use of other medications Hyperlipidemia Other and unspecified hyperlipidemia [facility]* Diagnosis Lung mass- Primary Swelling, mass, or lump in chest Encounter for immunization Need for other specified prophylactic vaccination against single bacterial disease Pulmonary emphysema, unspecified emphysema type (HCC) Uncomplicated alcohol dependence (HCC) Other and unspecified alcohol dependence, unspecified drinking behavior [facility]* Diagnosis Lung nodule Solitary pulmonary nodule [facility]* Diagnosis Encounter to establish care with new doctor- Primary Other reasons for seeking consultation CAD (coronary artery disease) Coronary atherosclerosis of unspecified type of vessel, [place] or graft Hyperlipidemia Other and unspecified hyperlipidemia Hypertension Unspecified essential hypertension Tobacco dependence Tobacco use disorder Alcohol dependence (HCC) Other and unspecified alcohol dependence, unspecified drinking behavior Routine health maintenance Routine general medical examination at a health care facility Numbness and tingling Disturbance of skin sensation Hypertension- Primary Unspecified essential hypertension Tobacco dependence Tobacco use disorder Shoulder pain Pain in joint, shoulder region Carpal tunnel syndrome Special screening for malignant neoplasms, colon ED (erectile dysfunction) Impotence of organic origin Wheezing Shortness of breath [facility]* Diagnosis Encounter to establish care with new doctor- Primary Other reasons for seeking consultation CAD (coronary artery disease) Coronary atherosclerosis of unspecified type of vessel, [place] or graft Hyperlipidemia Other and unspecified hyperlipidemia Hypertension Unspecified essential hypertension Tobacco dependence Tobacco use disorder Alcohol dependence (HCC) Other and unspecified alcohol dependence, unspecified drinking behavior Routine health maintenance Routine general medical examination at a health care facility Numbness and tingling Disturbance of skin sensation Hypertension- Primary Unspecified essential hypertension Tobacco dependence Tobacco use disorder Shoulder pain Pain in joint, shoulder region Carpal tunnel syndrome Special screening for malignant neoplasms, colon ED (erectile dysfunction) Impotence of organic origin Shortness of breath documented in this encounter [facility] note* Diagnosis Encounter to establish care with new doctor- Primary Other reasons for seeking consultation CAD (coronary artery disease) Coronary atherosclerosis of unspecified type of vessel, [place] or graft Hyperlipidemia Other and unspecified hyperlipidemia Hypertension Unspecified essential hypertension Tobacco dependence Tobacco use disorder Alcohol dependence (HCC) Other and unspecified alcohol dependence, unspecified drinking behavior Routine health maintenance Routine general medical examination at a health care facility Numbness and tingling Disturbance of skin sensation Hypertension- Primary Unspecified essential hypertension Tobacco dependence Tobacco use disorder Shoulder pain Pain in joint, shoulder region Carpal tunnel syndrome Special screening for malignant neoplasms, colon ED (erectile dysfunction) Impotence of organic origin Coronary artery disease involving [place] coronary artery of [place] heart without angina pectoris documented in this encounter [facility] noteNo assessment information availableWZanes[facility] City [facility] Work Phone: Reason for referral (narrative)* Outpatient Procedure (Routine) - Pending Review Specialty Diagnoses / Procedures Referred By Contac t Referred To Contact [facility] Diagnoses Shortness of breath Edema, unspecified type Procedures ECHO ECHO TTHRC R-T 2D W/WOM-MODE COMPL SPEC&COLR D Katiuska Gracia APRN.COLLECTION COORDINATOR [address] [place] [address] [facility] [place] [address] [place] [address] Referral ID Status Reason Start Date Expiration Date Visits Requested Visits Authorized [id number] Pending Review Auto-Generat ed Referral 10/04/2021 10/04/2022 1 1 [facility] for referral (narrative)* Outpatient Procedure (Routine) - Pending Review Specialty Diagnoses / Procedures Referred By Contac t Referred To Contact [facility] Diagnoses Shortness of breath Wheeze Procedures LUNG VOLUMES Katiuska Gracia APRN.COLLECTION COORDINATOR [address] [place] [address] [facility] [address] [place] [address] Referral ID Status Reason Start Date Expiration Date Visits Requested Visits Authorized [id number] Pending Review Auto-Generat ed Referral 11/20/2021 12/20/2022 1 1 * Outpatient Procedure (Routine) - Pending Review Specialty Diagnoses / Procedures Referred By Contac t Referred To Contact [facility] Diagnoses Shortness of breath Wheeze Procedures SPIROMETRY - BASELINE AND POST DILATOR BRNCDILAT RSPSE SPMTRY PRE&POST-BRNCDILAT ADMN Katiuska Gracia APRN.COLLECTION COORDINATOR [address] [place] [address] [facility] [address] [place] [address] Referral ID Status Reason Start Date Expiration Date Visits Requested Visits Authorized [id number] Pending Review Auto-Generat ed Referral 11/20/2021 12/20/2022 1 1 [facility] for referral (narrative)* Outpatient Procedure (Routine) - Authorized Specialty Diagnoses / Procedures Referred By Contac t Referred To Contact [facility] Diagnoses SOB (shortness of breath) Procedures SIX MINUTE WALK CARDIOPULMONARY EXERCISE STRESS Gissel Acosta MD [address] [place] [address] [facility] [address] [place] [address] Referral ID Status Reason Start Date Expiration Date Visits Requested Visits Authorized [id number] Authorized Auto-Generat ed Referral 01/21/2023 02/20/2024 1 1 * Diagnostic Procedure Only (Urgent) - Pending Review Specialty Diagnoses / Procedures Referred By Contac t Referred To Contact [facility] Diagnoses Solitary pulmonary nodule Procedures NM PET/CT SKULL-THIGH INITIAL PET IMAGING CT ATTENUATION SKULL BASE MID-THIGH Gissel Acosta MD [address] [place] [address] [facility] [address] [place] [address] Referral ID Status Reason Start Date Expiration Date Visits Requested Visits Authorized [id number] Pending Review Auto-Generat ed Referral 01/21/2023 02/20/2024 1 1 * Outpatient Procedure (Routine) - Pending Review Specialty Diagnoses / Procedures Referred By Dorys t Referred To Contact [facility] Diagnoses SOB (shortness of breath) Procedures LUNG VOLUMES Gissel Acosta MD [address] [place] [address] [facility] [place] [address] [place] [address] Referral ID Status Reason Start Date Expiration Date Visits Requested Visits Authorized [id number] Pending Review Auto-Generat ed Referral 01/21/2023 02/20/2024 1 1 * Outpatient Procedure (Routine) - Authorized Specialty Diagnoses / Procedures Referred By Dorys t Referred To Contact [facility] Diagnoses SOB (shortness of breath) Procedures LUNG DIFFUSION CAPACITY (DLCO) DIFFUSING CAPACITY Gissel Acosta MD [address] [place] [address] [facility] [address] [place] [address] Referral ID Status Reason Start Date Expiration Date Visits Requested Visits Authorized [id number] Authorized Auto-Generat ed Referral 01/21/2023 02/20/2024 1 1 * Outpatient Procedure (Routine) - Authorized Specialty Diagnoses / Procedures Referred By Dorys alberts Referred To Contact [facility] Diagnoses SOB (shortness of breath) Procedures SPIROMETRY - BASELINE AND POST DILATOR BRNCDILAT RSPSE SPMTRY PRE&POST-BRNCDILAT ADMN Gissel Acosta MD [address] [place] [address] [facility] [address] [place] [address] Referral ID Status Reason Start Date Expiration Date Visits Requested Visits Authorized [id number] Authorized Auto-Generat ed Referral 01/21/2023 02/20/2024 1 1 [facility] for referral (narrative)* Diagnostic Procedure Only (Urgent) - Closed Specialty Diagnoses / Procedures Referred By Dorys alberts Referred To Contact [facility] Diagnoses Solitary pulmonary nodule Procedures NM PET/CT SKULL-THIGH INITIAL PET IMAGING CT ATTENUATION SKULL BASE MID-THIGH Gissel Acosta MD [address] [place] [address] [facility] [address] [place] [address] Referral ID Status Reason Start Date Expiration Date V isits Requested Visits Authorized [id number] Closed Auto-Generate d Referral 02/12/2023 03/14/2023 1 1 [facility] for referral (narrative)No reason for referral information availableWZanesville City Hospital Work Phone: Reason for visit Narrative* Diagnostic Procedure Only (Urgent) - Closed Specialty Diagnoses / Procedures Referred By Dorys alberts Referred To Contact [facility] Diagnoses Solitary pulmonary nodule Procedures NM PET/CT SKULL-THIGH INITIAL PET IMAGING CT ATTENUATION SKULL BASE MID-THIGH Gissel Acosta MD [facility] [place] [address] [facility] [address] [place] [address] Referral ID Status Reason Start Date Expiration Date V isits Requested Visits Authorized [id number] Closed Auto-Generate d Referral 02/12/2023 03/14/2023 1 1 [facility] Summary Purpose Family History Relationship Condition Age at Onset Recorded Date/T jimenez Unknown Family History?Diabetes Unknown December 26, 2017 3:19pm Family History?Heart Disease Unknown December 26, 2017 3:19pm Advance Directives Advance Directive Response Recorded Date/ Time Do you have a Healthcare Power of Orthopedic Surgeon? Yes December 10, 2024 3:18pm Name of Medical Power of Orthopedic Surgeon sherrie December 10, 2024 3:18pm Reason for Referral Specialty Diagnoses / Procedures Referred By Contac t Referred To Contact CT IMAGING Diagnoses Lung nodule Procedures CT CHEST WO IVCON DIAGNOSTIC COMPUTED TOMOGRAPHY THORAX W/O CNTRST Edwin Olmstead MD [id number] [facility] [place] [address] Referral ID Status Reason Start Date Expiration Date Visits Requested Visits Authorized [id number] Pending Review Auto-Generat ed Referral 02/14/2023 03/15/2024 1 1 Specialty Diagnoses / Procedures Referred By Contac t Referred To Contact [facility] Diagnoses Lung nodule Procedures ECG COMPLETE ECG ROUTINE ECG W/LEAST 12 LDS W/I&R Edwin Olmstead MD [address] [place] [address] [facility] [place] [address] [place], [place] [id number] Referral ID Status Reason Start Date Expiration Date Visits Requested Visits Authorized [id number] Pending Review Auto-Generat ed Referral 02/14/2023 02/14/2024 1 1 Specialty Diagnoses / Procedures Referred By Contac t Referred To Contact CT IMAGING Diagnoses Nodule of right lung Lung nodules Procedures CT CHEST WO IVCON DIAGNOSTIC COMPUTED TOMOGRAPHY THORAX W/O CNTRST Julissa Graciay, REHAB SPEC.COLLECTION COORDINATOR [address] [place] [address] [place] [address] Referral ID Status Reason Start Date Expiration Date V isits Requested Visits Authorized [id number] Closed Auto-Generate d Referral 12/26/2022 01/25/2024 1 1 Chief Complaint and Reason for Visit Chief Complaint Admit Date HF EXACERBATION December 10, 2024 7:02 pm Additional Source Comments (unrecognized sect ion and content) No Status Records FoundNo Status Records FoundNo Status Records FoundNo Status Records Found INFORMATION SOURCE (unrecogn ized section and content) DATE CREATED AUTHOR 02/06/2018 [facility] DATE CREATED AUTHOR AUTHOR'S ORGANIZ ATION 02/13/2023 [facility] DATE CREATED AUTHOR AUTHOR'S ORGANIZ ATION 01/29/2024 [facility] DATE CREATED AUTHOR AUTHOR'S ORGANIZ ATION 10/03/2024 [facility] Source Comments (unrecognize d section and content) In the event this informatio n is protected by the Federal Confidentiality of Alcohol and Drug Abuse Patient Records regulations: The Federal rules restrict any use of the information to criminally investigate or prosecute any alcohol or drug abuse patient.[facility] System[facility] the event this information is protected by the Federal Confidentiality of Alcohol and Drug Abuse Patient Records regulations: The Federal rules restrict any use of the information to criminally investigate or prosecute any alcohol or drug abuse patient.[facility] SystemIn the event this information is protected by the Federal Confidentiality of Alcohol and Drug Abuse Patient Records regulations: The Federal rules restrict any use of the information to criminally investigate or prosecute any alcohol or drug abuse patient.[facility] SystemIn the event this information is protected by the Federal Confidentiality of Alcohol and Drug Abuse Patient Records regulations: The Federal rules restrict any use of the information to criminally investigate or prosecute any alcohol or drug abuse patient.[facility] SystemIn the event this information is protected by the Federal Confidentiality of Alcohol and Drug Abuse Patient Records regulations: The Federal rules restrict any use of the information to criminally investigate or prosecute any alcohol or drug abuse patient.[facility] SystemIn the event this information is protected by the Federal Confidentiality of Alcohol and Drug Abuse Patient Records regulations: The Federal rules restrict any use of the information to criminally investigate or prosecute any alcohol or drug abuse patient.[facility] SystemIn the event this information is protected by the Federal Confidentiality of Alcohol and Drug Abuse Patient Records regulations: The Federal rules restrict any use of the information to criminally investigate or prosecute any alcohol or drug abuse patient.[facility] SystemIn the event this information is protected by the Federal Confidentiality of Alcohol and Drug Abuse Patient Records regulations: The Federal rules restrict any use of the information to criminally investigate or prosecute any alcohol or drug abuse patient.[facility] SystemIn the event this information is protected by the Federal Confidentiality of Alcohol and Drug Abuse Patient Records regulations: The Federal rules restrict any use of the information to criminally investigate or prosecute any alcohol or drug abuse patient.[facility] SystemIn the event this information is protected by the Federal Confidentiality of Alcohol and Drug Abuse Patient Records regulations: The Federal rules restrict any use of the information to criminally investigate or prosecute any alcohol or drug abuse patient.[facility] SystemIn the event this information is protected by the Federal Confidentiality of Alcohol and Drug Abuse Patient Records regulations: The Federal rules restrict any use of the information to criminally investigate or prosecute any alcohol or drug abuse patient.[facility] SystemIn the event this information is protected by the Federal Confidentiality of Alcohol and Drug Abuse Patient Records regulations: The Federal rules restrict any use of the information to criminally investigate or prosecute any alcohol or drug abuse patient.[facility] SystemIn the event this information is protected by the Federal Confidentiality of Alcohol and Drug Abuse Patient Records regulations: The Federal rules restrict any use of the information to criminally investigate or prosecute any alcohol or drug abuse patient.[facility] SystemIn the event this information is protected by the Federal Confidentiality of Alcohol and Drug Abuse Patient Records regulations: The Federal rules restrict any use of the information to criminally investigate or prosecute any alcohol or drug abuse patient.[facility] SystemIn the event this information is protected by the Federal Confidentiality of Alcohol and Drug Abuse Patient Records regulations: The Federal rules restrict any use of the information to criminally investigate or prosecute any alcohol or drug abuse patient.[facility] SystemIn the event this information is protected by the Federal Confidentiality of Alcohol and Drug Abuse Patient Records regulations: The Federal rules restrict any use of the information to criminally investigate or prosecute any alcohol or drug abuse patient.[facility] SystemIn the event this information is protected by the Federal Confidentiality of Alcohol and Drug Abuse Patient Records regulations: The Federal rules restrict any use of the information to criminally investigate or prosecute any alcohol or drug abuse patient.[facility] SystemIn the event this information is protected by the Federal Confidentiality of Alcohol and Drug Abuse Patient Records regulations: The Federal rules restrict any use of the information to criminally investigate or prosecute any alcohol or drug abuse patient.[facility] SystemIn the event this information is protected by the Federal Confidentiality of Alcohol and Drug Abuse Patient Records regulations: The Federal rules restrict any use of the information to criminally investigate or prosecute any alcohol or drug abuse patient.[facility] SystemIn the event this information is protected by the Federal Confidentiality of Alcohol and Drug Abuse Patient Records regulations: The Federal rules restrict any use of the information to criminally investigate or prosecute any alcohol or drug abuse patient.[facility] SystemIn the event this information is protected by the Federal Confidentiality of Alcohol and Drug Abuse Patient Records regulations: The Federal rules restrict any use of the information to criminally investigate or prosecute any alcohol or drug abuse patient.[facility] SystemIn the event this information is protected by the Federal Confidentiality of Alcohol and Drug Abuse Patient Records regulations: The Federal rules restrict any use of the information to criminally investigate or prosecute any alcohol or drug abuse patient.[facility] SystemIn the event this information is protected by the Federal Confidentiality of Alcohol and Drug Abuse Patient Records regulations: The Federal rules restrict any use of the information to criminally investigate or prosecute any alcohol or drug abuse patient.[facility] SystemIn the event this information is protected by the Federal Confidentiality of Alcohol and Drug Abuse Patient Records regulations: The Federal rules restrict any use of the information to criminally investigate or prosecute any alcohol or drug abuse patient.[facility] SystemIn the event this information is protected by the Federal Confidentiality of Alcohol and Drug Abuse Patient Records regulations: The Federal rules restrict any use of the information to criminally investigate or prosecute any alcohol or drug abuse patient.[facility] SystemIn the event this information is protected by the Federal Confidentiality of Alcohol and Drug Abuse Patient Records regulations: The Federal rules restrict any use of the information to criminally investigate or prosecute any alcohol or drug abuse patient.[facility] SystemIn the event this information is protected by the Federal Confidentiality of Alcohol and Drug Abuse Patient Records regulations: The Federal rules restrict any use of the information to criminally investigate or prosecute any alcohol or drug abuse patient.[facility] SystemIn the event this information is protected by the Federal Confidentiality of Alcohol and Drug Abuse Patient Records regulations: The Federal rules restrict any use of the information to criminally investigate or prosecute any alcohol or drug abuse patient.[facility] SystemIn the event this information is protected by the Federal Confidentiality of Alcohol and Drug Abuse Patient Records regulations: The Federal rules restrict any use of the information to criminally investigate or prosecute any alcohol or drug abuse patient.[facility] SystemIn the event this information is protected by the Federal Confidentiality of Alcohol and Drug Abuse Patient Records regulations: The Federal rules restrict any use of the information to criminally investigate or prosecute any alcohol or drug abuse patient.[facility] SystemIn the event this information is protected by the Federal Confidentiality of Alcohol and Drug Abuse Patient Records regulations: The Federal rules restrict any use of the information to criminally investigate or prosecute any alcohol or drug abuse patient.[facility] SystemIn the event this information is protected by the Federal Confidentiality of Alcohol and Drug Abuse Patient Records regulations: The Federal rules restrict any use of the information to criminally investigate or prosecute any alcohol or drug abuse patient.[facility] SystemIn the event this information is protected by the Federal Confidentiality of Alcohol and Drug Abuse Patient Records regulations: The Federal rules restrict any use of the information to criminally investigate or prosecute any alcohol or drug abuse patient.[facility] SystemIn the event this information is protected by the Federal Confidentiality of Alcohol and Drug Abuse Patient Records regulations: The Federal rules restrict any use of the information to criminally investigate or prosecute any alcohol or drug abuse patient.[facility] SystemIn the event this information is protected by the Federal Confidentiality of Alcohol and Drug Abuse Patient Records regulations: The Federal rules restrict any use of the information to criminally investigate or prosecute any alcohol or drug abuse patient.[facility] SystemIn the event this information is protected by the Federal Confidentiality of Alcohol and Drug Abuse Patient Records regulations: The Federal rules restrict any use of the information to criminally investigate or prosecute any alcohol or drug abuse patient.[facility] SystemIn the event this information is protected by the Federal Confidentiality of Alcohol and Drug Abuse Patient Records regulations: The Federal rules restrict any use of the information to criminally investigate or prosecute any alcohol or drug abuse patient.[facility] SystemIn the event this information is protected by the Federal Confidentiality of Alcohol and Drug Abuse Patient Records regulations: The Federal rules restrict any use of the information to criminally investigate or prosecute any alcohol or drug abuse patient.[facility] SystemIn the event this information is protected by the Federal Confidentiality of Alcohol and Drug Abuse Patient Records regulations: The Federal rules restrict any use of the information to criminally investigate or prosecute any alcohol or drug abuse patient.[facility] SystemIn the event this information is protected by the Federal Confidentiality of Alcohol and Drug Abuse Patient Records regulations: The Federal rules restrict any use of the information to criminally investigate or prosecute any alcohol or drug abuse patient.[facility] SystemIn the event this information is protected by the Federal Confidentiality of Alcohol and Drug Abuse Patient Records regulations: The Federal rules restrict any use of the information to criminally investigate or prosecute any alcohol or drug abuse patient.[facility] SystemIn the event this information is protected by the Federal Confidentiality of Alcohol and Drug Abuse Patient Records regulations: The Federal rules restrict any use of the information to criminally investigate or prosecute any alcohol or drug abuse patient.[facility] SystemIn the event this information is protected by the Federal Confidentiality of Alcohol and Drug Abuse Patient Records regulations: The Federal rules restrict any use of the information to criminally investigate or prosecute any alcohol or drug abuse patient.[facility] SystemIn the event this information is protected by the Federal Confidentiality of Alcohol and Drug Abuse Patient Records regulations: The Federal rules restrict any use of the information to criminally investigate or prosecute any alcohol or drug abuse patient.[facility] SystemIn the event this information is protected by the Federal Confidentiality of Alcohol and Drug Abuse Patient Records regulations: The Federal rules restrict any use of the information to criminally investigate or prosecute any alcohol or drug abuse patient.[facility] SystemIn the event this information is protected by the Federal Confidentiality of Alcohol and Drug Abuse Patient Records regulations: The Federal rules restrict any use of the information to criminally investigate or prosecute any alcohol or drug abuse patient.[facility] SystemIn the event this information is protected by the Federal Confidentiality of Alcohol and Drug Abuse Patient Records regulations: The Federal rules restrict any use of the information to criminally investigate or prosecute any alcohol or drug abuse patient.[facility] SystemIn the event this information is protected by the Federal Confidentiality of Alcohol and Drug Abuse Patient Records regulations: The Federal rules restrict any use of the information to criminally investigate or prosecute any alcohol or drug abuse patient.[facility] SystemIn the event this information is protected by the Federal Confidentiality of Alcohol and Drug Abuse Patient Records regulations: The Federal rules restrict any use of the information to criminally investigate or prosecute any alcohol or drug abuse patient.[facility] SystemIn the event this information is protected by the Federal Confidentiality of Alcohol and Drug Abuse Patient Records regulations: The Federal rules restrict any use of the information to criminally investigate or prosecute any alcohol or drug abuse patient.[facility] SystemIn the event this information is protected by the Federal Confidentiality of Alcohol and Drug Abuse Patient Records regulations: The Federal rules restrict any use of the information to criminally investigate or prosecute any alcohol or drug abuse patient.[facility] SystemIn the event this information is protected by the Federal Confidentiality of Alcohol and Drug Abuse Patient Records regulations: The Federal rules restrict any use of the information to criminally investigate or prosecute any alcohol or drug abuse patient.[facility] Reason for Visit (unrecogniz ed section and content) Reason Onset Date Comments Refill Request 09/14/2021 Reason Comments Shortness of Breath ankles swollen Reason Comments Recheck SOB, B/L ankle swell ing Reason Comments Medication Problem Reason Comments Results Reason Comments Surgical Followup SOB follow up Reason Onset Date Comments Refill Request 12/27/2021 Reason Comments Patient Question Medication Question Reason Onset Date Comments Refill Request 01/17/2022 Reason Onset Date Comments Refill Request 01/30/2022 Reason Onset Date Comments Population Health Navigation Outreach 02/06/2022 [facility] Reason Comments Refill Request Reason Onset Date Comments Refill Request 05/01/2022 Reason Onset Date Comments Refill Request 08/13/2022 Reason Onset Date Comments Refill Request 11/14/2022 Reason Comments Follow Up wheezing ,SOB, COPD Reason Comments Appointment Reason Comments COPD Cough Sob Reason Comments Patient Question Reason Comments Radiology NM Reason Comments Bronchoscopy Scheduling Reason Comments Returning Patient's Call Patient Update Reason Comments Patient Question Returning Patient's Call Patient Update Reason Comments Radiology CT Specialty Diagnoses / Procedures Referred By Contac t Referred To Contact CT IMAGING Diagnoses Nodule of right lung Lung nodules Procedures CT CHEST WO IVCON DIAGNOSTIC COMPUTED TOMOGRAPHY THORAX W/O CNTRST Katiuska Gracia, REHAB SPEC.COLLECTION COORDINATOR [address] [place] [address] [address] [facility] [place] [address] Referral ID Status Reason Start Date Expiration Date V isits Requested Visits Authorized [id number] Closed Auto-Generate d Referral 12/26/2022 01/25/2024 1 1 Reason Onset Date Comments Refill Request 07/22/2023 Reason Onset Date Comments Refill Request 12/16/2023 Reason Comments Physical Reason Comments Radiology CT Specialty Diagnoses / Procedures Referred By Contac t Referred To Contact CT IMAGING Diagnoses Lung nodule Procedures CT CHEST WO IVCON DIAGNOSTIC COMPUTED TOMOGRAPHY THORAX W/O CNTRST Edwin Olmstead MD [address] [place] [address] Ct Imaging [place] [facility] Referral ID Status Reason Start Date Expiration Date V isits Requested Visits Authorized [id number] Closed Auto-Generate d Referral 02/14/2023 03/15/2024 1 1 Reason Onset Date Comments Population Health Navigation Outreach 04/15/2024 [employer] eveline Reason Onset Date Comments Population Health Navigation Outreach 06/16/2024 [employer] worksaint elizabeth [place] eveline Reason Onset Date Comments Refill Request 09/15/2024 Reason Onset Date Comments Refill Request 09/16/2024 Reason Onset Date Comments Population Health Navigation Outreach [facility]2024 [facility] Care Teams (unrecognized sec tion and content) Lead Technologist In Cytogenetics Relationship Specialty Start Date End Date Acacia De Oliveira MD [address] [facility] [place] [address] PCP - General Internal Medicine 06/18/14 Lead Technologist In Cytogenetics Relationship Specialty Start Date End Date Acacia De Oliveira MD [address] [facility] [place] [address] PCP - General Internal Medicine 06/18/14 Lead Technologist In Cytogenetics Relationship Specialty Start Date End Date Acacia De Oliveira MD [address] [facility] [place] [address] PCP - General Internal Medicine 06/18/14 Lead Technologist In Cytogenetics Relationship Specialty Start Date End Date Acacia De Oliveira MD [address] [facility] [place] [address] PCP - General Internal Medicine 06/18/14 Lead Technologist In Cytogenetics Relationship Specialty Start Date End Date Acacia De Oliveira MD [address] [facility] [place] [address] PCP - General Internal Medicine 06/18/14 Lead Technologist In Cytogenetics Relationship Specialty Start Date End Date Acacia De Oliveira MD [address] [facility] [place] [address] PCP - General Internal Medicine 06/18/14 Lead Technologist In Cytogenetics Relationship Specialty Start Date End Date Acacia De Oliveira MD [address] [facility] [place] [address] PCP - General Internal Medicine 06/18/14 Lead Technologist In Cytogenetics Relationship Specialty Start Date End Date Acacia De Oliveira MD [address] [facility] [place] [address] PCP - General Internal Medicine 06/18/14 Lead Technologist In Cytogenetics Relationship Specialty Start Date End Date Acacia De Oliveira MD [address] [facility] [address] PCP - General Internal Medicine 06/18/14 Lead Technologist In Cytogenetics Relationship Specialty Start Date End Date Acacia De Oliveira MD [address] [facility] [place] [address] PCP - General Internal Medicine 06/18/14 Lead Technologist In Cytogenetics Relationship Specialty Start Date End Date Acacia De Oliveira MD [address] [place] [address] PCP - General Internal Medicine 06/18/14 Lead Technologist In Cytogenetics Relationship Specialty Start Date End Date Acacia De Oliveira MD [address] [place] [address] PCP - General Internal Medicine 06/18/14 Lead Technologist In Cytogenetics Relationship Specialty Start Date End Date Acacia De Oliveira MD [address] [place] [address] PCP - General Internal Medicine 06/18/14 Lead Technologist In Cytogenetics Relationship Specialty Start Date End Date Acacia De Oliveira MD [address] [place] [address] PCP - General Internal Medicine 06/18/14 Lead Technologist In Cytogenetics Relationship Specialty Start Date End Date Acacia De Oliveira MD [address] [facility] [place] [address] PCP - General Internal Medicine 06/18/14 Lead Technologist In Cytogenetics Relationship Specialty Start Date End Date Acacia De Oliveira MD [address] [facility] [place] [address] PCP - General Internal Medicine 06/18/14 Lead Technologist In Cytogenetics Relationship Specialty Start Date End Date Acacia De Oliveira MD [address] [facility] [address] PCP - General Internal Medicine 06/18/14 Lead Technologist In Cytogenetics Relationship Specialty Start Date End Date Acacia De Oliveira MD [address] [facility] [place] [address] PCP - General Internal Medicine 06/18/14 Lead Technologist In Cytogenetics Relationship Specialty Start Date End Date Acacia De Oliveira MD [address] [facility] [address] PCP - General Internal Medicine 06/18/14 Lead Technologist In Cytogenetics Relationship Specialty Start Date End Date Acacia De Oliveira MD [address] [facility] [place] [address] PCP - General Internal Medicine 06/18/14 Lead Technologist In Cytogenetics Relationship Specialty Start Date End Date Acacia De Oliveira MD [address] [facility] [place] [address] PCP - General Internal Medicine 06/18/14 Lead Technologist In Cytogenetics Relationship Specialty Start Date End Date Acacia De Oliveira MD [address] [facility] [place] [address] PCP - General Internal Medicine 06/18/14 Lead Technologist In Cytogenetics Relationship Specialty Start Date End Date Acacia De Oliveira MD [address] [facility] [place] [address] PCP - General Internal Medicine 06/18/14 Lead Technologist In Cytogenetics Relationship Specialty Start Date End Date Acacia De Oliveira MD [address] [place] [address] PCP - General Internal Medicine 06/18/14 Lead Technologist In Cytogenetics Relationship Specialty Start Date End Date Acacia De Oliveira MD [address] [place] [address] PCP - General Internal Medicine 06/18/14 Lead Technologist In Cytogenetics Relationship Specialty Start Date End Date Acacia De Oliveira MD [address] [place] [address] PCP - General Internal Medicine 06/18/14 Lead Technologist In Cytogenetics Relationship Specialty Start Date End Date Acacia De Oliveira MD [address] [place] [address] PCP - General Internal Medicine 06/18/14 Lead Technologist In Cytogenetics Relationship Specialty Start Date End Date Acacia De Oliveira MD [address] [place] [address] PCP - General Internal Medicine 06/18/14 Lead Technologist In Cytogenetics Relationship Specialty Start Date End Date Acacia De Oliveira MD [address] [place] [address] PCP - General Internal Medicine 06/18/14 Lead Technologist In Cytogenetics Relationship Specialty Start Date End Date Acacia De Oliveira MD [address] [place] [address] PCP - General Internal Medicine 06/18/14 Lead Technologist In Cytogenetics Relationship Specialty Start Date End Date Acacia De Oliveira MD [address] [place] [address] PCP - General Internal Medicine 06/18/14 Lead Technologist In Cytogenetics Relationship Specialty Start Date End Date Acacia De Oliveira MD [address] [place] [address] PCP - General Internal Medicine 06/18/14 Lead Technologist In Cytogenetics Relationship Specialty Start Date End Date Acacia De Oliveira MD [address] [place] [address] PCP - General Internal Medicine 06/18/14 Lead Technologist In Cytogenetics Relationship Specialty Start Date End Date Acacia De Oliveira MD [address] [place] [address] PCP - General Internal Medicine 06/18/14 Lead Technologist In Cytogenetics Relationship Specialty Start Date End Date Acacia De Oliveira MD [address] [place] [address] PCP - General Internal Medicine 06/18/14 Lead Technologist In Cytogenetics Relationship Specialty Start Date End Date Acacia De Oliveira MD [address] [place] [address] PCP - General Internal Medicine 06/18/14 Lead Technologist In Cytogenetics Relationship Specialty Start Date End Date Acacia De Oliveira MD [address] [place] [address] PCP - General Internal Medicine 06/18/14 Lead Technologist In Cytogenetics Relationship Specialty Start Date End Date Acacia De Oliveira MD [address] [place] [address] PCP - General Internal Medicine 06/18/14 Annmarie Schroeder PA-C [address] [place] [address] Back Up Worker Family Medicine 05/24/24 Katiuska Gracia APRN.COLLECTION COORDINATOR [address] [place], [place] [address] [facility] Internal Medicine 05/24/24 Aleshia Retana PA-C [address] [place], [place] [address] [facility] Family [facility] 05/24/24 Lead Technologist In Cytogenetics Relationship Specialty Start Date End Date Acacia De Oliveira MD [address] [place], [place] [address] PCP - General Internal Medicine 06/18/14 Katiuska Gracia APRN.COLLECTION COORDINATOR [address] [place], [place] [id number] [facility] Internal [facility] 05/24/24 Lead Technologist In Cytogenetics Relationship Specialty Start Date End Date Acacia De Oliveira MD [address] [place], [place] [id number] PCP - General Internal Medicine 06/18/14 Katiuska Gracia, REHAB SPEC.COLLECTION COORDINATOR [address] [place], [place] [id number] [facility] Internal Medicine 05/24/24 Team Status: Active Member Role Status Dates Dr. Acacia De Oliveira MD Primary Care Provider Active Team Status: Active Member Role Status Dates Dr. Acacia De Oliveira MD Primary Care Provider Active Start: December 10, 2024 Dr. Gifty Gonzalez DO Referring Provider Active Start: December 10, 2024 Dr. Gifty Gonzalez DO Emergency Provider Active Start: December 10, 2024 Dr. Yisel Spain MD Admit Provider Active Star t: December 10, 2024 Dr. Yisel Spain MD Attending Provider Active Start: December 10, 2024 Goals (unrecognized section and content) Goals may be documented in a n alternate section FOR RECORDS PERTAINING TO PATIENTS WHO ARE OR HAVE BEEN ENROLLED IN A CHEMICAL DEPENDENCY/SUBSTANCEABUSE PROGRAM, SOME INFORMATION MAY BE OMITTED. This clinical summary was aggregated from multiple sources. Caution should be exercised in using it in the provision of clinical care. This summary normalizes information from multiple sources, and as a consequence, information in this document may materially change the coding, format and clinical context of patient data. In addition, data may be omitted in some cases. CLINICAL DECISIONS SHOULD BE BASED ON THE PRIMARY CLINICAL RECORDS. [facility]. provides no warranty or guarantee of the accuracy or completeness of information in this document.
[2024-12-11] VITALS (7 sets, daily range): BP systolic 143–148; BP diastolic 77–83; PULSE 70–76; RESP 18–22; TEMP 35.8–36.2; O2SAT 88–96; BMI 33.3
[2024-12-11] MEDS: Albuterol 2.5 MG/3 ML VIAL.NEB. INHALATION (03:37)
[2024-12-11] MEDS: Budesonide Respules 0.5 MG/2 ML AMPUL.NEB. INHALATION (03:37)
[2024-12-11 08:40] LABS: AST(SGOT) 25 U/L (<=37); Alanine Aminotransfer ALT/SGPT 11 U/L (<=46); Albumin, Serum 3.2 g/dL (3.4-4.8); Alkaline Phosphatase 110 U/L (40-129); Anion Gap 12 (5-15); BUN 8 mg/dL (4-19); BUN/Creat Ratio 11.6 RATIO (10-20); Calcium,Total 8.7 mg/dL (7.6-11.0); Carbon Dioxide 21.1 mmol/L (21.0-32.0); Chloride 96 mmol/L (98-108); Creatinine, Serum 0.73 mg/dL (0.70-1.20); EST Glomerular Filtration Rate 99 (>60); Estimated Creatinine Clearance 93.38 ml/min (50-250); Globulin 3.3 g/dL (2.2-4.2); Glucose 97 mg/dL (70-99); Potassium 4.2 mmol/L (3.3-5.1); Protein, Total 6.5 g/dL (5.9-8.4); Sodium Level 129 mmol/L (133-145)
[2024-12-11] MEDS: Folic Acid 1 MG Tablet PO (08:41)
[2024-12-11] MEDS: Multivitamins,Ther W-Minerals Tablet 1 TABLET PO (08:41)
[2024-12-11] MEDS: Thiamine Hydrochloride 100 MG Tablet PO (08:41)
--- NOTE | 2024-12-11 08:41 | PN.HOSP_ITS ---
Reason for Visit Reason for Visit: Diagnoses Heart failure, unspecified (12/10/24) Subjective Subjective Feeling well. Breathing well. Feeling good to go home today. Objective Data Objective Data Vital Signs: Vital Signs Temp Pulse Resp BP Pulse Ox O2 Del Method O2 Flow Rate 36.2 C L 76 22 H 148/83 H 96 Nasal Cannula 2 12/11/24 03:17 12/11/24 03:38 12/11/24 03:38 12/11/24 03:17 12/11/24 03:20 12/11/24 03:20 12/11/24 03:20 Oxygen Flow Rate (L/min) 2 Oxygen Delivery Method Nasal Cannula Weight: 93.7 kg Body Mass Index (BMI) 33.3 Intake & Output: Intake and Output for Last 24 Hours 12/09/24 12/10/24 12/11/24 23:59 23:59 23:59 Intake Total 120 / 120 Output Total 950 / 950 200 / 200 Balance -950 / -950 -80 / -80 Lab / Micro Data 12/11/24 09:32 12/11/24 06:55 Labs: Laboratory Results - last 24 hr 12/10/24 15:15: WBC 5.1, RBC 4.77, Hgb 15.2, Hct 46.0, MCV 96.4 H, MCH 31.9, MCHC 33.0, RDW Std Deviation 46.6 H, RDW Coeff of Migel 13.1, Plt Count 215, MPV 9.2, Immature Gran % (Auto) 0.400, Neut % (Auto) 67.2, Lymph % (Auto) 16.0 L, M mitch % (Auto) 11.6 H, Eos % (Auto) 3.6, Baso % (Auto) 1.2 H, Absolute Neuts (auto) 3.4, Absolute Lymphs (auto) 0.81 L, Nucleated RBC % 0, Sodium 133, Potassium 4.7, Chloride 97 L, Carbon Dioxide 25.0, Anion Gap 11, BUN 8, Creatinine 0.80, Estim Creat Clear Calc 95.21, Est GFR (MDRD) Non-Af 96, BUN/Creatinine Ratio 10.5, Glucose 97, Calcium 8.8, Magnesium 1.9, Troponin T High Sens 41 H, NT pro BNP II 1378 H, TSH 1.640 12/10/24 17:50: Phosphorus 2.6 L, Troponin T Hi Sens 2 Hr 37 H 12/10/24 20:59: Troponin T Hi Sens 4Hr 48 H 12/11/24 06:55: Sodium 129 L, Potassium 4.2, Chloride 96 L, Carbon Dioxide 21.1, Anion Gap 12, BUN 8, Creatinine 0.73, Estim Creat Clear Calc 93.38, Est GFR (MDRD) Non-Af 99, BUN/Creatinine Ratio 11.6, Glucose 97, Calcium 8.7, Total Bilirubin 1.20, AST 25, ALT 11, Alkaline Phosphatase 110, Total Protein 6.5, A lbumin 3.2 L, Globulin 3.3, Albumin/Globulin Ratio 1.0, TSH 1.620 Radiography Diagnostic Testing: Radiology Impression Chest X-Ray 12/10/24 16:33 IMPRESSION: Cardiomegaly with mild congestion. Reading Location: [facility] Chest CTA 12/10/24 17:02 IMPRESSION: 1. No pulmonary embolism. 2. Lung emphysema/COPD. 3.0 cm spiculated nodule of the posterior right lower lobe. Further evaluation with PET-CT or tissue biopsy is recommended. 3. 5 mm nodule of the lateral left upper lobe. Reading Location: [facility] Rhythm Strip Rhythm Strip: A-fib Rate: 126 Ectopy: None Physical Exam Const alert and no apparent distress HEENT head/scalp atraumatic and moist oral mucous membranes Resp normal respiratory effort and no retractions Resp Narrative: Diminished bilaterally. No crackles. Cardio regular rate, regular rhythm, S1 normal heart sound and S2 normal heart sound GI normal to inspection, nondistended, normoactive bowel sounds, soft to palpation, non-tender and non-distended Neuro Sensorium / Orientation: awake and alert Assessment & Plan Assessment/Plan (1) Acute CHF: PLAN: Acute HFpEF. Echo from 2018 showed EF of 60%. Improved overall. CT reviewed and did not really show much in way of pulmonary vascular congestion. His weight has gone down nearly 4 kg since admission. This seems to probably not accurate but patient is reporting that he is feeling better. Will discharge him with increase of his furosemide from 20 to 40 mg daily. (2) COPD exacerbation: PLAN: I feel much of his symptoms are actually more trivial to a COPD exacerbation as his lung sounds are diminished. Will discharge with prednisone burst. PLAN: Plan Hypertension: Stable. Continue lisinopril and metoprolol tartrate. Patient feeling well. He feels comfortable going home.
[2024-12-11] MEDS: Metoprolol Tartrate 25 MG Tablet PO (08:50)
[2024-12-11] MEDS: 0.9% Saline Lock 10 ML Syringe IV (08:51)
[2024-12-11] MEDS: Lisinopril 20 MG Tablet PO (08:51)
[2024-12-11 08:53] LABS: Cholesterol 83 mg/dL (<=200); High Density Lipoprotein 44 mg/dL; Low Density Lipoprotein Calc. 26 mg/dL; Triglycerides 62 mg/dL; Very Low Density Lipoprotein 12 mg/dL (5-40); cholesterol:hdl ratio screen 1.88
[2024-12-11] MEDS: Furosemide 40 MG/4 ML Vial IV (08:54)
[2024-12-11] MEDS: Enoxaparin 40 MG/0.4 ML Syringe SC (08:54)
--- NOTE | 2024-12-11 09:59 | WOUNDNOTE ---
wound photo: right lower leg/foot
--- NOTE | 2024-12-11 10:01 | WOUNDNOTE ---
wound photo: left medial heel
--- NOTE | 2024-12-11 10:02 | WOUNDNOTE ---
wound photo: bilateral lower legs
[2024-12-11 10:09] LABS: Absolute Lymphocyte Count 0.88 X10^3/uL (0.83-4.51); Absolute Neutrophil Count 4.3 X10^3/uL (2.0-7.7); Basophil# 0.06 X10^3/uL; Eosinophil# 0.19 X10^3/uL; Hematocrit 43.5 % (40-54); Hemoglobin 14.4 g/dL (13.0-16.5); Lymphocyte # 0.88 X10^3/ul (0.83-4.51); Mean Corp Hgb Conc 33.1 g/dL (32-36); Mean Corpuscular Hgb 31.8 pg (27.0-32.0); Mean Platelet Vol. 9.2 fl (6.2-12.0); Monocyte# 0.87 X10^3/uL; Monocyte% 13.8 % (0-10); NRBC Flagged by Analyzer 0 % (0-5); Neutrophil # 4.26 X10^3/uL (2.7-7.7); Neutrophil % 67.6 % (47-70); Platelet Count 222 K/mm3 (150-450); RBC Distribution Width CV 13.2 % (11.6-14.6); RBC Distribution Width SD 46.5 fl (35.1-43.9); Red Blood Count 4.53 M/mm3 (4.6-6.2); White Blood Count 6.3 K/mm3 (4.4-11.0)
--- NOTE | 2024-12-11 11:45 | CASEMGMT ---
SHUN HAYES Assessment Face to Face with patient for initial transition planning/care coordination assessment. SHUN HAYES introduced self and role at [facility], pt voices understanding. Pt is A&Ox4 and is resting comfortably in bed and is calm. Care providers, pharmacy, and demographics verified. Admitting dx: HF Exacerbation LACE Strata: 2 PCP: Bret Specialists: Denies Preferred Pharmacy: [facility] Insurance: [employer] Prescription Benefit: Yes LNOK: Brittnee (Sister) Living Arrangements: Pt lives alone in a ground level apartment with 1 step to enter ADLs/IADLs: States indep and denies concerns Transportation: Pt states that his sister drives him and denies concerns DME: Access to a rollator, FWW, BP Machine, Pox, and scale regarding CHF history HHC/SNF: Denies hx or needs Wounds: See axel Sanchez RN notes. At this time, the pt states that he feels safe and comfortable caring for his wound alone at home and denies needs/concerns EtOH: Pt states that he drinks 6 beers/day and denies wanting SW cessation resources Pt?s goal: Home Plan:Home, anticipate no additional needs. At this time, the pt states that he feels safe returning home alone and denies the need for HH, OP Tx, CCN, or any further needs/resources. Pt denies further questions or concerns at this time. Report given to MANAGER OF SOFTWARE DEVELOPMENT CM. Gayle Powell RN, CM
--- NOTE | 2024-12-11 12:05 | DS.PCM_ITS ---
Providers Date of Admission: 12/10/24 Primary Care Physician: Dr. Toshia Queen MD Consultations 12/10/24 20:26 Consult: Onc/Wound/appliance service representative Routine Comment: Reason for Consult:: BL LE chronic venous stasis, lichenification Reason For Visit: HF EXACERBATION Diagnosis Discharge Diagnosis (1) Acute CHF: Status: Acute Code(s): I50.9 - Heart failure, unspecified Plan: Acute HFpEF. Echo from 2018 showed EF of 60%. Improved overall. CT reviewed and did not really show much in way of pulmonary vascular congestion. His weight has gone down nearly 4 kg since admission. This seems to probably not accurate but patient is reporting that he is feeling better. Will discharge him with increase of his furosemide from 20 to 40 mg daily. (2) COPD exacerbation: Status: Chronic Code(s): J44.1 - Chronic obstructive pulmonary disease with (acute) exacerbation Plan: I feel much of his symptoms are actually more trivial to a COPD exacerbation as his lung sounds are diminished. Will discharge with prednisone burst. Plan Hypertension: Stable. Continue lisinopril and metoprolol tartrate. Patient feeling well. He feels comfortable going home. Medications at Discharge Home Medications atorvastatin 80 mg tablet 80 mg PO DAILY cholesterol lowering 12/26/17 clopidogrel 75 mg tablet 75 mg PO DAILY blood 12/26/17 lisinopril 20 mg tablet 20 mg PO BID blood pressure 12/26/17 metoprolol tartrate 25 mg tablet 25 mg PO BID blood pressure 12/26/17 nitroglycerin 0.4 mg sublingual tablet 0.4 mg sublingual Q5M PRN Chest Pain #30 tabs 12/27/17 albuterol sulfate 90 mcg/actuation aerosol inhaler 2 puff inhalation Q6H PRN PRN wheezing 12/10/24 fluticasone 500 mcg-salmeterol 50 mcg/dose blistr powdr for inhalation 1 ea inhalation BID 12/10/24 furosemide 40 mg tablet (Lasix) 40 mg PO DAILY #30 tabs 12/11/24 prednisone 20 mg tablet 40 mg (2 x 20 mg) PO DAILY #10 tabs 12/11/24 Hospital Course Operations None Summary of Care Provided Minutes Spent on Discharge: 32 Hospital Course: Patient presents with shortness of breath. [place] to be initially CHF exacerbation but lung sounds are diminished I feel it is more consistent with a COPD exacerbation given that his CT did not really show much in way of pulmonary vascular congestion but did show diffuse emphysematous disease. Patient was started on IV diuresis while he is here but patient is feeling much better at this time does have decreased lower extremity edema. Patient will be discharged with the increase of his furosemide from 20 to 40 mg daily. Patient also be on a prednisone burst for 5 days. Patient improved much faster than initial anticipated. Weight / BMI Weight Weight: 93.7 kg Body Mass Index (BMI) 33.3 ABG / Lab / Microbiology Data 12/11/24 09:32 12/11/24 06:55 Laboratory: Laboratory Results - last 24 hr 12/10/24 15:15: WBC 5.1, RBC 4.77, Hgb 15.2, Hct 46.0, MCV 96.4 H, MCH 31.9, MCHC 33.0, RDW Std Deviation 46.6 H, RDW Coeff of Migel 13.1, Plt Count 215, MPV 9.2, Immature Gran % (Auto) 0.400, Neut % (Auto) 67.2, Lymph % (Auto) 16.0 L, M mitch % (Auto) 11.6 H, Eos % (Auto) 3.6, Baso % (Auto) 1.2 H, Absolute Neuts (auto) 3.4, Absolute Lymphs (auto) 0.81 L, Nucleated RBC % 0, Sodium 133, Potassium 4.7, Chloride 97 L, Carbon Dioxide 25.0, Anion Gap 11, BUN 8, Creatinine 0.80, Estim Creat Clear Calc 95.21, Est GFR (MDRD) Non-Af 96, BUN/Creatinine Ratio 10.5, Glucose 97, Calcium 8.8, Magnesium 1.9, Troponin T High Sens 41 H, NT pro BNP II 1378 H, TSH 1.640 12/10/24 17:50: Phosphorus 2.6 L, Troponin T Hi Sens 2 Hr 37 H 12/10/24 20:59: Troponin T Hi Sens 4Hr 48 H 12/11/24 06:55: Sodium 129 L, Potassium 4.2, Chloride 96 L, Carbon Dioxide 21.1, Anion Gap 12, BUN 8, Creatinine 0.73, Estim Creat Clear Calc 93.38, Est GFR (MDRD) Non-Af 99, BUN/Creatinine Ratio 11.6, Glucose 97, Calcium 8.7, Total Bilirubin 1.20, AST 25, ALT 11, Alkaline Phosphatase 110, Total Protein 6.5, A lbumin 3.2 L, Globulin 3.3, Albumin/Globulin Ratio 1.0, Triglycerides 62, Cholesterol 83, LDL Cholesterol, Calc 26, VLDL Cholesterol 12, HDL Cholesterol 44, Cholesterol/HDL Ratio 1.88, TSH 1.620 12/11/24 09:32: WBC 6.3, RBC 4.53 L, Hgb 14.4, Hct 43.5, MCV 96.0 H, MCH 31.8, MCHC 33.1, RDW Std Deviation 46.5 H, RDW Coeff of Migel 13.2, Plt Count 222, MPV 9.2, Immature Gran % (Auto) 0.600, Neut % (Auto) 67.6, Lymph % (Auto) 14.0 L, M mitch % (Auto) 13.8 H, Eos % (Auto) 3.0, Baso % (Auto) 1.0, Absolute Neuts (auto) 4.3, Absolute Lymphs (auto) 0.88, Nucleated RBC % 0 Radiography Diagnostic Testing: Radiology Impression Chest X-Ray 12/10/24 16:33 IMPRESSION: Cardiomegaly with mild congestion. Reading Location: [facility] Chest CTA 12/10/24 17:02 IMPRESSION: 1. No pulmonary embolism. 2. Lung emphysema/COPD. 3.0 cm spiculated nodule of the posterior right lower lobe. Further evaluation with PET-CT or tissue biopsy is recommended. 3. 5 mm nodule of the lateral left upper lobe. Reading Location: [facility] D/C Instructions Discharge Diet: - (Fluid restrict 1.5 liters (50 ounces, 6.5 cups) of fluid per day. ) DC O2, CPAP, BIPAP Needs Home O2 Discharge instructions: No Meaningful Use Info Meaningful Use Meaningful Use Diagnoses (Choose all that apply): CHF CHF CHRISTA/ARB ordered at discharge?: Yes Documented LVEF (%): 60 Ischemic Stroke Statin Dosing Therapy Reference: STATIN DOSE THERAPY REFERENCE: * Patients > 75 years receive moderate or high dose statin therapy. * Patients 75 years or YOUNGER should receive HIGH intensity statin dose unless contraindicated. You will be required to document reason for non-treatment if statin daily dose does not meet guidelines. HIGH DOSE STATIN THERAPY DAILY Atorvastatin > than or = to 40 mg Rosuvastatin > than or = to 20 mg Amlodipine + Atorvastatin > than or = to 2.5/40 mg Ezetimibe + Simvastatin 10/80 mg Simvastatin 80mg Discharge Plan Admission Admit Date/Time: 12/10/24 19:02 Primary Reason for Your Visit: Heart failure and COPD exacerbation Attending Provider: Edwin Meredith Primary Care Provider: Toshia Queen Consulting Providers: Yisel Spain Instructions Additional Instructions / Restrictions: You had some fluid buildup which improved with IV Lasix. Also feel he had a flareup of your COPD so I will have you on steroids to help with that over the next few days. If you have increasing shortness of breath, notify your physician or return to the emergency room. With your history of heart failure, I do recommend that you check your weight daily and to notify your physician if you put on more than 2 pounds in 1 day or 3 pounds in 1 week. Discharge Orders/Prescriptions Prescriptions: New furosemide [Lasix] 40 mg tablet 40 mg PO DAILY Qty: 30 0RF prednisone 20 mg tablet 40 mg PO DAILY Qty: 10 0RF Continued atorvastatin 80 MG tablet 80 mg PO DAILY Patient Comments: TAKE ONE TABLET BY MOUTH EVERY DAY lisinopril 20 MG tablet 20 mg PO BID Patient Comments: clopidogrel 75 MG tablet 75 mg PO DAILY Patient Comments: metoprolol tartrate 25 MG tablet 25 mg PO BID Patient Comments: nitroglycerin 0.4 MG tablet 0.4 mg SUBLINGUAL Q5M PRN (Reason: Chest Pain) Qty: 30 1RF fluticasone propion-salmeterol 500-50 mcg/dose blister with device 1 ea INHALATION BID albuterol sulfate 90 mcg/actuation HFA aerosol inhaler 2 puff inhalation Q6H PRN PRN (Reason: wheezing) Discontinued furosemide 20 mg tablet 20 mg PO DAILY Referrals / Follow Up: Toshia Queen MD [Primary Care Provider] - Within 2 Weeks Disposition Disposition (needs filled in before D/C Order can be placed): Home, Self Care Charges/Coding Visit Charges Inpatient E&M: 87339 Disch Hosp >30min
== END 2024-12-11 15:19 | disposition home or self-care (01) | DRG 291 ==
LOC: ED 18:54 → PCU 19:43
PROVIDERS: Family Medicine; Admitting Provider Internal Medicine; Emergency Provider Emergency Medicine; PCP Internal Medicine; Referring Provider Emergency Medicine
DX: I11.0 Hypertensive heart disease with heart failure (principal); I50.31 Acute diastolic (congestive) heart failure; J44.1 Chronic obstructive pulmonary disease with (acute) exacerbation; F10.10 Alcohol abuse, uncomplicated; E66.9 Obesity, unspecified; I48.0 Paroxysmal atrial fibrillation; I25.10 Atherosclerotic heart disease of native coronary artery without angina pectoris; I87.8 Other specified disorders of veins; E78.5 Hyperlipidemia, unspecified; I25.2 Old myocardial infarction; I89.0 Lymphedema, not elsewhere classified; Y90.9 Presence of alcohol in blood, level not specified; R91.8 Other nonspecific abnormal finding of lung field; Z68.34 Body mass index [BMI] 34.0-34.9, adult; Z95.5 Presence of coronary angioplasty implant and graft; Z79.02 Long term (current) use of antithrombotics/antiplatelets; Z79.51 Long term (current) use of inhaled steroids; Z79.899 Other long term (current) drug therapy; Z87.891 Personal history of nicotine dependence
CPT/HCPCS: 36415; 71046; 71275; 80048; 80053; 80061; 83735; 83880; 84100; 84443; 84484; 85025; 93005; 93306; 94640; 97802; 99285; Q9967; A4216; J1938